=== PATIENT | female | born 1960 | race Caucasian/White ===

== ENCOUNTER 2017-08-12 09:18 | Inpatient (IN) | payer MEDICARE ==
[~2017-08-12] VITALS: Ht 160 cm; Wt 104.8 kg
[2017-08-12] MEDS ORDERED: ALBUTEROL/IPRATROPIUM 3 ML NEB NEB ONE (09:30)
[2017-08-12] MEDS ORDERED: METHYLPREDNISOLONE SOD SUCC 40 MG/ML VIAL IV ONE (10:00)
[2017-08-12 10:06] LABS: BASOPHILS # (AUTO) 0.1 (0.0-0.1); BASOPHILS % 0.7 % (0.0-1.0); EOSINOPHILS % 0.4 % (0.0-6.0); HEMATOCRIT 36.8 % (34.2-44.1); HEMOGLOBIN 11.3 g/dL (12.0-16.0); LYMPHOCYTES # (AUTO) 0.8 (1.0-3.2); LYMPHOCYTES % 9.5 % (18.0-39.1); MEAN CORPUSCULAR HEMOGLOBIN 31.7 pg (28-32); MEAN CORPUSCULAR HGB CONC 30.7 g/dL (31-35); MEAN CORPUSCULAR VOLUME 103.4 fL (81-99); MONOCYTES # (AUTO) 0.7 (0.2-0.8); MONOCYTES % 8.7 % (4.4-11.3); NEUTROPHILS # (AUTO) 6.2 (2.1-6.9); NEUTROPHILS % 77.5 % (38.7-80.0); PLATELET COUNT 194 x10e3/uL (140-360); RED BLOOD COUNT 3.56 x10e6/uL (3.6-5.1); RED CELL DISTRIBUTION WIDTH 16.1 % (11.7-14.4)
[2017-08-12 10:22] LABS: INR 1.12
[2017-08-12 10:23] LABS: PARTIAL THROMBOPLASTIN TIME 31.5 seconds (23.8-35.5)
--- NOTE | 2017-08-12 10:25 | Diagnostic Imaging Report ---
EXAMINATION: CHEST SINGLE (PORTABLE) INDICATION: Shortness of breath, line placement \S\ERMD ORDER \S\[id number] \S\1001 \S\Y COMPARISON: None FINDINGS: AP view TUBES and LINES: Right IJ central venous catheter with tip overlying the cavoatrial junction. LUNGS: Low lung volumes. Bilateral pulmonary edema. Bibasilar atelectasis. Both costophrenic angles not included on this exam. PLEURA: Unable to evaluate the small pleural effusions but no large pleural effusions seen. No pneumothorax on limited evaluation. HEART AND MEDIASTINUM: Marked enlargement of the cardiac silhouette may be due to cardiomegaly and/or pericardial effusion. BONES AND SOFT TISSUES: No acute osseous lesion. Soft tissues are unremarkable. UPPER ABDOMEN: No free air under the diaphragm. IMPRESSION: Right adjacent and venous catheter with tip overlying the cavoatrial junction. Marked enlargement of the cardiac silhouette due to cardiomegaly and/or pericardial effusion. Bilateral pulmonary edema. Signed by: Dr. Jeannette Rivas M.D. on 08/12/2017 10:21 AM
[2017-08-12 10:29] LABS: ALBUMIN 3.1 g/dL (3.5-5.0); ALBUMIN/GLOBULIN RATIO 0.8 (0.8-2.0); ANION GAP 12.1 mmol/L (8-16); CALCIUM 9.2 mg/dL (8.4-10.2); CREATININE, SERUM 2.09 mg/dL (0.57-1.11); POTASSIUM 5.1 mmol/L (3.5-5.1)
[2017-08-12 10:33] LABS: B-TYPE NATRIURETIC PEPTIDE2 1909.5 pg/mL (0-100)
[2017-08-12 10:35] LABS: CREATINE KINASE MB 2.9 ng/mL (0.00-5.00)
[2017-08-12] MEDS ORDERED: FUROSEMIDE INJ 10 MG/ML 4 ML VIAL IV ONE (10:45)
[2017-08-12] MEDS ORDERED: ETOMIDATE 2 MG/ML 10 ML INJ IV ONE ×2 (10:45→13:00)
[2017-08-12] MEDS ORDERED: SUCCINYLCHOLINE CHLORIDE 20 MG/ML 10ML VIAL ONE (10:46)
[2017-08-12] MEDS ORDERED: ETOMIDATE 2 MG/ML 10 ML INJ IV STA (10:49)
[2017-08-12] MEDS ORDERED: SUCCINYLCHOLINE CHLORIDE 20 MG/ML 10ML VIAL IV STA (10:50)
[2017-08-12 11:08] LABS: ABG PH 7.28 (7.31-7.41)
[2017-08-12 11:09] LABS: ABG HCO3 39 mmol/L (23-28); ABG PCO2 82 mmHg (41-51); ABG PO2 109 mmHg (80-105)
[2017-08-12 11:10] LABS: BAND NEUTROPHILS % (MANUAL) 12 %; LYMPHOCYTES % (MANUAL) 10 % (19-48); MONOCYTES % (MANUAL) 9 % (3.4-9.0); NEUTROPHILS % (MANUAL) 69 % (40-74); PLATELET ESTIMATE ADEQUATE; PLATELET MORPHOLOGY COMMENT NORMAL; RBC MORPHOLOGY COMMENT NORMAL
[2017-08-12] MEDS: PROPOFOL IV EMULSION 10MG/ML 100 ML IV STA ×2 (11:16→11:28)
[2017-08-12] MEDS ORDERED: PROPOFOL IV EMULSION 10MG/ML 100 ML ONE ×2 (11:17→15:27)
--- NOTE | 2017-08-12 11:19 | Diagnostic Imaging Report ---
EXAMINATION: CHEST SINGLE (PORTABLE) INDICATION: \S\intubation \S\[id number] \S\1100 COMPARISON: Chest radiograph from 08/12/2017 FINDINGS: AP view TUBES and LINES: Interval intubation with endotracheal tube tip located 2.1 cm above the john. Right IJ central venous catheter with tip now overlying the upper SVC, this appears higher when compared to most recent chest radiograph. LUNGS: No lumbar levels. Worsening bilateral pulmonary edema. Superimposed infection cannot be excluded. PLEURA: No pleural effusion or pneumothorax. HEART AND MEDIASTINUM: Marked enlargement of the cardiac silhouette may be due to cardiomegaly and/or pericardial effusion. BONES AND SOFT TISSUES: No acute osseous lesion. Soft tissues are unremarkable. UPPER ABDOMEN: No free air under the diaphragm. IMPRESSION: Interval intubation. Right IJ central venous catheter tip is higher in the SVC now. Worsening bilateral pulmonary edema. Superimposed infection cannot be excluded. Signed by: Dr. Jeannette Rivas M.D. on 08/12/2017 11:15 AM
[2017-08-12] MEDS ORDERED: LEVOFLOXACIN 750MG/D5W 150ML 150 ML IV ONE (12:00)
[2017-08-12] MEDS ORDERED: PROPOFOL IV EMULSION 10MG/ML 100 ML IV ONE (12:00)
[2017-08-12 12:22] LABS: BILIRUBIN,URINE 1+ (NEGATIVE); CLARITY,URINE HAZY (CLEAR); COLOR,URINE YELLOW (YELLOW); KETONES,URINE NEGATIVE (NEGATIVE); LEUKOCYTE ESTERASE ,URINE NEGATIVE (NEGATIVE); NITRITE,URINE NEGATIVE (NEGATIVE); URINE UROBILINOGEN 1 mg/dL (0.2 - 1)
[2017-08-12 12:23] LABS: PROTEIN,URINE DIPSTICK 1+ (NEGATIVE)
[2017-08-12 12:35] LABS: AMORPHOUS SEDIMENT,URINE MANY (FEW); EPITHELIAL CELLS,URINE FEW /LPF; RBC,URINE 0-5 /HPF (0-5); WBC,URINE (MAN) 0-5 /HPF (0-5)
[2017-08-12] MEDS ORDERED: CEFTRIAXONE SOD 1 GM/NS 50 ML 50 ML IV SCH (13:30)
[2017-08-12] MEDS ORDERED: CEFTRIAXONE SOD 1 GM VIAL IV SCH (13:30)
[2017-08-12] MEDS: PROPOFOL IV EMULSION 10MG/ML 100 ML IV PRN ×2 (15:24→19:00)
[2017-08-12] MEDS: ALBUTEROL/IPRATROPIUM 3 ML NEB NEB SCH ×3 (15:40→22:45)
[2017-08-12 15:41] LABS: ABG HCO3 38 mmol/L (23-28); ABG PCO2 44 mmHg (41-51); ABG PH 7.55 (7.31-7.41); ABG PO2 64 mmHg (80-105)
--- NOTE | 2017-08-12 15:47 | History and Physical ---
PRIMARY CARE PROVIDER: Dr. Shaheen Matias CHIEF COMPLAINT: Respiratory failure. HISTORY OF PRESENT ILLNESS: Ms. Jose is a 57-year-old who presented with acute shortness of breath that started in the last couple of days with wheezing and dyspnea on exertion and marked respiratory distress. She was becoming somnolent here in the ER. ABG showed a pCO2 of 82 and a pH of 7.28. The patient was urgently intubated for acute respiratory failure due to hypercapnia. REVIEW OF SYSTEMS: Unobtainable as the patient is intubated. PAST MEDICAL HISTORY: Significant for COPD is all we know. MEDICATIONS: We have no list of home meds. Unclear if the patient has any kind of surgical history. PAST MEDICAL HISTORY: Her family with her son denied any history of hypertension or diabetes. ALLERGIES: SHE HAS NO KNOWN DRUG ALLERGIES. FAMILY HISTORY: Unremarkable. SOCIAL HISTORY: Again, unknown at this time. PHYSICAL EXAMINATION PSYCHIATRIC: Is unobtainable. Patient is sedated. She is morbidly obese. VITAL SIGNS: Blood pressure 122/59. She was not hypotensive at any time. Pulse is 94. She was a little more tachycardic around 114 on arrival. Temperature is 98.5, respiratory rate 30, O2 100% on the ventilator. HEENT: Her head is atraumatic. Eyes are anicteric with clear conjunctivae. Ears and nares are without erythema or discharge. She is orally intubated. NECK: Supple. No mass or thyromegaly. LYMPHATIC SYSTEM: She has no palpable cervical, axillary or inguinal adenopathy. CARDIOVASCULAR: Her heart has a regular rate and rhythm with frequent PACs and PVCs. She has no carotid bruit. She has no peripheral edema. Weak dorsal pedal pulses. RESPIRATORY: Reveals coarse breath sounds with some expiratory wheezing. She is currently being ventilated on assist control. GASTROINTESTINAL: Abdomen is soft without organomegaly, masses or tenderness. She has normal bowel sounds present. CUTANEOUS: Her skin is warm and dry to touch with no rash or skin breakdown. MUSCULOSKELETAL: Her joints are in normal alignment without erythema or swelling. She has no calf tenderness. NEUROLOGIC: Nonfocal. She is moving all extremities. She is sedated and not following commands. DIAGNOSTIC STUDIES: Initial chest x-ray showed cardiomegaly and pulmonary edema. Subsequent chest x-ray showed intubation and worsening in the pulmonary edema. Her UA is clear. Flu screen is negative. Her EKG is read as AFib/flutter, but actually appears to be normal sinus rhythm, clear P-waves and a rate of 75. It is unlikely to be a flutter. Her lactic acid is 6.2. BNP 1909.2. Troponin 0.081. Blood gas shows a pH of 7.28, 82 CO2 and 109 O2. Her chemistry shows normal electrolytes. CO2 is 36, creatinine 2.09, BUN 45 for a GFR of 24. Calcium 9.2. Glucose 143. Transaminases, bilirubin and alk phos were normal. CBC shows a white count of 8.03 with 69% neutrophils, 12% band forms, 10% lymphocytes, 9% monocytes. Hemoglobin 11.3, hematocrit 36.8, and platelet count 194,000. Coags are normal. IMPRESSION AND PLAN 1. Acute respiratory failure: The patient is being admitted to the intensive care unit on ventilator support. Pulmonology will be consulted for ventilator management. 2. Acute exacerbation of chronic obstructive pulmonary disease: The patient will be receiving aggressive nebulizer treatments, intravenous Solu-Medrol, intravenous Zithromax, and Rocephin. 3. Pxnof-ff-olwmsjw systolic heart failure: The patient is started on intravenous Lasix q.8 h. We have no old records here. Will obtain an echocardiogram to assess left ventricular function. 4. Acute kidney injury versus chronic kidney disease: The patient's renal function will be monitored while the patient is receiving Lasix. Will consider nephrology consult. 5. Hyperglycemia without history of diabetes: Will check hemoglobin A1c and place the patient on sliding scale insulin. 6. For prophylaxis, the patient will be on heparin for deep venous thrombosis prophylaxis and Pepcid for gastrointestinal prophylaxis. Job#: [id number] SETH
[2017-08-12] MEDS: AZITHROMYCIN 500MG/NS 250 ML 250 ML IV SCH (16:40)
[2017-08-12] MEDS: HEPARIN SOD (PORCINE) 5,000 UNIT/ML VIAL SC SCH ×2 (16:43→20:27)
[2017-08-12] MEDS: FAMOTIDINE 20 MG/2 ML VIAL IV SCH ×2 (16:43→20:27)
[2017-08-12] MEDS ORDERED: DEXTROSE 50% SYRINGE 50 ML IV PRN (17:00)
[2017-08-12] MEDS ORDERED: FUROSEMIDE INJ 10 MG/ML 4 ML VIAL IV SCH (17:00)
[2017-08-12] MEDS: FUROSEMIDE INJ 10 MG/ML 4 ML VIAL IV SCH ×2 (19:00→20:27)
[2017-08-12 19:38] LABS: CREATINE KINASE MB 1.7 ng/mL (0.00-5.00)
[2017-08-12 20:20] VITALS: BP 129/77
[2017-08-12] MEDS: METHYLPREDNISOLONE SOD SUCC 40 MG/ML VIAL IV SCH (20:27)
[2017-08-12] MEDS: INSULIN REGULAR, HUMAN 100 UNIT/1 ML 3ML VIAL SQ SCH (20:27)
[2017-08-13] VITALS (52 sets, daily range): BP systolic 105–148; BP diastolic 54–99
[2017-08-13] MEDS: ACETAMINOPHEN 325 MG/10 ML UDC NG PRN ×2 (00:05→04:57)
--- NOTE | 2017-08-13 02:26 | Consultation ---
DATE OF CONSULTATION: August 12, 2017 PULMONARY CRITICAL CARE CONSULTATION REASON FOR CONSULT: ICU management and respiratory failure. HPI: Ms. Jose is a 57-year-old female, patient of Dr. Matias, who presented with worsening dyspnea and shortness of breath. Patient was intubated in the emergency room. Chest x-ray is showing evidence of fluid overload and large pulmonary vasculature. Patient is morbidly obese. Currently, sedated and intubated. The source of history is the chart and the patient's daughter. Per daughter, the patient has a history of obstructive sleep apnea. She has been a smoker for 45 years and quit a year ago. She also has a history of heart failure. She uses home oxygen. She was intubated 2 months ago at [facility] with similar problems. She is noncompliant with CPAP at home. Currently, living in a hotel as she is displaced from [place]. REVIEW OF SYSTEMS: Unable to elicit any as the patient is intubated and sedated. PAST MEDICAL HISTORY: Obesity, obstructive sleep apnea, congestive heart failure, hypertension, and diabetes. FAMILY AND SOCIAL HISTORY: Ex-smoker. Smoked for 45 years. Patient does not drink. No alcohol history. PHYSICAL EXAMINATION VITAL SIGNS: Temperature 98.5, pulse of 85, blood pressure 135/75, respiratory rate of 18. SKIN: Warm and dry. HEENT: Head is atraumatic and normocephalic. Pupils reactive. She is intubated and morbidly obese. NECK: Supple. CHEST: Clear to auscultation bilaterally. Crackles on the bases. HEART: S1 and S2 audible. ABDOMEN: Soft, nontender and nondistended. EXTREMITIES: Pedal edema. NEUROLOGIC: Sedated and intubated. LABS: White count of 8000, hemoglobin 11.3 and platelets 194,000. Chemistry: Sodium 141, potassium 5.1, chloride 98, BUN 45, creatinine 2.09. AST and ALT normal. Chest x-ray: I have reviewed the images and is showing evidence of pulmonary edema with possibility of pneumonia as well. BNP is 1900. ASSESSMENT AND PLAN: Ms. Jose is a 57-year-old female who presented acute hypoxic respiratory failure. Patient has a history of chronic hypoxia, chronic obstructive pulmonary disease, obstructive sleep apnea, likely obesity hypoventilation. In looking at her body habitus, she is morbidly obese. CURRENT PROBLEMS 1. Qlolj-fa-uahbefj hypoxic and hypercapnic respiratory failure: Arterial blood gas done in the emergency room showed pCO2 of 82 and pH of 7.28. 2. Morbid obesity. 3. History of obstructive sleep apnea. 4. Likely has chronic obstructive pulmonary disease: Ex-smoker, [id number] smoking history. 5. Possibility of congestive heart failure and pulmonary hypertension as well. 6. Possible pneumonia. PLAN 1. Continue the patient on ventilator support. Currently, on FIO2 of 100% and PEEP of 5. I have changed the PEEP to 8 and decreased the FIO2 to 90% to wean the oxygen to keep the O2 sat more than or equal to 92%. 2. Agree with IV Rocephin, azithromycin and Solu-Medrol. 3. Lasix 40 mg IV q.8 h. 4. DuoNeb treatment. 5. Continue the patient on heparin subcutaneous for DVT prophylaxis. 6. Acute kidney injury is likely due to fluid overload. Hopefully, will improve with diuresis. Discussed with the patient's daughter at bedside in detail. Critical care time 45 minutes. Job#: [id number] [place]
[2017-08-13] MEDS: ALBUTEROL/IPRATROPIUM 3 ML NEB NEB SCH ×6 (03:30→23:53)
[2017-08-13 04:32] LABS: BASOPHILS % 0.2 % (0.0-1.0); HEMOGLOBIN 10.9 g/dL (12.0-16.0); LYMPHOCYTES # (AUTO) 0.5 (1.0-3.2); LYMPHOCYTES % 4.2 % (18.0-39.1); MEAN CORPUSCULAR HEMOGLOBIN 32.1 pg (28-32); MONOCYTES # (AUTO) 0.6 (0.2-0.8); MONOCYTES % 5.2 % (4.4-11.3); NEUTROPHILS # (AUTO) 9.5 (2.1-6.9); NEUTROPHILS % 89.6 % (38.7-80.0); PLATELET COUNT 233 x10e3/uL (140-360)
[2017-08-13 04:36] LABS: MEAN CORPUSCULAR VOLUME 97.1 fL (81-99)
[2017-08-13 04:50] LABS: ALBUMIN 2.7 g/dL (3.5-5.0); ALBUMIN/GLOBULIN RATIO 0.7 (0.8-2.0); ANION GAP 16.5 mmol/L (8-16); CALCIUM 8.9 mg/dL (8.4-10.2); CREATININE, SERUM 2.1 mg/dL (0.57-1.11)
[2017-08-13 05:07] LABS: POTASSIUM 3.5 mmol/L (3.5-5.1)
[2017-08-13 05:25] LABS: CREATINE KINASE MB 0.9 ng/mL (0.00-5.00)
[2017-08-13] MEDS: FUROSEMIDE INJ 10 MG/ML 4 ML VIAL IV SCH ×3 (06:25→21:55)
[2017-08-13] MEDS: INSULIN REGULAR, HUMAN 100 UNIT/1 ML 3ML VIAL SQ SCH ×2 (07:30→11:30)
--- NOTE | 2017-08-13 07:36 | Diagnostic Imaging Report ---
Examination: Single AP view of the chest. COMPARISON: August 12, 2017 INDICATION: Respiratory failure DISCUSSION: Lines/tubes: Stable endotracheal tube, enteric tube, and right IJ catheter. Lungs: Stable interstitial and alveolar consolidation bilaterally. Pleura: Layering effusions. Heart and mediastinum: Heart size enlarged. Bones and soft tissues: No acute bony abnormalities. IMPRESSION: 1. Cardiomegaly with stable pulmonary edema. Correlate for underlying pneumonia. Signed by: Dr. Demar Wilder M.D. on 08/13/2017 7:32 AM
[2017-08-13 08:55] LABS: MAGNESIUM 1.6 MG/DL (1.3-2.1)
[2017-08-13] MEDS: PROPOFOL IV EMULSION 10MG/ML 100 ML IV PRN ×5 (09:01→21:30)
[2017-08-13 09:15] LABS: B-TYPE NATRIURETIC PEPTIDE2 693.7 pg/mL (0-100)
[2017-08-13] MEDS: FAMOTIDINE 20 MG/2 ML VIAL IV SCH ×2 (09:19→21:55)
[2017-08-13] MEDS: METHYLPREDNISOLONE SOD SUCC 40 MG/ML VIAL IV SCH (09:19)
[2017-08-13] MEDS: HEPARIN SOD (PORCINE) 5,000 UNIT/ML VIAL SC SCH ×2 (09:19→21:55)
[2017-08-13 11:04] LABS: FREE T4 (FREE THYROXINE) 1.66 ng/dL (0.9-1.8); THYROID STIMULATING HORMONE 0.507 uIU/mL (0.350-4.940)
[2017-08-13 11:22] LABS: FOLATE 19.1 ng/mL (7.0-15.4)
[2017-08-13] MEDS ORDERED: DEXTROSE 50% SYRINGE 50 ML IV PRN (11:45)
[2017-08-13] MEDS ORDERED: INSULIN REGULAR, HUMAN 3ML VL 100 UNIT in SODIUM CHLORIDE 0.9% 100 ML IV SCH ×2 (12:30)
[2017-08-13] MEDS ORDERED: POTASSIUM CHLORIDE 20MEQ/100ML 200 ML IV ONE (13:00)
[2017-08-13] MEDS: AZITHROMYCIN 500MG/NS 250 ML 250 ML IV SCH (13:45)
[2017-08-13] MEDS: INSULIN DETEMIR 100 UNIT/ML PEN SQ SCH ×2 (13:45→21:55)
[2017-08-13] MEDS ORDERED: SODIUM CHLORIDE 0.9% 250ML 250 ML ONE (13:47)
--- NOTE | 2017-08-13 17:21 | Diagnostic Imaging Report ---
Exam:Abdominal radiograph one view History:Enteric tube placement Comparison: None available Findings:See impression Impression: Nonobstructive bowel gas pattern. Enteric tube with the distal tip left hemiabdomen presumably in the lateral stomach body. Signed by: Dr. Demar Wilder M.D. on 08/13/2017 5:18 PM
[2017-08-13] MEDS ORDERED: POTASSIUM CHLORIDE 20MEQ/100ML 100 ML ONE (17:40)
[2017-08-13] MEDS ORDERED: INSULIN REGULAR, HUMAN 100 UNIT/1 ML 3ML VIAL ONE (18:01)
[2017-08-13] MEDS ORDERED: INSULIN REGULAR, HUMAN 100 UNIT/1 ML 3ML VIAL SQ SCH (21:00)
[2017-08-13] MEDS ORDERED: METHYLPREDNISOLONE SOD SUCC 40 MG/ML VIAL IV SCH (21:00)
[2017-08-14] VITALS (91 sets, daily range): BP systolic 97–147; BP diastolic 52–88
[2017-08-14] MEDS: PROPOFOL IV EMULSION 10MG/ML 100 ML IV PRN ×8 (01:20→23:00)
[2017-08-14] MEDS: ALBUTEROL/IPRATROPIUM 3 ML NEB NEB SCH ×6 (03:50→23:14)
[2017-08-14] MEDS: FUROSEMIDE INJ 10 MG/ML 4 ML VIAL IV SCH ×3 (05:33→22:00)
[2017-08-14 05:38] LABS: BASOPHILS % 0.1 % (0.0-1.0); HEMATOCRIT 34.3 % (34.2-44.1); HEMOGLOBIN 11.1 g/dL (12.0-16.0); LYMPHOCYTES # (AUTO) 0.6 (1.0-3.2); LYMPHOCYTES % 6.6 % (18.0-39.1); MEAN CORPUSCULAR HEMOGLOBIN 31.7 pg (28-32); MEAN CORPUSCULAR HGB CONC 32.4 g/dL (31-35); MONOCYTES # (AUTO) 0.5 (0.2-0.8); MONOCYTES % 4.8 % (4.4-11.3); NEUTROPHILS # (AUTO) 8.4 (2.1-6.9); PLATELET COUNT 238 x10e3/uL (140-360); RED CELL DISTRIBUTION WIDTH 17.1 % (11.7-14.4)
[2017-08-14 05:48] LABS: ANION GAP 14.4 mmol/L (8-16); CALCIUM 8.8 mg/dL (8.4-10.2); CREATININE, SERUM 2.2 mg/dL (0.57-1.11); POTASSIUM 3.4 mmol/L (3.5-5.1)
[2017-08-14] MEDS: INSULIN REGULAR, HUMAN 100 UNIT/1 ML 3ML VIAL SQ SCH ×3 (06:27→18:38)
[2017-08-14] MEDS: INSULIN DETEMIR 100 UNIT/ML PEN SQ SCH ×2 (10:23→21:10)
[2017-08-14] MEDS: FAMOTIDINE 20 MG/2 ML VIAL IV SCH ×2 (10:23→20:51)
[2017-08-14] MEDS: METHYLPREDNISOLONE SOD SUCC 40 MG/ML VIAL IV SCH ×2 (10:23→20:51)
[2017-08-14] MEDS: HEPARIN SOD (PORCINE) 5,000 UNIT/ML VIAL SC SCH ×2 (10:24→21:10)
--- NOTE | 2017-08-14 11:20 | Diagnostic Imaging Report ---
PROCEDURE: A single AP view of the chest. COMPARISON: 08/13/17 INDICATIONS: INTUBATION FINDINGS: Lines/tubes: Stable endotracheal and nasogastric tubes. Stable right internal jugular central line. Lungs: Limited by low lung volumes and body habitus. Central vascular congestion and mild interstitial edema. Pleura: There is no visible pneumothorax. Trace bilateral pleural effusions suspected. Heart and mediastinum: Enlarged cardiomediastinal silhouette. Aorta is calcified and mildly tortuous. Bones: No acute bony abnormality. IMPRESSION: No significant interval change from prior exam. Central vascular congestion and mild interstitial edema. Enlarged cardiac silhouette and suspected trace bilateral pleural effusions. Dictated by: Luis Lakhani M.D. on 08/14/2017 at 11:29 Electronically approved by: Luis Lakhani M.D. on 08/14/2017 at 11:29
[2017-08-14] MEDS: AZITHROMYCIN 500MG/NS 250 ML 250 ML IV SCH (15:39)
[2017-08-15] VITALS (65 sets, daily range): BP systolic 85–166; BP diastolic 43–145
[2017-08-15] MEDS: INSULIN REGULAR, HUMAN 100 UNIT/1 ML 3ML VIAL SQ SCH ×4 (00:01→18:00)
[2017-08-15] MEDS: ALBUTEROL/IPRATROPIUM 3 ML NEB NEB SCH ×6 (00:15→19:15)
[2017-08-15] MEDS: PROPOFOL IV EMULSION 10MG/ML 100 ML IV PRN (01:20)
[2017-08-15 05:59] LABS: BASOPHILS % 0.1 % (0.0-1.0); HEMOGLOBIN 11.7 g/dL (12.0-16.0); LYMPHOCYTES # (AUTO) 1.2 (1.0-3.2); LYMPHOCYTES % 10.9 % (18.0-39.1); MEAN CORPUSCULAR HEMOGLOBIN 31.5 pg (28-32); MEAN CORPUSCULAR HGB CONC 31.6 g/dL (31-35); MEAN CORPUSCULAR VOLUME 99.5 fL (81-99); MONOCYTES # (AUTO) 0.5 (0.2-0.8); NEUTROPHILS # (AUTO) 8.8 (2.1-6.9); NEUTROPHILS % 83.4 % (38.7-80.0); PLATELET COUNT 265 x10e3/uL (140-360); RED BLOOD COUNT 3.72 x10e6/uL (3.6-5.1); RED CELL DISTRIBUTION WIDTH 17.2 % (11.7-14.4)
[2017-08-15 06:24] LABS: ANION GAP 16.1 mmol/L (8-16); CREATININE, SERUM 2.02 mg/dL (0.57-1.11); MAGNESIUM 2.4 MG/DL (1.3-2.1); POTASSIUM 4.1 mmol/L (3.5-5.1)
[2017-08-15] MEDS: FUROSEMIDE INJ 10 MG/ML 4 ML VIAL IV SCH ×2 (06:27→13:33)
[2017-08-15 07:15] LABS: LYMPHOCYTES % (MANUAL) 7 % (19-48); MONOCYTES % (MANUAL) 2 % (3.4-9.0); NEUTROPHILS % (MANUAL) 89 % (40-74)
[2017-08-15 07:16] LABS: PLATELET ESTIMATE ADEQUATE; PLATELET MORPHOLOGY COMMENT NORMAL; RBC MORPHOLOGY COMMENT NORMAL
--- NOTE | 2017-08-15 08:27 | Diagnostic Imaging Report ---
PROCEDURE: A single AP view of the chest. COMPARISON: Portable chest 08/14/2017. INDICATIONS: Respiratory failure, Intubated FINDINGS: Lines/tubes: Right internal jugular temporary central venous catheter with tip projecting over the expected region of the superior vena cava. Endotracheal catheter is present with the tip projecting over the expected region of the trachea, positioned 4 cm from the john. Enteric feeding catheter with tip extending below the inferior margin of the examination, likely within the gastric body. Lungs: Airspace opacity in the left lung base. No parenchymal mass. Pleura: There is no pleural effusion or pneumothorax. Heart and mediastinum: The heart and the mediastinum are unremarkable. Bones: Degenerative changes of the thoracic spine. IMPRESSION: Airspace opacity in the left lung base may represent atelectasis or developing pneumonia. Dictated by: Pranav Raymond M.D. on 08/15/2017 at 8:36 Electronically approved by: Pranav Raymond M.D. on 08/15/2017 at 8:36
[2017-08-15 08:31] LABS: ABG HCO3 47 mmol/L (23-28); ABG PCO2 64 mmHg (41-51); ABG PH 7.47 (7.31-7.41); ABG PO2 64 mmHg (80-105)
[2017-08-15] MEDS ORDERED: ACETAZOLAMIDE SODIUM 500 MG/VIAL IV ONE (09:45)
[2017-08-15] MEDS ORDERED: FUROSEMIDE INJ 10 MG/ML 4 ML VIAL IV ONE (09:45)
[2017-08-15] MEDS: HEPARIN SOD (PORCINE) 5,000 UNIT/ML VIAL SC SCH ×2 (10:00→20:41)
[2017-08-15] MEDS: FAMOTIDINE 20 MG/2 ML VIAL IV SCH ×2 (10:00→20:38)
[2017-08-15] MEDS: INSULIN DETEMIR 100 UNIT/ML PEN SQ SCH ×2 (10:00→20:53)
[2017-08-15] MEDS: METHYLPREDNISOLONE SOD SUCC 40 MG/ML VIAL IV SCH ×2 (10:00→20:38)
[2017-08-15] MEDS: AZITHROMYCIN 500MG/NS 250 ML 250 ML IV SCH (13:32)
[2017-08-15] MEDS ORDERED: DEXMEDETOMIDINE HCL 200 MCG in SODIUM CHLORIDE 0.9% 50ML 48 ML IV PRN (16:30)
[2017-08-15] MEDS ORDERED: FUROSEMIDE INJ 10 MG/ML 4 ML VIAL IV SCH (21:00)
[2017-08-15] MEDS ORDERED: ACETAMINOPHEN 325 MG SUPP PR PRN (22:30)
[2017-08-16] VITALS (25 sets, daily range): BP systolic 107–189; BP diastolic 57–105
[2017-08-16] MEDS: ALBUTEROL/IPRATROPIUM 3 ML NEB NEB SCH ×7 (00:15→20:30)
[2017-08-16] MEDS: INSULIN REGULAR, HUMAN 100 UNIT/1 ML 3ML VIAL SQ SCH ×4 (05:32→17:08)
[2017-08-16 06:08] LABS: BASOPHILS % 0.2 % (0.0-1.0); HEMATOCRIT 41.5 % (34.2-44.1); HEMOGLOBIN 12.7 g/dL (12.0-16.0); LYMPHOCYTES # (AUTO) 1.4 (1.0-3.2); LYMPHOCYTES % 13.1 % (18.0-39.1); MEAN CORPUSCULAR HEMOGLOBIN 31.4 pg (28-32); MEAN CORPUSCULAR HGB CONC 30.6 g/dL (31-35); MEAN CORPUSCULAR VOLUME 102.5 fL (81-99); MONOCYTES # (AUTO) 0.5 (0.2-0.8); MONOCYTES % 4.5 % (4.4-11.3); NEUTROPHILS # (AUTO) 8.5 (2.1-6.9); NEUTROPHILS % 81.6 % (38.7-80.0); PLATELET COUNT 261 x10e3/uL (140-360); RED BLOOD COUNT 4.05 x10e6/uL (3.6-5.1); RED CELL DISTRIBUTION WIDTH 17.2 % (11.7-14.4)
[2017-08-16 06:39] LABS: CALCIUM 9.4 mg/dL (8.4-10.2); CREATININE, SERUM 2.11 mg/dL (0.57-1.11); MAGNESIUM 2.6 MG/DL (1.3-2.1)
[2017-08-16] MEDS: METHYLPREDNISOLONE SOD SUCC 40 MG/ML VIAL IV SCH ×2 (08:28→21:15)
[2017-08-16] MEDS: FAMOTIDINE 20 MG/2 ML VIAL IV SCH ×2 (08:28→21:15)
[2017-08-16] MEDS: INSULIN DETEMIR 100 UNIT/ML PEN SQ SCH ×2 (08:29→21:16)
[2017-08-16] MEDS: HEPARIN SOD (PORCINE) 5,000 UNIT/ML VIAL SC SCH ×2 (08:29→21:16)
[2017-08-16] MEDS ORDERED: DEXTROSE 5% 500ML 500 ML IV SCH (08:30)
[2017-08-16 08:44] LABS: LYMPHOCYTES % (MANUAL) 9 % (19-48); NEUTROPHILS % (MANUAL) 90 % (40-74)
[2017-08-16 08:45] LABS: PLATELET ESTIMATE ADEQUATE; PLATELET MORPHOLOGY COMMENT FEW GIANT; RBC MORPHOLOGY COMMENT NORMAL
[2017-08-16] MEDS: DEXTROSE 5% 1,000 ML IV SCH (08:45)
--- NOTE | 2017-08-16 11:46 | Diagnostic Imaging Report ---
PROCEDURE:US CHEST (INCL MEDIASTINUM) COMPARISON:Patients [facility], DX, CHEST SINGLE (PORTABLE), 08/15/2017, 7:49. INDICATIONS:left effusion TECHNIQUE:Grayscale ultrasound chest bilaterally FINDINGS: No evidence of pleural effusion bilaterally. CONCLUSION: No conspicuous pleural effusion. Dictated by: Hubert Kirk M.D. on 08/16/2017 at 11:55 Electronically approved by: Hubert Kirk M.D. on 08/16/2017 at 11:55
[2017-08-17] VITALS (7 sets, daily range): BP systolic 112–155; BP diastolic 57–76
[2017-08-17] MEDS: INSULIN REGULAR, HUMAN 100 UNIT/1 ML 3ML VIAL SQ SCH ×4 (00:10→20:46)
[2017-08-17] MEDS: DEXTROSE 5% 1,000 ML IV SCH (00:22)
[2017-08-17] MEDS: ALBUTEROL/IPRATROPIUM 3 ML NEB NEB SCH ×5 (03:50→23:10)
[2017-08-17 06:42] LABS: ANION GAP 14.2 mmol/L (8-16); CALCIUM 9.1 mg/dL (8.4-10.2); CREATININE, SERUM 1.69 mg/dL (0.57-1.11); POTASSIUM 4.2 mmol/L (3.5-5.1)
[2017-08-17] MEDS: FAMOTIDINE 20 MG/2 ML VIAL IV SCH ×2 (09:23→20:43)
[2017-08-17] MEDS: METHYLPREDNISOLONE SOD SUCC 40 MG/ML VIAL IV SCH (09:23)
[2017-08-17] MEDS: HEPARIN SOD (PORCINE) 5,000 UNIT/ML VIAL SC SCH ×2 (09:23→20:45)
[2017-08-17] MEDS: INSULIN DETEMIR 100 UNIT/ML PEN SQ SCH ×2 (09:56→20:46)
--- NOTE | 2017-08-17 14:16 | Diagnostic Imaging Report ---
PROCEDURE: A single AP view of the chest. COMPARISON: Chest radiograph 08/15/2017 INDICATIONS: RESPIRATORY FAILURE FINDINGS: Lines/tubes: Previous right IJ central venous tip overlies the expected brachiocephalic confluence. Previous endotracheal tube currently not visualized. Lungs: Persistent retrocardiac opacity may reflect atelectasis or pneumonia. Pleura: Likely small bilateral pleural effusions. No pneumothorax. Heart and mediastinum: Stable enlargement of the cardiac silhouette. Bones: No acute bony abnormality. IMPRESSION: Persistent retrocardiac opacity may reflect atelectasis or pneumonia. Dictated by: Robbie Blanco M.D. on 08/17/2017 at 14:25 Electronically approved by: Robbie Blanco M.D. on 08/17/2017 at 14:26
[2017-08-17 17:31] LABS: ABG HCO3 33 mmol/L (23-28); ABG PCO2 60 mmHg (41-51); ABG PH 7.36 (7.31-7.41); ABG PO2 68 mmHg (80-105)
[2017-08-17] MEDS ORDERED: PREDNISONE 20 MG TAB PO SCH (21:00)
[2017-08-18] VITALS (7 sets, daily range): BP systolic 97–133; BP diastolic 45–65
[2017-08-18] MEDS: DEXTROSE 5% 1,000 ML IV SCH ×2 (00:45→22:37)
[2017-08-18] MEDS: ALBUTEROL/IPRATROPIUM 3 ML NEB NEB SCH ×6 (03:18→23:25)
[2017-08-18 06:05] LABS: BASOPHILS % 0.2 % (0.0-1.0); EOSINOPHILS # (AUTO) 0.2 (0.0-0.4); EOSINOPHILS % 1.6 % (0.0-6.0); HEMATOCRIT 40.7 % (34.2-44.1); HEMOGLOBIN 12.5 g/dL (12.0-16.0); LYMPHOCYTES # (AUTO) 2.2 (1.0-3.2); LYMPHOCYTES % 21.7 % (18.0-39.1); MEAN CORPUSCULAR HEMOGLOBIN 31.1 pg (28-32); MEAN CORPUSCULAR HGB CONC 30.7 g/dL (31-35); MEAN CORPUSCULAR VOLUME 101.2 fL (81-99); MONOCYTES # (AUTO) 0.7 (0.2-0.8); MONOCYTES % 6.8 % (4.4-11.3); NEUTROPHILS # (AUTO) 6.8 (2.1-6.9); NEUTROPHILS % 68.9 % (38.7-80.0); PLATELET COUNT 219 x10e3/uL (140-360); RED BLOOD COUNT 4.02 x10e6/uL (3.6-5.1); RED CELL DISTRIBUTION WIDTH 15.8 % (11.7-14.4)
[2017-08-18 06:41] LABS: CALCIUM 8.9 mg/dL (8.4-10.2); CREATININE, SERUM 1.5 mg/dL (0.57-1.11); MAGNESIUM 2.4 MG/DL (1.3-2.1)
[2017-08-18] MEDS: INSULIN REGULAR, HUMAN 100 UNIT/1 ML 3ML VIAL SQ SCH ×4 (07:30→22:20)
[2017-08-18] MEDS: FUROSEMIDE 40 MG TAB PO SCH (09:04)
[2017-08-18] MEDS: PREDNISONE 20 MG TAB PO SCH (09:04)
[2017-08-18] MEDS: FAMOTIDINE 20 MG/2 ML VIAL IV SCH ×2 (09:04→22:20)
[2017-08-18] MEDS: INSULIN DETEMIR 100 UNIT/ML PEN SQ SCH ×2 (09:06→22:20)
[2017-08-18] MEDS: HEPARIN SOD (PORCINE) 5,000 UNIT/ML VIAL SC SCH ×2 (09:06→22:20)
[2017-08-18] MEDS ORDERED: CHLORASEPTIC SPRAY 177 ML BTL MM PRN (11:45)
[2017-08-18] MEDS: HYDROCODONE/APAP 10MG-325MG TAB PO PRN (12:00)
[2017-08-18 12:51] LABS: ABG HCO3 35 mmol/L (23-28); ABG PCO2 67 mmHg (41-51); ABG PH 7.33 (7.31-7.41); ABG PO2 69 mmHg (80-105)
[2017-08-19] VITALS (7 sets, daily range): BP systolic 112–136; BP diastolic 55–71
[2017-08-19] MEDS: ALBUTEROL/IPRATROPIUM 3 ML NEB NEB SCH ×6 (03:30→23:10)
[2017-08-19] MEDS: INSULIN REGULAR, HUMAN 100 UNIT/1 ML 3ML VIAL SQ SCH ×4 (07:30→21:29)
[2017-08-19 07:36] LABS: BASOPHILS % 0.2 % (0.0-1.0); EOSINOPHILS # (AUTO) 0.1 (0.0-0.4); EOSINOPHILS % 1.4 % (0.0-6.0); HEMOGLOBIN 12.6 g/dL (12.0-16.0); LYMPHOCYTES # (AUTO) 2.1 (1.0-3.2); LYMPHOCYTES % 20.7 % (18.0-39.1); MEAN CORPUSCULAR HEMOGLOBIN 31.4 pg (28-32); MEAN CORPUSCULAR HGB CONC 31.5 g/dL (31-35); MEAN CORPUSCULAR VOLUME 99.8 fL (81-99); MONOCYTES # (AUTO) 0.7 (0.2-0.8); MONOCYTES % 6.4 % (4.4-11.3); NEUTROPHILS # (AUTO) 7.2 (2.1-6.9); NEUTROPHILS % 70.2 % (38.7-80.0); PLATELET COUNT 220 x10e3/uL (140-360); RED BLOOD COUNT 4.01 x10e6/uL (3.6-5.1); RED CELL DISTRIBUTION WIDTH 15.7 % (11.7-14.4)
[2017-08-19 07:56] LABS: ANION GAP 10.7 mmol/L (8-16); CALCIUM 8.2 mg/dL (8.4-10.2); CREATININE, SERUM 1.1 mg/dL (0.57-1.11); MAGNESIUM 2.2 MG/DL (1.3-2.1); POTASSIUM 3.7 mmol/L (3.5-5.1)
[2017-08-19] MEDS: FAMOTIDINE 20 MG/2 ML VIAL IV SCH ×2 (09:00→21:26)
[2017-08-19] MEDS: PREDNISONE 20 MG TAB PO SCH (09:42)
[2017-08-19] MEDS: FUROSEMIDE 40 MG TAB PO SCH (09:42)
[2017-08-19] MEDS: HEPARIN SOD (PORCINE) 5,000 UNIT/ML VIAL SC SCH ×2 (09:55→21:26)
[2017-08-19] MEDS: INSULIN DETEMIR 100 UNIT/ML PEN SQ SCH ×2 (09:55→21:28)
[2017-08-19] MEDS ORDERED: DOXYCYCLINE HYCLATE TABLET 100 MG TAB PO SCH (17:00)
[2017-08-20] VITALS: BP 110/54
[2017-08-20] MEDS: ALBUTEROL/IPRATROPIUM 3 ML NEB NEB SCH ×4 (03:05→15:00)
[2017-08-20 04:00] VITALS: BP 124/75
[2017-08-20 06:10] LABS: BASOPHILS % 0.2 % (0.0-1.0); EOSINOPHILS # (AUTO) 0.1 (0.0-0.4); EOSINOPHILS % 1.4 % (0.0-6.0); HEMATOCRIT 39.2 % (34.2-44.1); LYMPHOCYTES % 19.9 % (18.0-39.1); MEAN CORPUSCULAR HEMOGLOBIN 31.3 pg (28-32); MEAN CORPUSCULAR HGB CONC 30.6 g/dL (31-35); MEAN CORPUSCULAR VOLUME 102.1 fL (81-99); MONOCYTES # (AUTO) 0.8 (0.2-0.8); MONOCYTES % 7.8 % (4.4-11.3); NEUTROPHILS # (AUTO) 7.1 (2.1-6.9); NEUTROPHILS % 69.4 % (38.7-80.0); PLATELET COUNT 202 x10e3/uL (140-360); RED BLOOD COUNT 3.84 x10e6/uL (3.6-5.1); RED CELL DISTRIBUTION WIDTH 15.3 % (11.7-14.4)
[2017-08-20 06:32] LABS: ANION GAP 8.1 mmol/L (8-16); CALCIUM 8.9 mg/dL (8.4-10.2); CREATININE, SERUM 1.3 mg/dL (0.57-1.11); MAGNESIUM 2.2 MG/DL (1.3-2.1); POTASSIUM 4.1 mmol/L (3.5-5.1)
[2017-08-20] MEDS: INSULIN REGULAR, HUMAN 100 UNIT/1 ML 3ML VIAL SQ SCH ×2 (07:30→13:53)
[2017-08-20 08:07] VITALS: BP 98/51
[2017-08-20] MEDS: INSULIN DETEMIR 100 UNIT/ML PEN SQ SCH (08:34)
[2017-08-20] MEDS: FAMOTIDINE 20 MG/2 ML VIAL IV SCH (08:34)
[2017-08-20] MEDS: FUROSEMIDE 40 MG TAB PO SCH (08:34)
--- NOTE | 2017-08-20 08:58 | Diagnostic Imaging Report ---
EXAMINATION: Chest, CHEST SINGLE (PORTABLE) INDICATION: Chest pain COMPARISON: Portable chest 08/13/2017 FINDINGS: LINES: Right internal jugular temporary central venous catheter with tip projecting over the expected region of the superior vena cava. Heart: Normal cardiac silhouette. Vascular: The pulmonary vasculature is within normal limits. Atherosclerotic calcifications of the aortic arch. Mediastinum: No mediastinal, hilar, or axillary mass or lymphadenopathy. Lungs: No parenchymal mass. Airspace opacity in the left lung base. Pleura: Small left pleural effusion. No pneumothorax. Bones: No acute osseous abnormality. Degenerative changes of the thoracic spine. Soft tissues: Normal. Impression: Airspace opacity in the left lung base may represent a developing pneumonia. Small left pleural effusion. Signed by: Dr. Pranav Raymond M.D. on 08/20/2017 8:55 AM
[2017-08-20] MEDS ORDERED: PREDNISONE 10 MG TAB PO SCH (09:00)
[2017-08-20 11:05] VITALS: BP 98/51
[2017-08-20] MEDS: HYDROCODONE/APAP 10MG-325MG TAB PO PRN (11:32)
[2017-08-20] MEDS ORDERED: BACTRIM DS TAB1 EACH PO (11:34)
[2017-08-20] MEDS ORDERED: FUROSEMIDE40 MG PO ×2 (11:50→11:57)
[2017-08-20] MEDS ORDERED: COMBIVENT RESPIM4 GM IH (11:51)
[2017-08-20] MEDS ORDERED: PREDNISONE10 MG PO (11:57)
[2017-08-20] MEDS ORDERED: Albuterol/Ipratropium Nebulize NEB (11:57)
[2017-08-20] MEDS ORDERED: VANCOMYCIN 1GM/NS 250 ML 250 ML IV ONE (12:30)
[2017-08-20 12:35] VITALS: BP 112/51
[2017-08-20] MEDS: HEPARIN SOD (PORCINE) 5,000 UNIT/ML VIAL SC SCH (13:54)
--- NOTE | 2017-08-22 18:39 | Discharge Summary ---
ADMISSION DIAGNOSES 1. Acute respiratory failure. 2. Acute exacerbation of chronic obstructive pulmonary disease. 3. Awfqp-fl-yqtteky systolic heart failure. 4. Acute kidney injury versus chronic kidney disease. 5. Hyperglycemia. DISCHARGE DIAGNOSES 1. Acute respiratory failure. 2. Acute exacerbation of chronic obstructive pulmonary disease. 3. Fyryb-qw-xqzilpb systolic heart failure. 4. Acute kidney injury versus chronic kidney disease. 5. Hyperglycemia. 6. Ruled out influenza. 7. Hypermagnesemia. HISTORY: The patient has a history of COPD, diabetes, CHF, CKD. HOSPITAL COURSE: A 57-year-old female presented with shortness of breath that started a couple of days ago and also complains of wheezing, dyspnea on exertion and respiratory distress. ABG was done in the ER that showed a pCO2 of 82 and a pH of 7.28. The patient was intubated due to hypercapnia. The patient was initially put in ICU on ventilator support and pulmonary was consulted. The patient was started on aggressive nebulizer treatment, IV Solu-Medrol, Zithromax and Rocephin. The patient also started on Lasix q.8 h. Echo was done that showed EF of 55% to 60% and mild mitral regurg present. Chest x-ray on admission showed enlargement of cardiac silhouette due to cardiomegaly and/or pericardial effusion, bilateral pulmonary edema. Ultrasound of the chest showed no pleural effusion. Blood cultures were negative. Urine culture was negative. A few days after admission, a sputum culture was completed that showed MRSA. Dr. Williamson, account liaison, was consulted to take care of the ventilator. The patient was started on FiO2 of 100%, PEEP of 5, decreased to PEEP of 8 and FiO2 of 90. The patient was weaned off but continued IV antibiotics and Solu-Medrol along with Lasix q.8 h. The patient was given IV vancomycin after the sputum culture came back positive for MRSA. Lasix was tapered down to 40 mg daily. The patient will be discharged home with family as she has oxygen at home and all the ME equipment that she needs. She is requesting BiPAP for home and has done a sleep apnea study about a year ago. Case management sent documentation to try to get her that at home. She will follow up with pulmonary in 1-2 weeks and will resume all home medicines plus Bactrim meds, prednisone and Lasix. Dictated by: Ayde Dinh, LACE MENDER JON CRAVEN MD Job#: [id number] [place]
== END 2017-08-20 16:52 | disposition home or self-care (01) | DRG 208 ==
LOC: ER 09:18 → ERHOLD 11:57 → ICU 08-13 07:31 → MED/SURG2 08-16 18:49
PROVIDERS: ADMIT Internal Medicine; ATTEND Internal Medicine
PROC: 5A1945Z Respiratory Ventilation, 24-96 Consecutive Hours (ICD-10-PCS; principal; 2017-08-12)
PROC: 0BH17EZ Insertion of Endotracheal Airway into Trachea, Via Natural or Artificial Opening (ICD-10-PCS; principal; 2017-08-12)
PROC: 5A09357 Assistance with Respiratory Ventilation, Less than 24 Consecutive Hours, Continuous Positive Airway Pressure (ICD-10-PCS; 2017-08-12)
DX: J96.21 Acute and chronic respiratory failure with hypoxia (principal); I50.23 Acute on chronic systolic (congestive) heart failure; J18.9 Pneumonia, unspecified organism; N17.9 Acute kidney failure, unspecified; N18.4 Chronic kidney disease, stage 4 (severe); E87.0 Hyperosmolality and hypernatremia; I13.0 Hypertensive heart and chronic kidney disease with heart failure and stage 1 through stage 4 chronic kidney disease, or unspecified chronic kidney disease; E11.22 Type 2 diabetes mellitus with diabetic chronic kidney disease; J44.1 Chronic obstructive pulmonary disease with (acute) exacerbation; E66.2 Morbid (severe) obesity with alveolar hypoventilation; Z68.41 Body mass index [BMI] 40.0-44.9, adult; J44.0 Chronic obstructive pulmonary disease with (acute) lower respiratory infection; J96.22 Acute and chronic respiratory failure with hypercapnia; Z87.891 Personal history of nicotine dependence; Z99.81 Dependence on supplemental oxygen; Z91.19 Patient's noncompliance with other medical treatment and regimen; E11.65 Type 2 diabetes mellitus with hyperglycemia; I34.0 Nonrheumatic mitral (valve) insufficiency; E83.41 Hypermagnesemia; Z88.0 Allergy status to penicillin
CPT/HCPCS: 31500; 36415; 36555; 36600; 71045; 74018; 76604; 80048; 80053; 81001; 82550; 82553; 82607; 82746; 82805; 82948; 83036; 83540; 83605; 83735; 83880; 84439; 84443; 84466; 84484; 85025; 85610; 85730; 87040; 87070; 87086; 87186; 87205; 87400; 93005; 93306; 94002; 94003; 94640; 94660; 94760; 96360; 96372; 97139; 99285; J0330; J0456; J0696; J1644; J1940; J2920; J3370; J3480; J7050; J7060; J7070

== ENCOUNTER 2017-09-18 16:16 | Inpatient (IN) | payer MEDICARE ==
[~2017-09-18] VITALS: Ht 152.4 cm; Wt 127.2 kg
[~2017-09-18 16:16] MED LIST: Albuterol/Ipratropium Nebulize NEB; BACTRIM DS TAB1 EACH PO; COMBIVENT RESPIM4 GM IH; FUROSEMIDE40 MG PO; LIDOCAINE HCL 2% LOCAL INJ 5 ML SDV VIAL INJ ONE; PREDNISONE10 MG PO; PROPOFOL IV EMULSION 10 MG/ML 50 ML VIAL ONE
--- OUTSIDE RECORDS SUMMARY | 2017-09-18 16:18 | XMS REPORT | Continuity of Care Document ---
Author Author [facility] Organization [facility] Address [address] [place] [address] Phone Unavailable Care Team Providers Care Neurology Physician Assistant Name Role Phone JON CRAVEN MD PCP Insurance Providers Guarantor Corrine Jose Address [address] [place] [address] Email [email or web address] Payer [employer] Medicare Complete Policy Number [id number] Subscriber's Name DamonCorrine Relationship 18 Self / Same As Patient Effective Date 17 Advance Directives Directive Response Recorded Date/Time Does the patient have an advance directive? No 08/13/17 12:53pm If yes, is advance directive on file with [facility]? No 08/13/17 12:53pm If not on file with [facility] will patient provide a copy? No 08/13/17 12:53pm Do you have a Directive to Physician? No 08/12/17 10:10am Do you have a Medical Power of Community Relations Police Lieutenant? No 08/12/17 10:10am Do you have an out of hospital Do Not Resuscitate Order? No 08/12/17 10:10am Do you have any special needs we should be aware of? No 08/12/17 10:10am Do you have a support person here with you today? Yes 08/12/17 10:10am Did patient receive Notice of Privacy Practices? Yes 08/12/17 10:10am Did patient receive patient rights and responsibilities? Yes 08/12/17 10:10am Problems No problem information available. Medications Current Home Medications Medication Dose Units Route Directions Days Qty Instructions Start Date Albuterol/Ipratropium Nebulize 3 Ml Inha 3 Ml Nebullizer Rt Q4h 30 Days 08/20/17 Furosemide 40 Mg Tablet 40 Mg Oral Daily 30 Tab Furosemide 40 Mg Tablet 40 Mg Oral Daily 30 Days 08/20/17 Ipratropium/Albuterol Sulfate (Combivent Respimat Inhal [place]) 4 Gm Aer.w.adap 4 Gm Inhalation Twice A Day Prednisone 10 Mg Tab 10 Mg Oral Daily 5 Days 08/20/17 Sulfamethoxazole/Trimethoprim (Bactrim Ds Tablet) 1 Each Tablet 1 Each Oral Twice A Day 20 Days 08/20/17 Social History Social History Problem Response Recorded Date/Time Onset Date Status Hx Psychiatric Problems No 08/13/2017 12:53pm Not Applicable Not Applicable Hx Eating Disorder No 08/13/2017 12:53pm Not Applicable Not Applicable Hx Substance Use Disorder No 08/13/2017 12:53pm Not Applicable Not Applicable Hx Depression No 08/13/2017 12:53pm Not Applicable Not Applicable Hx Alcohol Use No 08/13/2017 12:53pm Not Applicable Not Applicable Hx Substance Use Treatment No 08/13/2017 12:53pm Not Applicable Not Applicable Hx Physical Abuse No 08/13/2017 12:53pm Not Applicable Not Applicable Smoking Status Start Date Stop Date Former smoker Hospital Discharge Instructions No hospital discharge instruction information available. Plan of Care Discharge Date 08/20/17 4:52pm Disposition HOME, SELF-CARE Instructions/Education Provided Pneumonia - Bacterial Prescriptions See Medication Section Referrals MOHIT ACOSTA MD (Pulmonary) Order Date: 3 Weeks Entered Date: 08/20/2017 11:35am Address: [address] [place] [address] [place] [address] Additional Instructions/Education DIABETIC DIET Functional Status Query Response Date Recorded FUNCTIONAL STATUS . August 16, 2017 11:46am Assistive Devices Standard Walker August 13, 2017 9:00am Ambulation Ability Minimum Assistance August 13, 2017 9:00am Toileting Ability Minimum Assistance August 20, 2017 1:49pm Allergies, Adverse Reactions, Alerts Allergen Type Severity Reaction Status Last Updated Penicillin Allergy Severe ITCHING, ANAPHYLAXIS Active 08/12/17 Sulfa (Sulfonamide Antibiotics) Allergy Intermediate Active 08/12/17 Naproxen Allergy Intermediate Active 08/12/17 Immunizations No immunization information available. Vital Signs Acute Vital Signs Vital Response Date/Time Temperature (Fahrenheit) 96.1 degrees F (97.6 - 99.5) 08/20/2017 12:35pm Pulse Pulse Rate (adult) 85 bpm (60 - 90) 08/20/2017 3:23pm Respiratory Rate 20 bpm (12 - 24) 08/20/2017 3:23pm Blood Pressure 112/51 mm Hg 08/20/2017 12:35pm Height 5 ft 3 in 08/14/2017 9:38am Weight 231 lb 08/17/2017 8:32am Body Mass Index 40.9 kg/m^2 08/17/2017 8:32am Results Laboratory Results Test Name Result Units Flags Reference Collection Date/Time Result Date/ Time Comments White Blood Count 10.17 x10e3/uL 4.8-10.8 08/20/2017 5:30am 08/20/2017 6:16am Red Blood Count 3.84 x10e6/uL 3.6-5.1 08/20/2017 5:30am 08/20/2017 6: 16am Hemoglobin 12.0 g/dL 12.0-16.0 08/20/2017 5:30am 08/20/2017 6:16am Hematocrit 39.2 % 34.2-44.1 08/20/2017 5:30am 08/20/2017 6:16am Mean Corpuscular Volume 102.1 fL H 81-99 08/20/2017 5:30am 08/20/2017 6: 16am Mean Corpuscular Hemoglobin 31.3 pg 28-32 08/20/2017 5:30am 08/20/2017 6:16am Mean Corpuscular Hemoglobin Concent 30.6 g/dL L 31-35 08/20/2017 5:30am 08/20/2017 6:16am Red Cell Distribution Width 15.3 % H 11.7-14.4 08/20/2017 5:2017 6:16am Platelet Count 202 x10e3/uL 140-360 08/20/2017 5:08/20/2017 6: 16am Neutrophils (%) (Auto) 69.4 % 38.7-80.0 08/20/2017 5:08/20/2017 6: 16am Lymphocytes (%) (Auto) 19.9 % 18.0-39.1 08/20/2017 5:08/20/2017 6: 16am Monocytes (%) (Auto) 7.8 % 4.4-11.3 08/20/2017 5:08/20/2017 6: 16am Eosinophils (%) (Auto) 1.4 % 0.0-6.0 08/20/2017 5:08/20/2017 6: 16am Basophils (%) (Auto) 0.2 % 0.0-1.0 08/20/2017 5:08/20/2017 6:16am IM GRANULOCYTES % 1.3 % H 0.0-1.0 08/20/2017 5:08/20/2017 6:16am Neutrophils # (Auto) 7.1 H 2.1-6.9 08/20/2017 5:08/20/2017 6: 16am Lymphocytes # (Auto) 2.0 1.0-3.2 08/20/2017 5:08/20/2017 6:16am Monocytes # (Auto) 0.8 0.2-0.8 08/20/2017 5:08/20/2017 6:16am Eosinophils # (Auto) 0.1 0.0-0.4 08/20/2017 5:08/20/2017 6:16am Basophils # (Auto) 0.0 0.0-0.1 08/20/2017 5:08/20/2017 6:16am Absolute Immature Granulocyte (auto 0.13 x10e3/uL H 0-0.1 08/20/2017 5: 08/20/2017 6:16am Differential Total Cells Counted 100 08/16/2017 5:0008/16/2017 8 :45am Neutrophils % (Manual) 90 % H 40-74 08/16/2017 5:00am 08/16/2017 8:45am Band Neutrophils % 12 % 08/12/2017 9:03am 08/12/2017 11:10am Lymphocytes % (Manual) 9 % L 19-48 08/16/2017 5:00am 08/16/2017 8:45am Monocytes % (Manual) 2 % L 3.4-9.0 08/15/2017 5:25am 08/15/2017 7:16am Reactive Lymphocytes 1 08/16/2017 5:00am 08/16/2017 8:45am Platelet Estimate ADEQUATE 08/16/2017 5:00am 08/16/2017 8:45am Platelet Morphology Comment FEW GIANT 08/16/2017 5:00am 08/16/2017 8:45am Red Cell Morphology Comment NORMAL 08/16/2017 5:00am 08/16/2017 8: 45am Prothrombin Time 15.0 seconds H 11.9-14.5 08/12/2017 9:03am 08/12/2017 10:32am Prothromb Time International Ratio 1.12 08/12/2017 9:03am 2017 10:32am Oral Anticoagulant Therapy INR Values: 1. Low Intensity Therapy 1.5 - 2.0 2. Moderate Intensity Therapy 2.0 - 3.0 3. High Intensity Therapy(1) 2.5 - 3.5 4. High Intensity Therapy(2) 3.0 - 4.0 5. Panic Value INR > 5.0 Activated Partial Thromboplast Time 31.5 seconds 23.8-35.5 08/12/2017 9: 03am 08/12/2017 10:32am Urine Color YELLOW YELLOW 08/12/2017 12:00pm 08/12/2017 12:23pm Urine Clarity HAZY CLEAR 08/12/2017 12:00pm 08/12/2017 12:23pm Urine Specific [place] 1.025 1.010-1.025 08/12/2017 12:00pm 2017 12:23pm Urine pH 5 5 - 7 08/12/2017 12:00pm 08/12/2017 12:23pm Urine Leukocyte Esterase NEGATIVE NEGATIVE 08/12/2017 12:00pm 2017 12:23pm Urine Nitrite NEGATIVE NEGATIVE 08/12/2017 12:00pm 08/12/2017 12: 23pm Urine Protein 1+ H NEGATIVE 08/12/2017 12:00pm 08/12/2017 12:23pm Urine Glucose (UA) NEGATIVE NEGATIVE 08/12/2017 12:00pm 08/12/2017 12 :23pm Urine Ketones NEGATIVE NEGATIVE 08/12/2017 12:00pm 08/12/2017 12: 23pm Urine Urobilinogen 1 mg/dL 0.2 - 1 08/12/2017 12:00pm 08/12/2017 12: 23pm Urine Bilirubin 1+ H NEGATIVE 08/12/2017 12:00pm 08/12/2017 12:23pm Urine Blood NEGATIVE NEGATIVE 08/12/2017 12:00pm 08/12/2017 12:23pm Urine WBC 0-5 /HPF 0-5 08/12/2017 12:00pm 08/12/2017 12:35pm Urine RBC 0-5 /HPF 0-5 08/12/2017 12:00pm 08/12/2017 12:35pm Urine Bacteria NONE /HPF NONE 08/12/2017 12:00pm 08/12/2017 12:35pm Urine Epithelial Cells FEW /LPF NONE 08/12/2017 12:00pm 08/12/2017 12: 35pm Urine Amorphous Sediment MANY H FEW 08/12/2017 12:00pm 08/12/2017 12: 35pm Sodium Level 140 mmol/L 136-145 08/20/2017 5:30am 08/20/2017 6:39am Potassium Level 4.1 mmol/L 3.5-5.1 08/20/2017 5:30am 08/20/2017 6:39am Chloride Level 102 mmol/L 98-107 08/20/2017 5:30am 08/20/2017 6:39am Influenza Virus Types A,B Antigen NEGATIVE NEGATIVE 08/12/2017 10: 13am 08/12/2017 10:46am Carbon Dioxide Level 34 mmol/L H 22-08/20/2017 5:30am 08/20/2017 6: 39am Anion Gap 8.1 mmol/L 8-16 08/20/2017 5:30am 08/20/2017 6:39am Blood Urea Nitrogen 54 mg/dL H 7-08/20/2017 5:30am 08/20/2017 6:39am Creatinine 1.30 mg/dL H 0.57-1.11 08/20/2017 5:30am 08/20/2017 6:39am BUN/Creatinine Ratio 42 H 6-25 08/20/2017 5:30am 08/20/2017 6:39am Estimat Glomerular Filtration Rate 42 ML/MIN L 60- 08/20/2017 5:30am 10/2017 6:39am Ranges were taken from the National Kidney Disease Education Program and the National Kid[employer] Foundation literature. Reference ranges: 60 or greater: Normal 16-59 (for 3 consecutive months): Chronic kidney disease 15 or less: Kidney failure Glucose Level 167 mg/dL H 74-118 08/20/2017 5:30am 08/20/2017 6:39am Calcium Level 8.9 mg/dL 8.4-10.2 08/20/2017 5:30am 08/20/2017 6:39am Bedside Glucose 299 mg/dL H 70-120 08/20/2017 3:38pm 08/20/2017 4:10pm Meter ID: [id number] Hemoglobin A1c Percent 7.2 % H 4.0-7.0 08/13/2017 4:20am 08/13/2017 8: 59am Lactic Acid Level 6.2 MG/DL 4.5-19.8 08/12/2017 9:03am 08/12/2017 10: 31am Magnesium Level 2.2 MG/DL H 1.3-2.1 08/20/2017 5:30am 08/20/2017 6:39am Iron Level 41 ug/dL L 50-170 08/13/2017 4:20am 08/13/2017 8:59am Total Iron Binding Capacity 273 ug/dL 261-478 08/13/2017 4:20am 2017 8:59am Percent Iron Saturation 15 % 15-50 08/13/2017 4:20am 08/13/2017 8:59am Transferrin 195 mg/dL 180-382 08/13/2017 4:20am 08/13/2017 8:59am Total Bilirubin 0.7 mg/dL 0.2-1.2 08/13/2017 4:20am 08/13/2017 5:07am Aspartate Amino Transf (AST/SGOT) 23 IU/L 5-34 08/13/2017 4:20am 2017 5:07am Alanine Aminotransferase (ALT/SGPT) 21 IU/L 0-55 08/13/2017 4:20 5:07am Total Protein 6.5 g/dL 6.5-8.1 08/13/2017 4:2008/13/2017 5:07am Albumin 2.7 g/dL L 3.5-5.0 08/13/2017 4:2008/13/2017 5:07am Globulin 3.8 g/dL H 2.3-3.5 08/13/2017 4:2008/13/2017 5:07am Albumin/Globulin Ratio 0.7 L 0.8-2.0 08/13/2017 4:2008/13/2017 5: 07am Alkaline Phosphatase 108 IU/L 40-150 08/13/2017 4:2008/13/2017 5: 07am B-Type Natriuretic Peptide 85.2 pg/mL 0-100 08/18/2017 5:43am 2017 7:12am Creatine Kinase 40 IU/L 29-168 08/13/2017 4:2008/13/2017 5:29am Creatine Kinase MB 0.90 ng/mL 0.00-5.00 08/13/2017 4:2008/13/2017 5: 29am Troponin I 0.091 ng/mL 0-0.300 08/13/2017 4:2008/13/2017 5:29am Vitamin B12 Level 578 pg/mL 213-816 08/13/2017 4:08/13/2017 11: 23am Folate 19.1 ng/mL H 7.0-15.4 08/13/2017 4:2008/13/2017 11:23am Free Thyroxine 1.66 ng/dL 0.9-1.8 08/13/2017 4:08/13/2017 11:06am Thyroid Stimulating Hormone (TSH) 0.507 uIU/mL 0.350-4.940 08/13/2017 4: 2008/13/2017 11:06am Arterial Blood pH 7.33 7.31-7.41 08/18/2017 11:10am 08/18/2017 12: 52pm Arterial Blood Partial Pressure CO2 67 mmHg *H 41-51 08/18/2017 11:10am 08/18/2017 12:52pm Results called/hand delivered to SAW LAW at 1120 on 08/18/17 by Jeancarlos Rodriguez. RB OK. Arterial Blood Partial Pressure O2 69 mmHg L 80-105 08/18/2017 11:10am 08/18/2017 12:52pm Arterial Blood HCO3 35 mmol/L H 23-28 08/18/2017 11:10am 08/18/2017 12: 52pm Arterial Blood Base Excess 9.0 mmol/L H -2 - 3 08/18/2017 11:10am 2017 12:52pm Arterial Blood Oxygen Saturation 91.0 % L 95-98 08/18/2017 11:10am 08/18 12:52pm Microbiology Results Procedure Source Organism/Result Collection Date/Time Result Date/Time Result Status Blood Culture Blood NO GROWTH AFTER 5 DAYS, FINAL REPORT 08/12/2017 10: 57am 08/17/2017 11:38am Final Sputum Culture Sputum, Expectorated Sputum STAPHYLOCOCCUS AUREUS-MRSA 2017 8:34pm 08/20/2017 6:01am Final Procedures Procedure Status Date Provider(s) Ultrasound of chest including mediastinum Active 08/16/17 MOHIT ACOSTA MD Encounters Encounter Location Arrival/Admit Date Discharge/Depart Date Attending Provider Discharged Inpatient [facility] 08/12/17 11:57am 4:52pm JON CRAVEN MD
--- OUTSIDE RECORDS SUMMARY | 2017-09-18 16:18 | XMS REPORT ---
[facility] Address Unknown Phone Unavailable Care Team Providers Care Professor Of Art History Name Role Phone JON CRAVEN Unavailable Unavailable Problems This patient has no known problems. Allergies, Adverse Reactions, Alerts This patient has no known allergies or adverse reactions. Medications This patient has no known medications. Results Test Description Test Time Test Comments Text Results Atomic Results Result Comments CHEST SINGLE (PORTABLE) [place] [address] Patient Name: CORRINE HIGGINS MR #: [id number] : 1960 Age/Sex: 57/F Req #: [id number] [facility] Physician: JON CRAVEN MD Ordered by: Sher Calvo NP Report #: [id number] Location: MED/SURG2 Room/Bed: [facility] Procedure: [id number] DX/CHEST SINGLE (PORTABLE) Exam Date: 08/20/17 Exam Time: 0745 REPORT STATUS: Signed EXAMINATION: Chest, CHEST SINGLE (PORTABLE) INDICATION: Chest pain COMPARISON: Portable chest 08/13/2017 FINDINGS: LINES: Right internal jugular temporary central venous catheter with tip projecting over the expected region of the superior vena cava. Heart: Normal cardiac silhouette. Vascular: The pulmonary vasculature is within normal limits. Atherosclerotic calcifications of the aortic arch. Mediastinum: No mediastinal, hilar, or axillary mass or lymphadenopathy. Lungs: No parenchymal mass. Airspace opacity in the left lung base. Pleura : Small left pleural effusion. No pneumothorax. Bones: No acute osseous abnormality. Degenerative changes of the thoracic spine. Soft tissues: Normal. Impression: Airspace opacity in the left lung base may represent a developing pneumonia. Small left pleural effusion. Signed by : Dr. Joel Gutierrez M.D. on 08/20/2017 8:55 AM Dictated By: JOEL GUTIERREZ MD 4 Transcribed By: JAMSHID on 08/20/17854 COPY TO: SHER CALVO ADMINISTRATIVE ASSISTANT CHEST SINGLE (PORTABLE) [place] [address] Patient Name: CORRINE HIGGINS MR #: [id number] : 1960 Age/Sex: 57/F Req #: [id number] Adm Physician: JON RCAVEN MD Ordered by: Sher Calvo ADMINISTRATIVE ASSISTANT Report #: [id number] Location: MED/SURG Room/Bed: [facility] Procedure: [id number] DX/CHEST SINGLE (PORTABLE) Exam Date: 08/17/17 Exam Time: 1340 REPORT STATUS: Signed PROCEDURE: A single AP view of the chest. COMPARISON: Chest radiograph 08/15/2017 INDICATIONS: RESPIRATORY FAILURE FINDINGS: Lines/tubes: Previous right IJ central venous tip overlies the expected brachiocephalic confluence. Previous endotracheal tube currently not visualized. Lungs: Persistent retrocardiac opacity may reflect atelectasis or pneumonia. Pleura: Likely small bilateral pleural effusions. No pneumothorax. Heart and mediastinum: Stable enlargement of the cardiac silhouette. Bones: No acute bony abnormality. IMPRESSION: Persistent retrocardiac opacity may reflect atelectasis or pneumonia. Dictated by: Robbie Bergman M.D. on 08/17/2017 at 14: 25 Electronically approved by: Robbie Bergman M.D. on 08/17/2017 at 14: 26 Dictated By: ROBBIE BERGMAN MD 25 Transcribed By: OMAR on 08/17/171425 COPY TO: SHER CALVO NP US CHEST (INCL MEDIASTINUM) [place] [address] Patient Name: CORRINE HIGGINS MR #: [id number] : 1960 Age/Sex: 57/F Req #: [id number] Adm Physician: JON CRAVEN MD Ordered by: MOHIT ACOSTA MD Report #: [id number] Location: ICU Room/Bed: ICU [facility] ___ Procedure: [id number] US/US CHEST (INCL MEDIASTINUM) Exam Date: Exam Time: REPORT STATUS: Signed PROCEDURE: US CHEST (INCL MEDIASTINUM) COMPARISON: [facility] , , CHEST SINGLE (PORTABLE), 08/15/2017, 7:49. INDICATIONS: left effusion TECHNIQUE: Grayscale ultrasound chest bilaterally FINDINGS: No evidence of pleural effusion bilaterally. CONCLUSION: No conspicuous pleural effusion. Dictated by: Sujatha Bond M.D. on 08/16/2017 at 11:55 Electronically approved by: Sujatha Bond M.D. on 08/16/2017 at 11:55 Dictated By: SUJATHA BOND MD 115 Transcribed By: OMAR on 08/16/17 1155 COPY TO: MOHIT ACOSTA MD CHEST SINGLE (PORTABLE) [address] [address] Patient Name: CORRINE HIGGINS MR #: [id number] : 1960 Age/Sex: 57/F Req #: [id number] Adm Physician: JON CRAVEN MD Ordered by: MOHIT ACOSTA MD Report #: [id number] Location: ICU Room/Bed: ICU [facility] ___ Procedure: [id number] DX/CHEST SINGLE (PORTABLE) Exam Date: 08/15/17 Exam Time: 0740 REPORT STATUS: Signed PROCEDURE: A single AP view of the chest. COMPARISON: Portable chest 08/14/2017. INDICATIONS: Respiratory failure, Intubated FINDINGS: Lines/tubes: Right internal jugular temporary central venous catheter with tip projecting over the expected region of the superior vena cava. Endotracheal catheter is present with the tip projecting over the expected region of the trachea, positioned 4 cm from the john. Enteric feeding catheter with tip extending below the inferior margin of the examination, likely within the gastric body. Lungs: Airspace opacity in the left lung base. No parenchymal mass. Pleura: There is no pleural effusion or pneumothorax. Heart and mediastinum: The heart and the mediastinum are unremarkable. Bones: Degenerative changes of the thoracic spine. IMPRESSION: Airspace opacity in the left lung base may represent atelectasis or developing pneumonia. Dictated by: Joel Gutierrez M.D. on 08/15/2017 at 8:36 Electronically approved by: Joel Gutierrez M.D. on 08/15/2017 at 8:36 Dictated By: JOEL GUTIERREZ MD 5 Transcribed By: OMAR on 08/15/17835 COPY TO: MOHIT ACOSTA MD CHEST SINGLE (PORTABLE) [address] [address] Patient Name: CORRINE HIGGINS MR #: [id number] : 1960 Age/Sex: 57/F Req #: [id number] Adm Physician: JON CRAVEN MD Ordered by: MOHIT ACOSTA MD Report #: [id number] Location: ICU Room/Bed: ICU [facility] ___ Procedure: [id number] DX/CHEST SINGLE (PORTABLE) Exam Date: 08/14/17 Exam Time: 0910 REPORT STATUS: Signed PROCEDURE: A single AP view of the chest. COMPARISON: 08/13/17 INDICATIONS: INTUBATION FINDINGS: Lines/tubes: Stable endotracheal and nasogastric tubes. Stable right internal jugular central line. Lungs: Limited by low lung volumes and body habitus. Central vascular congestion and mild interstitial edema. Pleura: There is no visible pneumothorax. Trace bilateral pleural effusions suspected. Heart and mediastinum: Enlarged cardiomediastinal silhouette. Aorta is calcified and mildly tortuous. Bones: No acute bony abnormality. IMPRESSION: No significant interval change from prior exam. Central vascular congestion and mild interstitial edema. Enlarged cardiac silhouette and suspected trace bilateral pleural effusions. Dictated by: Luis Arzola M.D. on 08/14/2017 at 11:29 Electronically approved by: Luis Arzola M.D. on 08/14/2017 at 11:29 Dictated By: LUIS ARZOLA MD 28 Transcribed By: OMAR on 08/14/171128 COPY TO: MOHIT ACOSTA MD [facility] ([place] [address] Patient Name: CORRINE HIGGINS MR #: [id number] : 1960 Age/Sex: 57/F Req # : [id number] Adm Physician: JON CRAVEN MD Ordered by: JON CRAVEN MD Report #: [id number] Location: ICU Room/Bed: ICU 196-1 Procedure: [id number] DX/ABDOMEN-1VIEW (KUB) Exam Date: 08/13/17 Exam Time: 1630 REPORT STATUS: Signed Exam:Abdominal radiograph one view History:Enteric tube placement Comparison: None available Findings:See impression Impression: Nonobstructive bowel gas pattern. Enteric tube with the distal tip left hemiabdomen presumably in the lateral stomach body. Signed by: Dr. Jada Cordon M.D. on 08/13/2017 5:18 PM Dictated By: JADA CORDON MD 17 Transcribed By: JAMSHID on 08/13/171717 COPY TO: JON CRAVEN MD [facility] (PORTABLE) [place] [address] Patient Name: CORRINE HIGGINS MR #: [id number] : 1960 Age/Sex: 57/F Req #: [id number] Adm Physician: JON CRAVEN MD Ordered by: JON CRAVEN MD Report #: [id number] Location: ICU Room/Bed: ICU 196- _ Procedure: [id number] DX/CHEST SINGLE (PORTABLE) Exam Date : 08/13/17 Exam Time: 0640 REPORT STATUS: Signed Examination: Single AP view of the chest. COMPARISON: July INDICATION: Respiratory failure DISCUSSION: Lines/ tubes: Stable endotracheal tube, enteric tube, and right IJ catheter. Lungs: Stable interstitial and alveolar consolidation bilaterally. Pleura : Layering effusions. Heart and mediastinum: Heart size enlarged. Bones and soft tissues: No acute bony abnormalities. IMPRESSION: 1. Cardiomegaly with stable pulmonary edema. Correlate for underlying pneumonia. Signed by: Dr. Jada Cordon M.D. on 08/13/2017 7:32 AM Dictated By: JADA CORDON MD 1 Transcribed By: JAMSHID on 08/13/17731 COPY TO: JON CRAVEN MD CHEST SINGLE (PORTABLE) [place] [address] Patient Name: CORIRNE HIGGINS MR #: [id number] : 1960 Age/Sex: 57/F Req #: [id number] Adm Physician: Ordered by: ROSALIE SOLOMON MD Report #: [id number] Location: ER Room/Bed: Procedure: [id number] DX/CHEST SINGLE (PORTABLE) Exam Date: 08/12/17 Exam Time: 1100 REPORT STATUS: Signed EXAMINATION: CHEST SINGLE (PORTABLE) INDICATION: COMPARISON: Chest radiograph from 08/12/2017 FINDINGS: AP view TUBES and LINES: Interval intubation with endotracheal tube tip located 2.1 cm above the john. Right IJ central venous catheter with tip now overlying the upper SVC, this appears higher when compared to most recent chest radiograph. LUNGS: No lumbar levels. Worsening bilateral pulmonary edema. Superimposed infection cannot be excluded. PLEURA: No pleural effusion or pneumothorax. HEART AND MEDIASTINUM: Marked enlargement of the cardiac silhouette may be due to cardiomegaly and/or pericardial effusion. BONES AND SOFT TISSUES: No acute osseous lesion. Soft tissues are unremarkable. UPPER ABDOMEN: No free air under the diaphragm. IMPRESSION: Interval intubation. Right IJ central venous catheter tip is higher in the SVC now. Worsening bilateral pulmonary edema. Superimposed infection cannot be excluded. Signed by: Dr. Jeannette Major M.D. on 08/12/2017 11:15 AM Dictated By: JEANNETTE MAJOR MD 1115 Transcribed By: JAMSHID on 08/12/17 1115 COPY TO: ROSALIE SOLOMON MD CHEST SINGLE (PORTABLE) [place] [address] Patient Name: CORRINE HIGGINS MR #: [id number] : 1960 Age/Sex: 57/F Req #: [id number] Adm Physician: Ordered by: ROSALIE SOLOMON MD Report #: [id number] Location: ER Room/Bed: Procedure: [id number] DX/CHEST SINGLE (PORTABLE) Exam Date: 08/12/17 Exam Time: 1001 REPORT STATUS: Signed EXAMINATION: CHEST SINGLE (PORTABLE) INDICATION: Shortness of breath, line placement COMPARISON: None FINDINGS: AP view TUBES and LINES: Right IJ central venous catheter with tip overlying the cavoatrial junction. LUNGS: Low lung volumes. Bilateral pulmonary edema. Bibasilar atelectasis. Both costophrenic angles not included on this exam. PLEURA: Unable to evaluate the small pleural effusions but no large pleural effusions seen. No pneumothorax on limited evaluation. HEART AND MEDIASTINUM: Marked enlargement of the cardiac silhouette may be due to cardiomegaly and/or pericardial effusion. BONES AND SOFT TISSUES: No acute osseous lesion. Soft tissues are unremarkable. UPPER ABDOMEN: No free air under the diaphragm. IMPRESSION: Right adjacent and venous catheter with tip overlying the cavoatrial junction. Marked enlargement of the cardiac silhouette due to cardiomegaly and/or pericardial effusion. Bilateral pulmonary edema. Signed by: Dr. Jeannette Major M.D. on 08/12/2017 10:21 AM Dictated By: JEANNETTE MAJOR MD 1021 Transcribed By: JAMSHID on 08/12/17 1021 COPY TO: ROSALIE SOLOMON MD
[2017-09-18] MEDS ORDERED: ALBUTEROL SULF 0.083% NEB SOLN 3 ML NEB NEB STA (16:36)
[2017-09-18] MEDS ORDERED: IPRATROPIUM BROMIDE 0.02% 2.5 ML NEB NEB STA (16:36)
--- NOTE | 2017-09-18 17:33 | Diagnostic Imaging Report ---
PROCEDURE: A single AP view of the chest. COMPARISON: 08/20/17 INDICATIONS: SHORTNESS OF BREATH FINDINGS: Lines/tubes: None. Lungs: Limited by low lung volumes and body habitus. Pulmonary vascular congestion and moderate interstitial edema. Pleura: There is no visible pneumothorax. Small bilateral pleural effusions. Heart and mediastinum: Enlarged cardiomediastinal silhouette. Bones: No acute bony abnormality. IMPRESSION: Limited as above. Enlarged cardiomediastinal silhouette, pulmonary vascular congestion, moderate interstitial edema, and small bilateral pleural effusions. Dictated by: Luis Lakhani M.D. on 09/18/2017 at 17:32 Electronically approved by: Luis Lakhani M.D. on 09/18/2017 at 17:32
[2017-09-18 17:38] LABS: BASOPHILS % 0.6 % (0.0-1.0); EOSINOPHILS # (AUTO) 0.2 (0.0-0.4); EOSINOPHILS % 2.3 % (0.0-6.0); HEMATOCRIT 35.2 % (34.2-44.1); HEMOGLOBIN 10.6 g/dL (12.0-16.0); LYMPHOCYTES # (AUTO) 1.2 (1.0-3.2); LYMPHOCYTES % 17.3 % (18.0-39.1); MEAN CORPUSCULAR HEMOGLOBIN 32.6 pg (28-32); MEAN CORPUSCULAR HGB CONC 30.1 g/dL (31-35); MEAN CORPUSCULAR VOLUME 108.3 fL (81-99); MONOCYTES # (AUTO) 0.5 (0.2-0.8); MONOCYTES % 7.9 % (4.4-11.3); NEUTROPHILS # (AUTO) 4.9 (2.1-6.9); NEUTROPHILS % 70.7 % (38.7-80.0); PLATELET COUNT 185 x10e3/uL (140-360); RED BLOOD COUNT 3.25 x10e6/uL (3.6-5.1); RED CELL DISTRIBUTION WIDTH 17.2 % (11.7-14.4)
[2017-09-18 17:45] LABS: INR 1.06; PARTIAL THROMBOPLASTIN TIME 29.4 seconds (23.8-35.5)
[2017-09-18] MEDS ORDERED: FUROSEMIDE INJ 10 MG/ML 4 ML VIAL IV ONE (17:45)
[2017-09-18 17:53] LABS: MAGNESIUM 1.9 MG/DL (1.3-2.1)
[2017-09-18 17:57] LABS: ALBUMIN 3.5 g/dL (3.5-5.0); ALBUMIN/GLOBULIN RATIO 0.9 (0.8-2.0); ANION GAP 15.8 mmol/L (8-16); CALCIUM 9.4 mg/dL (8.4-10.2); CREATININE, SERUM 1.37 mg/dL (0.57-1.11)
[2017-09-18 18:00] LABS: B-TYPE NATRIURETIC PEPTIDE2 878.8 pg/mL (0-100); POTASSIUM 5.8 mmol/L (3.5-5.1)
[2017-09-18 18:17] LABS: CREATINE KINASE MB 4.7 ng/mL (0-5.0); THYROID STIMULATING HORMONE 1.771 uIU/mL (0.350-4.940)
[2017-09-18 19:01] LABS: ABG PCO2 82 mmHg (41-51); ABG PH 7.29 (7.31-7.41)
[2017-09-18 19:02] LABS: ABG HCO3 40 mmol/L (23-28); ABG PO2 58 mmHg (80-105)
[2017-09-18 19:06] LABS: BILIRUBIN,URINE NEGATIVE (NEGATIVE); COLOR,URINE YELLOW (YELLOW); KETONES,URINE NEGATIVE (NEGATIVE); LEUKOCYTE ESTERASE ,URINE NEGATIVE (NEGATIVE); NITRITE,URINE NEGATIVE (NEGATIVE); URINE UROBILINOGEN 0.2 mg/dL (0.2 - 1)
[2017-09-18 19:10] LABS: CLARITY,URINE CLEAR (CLEAR); PROTEIN,URINE DIPSTICK 1+ (NEGATIVE)
[2017-09-18 19:31] LABS: EPITHELIAL CELLS,URINE RARE /LPF; MUCUS,URINE FEW (RARE); RBC,URINE 0-5 /HPF (0-5); WBC,URINE (MAN) 0-5 /HPF (0-5)
[2017-09-18] MEDS ORDERED: PROPOFOL IV EMULSION 10MG/ML 100 ML ONE (22:42)
[2017-09-18] MEDS ORDERED: SUCCINYLCHOLINE CHLORIDE 20 MG/ML 10ML VIAL ONE (22:42)
[2017-09-18] MEDS ORDERED: ETOMIDATE 2 MG/ML 10 ML INJ IV ONE (22:42)
[2017-09-18] MEDS: PROPOFOL IV EMULSION 10MG/ML 100 ML IV PRN (22:55)
[2017-09-18] MEDS ORDERED: ROCURONIUM BROMIDE 1 ML ONE (22:56)
[2017-09-18 23:37] LABS: ABG PH 7.18 (7.31-7.41)
[2017-09-18 23:38] LABS: ABG HCO3 41 mmol/L (23-28); ABG PCO2 109 mmHg (41-51); ABG PO2 38 mmHg (80-105)
[2017-09-19] VITALS (35 sets, daily range): BP systolic 107–137; BP diastolic 58–77
[2017-09-19] MEDS ORDERED: ETOMIDATE 2 MG/ML 10 ML INJ IV STA
[2017-09-19] MEDS ORDERED: ROCURONIUM BROMIDE 10 MG/ML 5ML VIAL IV ONE ×2
--- NOTE | 2017-09-19 00:25 | Diagnostic Imaging Report ---
EXAMINATION: CHEST SINGLE (PORTABLE) INDICATION: Post intubation COMPARISON: 09/18/2017 at 17 hours FINDINGS: TUBES and LINES: Endotracheal tube is visualized 1.9 cm above the john. LUNGS: Lungs are not well inflated. There are bibasilar atelectasis. There is perihilar interstitial opacities, consistent with interstitial edema. PLEURA: Small right pleural effusion. HEART AND MEDIASTINUM: Cardiac size is severely enlarged. BONES AND SOFT TISSUES: No acute osseous lesion. Soft tissues are unremarkable. UPPER ABDOMEN: No free air under the diaphragm. IMPRESSION: Severe cardiogenic pulmonary edema, slightly improved Signed by: Dr. Lex Bernard M.D. on 09/19/2017 12:21 AM
[2017-09-19] MEDS: PROPOFOL IV EMULSION 10MG/ML 100 ML IV PRN ×4 (00:50→21:28)
[2017-09-19 02:04] LABS: CREATINE KINASE MB 4.6 ng/mL (0-5.0)
[2017-09-19] MEDS ORDERED: NORCO 10-325 T1 EACH PO (02:28)
[2017-09-19] MEDS ORDERED: IMITREX25 MG PO (02:28)
[2017-09-19] MEDS ORDERED: VALIUM5 MG PO (02:28)
[2017-09-19] MEDS ORDERED: DUONEB NEB (02:28)
[2017-09-19] MEDS ORDERED: BACTRIM DS TAB1 EACH PO (02:28)
[2017-09-19] MEDS ORDERED: AZITHROMYCIN250 MG PO (02:28)
[2017-09-19] MEDS ORDERED: LEVEMIR100 UNIT/1 SC (02:28)
[2017-09-19] MEDS ORDERED: ZETIA10 MG PO (02:28)
[2017-09-19] MEDS ORDERED: OMEPRAZOLE40 MG PO (02:28)
[2017-09-19] MEDS ORDERED: ADVAIR 250-501 EACH INH (02:28)
[2017-09-19] MEDS ORDERED: LASIX40 MG PO (02:28)
[2017-09-19] MEDS ORDERED: SPIRIVA18 MCG INH (02:28)
--- NOTE | 2017-09-19 02:50 | Diagnostic Imaging Report ---
EXAMINATION: CHEST XRAY LINE PLACEMENT INDICATION: PICC line placement COMPARISON: 09/18/2017 FINDINGS: TUBES and LINES: Interval placement of right upper extremity PICC line with tip at the level of the mid SVC. Endotracheal tube is stable in good position LUNGS: Lungs are not well inflated. There are bibasilar atelectasis. There is perihilar interstital opacities, consistent with interstitial edema. PLEURA: No pleural effusion or pneumothorax. HEART AND MEDIASTINUM: Cardiac size is severely enlarged. There are atherosclerotic calcifications within the aorta. BONES AND SOFT TISSUES: No acute osseous lesion. Soft tissues are unremarkable. UPPER ABDOMEN: No free air under the diaphragm. IMPRESSION: 1. Cardiogenic pulmonary edema, stable. 2. Right PICC line in good position. Signed by: Dr. Lex Bernard M.D. on 09/19/2017 2:46 AM
--- NOTE | 2017-09-19 05:45 | History and Physical ---
PRIMARY CARE PHYSICIAN: Dr. Matias CHIEF COMPLAINT: Shortness of breath. HISTORY OF PRESENT ILLNESS: This is a 57-year-old woman who was recently discharged last month after acute respiratory failure with intubation with COPD and CHF exacerbation. Now, presenting with shortness of breath requiring intubation again. Imaging showed bilateral pleural effusion. She is admitted for further evaluation and management. PAST MEDICAL HISTORY: COPD, acute respiratory failure in July/August of 2017 requiring intubation, systolic congestive heart failure, acute kidney injury, electrolyte derangement, obesity, obstructive sleep apnea, diabetes mellitus. PAST SURGICAL HISTORY: Unknown. ALLERGIES: PER ELECTRONIC MEDICAL RECORD. FAMILY HISTORY/SOCIAL HISTORY: Patient's son is involved in her care. Previously quit cigarettes. MEDICATIONS: Per electronic medical record. REVIEW OF SYSTEMS: Not obtainable. PHYSICAL EXAMINATION VITAL SIGNS: Have been reviewed. GENERAL: A tired-appearing woman resting in bed intubated. HEENT: Anicteric. ET tube is in place. CARDIOVASCULAR: Normal S1 and S2. LUNGS: Moderate breath sounds reduced at the bases with minimal crackles. ABDOMEN: Soft, nontender and nondistended. EXTREMITIES: She has 1+ leg edema bilaterally. SKIN: Dry. PSYCHIATRIC: Unable to assess. NEUROLOGIC: Sedated and restrained. : Junior in place. LABS: Reviewed. MEDICATIONS: Reviewed. ASSESSMENT: A 57-year-old woman with: 1. Acute respiratory failure. 2. Acute exacerbation of systolic congestive heart failure. 3. Bilateral pleural effusion. 4. Hyperkalemia. 5. Microcytic anemia which is mild to moderate. 6. Acute kidney injury. PLAN 1. Continue ventilatory support. Consult Dr. Williamson of pulmonary services to assist in management. 2. Recheck potassium level in the setting of hyperkalemia. 3. Continue aggressive diuresis with IV Lasix 40 mg IV q.12 h. 4. Continue strict I's and O's. Continue Junior. 5. Use empiric antibiotics for coverage. 6. Utilize nebs and steroid therapy as the patient does have COPD and is a contributory factor to her current respiratory failure. 7. Cut the Levemir in half and give 15 units at bedtime. 8. Utilize steroid regimen. 9. Utilize heparin 5000 q.12 h. for DVT prophylaxis and Pepcid for GI prophylaxis. 10. Critical care time more than 35 minutes. Job#: [id number] SETH
[2017-09-19 05:46] LABS: BASOPHILS # (AUTO) 0.1 (0.0-0.1); BASOPHILS % 0.6 % (0.0-1.0); EOSINOPHILS # (AUTO) 0.1 (0.0-0.4); EOSINOPHILS % 1.7 % (0.0-6.0); HEMOGLOBIN 10.4 g/dL (12.0-16.0); LYMPHOCYTES # (AUTO) 1.6 (1.0-3.2); LYMPHOCYTES % 19.6 % (18.0-39.1); MEAN CORPUSCULAR HGB CONC 31.5 g/dL (31-35); MEAN CORPUSCULAR VOLUME 104.8 fL (81-99); MONOCYTES # (AUTO) 0.7 (0.2-0.8); NEUTROPHILS # (AUTO) 5.8 (2.1-6.9); NEUTROPHILS % 69.4 % (38.7-80.0); PLATELET COUNT 174 x10e3/uL (140-360); RED BLOOD COUNT 3.15 x10e6/uL (3.6-5.1); RED CELL DISTRIBUTION WIDTH 17.3 % (11.7-14.4)
[2017-09-19 06:04] LABS: ANION GAP 14.9 mmol/L (8-16); CALCIUM 9.2 mg/dL (8.4-10.2); CREATININE, SERUM 1.27 mg/dL (0.57-1.11); POTASSIUM 4.9 mmol/L (3.5-5.1)
[2017-09-19] MEDS: AZITHROMYCIN 500MG/NS 250 ML 250 ML IV SCH (06:27)
[2017-09-19] MEDS ORDERED: PANTOPRAZOLE SOD 40 MG TABEC PO SCH (07:30)
--- NOTE | 2017-09-19 07:52 | Diagnostic Imaging Report ---
PROCEDURE: A single AP view of the chest. COMPARISON: The 09/19/2017 0217 hours INDICATIONS: INTUBATED FINDINGS: Lines/tubes: Stable position of an ET tube and a right-sided PICC. Lungs: Unchanged pulmonary edema. Pleura: Small bilateral effusions. Heart and mediastinum: The heart is enlarged. Bones: No acute bony abnormality. IMPRESSION: Unchanged cardiomegaly with diffuse pulmonary edema. Hood Hobbs D.O. Dictated by: Hood Hobbs D.O. on 09/19/2017 at 7:51 Electronically approved by: Hood Hobbs D.O. on 09/19/2017 at 7:51
[2017-09-19] MEDS: METHYLPREDNISOLONE SOD SUCC 40 MG/ML VIAL IV SCH ×2 (09:47→20:55)
[2017-09-19] MEDS: FUROSEMIDE INJ 10 MG/ML 4 ML VIAL IV SCH ×2 (09:47→17:27)
[2017-09-19] MEDS: HEPARIN SOD (PORCINE) 5,000 UNIT/ML VIAL SC SCH ×2 (09:47→20:45)
[2017-09-19] MEDS: FAMOTIDINE 20 MG/2 ML VIAL IV SCH ×2 (09:47→17:27)
[2017-09-19] MEDS: EZETIMIBE 10 MG TAB PO SCH (09:47)
[2017-09-19 10:30] LABS: CREATINE KINASE MB 1.2 ng/mL (0-5.0)
[2017-09-19] MEDS: ALBUTEROL/IPRATROPIUM 3 ML NEB NEB PRN ×2 (15:00→23:55)
[2017-09-19] MEDS ORDERED: ACETAMINOPHEN 325 MG/10 ML UDC NG PRN (16:30)
[2017-09-19] MEDS ORDERED: VANCOMYCIN 1GM/NS 250 ML 250 ML IV SCH (18:30)
[2017-09-19] MEDS ORDERED: VANCOMYCIN 1GM/NS 250 ML 250 ML IV ONE (18:30)
[2017-09-19] MEDS ORDERED: LIDOCAINE HCL 1% LOCAL INJ 20 ML VIAL ONE (18:55)
[2017-09-19 18:56] LABS: ABG PCO2 31 mmHg (41-51); ABG PH 7.61 (7.31-7.41); ABG PO2 56 mmHg (80-105)
[2017-09-19 18:57] LABS: ABG HCO3 32 mmol/L (23-28)
[2017-09-19] MEDS: AZTREONAM 1 GM/NS 50 ML 50 ML IV SCH (18:57)
[2017-09-19] MEDS ORDERED: VANCOMYCIN 1GM/NS 250 ML 250 ML ONE (19:34)
--- NOTE | 2017-09-19 20:19 | Consultation ---
DATE OF CONSULTATION: September 19, 2017 REASON FOR CONSULTATION: Shortness of breath and ventilator management. HPI: Ms. Jose is a 57-year-old female who is known to me from previous admission. Patient has history of chronic respiratory failure, obstructive sleep apnea. The patient's family has effected by [place] and they are living in a motel. She is not using the CPAP machine. Patient has been a smoker for 45 years. She quit a year and a half ago. She was reintubated beginning of July here at [facility]. She is currently intubated and sedated. According to the son, the patient became increasingly short of breath and she was brought to the emergency room where she became more somnolent and ABG was done which showed a pH of 7.18, pCO2 109 and pO2 of 38 and patient was intubated for [id number] hypercapnic respiratory failure. Currently she is sedated with propofol. REVIEW OF SYSTEMS: Unable to elicit any as patient is sedated with propofol. PAST MEDICAL HISTORY: Obesity, obstructive sleep apnea, congestive heart failure, hypertension and diabetes. FAMILY HISTORY AND SOCIAL HISTORY: Ex-smoker and does not drink. PHYSICAL EXAMINATION: VITALS: Temperature 100.1, pulse of 100, blood pressure 127/64. She is on FIO2 of 60%, rate of 14, PEEP of 5. She is arousable but sleepy. HEENT: Head atraumatic, normocephalic. Pupils are reactive. NECK: Supple. CHEST: Reduced air entry bilaterally. HEART: S1 and S2 audible. ABDOMEN: Soft, nontender and nondistended. EXTREMITIES: No clubbing, cyanosis or edema. NEUROLOGIC: She is arousable but sleepy. No focal neurologic deficit. LABORATORY DATA: PH of 7.18, PCO2 109, pO2 38. This was preintubation. White count of 8.35. Hemoglobin 10.4. Platelets 174,000. INR is 1.06. Sputum gram from August 17 showing MRSA. There is no Etiology aspirate now. Chest x-ray: I reviewed the images. It is showing bilateral alveolar infiltrate, appears to be pulmonary edema; however, pneumonia cannot be ruled out. ASSESSMENT AND PLAN: Ms. Jose is a 57-year-old female who presented with [id number] hypoxic and hypercapnic respiratory failure. Patient has history of obstructive sleep apnea and likely has COPD as well as 45 to [id number]-gxud smoking history. She was in the hospital at the end of July with pneumonia as well and at that time the sputum grew out MRSA. CURRENT PROBLEMS: 1. Iobuf-iu-doydisa hypoxic and hypercapnic respiratory failure. 2. Morbid obesity. 3. Obstructive sleep apnea. 4. High likelihood of chronic obstructive pulmonary disease. 5. Possible pneumonia. PLAN: 1. I will start the patient on vancomycin and Zosyn, previous history of methicillin-resistant Staphylococcus aureus pneumonia. 2. Continue the patient on IV Solu-Medrol as ordered. 3. DuoNeb treatment. 4. Continue the ventilator support. Vent settings reviewed. I will check ABGs 5. Will order Lovenox subcutaneous for DVT prophylaxis. She is already on she GI prophylaxis. Discussed with son at bedside in detail. Job#: [id number] GH
[2017-09-19] MEDS: NYSTATIN 15 GM POWDER UD BTL TOP SCH (20:55)
[2017-09-19] MEDS ORDERED: INSULIN DETEMIR 100 UNIT/ML PEN SQ SCH (21:00)
[2017-09-19] MEDS ORDERED: PIPER-TAZ 3.375 GM 50 ML IV SCH (22:00)
[2017-09-20] VITALS (92 sets, daily range): BP systolic 106–166; BP diastolic 56–113
[2017-09-20] MEDS: PROPOFOL IV EMULSION 10MG/ML 100 ML IV PRN ×3 (04:14→12:50)
[2017-09-20] MEDS: AZITHROMYCIN 500MG/NS 250 ML 250 ML IV SCH (04:55)
[2017-09-20] MEDS: AZTREONAM 1 GM/NS 50 ML 50 ML IV SCH ×2 (05:54→18:23)
--- NOTE | 2017-09-20 06:54 | Diagnostic Imaging Report ---
EXAMINATION: CHEST SINGLE (PORTABLE) INDICATION: Ventilated COMPARISON: 09/19/2017 FINDINGS: TUBES and LINES: Endotracheal tube 3.8 cm above the john. NG tube is now in place in good position and right upper extremity PICC line is stable LUNGS: Lungs are not well inflated. There are bibasilar atelectasis. There is perihilar interstital opacities, consistent with interstitial edema. PLEURA: Small bilateral pleural effusion. HEART AND MEDIASTINUM: Cardiac size is severely enlarged. There are atherosclerotic calcifications within the aorta. BONES AND SOFT TISSUES: No acute osseous lesion. Soft tissues are unremarkable. UPPER ABDOMEN: No free air under the diaphragm. IMPRESSION: 1. Stable cardiomegaly with interstitial edema and small pleural effusions 2. Tubes and lines are in good position Signed by: Dr. Lex Bernard M.D. on 09/20/2017 6:50 AM
[2017-09-20] MEDS: ALBUTEROL/IPRATROPIUM 3 ML NEB NEB PRN (07:00)
--- NOTE | 2017-09-20 08:55 | Progress Note ---
DATE: September 20, 2017 TIME: 8:27 a.m. OVERNIGHT: Remains intubated. REVIEW OF SYSTEMS: Unobtainable. PHYSICAL EXAMINATION VITAL SIGNS: Reviewed. GENERAL: A tired-appearing woman resting in bed. HEENT: Anicteric. ET tube in place. CARDIOVASCULAR: Normal S1 and S2. LUNGS: Reduced breath sounds at the bases. ABDOMEN: Soft and nondistended. : She has a Junior in place. EXTREMITIES: Trace to 1+ leg edema. SKIN: Dry. PSYCHIATRIC: Unable to assess. NEUROLOGIC: Sedated. LABS: Reviewed. MEDICATIONS: Reviewed. ASSESSMENT: A 57-year-old woman. 1. Acute respiratory failure. 2. Acute exacerbation of systolic congestive heart failure. 3. Bilateral pleural effusions. 4. Hyperkalemia. 5. Microcytic anemia, which is mild to moderate. 6. Acute kidney injury. 7. Chronic obstructive pulmonary disease. 8. Diabetes mellitus, type 2. PLAN 1. Continue diuresis. 2. Continue ventilatory support on 60% FiO2. 3. No leukocytosis. 4. Her renal function is essentially unchanged. Will continue to monitor while the patient is being diuresed. 5. Influenza screening is negative. 6. I's and O's are 1800 out yesterday. 7. Chest x-ray this morning shows some interstitial edema and small pleural effusion. 8. Continue supportive care in the ICU. Vent support per pulmonary services. 9. Continue heparin and Pepcid. 10. Monitor blood sugar levels. Critical care time more than 35 minutes. Job#: [id number]
[2017-09-20] MEDS: FAMOTIDINE 20 MG/2 ML VIAL IV SCH ×2 (09:14→16:38)
[2017-09-20] MEDS: METHYLPREDNISOLONE SOD SUCC 40 MG/ML VIAL IV SCH ×2 (09:14→20:05)
[2017-09-20] MEDS: FUROSEMIDE INJ 10 MG/ML 4 ML VIAL IV SCH ×2 (09:14→16:38)
[2017-09-20] MEDS: EZETIMIBE 10 MG TAB PO SCH (09:14)
[2017-09-20] MEDS: HEPARIN SOD (PORCINE) 5,000 UNIT/ML VIAL SC SCH ×2 (09:15→20:06)
[2017-09-20] MEDS: NYSTATIN 15 GM POWDER UD BTL TOP SCH ×3 (09:16→20:06)
[2017-09-20 11:43] LABS: ABG HCO3 36 mmol/L (23-28); ABG PCO2 54 mmHg (41-51); ABG PH 7.43 (7.31-7.41); ABG PO2 71 mmHg (80-105)
[2017-09-20] MEDS ORDERED: CHLORASEPTIC SPRAY 177 ML BTL MM PRN (19:00)
[2017-09-20] MEDS: BALSAM PERU/CASTOR OIL 60 GM OINT...G. TP SCH (20:18)
[2017-09-20] MEDS: NYSTATIN/TRIAMCINOLONE 15 GM CR TOP SCH (20:18)
[2017-09-21] VITALS (87 sets, daily range): BP systolic 99–151; BP diastolic 26–110
[2017-09-21] MEDS: AZITHROMYCIN 500MG/NS 250 ML 250 ML IV SCH (04:15)
[2017-09-21] MEDS: AZTREONAM 1 GM/NS 50 ML 50 ML IV SCH ×2 (05:27→18:30)
[2017-09-21 06:12] LABS: BASOPHILS % 0.3 % (0.0-1.0); HEMOGLOBIN 11.5 g/dL (12.0-16.0); LYMPHOCYTES # (AUTO) 0.7 (1.0-3.2); LYMPHOCYTES % 9.5 % (18.0-39.1); MEAN CORPUSCULAR HEMOGLOBIN 31.9 pg (28-32); MEAN CORPUSCULAR HGB CONC 31.1 g/dL (31-35); MEAN CORPUSCULAR VOLUME 102.5 fL (81-99); MONOCYTES # (AUTO) 0.6 (0.2-0.8); MONOCYTES % 8.6 % (4.4-11.3); NEUTROPHILS # (AUTO) 5.6 (2.1-6.9); NEUTROPHILS % 80.7 % (38.7-80.0); PLATELET COUNT 211 x10e3/uL (140-360); RED BLOOD COUNT 3.61 x10e6/uL (3.6-5.1); RED CELL DISTRIBUTION WIDTH 17.2 % (11.7-14.4)
[2017-09-21 06:45] LABS: CALCIUM 9.2 mg/dL (8.4-10.2); CREATININE, SERUM 1.64 mg/dL (0.57-1.11)
--- NOTE | 2017-09-21 07:56 | Progress Note ---
DATE: September 21, 2017 TIME: 7:37 a.m. OVERNIGHT: Patient extubated, now on BiPAP. REVIEW OF SYSTEMS: Denies any chest pain. PHYSICAL EXAMINATION VITAL SIGNS: Reviewed. GENERAL: A tired-appearing woman resting in bed. HEENT: Anicteric. BiPAP mask in place. CARDIOVASCULAR: Normal S1 and S2. LUNGS: Reduced breath sounds throughout. ABDOMEN: Soft, nontender and nondistended. EXTREMITIES: Trace edema. SKIN: Dry. PSYCHIATRIC: Flat affect. NEUROLOGIC: Awake and alert. LABS: Reviewed. MEDICATIONS: Reviewed. ASSESSMENT: A 57-year-old woman. 1. Acute respiratory failure. 2. Acute exacerbation of systolic congestive heart failure. 3. Bilateral pleural effusions. 4. Hyperkalemia. 5. Microcytic anemia, mild to moderate. 6. Acute kidney injury. 7. Chronic obstructive pulmonary disease. 8. Diabetes mellitus, type 2. PLAN 1. Continue diuresis. 2. Patient now on BiPAP support. 3. Monitor renal function. 4. Monitor fluid status. I's and O's are 1800/1800. 5. The influenza screen was negative. 6. Continue aztreonam and azithromycin as well as IV Solu-Medrol. 7. Patient is on Lasix 40 IV q.12. Critical care time more than 35 minutes. Job#: [id number]
[2017-09-21] MEDS: FUROSEMIDE INJ 10 MG/ML 4 ML VIAL IV SCH (08:57)
[2017-09-21] MEDS: FAMOTIDINE 20 MG/2 ML VIAL IV SCH ×2 (08:57→16:42)
[2017-09-21] MEDS: EZETIMIBE 10 MG TAB PO SCH (08:57)
[2017-09-21] MEDS: BALSAM PERU/CASTOR OIL 60 GM OINT...G. TP SCH ×2 (08:57→16:42)
[2017-09-21] MEDS: METHYLPREDNISOLONE SOD SUCC 40 MG/ML VIAL IV SCH ×2 (08:57→20:46)
[2017-09-21] MEDS: NYSTATIN/TRIAMCINOLONE 15 GM CR TOP SCH (08:57)
[2017-09-21] MEDS: NYSTATIN 15 GM POWDER UD BTL TOP SCH ×3 (08:57→20:46)
[2017-09-21] MEDS: HEPARIN SOD (PORCINE) 5,000 UNIT/ML VIAL SC SCH ×2 (09:12→20:48)
[2017-09-21] MEDS ORDERED: DILTIAZEM HCL 5 MG/ML 5 ML VIAL IV STA (22:03)
[2017-09-21] MEDS ORDERED: AMIODARONE HCL 150MG 100 ML IV ONE (22:15)
[2017-09-21] MEDS ORDERED: AMIODARONE 900MG 500 ML IV ONE (22:29)
[2017-09-21] MEDS ORDERED: AMIODARONE HCL 100 ML IV ONE (22:29)
[2017-09-21] MEDS ORDERED: AMIODARONE HCL 360MG 200 ML IV ONE (22:30)
[2017-09-22] VITALS (65 sets, daily range): BP systolic 82–139; BP diastolic 50–123
[2017-09-22] MEDS ORDERED: AMIODARONE HCL 360MG 200 ML IV ONE
[2017-09-22 00:21] LABS: CREATINE KINASE MB 1.6 ng/mL (0-5.0)
[2017-09-22] MEDS ORDERED: AMIODARONE HCL 360MG 200 ML IV SCH (02:30)
[2017-09-22] MEDS: AZITHROMYCIN 500MG/NS 250 ML 250 ML IV SCH (06:05)
[2017-09-22] MEDS: AZTREONAM 1 GM/NS 50 ML 50 ML IV SCH ×2 (06:05→17:29)
[2017-09-22 06:11] LABS: BASOPHILS % 0.2 % (0.0-1.0); EOSINOPHILS % 0.1 % (0.0-6.0); HEMATOCRIT 39.3 % (34.2-44.1); HEMOGLOBIN 12.3 g/dL (12.0-16.0); LYMPHOCYTES % 10.2 % (18.0-39.1); MEAN CORPUSCULAR HEMOGLOBIN 32.8 pg (28-32); MEAN CORPUSCULAR HGB CONC 31.3 g/dL (31-35); MEAN CORPUSCULAR VOLUME 104.8 fL (81-99); MONOCYTES # (AUTO) 0.8 (0.2-0.8); MONOCYTES % 8.3 % (4.4-11.3); NEUTROPHILS # (AUTO) 7.6 (2.1-6.9); NEUTROPHILS % 80.7 % (38.7-80.0); PLATELET COUNT 221 x10e3/uL (140-360); RED BLOOD COUNT 3.75 x10e6/uL (3.6-5.1); RED CELL DISTRIBUTION WIDTH 16.7 % (11.7-14.4)
[2017-09-22 06:35] LABS: ALBUMIN 3.3 g/dL (3.5-5.0); ALBUMIN/GLOBULIN RATIO 0.9 (0.8-2.0); ANION GAP 16.1 mmol/L (8-16); CALCIUM 9.2 mg/dL (8.4-10.2); CREATININE, SERUM 1.54 mg/dL (0.57-1.11); POTASSIUM 4.1 mmol/L (3.5-5.1)
[2017-09-22 06:58] LABS: CREATINE KINASE MB 1.6 ng/mL (0-5.0); THYROID STIMULATING HORMONE 1.607 uIU/mL (0.350-4.940)
[2017-09-22] MEDS ORDERED: DIGOXIN INJ 0.25 MG/ML 2 ML AMP IV ONE ×2 (09:15→13:00)
[2017-09-22] MEDS: EZETIMIBE 10 MG TAB PO SCH (09:34)
[2017-09-22] MEDS: FUROSEMIDE INJ 10 MG/ML 4 ML VIAL IV SCH (09:34)
[2017-09-22] MEDS: METHYLPREDNISOLONE SOD SUCC 40 MG/ML VIAL IV SCH ×2 (09:34→21:01)
[2017-09-22] MEDS: FAMOTIDINE 20 MG/2 ML VIAL IV SCH ×2 (09:34→16:10)
[2017-09-22] MEDS: BALSAM PERU/CASTOR OIL 60 GM OINT...G. TP SCH ×2 (09:35→16:10)
[2017-09-22] MEDS: NYSTATIN/TRIAMCINOLONE 15 GM CR TOP SCH (09:35)
[2017-09-22] MEDS: HEPARIN SOD (PORCINE) 5,000 UNIT/ML VIAL SC SCH ×2 (09:35→21:05)
[2017-09-22] MEDS: NYSTATIN 15 GM POWDER UD BTL TOP SCH ×3 (09:35→20:52)
--- NOTE | 2017-09-22 09:41 | Consultation ---
DATE OF CONSULTATION: September 21, 2017 CARDIOLOGY CONSULTATION REASON FOR CONSULTATION: AFib, A-flutter. REQUESTING PHYSICIAN: Dr. Matias. HPI: This is a morbidly obese, 57-year-old female that presented with shortness of breath. She was intubated and later extubated. Yesterday she developed AFib and A-flutter, and cardiology was consulted. She was given Cardizem and started on amiodarone drip. Heart rate is still in the 150s. She denies any headache, any nausea, vomiting or dizziness. She is complaining of shortness of breath. She has a history of COPD, noncompliant with CPAP machine at home. She lives in a motel due to [place]. She denies any chest pain also. Her troponin was negative. EKG showed AFib and A-flutter. BNP is 878. She has a history of multiple intubations in the past due to respiratory distress. PAST MEDICAL HISTORY: CHF, obesity, hypertension, diabetes, sleep apnea, COPD. PAST SURGICAL HISTORY: Hysterectomy, tonsillectomy, cyst removal from the face, cardiac catheterization with no intervention, and cyst removal from the left elbow. FAMILY HISTORY: Positive for CAD. SOCIAL HISTORY: She quit smoking. She lives at home with family. MEDICATIONS: See med list. ALLERGIES: SHE HAS MULTIPLE ALLERGIES, SEE CHART. REVIEW OF SYSTEMS: Negative, except those mentioned above. PHYSICAL EXAMINATION VITAL SIGNS: Temperature 98, heart rate 150, blood pressure 108/65, respirations 18, oxygen saturation 96% on nasal cannula. GENERAL: She is morbidly obese, awake, alert and oriented times 3. HEENT: Mucous membranes moist. NECK: Supple. LUNGS: Bilaterally with decreased breath sounds. CARDIOVASCULAR: Irregular. ABDOMEN: Soft. NEUROLOGIC: Intact. EXTREMITIES: No edema. LABORATORY DATA: Sodium 145, potassium 4.1, chloride 101, CO2 32, BUN 53, creatinine 1.54. Glucose 133. White blood cells 9.39, hemoglobin 12.3, hematocrit 39.3, platelets 221. PT 13.1, PTT 29.4, INR 1.06. IMPRESSION 1. Atrial fibrillation and atrial flutter. 2. Acute respiratory distress. 3. Chronic obstructive pulmonary disease. 4. Diabetes. 5. Renal insufficiency. 6. History of deep vein thrombosis on the left leg. 7. Pneumonia. ASSESSMENT AND PLAN: She had an echo done in July that showed EF 50% to 60%. We will go ahead and get another echo since she had this A-flutter to reassess the LV function. Will continue amiodarone drip. Will give her digoxin times 1. She is on heparin subcutaneous. Will check her magnesium and get a 12-lead EKG because on the monitor she is flip-flopping. We will continue her home medications and beta merry also. Further cardiac workup pending clinical course. Thank you for this consultation. Dictated by Jr Connors NP. Job#: [id number]
[2017-09-22 13:25] LABS: CREATINE KINASE MB 2.1 ng/mL (0-5.0)
[2017-09-22] MEDS: AMIODARONE 900MG 500 ML IV SCH (16:10)
[2017-09-23] VITALS (49 sets, daily range): BP systolic 90–160; BP diastolic 49–112
[2017-09-23] MEDS: AZITHROMYCIN 500MG/NS 250 ML 250 ML IV SCH (05:21)
[2017-09-23] MEDS: AZTREONAM 1 GM/NS 50 ML 50 ML IV SCH ×2 (05:21→16:58)
[2017-09-23] MEDS ORDERED: DILTIAZEM HCL VIAL 5 ML ONE (08:30)
[2017-09-23] MEDS: FAMOTIDINE 20 MG/2 ML VIAL IV SCH (08:42)
[2017-09-23] MEDS: FUROSEMIDE INJ 10 MG/ML 4 ML VIAL IV SCH ×2 (08:42→16:47)
[2017-09-23] MEDS: NYSTATIN 15 GM POWDER UD BTL TOP SCH ×3 (08:43→21:06)
[2017-09-23] MEDS: EZETIMIBE 10 MG TAB PO SCH (08:43)
[2017-09-23] MEDS: BALSAM PERU/CASTOR OIL 60 GM OINT...G. TP SCH ×2 (08:43→16:39)
[2017-09-23] MEDS: METHYLPREDNISOLONE SOD SUCC 40 MG/ML VIAL IV SCH ×2 (08:43→21:06)
[2017-09-23] MEDS: NYSTATIN/TRIAMCINOLONE 15 GM CR TOP SCH (08:43)
[2017-09-23] MEDS: HEPARIN SOD (PORCINE) 5,000 UNIT/ML VIAL SC SCH ×2 (08:47→21:07)
[2017-09-23] MEDS ORDERED: AMIODARONE 900MG 500 ML IV SCH (09:00)
[2017-09-23] MEDS: METOPROLOL TARTRATE 25 MG TAB PO SCH ×4 (09:00→17:39)
[2017-09-23] MEDS ORDERED: DILTIAZEM HCL 5 MG/ML 5 ML VIAL IV ONE (09:00)
[2017-09-23 10:17] LABS: BASOPHILS # (AUTO) 0.1 (0.0-0.1); BASOPHILS % 0.6 % (0.0-1.0); EOSINOPHILS # (AUTO) 0.1 (0.0-0.4); EOSINOPHILS % 0.9 % (0.0-6.0); HEMATOCRIT 40.2 % (34.2-44.1); HEMOGLOBIN 12.4 g/dL (12.0-16.0); LYMPHOCYTES # (AUTO) 2.9 (1.0-3.2); LYMPHOCYTES % 27.1 % (18.0-39.1); MEAN CORPUSCULAR HEMOGLOBIN 32.5 pg (28-32); MEAN CORPUSCULAR HGB CONC 30.8 g/dL (31-35); MEAN CORPUSCULAR VOLUME 105.5 fL (81-99); MONOCYTES % 9.5 % (4.4-11.3); NEUTROPHILS # (AUTO) 6.7 (2.1-6.9); NEUTROPHILS % 61.3 % (38.7-80.0); PLATELET COUNT 193 x10e3/uL (140-360); RED BLOOD COUNT 3.81 x10e6/uL (3.6-5.1)
[2017-09-23] MEDS: DILTIAZEM HCL 5 MG/ML 5 ML VIAL IV ONE ×2 (10:29→18:55)
[2017-09-23 10:34] LABS: ANION GAP 15.2 mmol/L (8-16); CALCIUM 9.1 mg/dL (8.4-10.2); CREATININE, SERUM 1.46 mg/dL (0.57-1.11); POTASSIUM 4.2 mmol/L (3.5-5.1)
[2017-09-23] MEDS: AMIODARONE 900MG 500 ML IV SCH (12:00)
[2017-09-23] MEDS ORDERED: DIGOXIN 0.25 MG TAB PO ONE (13:30)
[2017-09-23] MEDS ORDERED: DIGOXIN INJ 0.25 MG/ML 2 ML AMP ONE (15:56)
[2017-09-23] MEDS ORDERED: DIAZEPAM 5 MG TAB PO PRN (16:00)
[2017-09-23] MEDS ORDERED: DIGOXIN INJ 0.25 MG/ML 2 ML AMP IV ONE (16:30)
[2017-09-23] MEDS: FAMOTIDINE 20 MG TAB PO SCH ×2 (16:46→16:48)
[2017-09-23] MEDS: HYDROCODONE/APAP 10MG-325MG TAB PO PRN (21:06)
[2017-09-24] VITALS (33 sets, daily range): BP systolic 82–152; BP diastolic 58–114
[2017-09-24] MEDS: METOPROLOL TARTRATE 25 MG TAB PO SCH ×4 (01:01→17:21)
[2017-09-24] MEDS: AZITHROMYCIN 500MG/NS 250 ML 250 ML IV SCH (05:15)
[2017-09-24] MEDS: HYDROCODONE/APAP 10MG-325MG TAB PO PRN ×2 (05:23→10:26)
[2017-09-24 05:48] LABS: BASOPHILS % 0.1 % (0.0-1.0); HEMATOCRIT 38.3 % (34.2-44.1); HEMOGLOBIN 12.1 g/dL (12.0-16.0); LYMPHOCYTES # (AUTO) 0.6 (1.0-3.2); LYMPHOCYTES % 7.4 % (18.0-39.1); MEAN CORPUSCULAR HEMOGLOBIN 32.9 pg (28-32); MEAN CORPUSCULAR HGB CONC 31.6 g/dL (31-35); MEAN CORPUSCULAR VOLUME 104.1 fL (81-99); MONOCYTES # (AUTO) 0.2 (0.2-0.8); MONOCYTES % 2.6 % (4.4-11.3); NEUTROPHILS # (AUTO) 6.9 (2.1-6.9); NEUTROPHILS % 89.4 % (38.7-80.0); PLATELET COUNT 163 x10e3/uL (140-360); RED BLOOD COUNT 3.68 x10e6/uL (3.6-5.1); RED CELL DISTRIBUTION WIDTH 15.5 % (11.7-14.4)
[2017-09-24] MEDS: AZTREONAM 1 GM/NS 50 ML 50 ML IV SCH ×2 (06:00→17:21)
[2017-09-24 06:11] LABS: ANION GAP 12.8 mmol/L (8-16); CALCIUM 9.1 mg/dL (8.4-10.2); CREATININE, SERUM 1.56 mg/dL (0.57-1.11); MAGNESIUM 2.3 MG/DL (1.3-2.1); POTASSIUM 4.8 mmol/L (3.5-5.1)
--- NOTE | 2017-09-24 07:36 | Diagnostic Imaging Report ---
EXAMINATION: CHEST SINGLE (PORTABLE) INDICATION: CHF. COMPARISON: None FINDINGS: TUBES and LINES: Right upper extremity PICC line with tip at the level of the mid SVC. LUNGS: Lungs are not well inflated. There are bibasilar atelectasis. There is mild prominence of the central pulmonary vasculature, consistent with pulmonary venous congestion. Mild interlobular septi thickening present. PLEURA: No pleural effusion or pneumothorax. HEART AND MEDIASTINUM: Cardiac size is severely enlarged. There are atherosclerotic calcifications within the aorta. BONES AND SOFT TISSUES: No acute osseous lesion. Soft tissues are unremarkable. UPPER ABDOMEN: No free air under the diaphragm. IMPRESSION: Cardiogenic mild pulmonary edema. Signed by: Dr. Lex Bernard M.D. on 09/24/2017 7:32 AM
[2017-09-24] MEDS: AMIODARONE HCL 200 MG TAB PO SCH (08:18)
[2017-09-24] MEDS: EZETIMIBE 10 MG TAB PO SCH (08:18)
[2017-09-24] MEDS: FAMOTIDINE 20 MG TAB PO SCH ×2 (08:18→16:42)
[2017-09-24] MEDS: NYSTATIN/TRIAMCINOLONE 15 GM CR TOP SCH (09:15)
[2017-09-24] MEDS: METHYLPREDNISOLONE SOD SUCC 40 MG/ML VIAL IV SCH ×2 (09:15→21:55)
[2017-09-24] MEDS: FUROSEMIDE INJ 10 MG/ML 4 ML VIAL IV SCH ×2 (09:15→17:21)
[2017-09-24] MEDS: NYSTATIN 15 GM POWDER UD BTL TOP SCH ×3 (09:15→21:00)
[2017-09-24] MEDS: BALSAM PERU/CASTOR OIL 60 GM OINT...G. TP SCH ×2 (09:15→17:21)
[2017-09-24] MEDS: HEPARIN SOD (PORCINE) 5,000 UNIT/ML VIAL SC SCH (09:18)
[2017-09-24] MEDS ORDERED: ENOXAPARIN SODIUM INJ 100 MG/ML SYR SC SCH (10:00)
[2017-09-24] MEDS: ENOXAPARIN SODIUM INJ 100 MG/ML SYR SC SCH (17:21)
[2017-09-25] VITALS (72 sets, daily range): BP systolic 77–155; BP diastolic 42–137
[2017-09-25] MEDS: METOPROLOL TARTRATE 25 MG TAB PO SCH ×3 (01:01→11:57)
[2017-09-25] MEDS: ENOXAPARIN SODIUM INJ 100 MG/ML SYR SC SCH ×2 (04:37→16:39)
[2017-09-25] MEDS: AZITHROMYCIN 500MG/NS 250 ML 250 ML IV SCH (04:37)
[2017-09-25 05:19] LABS: BASOPHILS % 0.1 % (0.0-1.0); HEMATOCRIT 39.3 % (34.2-44.1); HEMOGLOBIN 12.5 g/dL (12.0-16.0); LYMPHOCYTES # (AUTO) 0.5 (1.0-3.2); LYMPHOCYTES % 4.2 % (18.0-39.1); MEAN CORPUSCULAR HEMOGLOBIN 32.6 pg (28-32); MEAN CORPUSCULAR HGB CONC 31.8 g/dL (31-35); MEAN CORPUSCULAR VOLUME 102.3 fL (81-99); MONOCYTES # (AUTO) 0.3 (0.2-0.8); MONOCYTES % 2.4 % (4.4-11.3); NEUTROPHILS # (AUTO) 10.6 (2.1-6.9); NEUTROPHILS % 92.9 % (38.7-80.0); PLATELET COUNT 159 x10e3/uL (140-360); RED BLOOD COUNT 3.84 x10e6/uL (3.6-5.1)
[2017-09-25 05:35] LABS: ANION GAP 12.3 mmol/L (8-16); CALCIUM 9.1 mg/dL (8.4-10.2); CREATININE, SERUM 1.5 mg/dL (0.57-1.11); POTASSIUM 5.3 mmol/L (3.5-5.1)
[2017-09-25] MEDS: FAMOTIDINE 20 MG TAB PO SCH ×2 (07:18→16:39)
[2017-09-25] MEDS: AZTREONAM 1 GM/NS 50 ML 50 ML IV SCH ×2 (07:18→18:27)
[2017-09-25] MEDS ORDERED: SODIUM CHLORIDE 0.9% 250ML 250 ML ONE (08:07)
[2017-09-25] MEDS ORDERED: BENZOCAINE 20% SPR 60 ML CAN ONE (08:19)
[2017-09-25] MEDS: METHYLPREDNISOLONE SOD SUCC 40 MG/ML VIAL IV SCH ×2 (09:39→20:47)
[2017-09-25] MEDS: FUROSEMIDE INJ 10 MG/ML 4 ML VIAL IV SCH ×2 (09:39→16:39)
[2017-09-25] MEDS: BALSAM PERU/CASTOR OIL 60 GM OINT...G. TP SCH ×2 (09:40→16:31)
[2017-09-25] MEDS: AMIODARONE HCL 200 MG TAB PO SCH (09:40)
[2017-09-25] MEDS: NYSTATIN 15 GM POWDER UD BTL TOP SCH ×3 (09:40→20:47)
[2017-09-25] MEDS: NYSTATIN/TRIAMCINOLONE 15 GM CR TOP SCH (09:40)
[2017-09-25] MEDS: EZETIMIBE 10 MG TAB PO SCH (09:40)
[2017-09-25] MEDS ORDERED: LIDOCAINE HCL 2% LOCAL INJ 5 ML SDV VIAL INJ ONE (11:10)
[2017-09-25] MEDS ORDERED: PROPOFOL IV EMULSION 10 MG/ML 20 ML VIAL ONE (11:10)
[2017-09-25] MEDS ORDERED: SODIUM CHLORIDE 0.9% 100 ML ONE (15:28)
--- NOTE | 2017-09-25 15:59 | Cardiology Report ---
DATE OF STUDY: September 25, 2017 TRANSESOPHAGEAL ECHOCARDIOGRAM INDICATIONS: Rule out thrombus prior to cardioversion. DESCRIPTION OF PROCEDURE: After informed consent, the patient was anesthetized by the anesthesiologist. Transesophageal probe was passed without any difficulty, and images were being obtained. However, the patient desaturated. The probe was removed and the patient was bagged by the anesthesiologist. Saturations went up to the 90s, and the patient was reintubated. A limited transesophageal echocardiogram was performed to rule out thrombus. REPORT: This is a limited study. 1. Left ventricle: Appears to be of normal size with preserved systolic function. Overall estimated ejection fraction appears to be about 50%. 2. Left atrium: Appears to be dilated. No spontaneous echo contrast or thrombus is seen in the left atrium or left atrial appendage. 3. Right atrium: Appears to be mildly dilated. 4. Right ventricle: Appears to be normal. 5. Mitral valve is thickened without valve excursion. No vegetations are noted on the mitral valve leaflets. Mild mitral regurgitation is noted. 6. Tricuspid valve: Is poorly visualized. Trace tricuspid regurgitation is noted. No obvious vegetations are noted. 7. Aortic valve: The view seen appears to be thickened. CONCLUSIONS 1. Technically limited study. 2. Left ventricle is of normal size with preserved systolic function. 3. The overall estimated ejection fraction is about 50%. 4. Left atrium is dilated. 5. No spontaneous echo contrast or thrombus is seen in the left atrium or left atrial appendage. 6. Mild mitral regurgitation. 7. Mild tricuspid regurgitation is noted. 8. No intracardiac thrombi or vegetation noted. Job#: [id number] SETH
--- NOTE | 2017-09-25 16:05 | Operative Report ---
DATE OF PROCEDURE: PROCEDURE PERFORMED: Synchronized cardioversion. INDICATIONS: Atrial flutter with rapid ventricular rate. DESCRIPTION OF PROCEDURE: After informed consent, the patient underwent transesophageal echocardiogram. No thrombus was noted in the left atrium or left atrial appendage. Paddles were placed on the patient's chest. Patient was cardioverted by synchronized cardioversion at 75 joules. Patient converted to sinus rhythm with 1 shock. Patient desaturated during the transesophageal echocardiogram and so the probe had to be removed and reinserted. The anesthesiologist anesthetized the patient. Overall, the patient tolerated the procedure. Patient is in sinus bradycardia. Job#: [id number]
[2017-09-25] MEDS ORDERED: DEXTROSE 50% SYRINGE 50 ML IV PRN (17:15)
[2017-09-25] MEDS: INSULIN REGULAR, HUMAN 100 UNIT/1 ML 3ML VIAL SQ SCH (20:48)
[2017-09-26] VITALS (91 sets, daily range): BP systolic 97–187; BP diastolic 59–123
[2017-09-26] MEDS: ENOXAPARIN SODIUM INJ 100 MG/ML SYR SC SCH (05:24)
[2017-09-26] MEDS: AZITHROMYCIN 500MG/NS 250 ML 250 ML IV SCH (05:24)
[2017-09-26 06:09] LABS: BASOPHILS % 0.1 % (0.0-1.0); HEMATOCRIT 36.2 % (34.2-44.1); HEMOGLOBIN 11.4 g/dL (12.0-16.0); LYMPHOCYTES # (AUTO) 0.7 (1.0-3.2); LYMPHOCYTES % 6.8 % (18.0-39.1); MEAN CORPUSCULAR HEMOGLOBIN 32.4 pg (28-32); MEAN CORPUSCULAR HGB CONC 31.5 g/dL (31-35); MEAN CORPUSCULAR VOLUME 102.8 fL (81-99); MONOCYTES # (AUTO) 0.4 (0.2-0.8); MONOCYTES % 4.2 % (4.4-11.3); NEUTROPHILS # (AUTO) 8.6 (2.1-6.9); NEUTROPHILS % 88.3 % (38.7-80.0); PLATELET COUNT 170 x10e3/uL (140-360); RED BLOOD COUNT 3.52 x10e6/uL (3.6-5.1); RED CELL DISTRIBUTION WIDTH 15.2 % (11.7-14.4)
[2017-09-26 06:32] LABS: ALBUMIN 3.2 g/dL (3.5-5.0); ANION GAP 12.1 mmol/L (8-16); CALCIUM 9.3 mg/dL (8.4-10.2); CREATININE, SERUM 1.43 mg/dL (0.57-1.11); POTASSIUM 5.1 mmol/L (3.5-5.1)
[2017-09-26] MEDS ORDERED: SODIUM CHLORIDE 0.9% 250ML 250 ML ONE (06:32)
[2017-09-26] MEDS: AZTREONAM 1 GM/NS 50 ML 50 ML IV SCH ×2 (06:44→18:48)
[2017-09-26 06:49] LABS: MAGNESIUM 1.9 MG/DL (1.3-2.1); PHOSPHORUS 4.3 MG/DL (2.3-4.7)
[2017-09-26] MEDS: FAMOTIDINE 20 MG TAB PO SCH ×2 (07:24→17:00)
[2017-09-26] MEDS: INSULIN REGULAR, HUMAN 100 UNIT/1 ML 3ML VIAL SQ SCH ×4 (07:27→21:09)
[2017-09-26] MEDS: FUROSEMIDE INJ 10 MG/ML 4 ML VIAL IV SCH (08:07)
[2017-09-26] MEDS: NYSTATIN 15 GM POWDER UD BTL TOP SCH ×3 (08:07→21:13)
[2017-09-26] MEDS: METHYLPREDNISOLONE SOD SUCC 40 MG/ML VIAL IV SCH (08:07)
[2017-09-26] MEDS: BALSAM PERU/CASTOR OIL 60 GM OINT...G. TP SCH ×2 (08:07→17:00)
[2017-09-26] MEDS: NYSTATIN/TRIAMCINOLONE 15 GM CR TOP SCH (08:07)
[2017-09-26] MEDS: EZETIMIBE 10 MG TAB PO SCH (08:07)
[2017-09-26] MEDS: AMIODARONE HCL 200 MG TAB PO SCH (08:07)
[2017-09-26] MEDS ORDERED: METOPROLOL TARTRATE INJ 1 MG/ML VIAL IV PRN (16:30)
[2017-09-26] MEDS ORDERED: HYDRALAZINE HCL 20 MG/ML VIAL IV PRN (16:30)
[2017-09-26] MEDS: HYDROCODONE/APAP 10MG-325MG TAB PO PRN (17:00)
[2017-09-26] MEDS: AMLODIPINE BESYLATE 10 MG TAB PO SCH (17:00)
[2017-09-26] MEDS: APIXAB 2.5 MG TABLET PO SCH (17:00)
[2017-09-27] VITALS (34 sets, daily range): BP systolic 115–152; BP diastolic 55–120
[2017-09-27] MEDS: AZITHROMYCIN 500MG/NS 250 ML 250 ML IV SCH (05:34)
[2017-09-27 05:56] LABS: BASOPHILS % 0.1 % (0.0-1.0); EOSINOPHILS # (AUTO) 0.1 (0.0-0.4); EOSINOPHILS % 0.5 % (0.0-6.0); HEMATOCRIT 36.7 % (34.2-44.1); HEMOGLOBIN 11.6 g/dL (12.0-16.0); LYMPHOCYTES % 19.9 % (18.0-39.1); MEAN CORPUSCULAR HGB CONC 31.6 g/dL (31-35); MEAN CORPUSCULAR VOLUME 101.4 fL (81-99); NEUTROPHILS % 68.9 % (38.7-80.0); PLATELET COUNT 146 x10e3/uL (140-360); RED BLOOD COUNT 3.62 x10e6/uL (3.6-5.1); RED CELL DISTRIBUTION WIDTH 14.6 % (11.7-14.4)
[2017-09-27 06:16] LABS: ANION GAP 10.5 mmol/L (8-16); CALCIUM 9.2 mg/dL (8.4-10.2); CREATININE, SERUM 1.45 mg/dL (0.57-1.11); MAGNESIUM 1.9 MG/DL (1.3-2.1); POTASSIUM 4.5 mmol/L (3.5-5.1)
--- NOTE | 2017-09-27 06:26 | Diagnostic Imaging Report ---
CHEST SINGLE (PORTABLE), 09/27/2017 5:00 AM Technique: CHEST SINGLE (PORTABLE) Comparison: 09/24/2017 Clinical history: Congestive heart failure Findings: Limited by overlying soft tissue attenuation and portable technique. Impression: 1. Lines/Tubes: Stable right PICC over the SVC. 2. Stable enlarged cardiac silhouette. 3. Persistent edema with bibasilar atelectasis and small effusions. Signed by: Dr Korina Perry MD on 09/27/2017 6:22 AM
[2017-09-27] MEDS: AZTREONAM 1 GM/NS 50 ML 50 ML IV SCH ×2 (06:36→18:17)
[2017-09-27] MEDS: INSULIN REGULAR, HUMAN 100 UNIT/1 ML 3ML VIAL SQ SCH ×4 (07:30→21:41)
[2017-09-27] MEDS: FAMOTIDINE 20 MG TAB PO SCH ×2 (07:35→16:33)
[2017-09-27] MEDS: AMIODARONE HCL 200 MG TAB PO SCH (08:22)
[2017-09-27] MEDS: APIXAB 2.5 MG TABLET PO SCH ×2 (08:23→16:33)
[2017-09-27] MEDS: AMLODIPINE BESYLATE 10 MG TAB PO SCH (08:24)
[2017-09-27] MEDS: EZETIMIBE 10 MG TAB PO SCH (08:24)
[2017-09-27] MEDS ORDERED: METHYLPREDNISOLONE SOD SUCC 40 MG/ML VIAL IV SCH (09:00)
[2017-09-27] MEDS: BALSAM PERU/CASTOR OIL 60 GM OINT...G. TP SCH ×2 (09:35→16:33)
[2017-09-27] MEDS: NYSTATIN 15 GM POWDER UD BTL TOP SCH ×3 (09:35→21:40)
[2017-09-27] MEDS: NYSTATIN/TRIAMCINOLONE 15 GM CR TOP SCH (09:35)
[2017-09-27] MEDS: HYDROCODONE/APAP 10MG-325MG TAB PO PRN (16:33)
[2017-09-28] VITALS (8 sets, daily range): BP systolic 126–153; BP diastolic 67–81
[2017-09-28] MEDS ORDERED: SODIUM CHLORIDE 0.9% 250ML 250 ML ONE (04:33)
[2017-09-28] MEDS: AZITHROMYCIN 500MG/NS 250 ML 250 ML IV SCH (05:00)
[2017-09-28 06:10] LABS: BASOPHILS % 0.3 % (0.0-1.0); EOSINOPHILS # (AUTO) 0.2 (0.0-0.4); EOSINOPHILS % 2.1 % (0.0-6.0); HEMOGLOBIN 10.8 g/dL (12.0-16.0); LYMPHOCYTES # (AUTO) 2.4 (1.0-3.2); LYMPHOCYTES % 24.7 % (18.0-39.1); MEAN CORPUSCULAR HEMOGLOBIN 32.5 pg (28-32); MEAN CORPUSCULAR HGB CONC 31.8 g/dL (31-35); MEAN CORPUSCULAR VOLUME 102.4 fL (81-99); MONOCYTES # (AUTO) 0.8 (0.2-0.8); NEUTROPHILS # (AUTO) 6.3 (2.1-6.9); NEUTROPHILS % 64.1 % (38.7-80.0); PLATELET COUNT 184 x10e3/uL (140-360); RED BLOOD COUNT 3.32 x10e6/uL (3.6-5.1); RED CELL DISTRIBUTION WIDTH 14.7 % (11.7-14.4)
[2017-09-28 06:48] LABS: ANION GAP 10.8 mmol/L (8-16); CREATININE, SERUM 1.02 mg/dL (0.57-1.11); POTASSIUM 4.8 mmol/L (3.5-5.1)
[2017-09-28] MEDS: INSULIN REGULAR, HUMAN 100 UNIT/1 ML 3ML VIAL SQ SCH ×4 (07:30→20:11)
[2017-09-28] MEDS: FAMOTIDINE 20 MG TAB PO SCH ×2 (08:13→17:14)
[2017-09-28] MEDS: AMLODIPINE BESYLATE 10 MG TAB PO SCH (08:14)
[2017-09-28] MEDS: APIXABAN 5 MG TABLET PO SCH ×2 (08:14→17:14)
[2017-09-28] MEDS: EZETIMIBE 10 MG TAB PO SCH (08:14)
[2017-09-28] MEDS: AMIODARONE HCL 200 MG TAB PO SCH (08:14)
[2017-09-28] MEDS: PREDNISONE 10 MG TAB PO SCH (08:14)
[2017-09-28] MEDS: BALSAM PERU/CASTOR OIL 60 GM OINT...G. TP SCH ×2 (08:14→17:14)
[2017-09-28] MEDS: NYSTATIN 15 GM POWDER UD BTL TOP SCH ×2 (08:14→15:00)
[2017-09-28] MEDS: NYSTATIN/TRIAMCINOLONE 15 GM CR TOP SCH (08:14)
[2017-09-28] MEDS: HYDROCODONE/APAP 10MG-325MG TAB PO PRN ×2 (08:25→17:05)
[2017-09-28] MEDS: AZTREONAM 1 GM/NS 50 ML 50 ML IV SCH (17:51)
[2017-09-29] VITALS: BP 153/75
[2017-09-29] MEDS: NYSTATIN 15 GM POWDER UD BTL TOP SCH ×3 (00:01→16:17)
[2017-09-29 04:15] VITALS: BP 162/79
[2017-09-29] MEDS: AZITHROMYCIN 500MG/NS 250 ML 250 ML IV SCH (05:00)
[2017-09-29] MEDS: HYDROCODONE/APAP 10MG-325MG TAB PO PRN (05:22)
[2017-09-29 06:24] LABS: BASOPHILS % 0.4 % (0.0-1.0); EOSINOPHILS # (AUTO) 0.2 (0.0-0.4); HEMATOCRIT 35.5 % (34.2-44.1); HEMOGLOBIN 11.3 g/dL (12.0-16.0); LYMPHOCYTES # (AUTO) 2.2 (1.0-3.2); LYMPHOCYTES % 22.6 % (18.0-39.1); MEAN CORPUSCULAR HEMOGLOBIN 32.8 pg (28-32); MEAN CORPUSCULAR HGB CONC 31.8 g/dL (31-35); MEAN CORPUSCULAR VOLUME 103.2 fL (81-99); MONOCYTES # (AUTO) 0.8 (0.2-0.8); MONOCYTES % 7.9 % (4.4-11.3); NEUTROPHILS # (AUTO) 6.5 (2.1-6.9); NEUTROPHILS % 65.6 % (38.7-80.0); PLATELET COUNT 176 x10e3/uL (140-360); RED BLOOD COUNT 3.44 x10e6/uL (3.6-5.1); RED CELL DISTRIBUTION WIDTH 14.6 % (11.7-14.4)
[2017-09-29 06:37] LABS: ANION GAP 8.8 mmol/L (8-16); CALCIUM 9.5 mg/dL (8.4-10.2); CREATININE, SERUM 1.11 mg/dL (0.57-1.11); POTASSIUM 4.8 mmol/L (3.5-5.1)
[2017-09-29] MEDS: AZTREONAM 1 GM/NS 50 ML 50 ML IV SCH (06:47)
[2017-09-29 07:43] VITALS: BP 153/77
[2017-09-29] MEDS: INSULIN REGULAR, HUMAN 100 UNIT/1 ML 3ML VIAL SQ SCH ×4 (09:19→20:30)
[2017-09-29] MEDS: AMIODARONE HCL 200 MG TAB PO SCH (09:31)
[2017-09-29] MEDS: FAMOTIDINE 20 MG TAB PO SCH ×2 (09:31→16:17)
[2017-09-29] MEDS: APIXABAN 5 MG TABLET PO SCH ×2 (09:31→16:17)
[2017-09-29] MEDS: AMLODIPINE BESYLATE 10 MG TAB PO SCH (09:32)
[2017-09-29] MEDS: EZETIMIBE 10 MG TAB PO SCH (09:32)
[2017-09-29] MEDS: PREDNISONE 10 MG TAB PO SCH (09:32)
[2017-09-29] MEDS ORDERED: ASCORBIC ACID500 MG PO (11:45)
[2017-09-29] MEDS ORDERED: PREDNISONE10 MG PO (11:45)
[2017-09-29] MEDS ORDERED: VENELEX OINTMEN60 GM TP (11:45)
[2017-09-29] MEDS ORDERED: CALCIUM 500 +1 EAC2 PO (11:45)
[2017-09-29] MEDS ORDERED: NIFEDIPINE ER30 M1 PO (11:45)
[2017-09-29] MEDS ORDERED: Apixaban PO (11:45)
[2017-09-29] MEDS ORDERED: Nystatin/Triamcinolone TOP (11:45)
[2017-09-29] MEDS ORDERED: MAGNESIUM OXID400 MG PO (11:45)
[2017-09-29] MEDS ORDERED: AMIODARONE HCL200 MG PO (11:45)
[2017-09-29] MEDS ORDERED: MULTIPLE VITAM1 EACH PO (11:46)
[2017-09-29] MEDS ORDERED: ZINC-220220 MG PO (11:46)
[2017-09-29] MEDS: BALSAM PERU/CASTOR OIL 60 GM OINT...G. TP SCH ×2 (11:58→17:45)
[2017-09-29] MEDS: NYSTATIN/TRIAMCINOLONE 15 GM CR TOP SCH (11:58)
[2017-09-29] MEDS: NIFEDIPINE CR 30 MG TAB PO SCH (13:00)
[2017-09-29 20:00] VITALS: BP 143/66
[2017-09-30] VITALS: BP 140/72
[2017-09-30 04:00] VITALS: BP 154/70
[2017-09-30 06:53] LABS: BASOPHILS % 0.3 % (0.0-1.0); EOSINOPHILS # (AUTO) 0.3 (0.0-0.4); EOSINOPHILS % 2.3 % (0.0-6.0); HEMATOCRIT 33.1 % (34.2-44.1); HEMOGLOBIN 10.7 g/dL (12.0-16.0); LYMPHOCYTES # (AUTO) 2.3 (1.0-3.2); MEAN CORPUSCULAR HEMOGLOBIN 33.1 pg (28-32); MEAN CORPUSCULAR HGB CONC 32.3 g/dL (31-35); MEAN CORPUSCULAR VOLUME 102.5 fL (81-99); MONOCYTES # (AUTO) 0.8 (0.2-0.8); MONOCYTES % 6.5 % (4.4-11.3); NEUTROPHILS # (AUTO) 8.1 (2.1-6.9); NEUTROPHILS % 69.5 % (38.7-80.0); PLATELET COUNT 171 x10e3/uL (140-360); RED BLOOD COUNT 3.23 x10e6/uL (3.6-5.1); RED CELL DISTRIBUTION WIDTH 14.5 % (11.7-14.4)
[2017-09-30 07:21] LABS: ANION GAP 9.3 mmol/L (8-16); CALCIUM 10.2 mg/dL (8.4-10.2); CREATININE, SERUM 1.25 mg/dL (0.57-1.11); POTASSIUM 5.3 mmol/L (3.5-5.1)
[2017-09-30] MEDS: INSULIN REGULAR, HUMAN 100 UNIT/1 ML 3ML VIAL SQ SCH ×4 (07:30→20:30)
[2017-09-30 08:22] VITALS: BP 158/72
[2017-09-30] MEDS: FAMOTIDINE 20 MG TAB PO SCH ×2 (09:02→16:44)
[2017-09-30] MEDS: PREDNISONE 10 MG TAB PO SCH (09:02)
[2017-09-30] MEDS: AMIODARONE HCL 200 MG TAB PO SCH (09:02)
[2017-09-30] MEDS: APIXABAN 5 MG TABLET PO SCH ×2 (09:02→16:45)
[2017-09-30] MEDS: NIFEDIPINE CR 30 MG TAB PO SCH (09:03)
[2017-09-30] MEDS: EZETIMIBE 10 MG TAB PO SCH (09:03)
[2017-09-30] MEDS ORDERED: DEXTROSE 5%/0.9% SOD CHL 1,000 ML IV ONE (10:45)
[2017-09-30] MEDS ORDERED: SOD POLYSTYRENE SULFONATE SUSP 15 GM/60 ML BTL PO SCH (11:00)
[2017-09-30] MEDS ORDERED: NIFEDIPINE CR 30 MG TAB PO SCH (11:00)
[2017-09-30 12:19] VITALS: BP 153/78
[2017-09-30] MEDS: BALSAM PERU/CASTOR OIL 60 GM OINT...G. TP SCH ×2 (13:12→16:45)
[2017-09-30] MEDS: NYSTATIN/TRIAMCINOLONE 15 GM CR TOP SCH (13:13)
[2017-09-30 16:57] VITALS: BP 132/60
[2017-09-30] MEDS: HYDROCODONE/APAP 5MG-325MG TAB PO PRN (17:04)
[2017-09-30 20:25] VITALS: BP 127/64
[2017-09-30] MEDS: ALBUTEROL/IPRATROPIUM 3 ML NEB NEB PRN (23:20)
[2017-10-01 00:12] VITALS: BP 126/68
[2017-10-01 04:08] VITALS: BP 172/79
[2017-10-01] MEDS: NIFEDIPINE CR 30 MG TAB PO SCH ×2 (04:49→08:37)
[2017-10-01 05:44] LABS: BASOPHILS % 0.4 % (0.0-1.0); EOSINOPHILS # (AUTO) 0.2 (0.0-0.4); EOSINOPHILS % 2.1 % (0.0-6.0); HEMATOCRIT 31.7 % (34.2-44.1); HEMOGLOBIN 10.1 g/dL (12.0-16.0); LYMPHOCYTES # (AUTO) 2.1 (1.0-3.2); LYMPHOCYTES % 18.3 % (18.0-39.1); MEAN CORPUSCULAR HEMOGLOBIN 32.8 pg (28-32); MEAN CORPUSCULAR HGB CONC 31.9 g/dL (31-35); MEAN CORPUSCULAR VOLUME 102.9 fL (81-99); MONOCYTES # (AUTO) 0.7 (0.2-0.8); MONOCYTES % 6.3 % (4.4-11.3); PLATELET COUNT 171 x10e3/uL (140-360); RED BLOOD COUNT 3.08 x10e6/uL (3.6-5.1); RED CELL DISTRIBUTION WIDTH 14.5 % (11.7-14.4)
[2017-10-01 06:04] LABS: ANION GAP 11.3 mmol/L (8-16); CALCIUM 9.6 mg/dL (8.4-10.2); CREATININE, SERUM 1.25 mg/dL (0.57-1.11); MAGNESIUM 1.9 MG/DL (1.3-2.1); POTASSIUM 5.3 mmol/L (3.5-5.1)
[2017-10-01] MEDS: INSULIN REGULAR, HUMAN 100 UNIT/1 ML 3ML VIAL SQ SCH ×5 (07:30→21:33)
[2017-10-01] MEDS: FAMOTIDINE 20 MG TAB PO SCH ×2 (08:27→17:12)
[2017-10-01] MEDS: AMIODARONE HCL 200 MG TAB PO SCH (08:28)
[2017-10-01] MEDS: PREDNISONE 10 MG TAB PO SCH (08:28)
[2017-10-01] MEDS: APIXABAN 5 MG TABLET PO SCH ×2 (08:28→17:12)
[2017-10-01] MEDS: EZETIMIBE 10 MG TAB PO SCH (08:28)
[2017-10-01] MEDS: HYDROCODONE/APAP 5MG-325MG TAB PO PRN (08:30)
[2017-10-01] MEDS: SOD POLYSTYRENE SULFONATE SUSP 15 GM/60 ML BTL PO SCH ×2 (08:48→09:48)
[2017-10-01] MEDS ORDERED: LACTULOSE SYRUP 20 GM/30 ML UDC PO SCH (10:00)
[2017-10-01] MEDS ORDERED: DEXTROSE 5%/0.45% SOD CHL 1,000 ML IV ONE ×2 (10:15→22:30)
[2017-10-01 10:38] VITALS: BP 164/99
[2017-10-01] MEDS: NYSTATIN/TRIAMCINOLONE 15 GM CR TOP SCH (12:29)
[2017-10-01] MEDS: BALSAM PERU/CASTOR OIL 60 GM OINT...G. TP SCH ×2 (12:29→17:12)
[2017-10-01] MEDS: FUROSEMIDE 40 MG TAB PO SCH ×2 (12:33→17:12)
[2017-10-01 15:54] VITALS: BP 137/76
[2017-10-01 20:00] VITALS: BP 146/71
[2017-10-02] VITALS: BP 157/77
[2017-10-02 04:00] VITALS: BP 152/70
[2017-10-02] MEDS: FUROSEMIDE 40 MG TAB PO SCH ×2 (05:50→17:05)
[2017-10-02 06:22] LABS: BASOPHILS % 0.3 % (0.0-1.0); EOSINOPHILS # (AUTO) 0.3 (0.0-0.4); EOSINOPHILS % 2.1 % (0.0-6.0); HEMATOCRIT 32.2 % (34.2-44.1); LYMPHOCYTES # (AUTO) 2.1 (1.0-3.2); LYMPHOCYTES % 16.6 % (18.0-39.1); MEAN CORPUSCULAR HEMOGLOBIN 32.7 pg (28-32); MEAN CORPUSCULAR HGB CONC 31.1 g/dL (31-35); MEAN CORPUSCULAR VOLUME 105.2 fL (81-99); MONOCYTES # (AUTO) 0.7 (0.2-0.8); MONOCYTES % 5.7 % (4.4-11.3); NEUTROPHILS # (AUTO) 9.1 (2.1-6.9); NEUTROPHILS % 73.2 % (38.7-80.0); PLATELET COUNT 187 x10e3/uL (140-360); RED BLOOD COUNT 3.06 x10e6/uL (3.6-5.1); RED CELL DISTRIBUTION WIDTH 14.4 % (11.7-14.4)
[2017-10-02 06:56] LABS: ANION GAP 11.5 mmol/L (8-16); CALCIUM 9.5 mg/dL (8.4-10.2); CREATININE, SERUM 1.1 mg/dL (0.57-1.11); POTASSIUM 4.5 mmol/L (3.5-5.1)
[2017-10-02] MEDS: INSULIN REGULAR, HUMAN 100 UNIT/1 ML 3ML VIAL SQ SCH ×4 (07:30→21:52)
[2017-10-02] MEDS: FAMOTIDINE 20 MG TAB PO SCH ×2 (07:30→16:30)
[2017-10-02 07:57] LABS: EOSINOPHILS % (MANUAL) 5 % (0-7); LYMPHOCYTES % (MANUAL) 15 % (19-48); METAMYELOCYTES % (MANUAL) 2 % (0-0); MONOCYTES % (MANUAL) 3 % (3.4-9.0); NEUTROPHILS % (MANUAL) 73 % (40-74); PLATELET ESTIMATE ADEQUATE; PLATELET MORPHOLOGY COMMENT NORMAL
[2017-10-02 07:58] LABS: RBC MORPHOLOGY COMMENT NORMAL
[2017-10-02 08:00] VITALS: BP 152/70
[2017-10-02] MEDS: AMIODARONE HCL 200 MG TAB PO SCH (09:00)
[2017-10-02] MEDS: NIFEDIPINE CR 30 MG TAB PO SCH (09:00)
[2017-10-02] MEDS: PREDNISONE 10 MG TAB PO SCH (09:00)
[2017-10-02] MEDS: APIXABAN 5 MG TABLET PO SCH ×2 (09:00→17:00)
[2017-10-02] MEDS: NYSTATIN/TRIAMCINOLONE 15 GM CR TOP SCH (09:00)
[2017-10-02] MEDS: BALSAM PERU/CASTOR OIL 60 GM OINT...G. TP SCH ×2 (09:00→17:00)
[2017-10-02] MEDS: EZETIMIBE 10 MG TAB PO SCH (09:00)
[2017-10-02] MEDS: HYDROCODONE/APAP 5MG-325MG TAB PO PRN ×2 (09:34→21:48)
[2017-10-02 11:53] VITALS: BP 166/72
[2017-10-02 16:02] VITALS: BP 137/65
[2017-10-02 20:00] VITALS: BP 161/77
[2017-10-03] VITALS: BP 164/74
[2017-10-03 04:00] VITALS: BP 156/70
[2017-10-03] MEDS: FUROSEMIDE 40 MG TAB PO SCH ×2 (05:21→17:29)
[2017-10-03 06:45] LABS: BASOPHILS # (AUTO) 0.1 (0.0-0.1); BASOPHILS % 0.5 % (0.0-1.0); EOSINOPHILS # (AUTO) 0.3 (0.0-0.4); EOSINOPHILS % 2.4 % (0.0-6.0); HEMATOCRIT 31.9 % (34.2-44.1); HEMOGLOBIN 10.1 g/dL (12.0-16.0); LYMPHOCYTES # (AUTO) 2.9 (1.0-3.2); MEAN CORPUSCULAR HEMOGLOBIN 32.7 pg (28-32); MEAN CORPUSCULAR HGB CONC 31.7 g/dL (31-35); MEAN CORPUSCULAR VOLUME 103.2 fL (81-99); MONOCYTES # (AUTO) 0.7 (0.2-0.8); MONOCYTES % 5.3 % (4.4-11.3); NEUTROPHILS # (AUTO) 7.9 (2.1-6.9); NEUTROPHILS % 65.2 % (38.7-80.0); PLATELET COUNT 185 x10e3/uL (140-360); RED BLOOD COUNT 3.09 x10e6/uL (3.6-5.1); RED CELL DISTRIBUTION WIDTH 14.4 % (11.7-14.4)
[2017-10-03 07:04] LABS: ANION GAP 9.3 mmol/L (8-16); CALCIUM 9.2 mg/dL (8.4-10.2); CREATININE, SERUM 1.16 mg/dL (0.57-1.11); POTASSIUM 4.3 mmol/L (3.5-5.1)
[2017-10-03] MEDS: INSULIN REGULAR, HUMAN 100 UNIT/1 ML 3ML VIAL SQ SCH ×4 (07:30→20:46)
[2017-10-03] MEDS: FAMOTIDINE 20 MG TAB PO SCH ×2 (07:30→16:30)
[2017-10-03 08:00] VITALS: BP 142/65
[2017-10-03] MEDS: PREDNISONE 5 MG TAB PO SCH (08:53)
[2017-10-03] MEDS: AMIODARONE HCL 200 MG TAB PO SCH ×2 (08:53→17:29)
[2017-10-03] MEDS: APIXABAN 5 MG TABLET PO SCH (08:53)
[2017-10-03] MEDS: NIFEDIPINE CR 30 MG TAB PO SCH (08:53)
[2017-10-03] MEDS: COLLAGENASE 5 GM TUBE TOP SCH (08:54)
[2017-10-03] MEDS: EZETIMIBE 10 MG TAB PO SCH (08:54)
[2017-10-03] MEDS: NYSTATIN/TRIAMCINOLONE 15 GM CR TOP SCH (09:00)
[2017-10-03] MEDS: BALSAM PERU/CASTOR OIL 60 GM OINT...G. TP SCH (09:00)
[2017-10-03] MEDS ORDERED: NIFEDIPINE ER30 M1 PO (11:03)
[2017-10-03] MEDS ORDERED: FUROSEMIDE INJ 10 MG/ML 2 ML VIAL IV ONE (11:15)
[2017-10-03 12:00] VITALS: BP 142/58
[2017-10-03 12:44] LABS: BILIRUBIN,URINE NEGATIVE (NEGATIVE); CLARITY,URINE CLEAR (CLEAR); COLOR,URINE YELLOW (YELLOW); KETONES,URINE NEGATIVE (NEGATIVE); LEUKOCYTE ESTERASE ,URINE NEGATIVE (NEGATIVE); NITRITE,URINE NEGATIVE (NEGATIVE); PROTEIN,URINE DIPSTICK 1+ (NEGATIVE); URINE UROBILINOGEN 0.2 mg/dL (0.2 - 1)
[2017-10-03 12:54] LABS: BACTERIA,URINE FEW /HPF; EPITHELIAL CELLS,URINE FEW /LPF; RBC,URINE 0-5 /HPF (0-5); WBC,URINE (MAN) 0-5 /HPF (0-5)
[2017-10-03] MEDS: HYDROCODONE/APAP 5MG-325MG TAB PO PRN (13:00)
--- NOTE | 2017-10-03 13:09 | Diagnostic Imaging Report ---
PROCEDURE: A single AP view of the chest. COMPARISON: Patients [facility], , CHEST SINGLE (PORTABLE), 09/27/2017, 5:32. INDICATIONS: COPD, ACUTE RESPIRATORY DISTRESS, AFIB,ATRIAL FLUTTER FINDINGS: See impression. IMPRESSION: 1. right-sided PICC line is unchanged. 2. Slight interval decrease in bilateral pulmonary edema. Persistent enlarged cardiac silhouette, central pulmonary venous congestion and perihilar interstitial edema. No consolidation. 3. Likely small right pleural effusion. Rajiv Andrade M.D. Dictated by: Rajiv Andrade M.D. on 10/03/2017 at 13:09 Electronically approved by: Rajiv Andrade M.D. on 10/03/2017 at 13:09
[2017-10-03 19:20] VITALS: BP 160/86
[2017-10-04] VITALS: BP 153/77
[2017-10-04 04:00] VITALS: BP 159/78
[2017-10-04] MEDS: FUROSEMIDE 40 MG TAB PO SCH ×2 (05:18→17:07)
[2017-10-04] MEDS: HYDROCODONE/APAP 5MG-325MG TAB PO PRN ×2 (05:33→17:00)
[2017-10-04 06:19] LABS: BASOPHILS # (AUTO) 0.1 (0.0-0.1); BASOPHILS % 0.4 % (0.0-1.0); EOSINOPHILS # (AUTO) 0.3 (0.0-0.4); EOSINOPHILS % 2.2 % (0.0-6.0); HEMOGLOBIN 10.7 g/dL (12.0-16.0); LYMPHOCYTES % 26.6 % (18.0-39.1); MEAN CORPUSCULAR HEMOGLOBIN 32.5 pg (28-32); MEAN CORPUSCULAR HGB CONC 31.5 g/dL (31-35); MEAN CORPUSCULAR VOLUME 103.3 fL (81-99); MONOCYTES # (AUTO) 0.6 (0.2-0.8); MONOCYTES % 5.6 % (4.4-11.3); NEUTROPHILS # (AUTO) 7.1 (2.1-6.9); NEUTROPHILS % 63.1 % (38.7-80.0); PLATELET COUNT 218 x10e3/uL (140-360); RED BLOOD COUNT 3.29 x10e6/uL (3.6-5.1); RED CELL DISTRIBUTION WIDTH 14.5 % (11.7-14.4)
[2017-10-04 07:04] LABS: ANION GAP 11.5 mmol/L (8-16); CALCIUM 9.9 mg/dL (8.4-10.2); CREATININE, SERUM 1.21 mg/dL (0.57-1.11); MAGNESIUM 1.4 MG/DL (1.3-2.1); POTASSIUM 4.5 mmol/L (3.5-5.1)
[2017-10-04 07:23] LABS: ANISOCYTOSIS SLIGHT; EOSINOPHILS % (MANUAL) 3 % (0-7); HYPOCHROMASIA SLIGHT; LYMPHOCYTES % (MANUAL) 26 % (19-48); MONOCYTES % (MANUAL) 6 % (3.4-9.0); NEUTROPHILS % (MANUAL) 65 % (40-74)
[2017-10-04 07:24] LABS: PLATELET ESTIMATE ADEQUATE; PLATELET MORPHOLOGY COMMENT NORMAL; RBC MORPHOLOGY COMMENT NORMAL
[2017-10-04] MEDS: INSULIN REGULAR, HUMAN 100 UNIT/1 ML 3ML VIAL SQ SCH ×5 (07:30→22:09)
[2017-10-04 08:00] VITALS: BP 156/72
[2017-10-04] MEDS: FAMOTIDINE 20 MG TAB PO SCH ×2 (08:30→16:32)
[2017-10-04] MEDS: PREDNISONE 5 MG TAB PO SCH (09:52)
[2017-10-04] MEDS: EZETIMIBE 10 MG TAB PO SCH (09:52)
[2017-10-04] MEDS: COLLAGENASE 5 GM TUBE TOP SCH (09:52)
[2017-10-04] MEDS: NIFEDIPINE CR 30 MG TAB PO SCH (09:52)
[2017-10-04] MEDS ORDERED: FUROSEMIDE INJ 10 MG/ML 4 ML VIAL IV NR (11:00)
[2017-10-04 12:00] VITALS: BP 155/71
[2017-10-04 16:00] VITALS: BP 130/62
[2017-10-04 20:00] VITALS: BP 139/68
[2017-10-05] VITALS: BP_SYST 111; BP_SYST 155; BP_SYST 156; BP_DIAS 53; BP_DIAS 70; BP_DIAS 74
[2017-10-05] MEDS: FUROSEMIDE 40 MG TAB PO SCH ×2 (05:10→17:29)
[2017-10-05] MEDS: HYDROCODONE/APAP 5MG-325MG TAB PO PRN ×2 (05:43→17:29)
[2017-10-05 05:49] LABS: BASOPHILS # (AUTO) 0.1 (0.0-0.1); BASOPHILS % 0.5 % (0.0-1.0); EOSINOPHILS # (AUTO) 0.3 (0.0-0.4); EOSINOPHILS % 2.3 % (0.0-6.0); HEMATOCRIT 32.9 % (34.2-44.1); HEMOGLOBIN 10.5 g/dL (12.0-16.0); LYMPHOCYTES % 27.7 % (18.0-39.1); MEAN CORPUSCULAR HEMOGLOBIN 32.5 pg (28-32); MEAN CORPUSCULAR HGB CONC 31.9 g/dL (31-35); MEAN CORPUSCULAR VOLUME 101.9 fL (81-99); MONOCYTES # (AUTO) 0.6 (0.2-0.8); MONOCYTES % 5.8 % (4.4-11.3); NEUTROPHILS # (AUTO) 6.7 (2.1-6.9); NEUTROPHILS % 62.4 % (38.7-80.0); PLATELET COUNT 202 x10e3/uL (140-360); RED BLOOD COUNT 3.23 x10e6/uL (3.6-5.1); RED CELL DISTRIBUTION WIDTH 14.4 % (11.7-14.4)
[2017-10-05 06:08] LABS: ANION GAP 12.7 mmol/L (8-16); CALCIUM 9.8 mg/dL (8.4-10.2); CREATININE, SERUM 1.23 mg/dL (0.57-1.11); MAGNESIUM 1.8 MG/DL (1.3-2.1); POTASSIUM 4.7 mmol/L (3.5-5.1)
[2017-10-05 08:00] VITALS: BP 153/70
[2017-10-05] MEDS: FAMOTIDINE 20 MG TAB PO SCH ×2 (08:00→16:03)
[2017-10-05] MEDS: ALBUTEROL/IPRATROPIUM 3 ML NEB NEB PRN (09:00)
[2017-10-05] MEDS: PREDNISONE 5 MG TAB PO SCH (09:37)
[2017-10-05] MEDS: NIFEDIPINE CR 30 MG TAB PO SCH (09:37)
[2017-10-05] MEDS: AMIODARONE HCL 200 MG TAB PO SCH (09:37)
[2017-10-05] MEDS: EZETIMIBE 10 MG TAB PO SCH (09:37)
[2017-10-05] MEDS: COLLAGENASE 5 GM TUBE TOP SCH (09:37)
[2017-10-05 12:00] VITALS: BP 167/83
[2017-10-05] MEDS: INSULIN REGULAR, HUMAN 100 UNIT/1 ML 3ML VIAL SQ SCH ×3 (12:00→21:08)
[2017-10-05 16:00] VITALS: BP 164/74
--- NOTE | 2017-10-07 13:40 | Discharge Summary ---
ADMISSION DIAGNOSES 1. Acute respiratory failure. 2. Acute exacerbation of systolic heart failure. 3. Bilateral pleural effusions. 4. Hyperkalemia. 5. Microcytic anemia. 6. Acute kidney injury. DISCHARGE DIAGNOSES 1. Acute respiratory failure. 2. Acute exacerbation of systolic heart failure. 3. Bilateral pleural effusions. 4. Hyperkalemia. 5. Microcytic anemia. 6. Acute kidney injury. 7. Atrial fibrillation, rapid ventricular response. 8. Hypomagnesemia. 9. Hypocalcemia. 10. Hypertension. HISTORY: Patient has a history of obesity, obstructive sleep apnea, congestive heart failure, hypertension, and diabetes. HOSPITAL COURSE: A 57-year-old female who was recently discharged last month after acute respiratory failure with intubation with COPD and CHF, now presents with shortness of breath requiring intubation again. Imaging showed bilateral pleural effusions. Chest x-ray showed enlarged cardiomediastinal silhouette with vascular bilateral effusions and then on September 18, 2017, severe cardiogenic pulmonary edema, slightly improved. Patient had sputum culture . Patient was started on vancomycin and Zosyn as she previously had MRSA pneumonia. Patient was also started on IV Solu-Medrol, neb treatments. She was also given Lasix 40 IV q.12 h. Patient on September 20, 2017, developed AFib, RVR, and cardiology was consulted. She was given Cardizem and started on . Her heart rate was still in the 150s. They did a cardioversion on September 25, 2017, and patient went into sinus bradycardia and remained in sinus rhythm the remainder of hospital stay. Patient was negative, urine cultures were negative, blood cultures were negative. Patient remained stable and moved out of ICU. She apparently used CPAP at home but was not compliant; so, be admitted. We tried to give her BiPAP. She continued to deny it. Prolonged patient's hospitalization as it was not discharge her without it. they approved the vent. The patient was sent home with son with a noninvasive vent and physical therapy care. She has a skin tear on her left buttock. Patient was sent home with amiodarone, wound supplements 90 daily, Eliquis . Patient will follow up with primary care in 1 to 2 weeks and follow up with cardiology in 1 to 2 weeks as well. Dictated by: Ayde Tao NP JON CRAVEN MD Job#: [id number] CF
== END 2017-10-05 21:50 | disposition home health service (06) | DRG 208 ==
LOC: ER 16:16 → EDBEDREQ 21:55 → ERHOLD 22:05 → ICU 09-19 15:32 → MED/SURG2 09-27 15:59
PROVIDERS: ADMIT Internal Medicine; ATTEND Internal Medicine
PROC: 0BH17EZ Insertion of Endotracheal Airway into Trachea, Via Natural or Artificial Opening (ICD-10-PCS; principal; 2017-09-19)
PROC: 5A1945Z Respiratory Ventilation, 24-96 Consecutive Hours (ICD-10-PCS; 2017-09-19)
PROC: 02HV33Z Insertion of Infusion Device into Superior Vena Cava, Percutaneous Approach (ICD-10-PCS; 2017-09-19)
PROC: 5A09357 Assistance with Respiratory Ventilation, Less than 24 Consecutive Hours, Continuous Positive Airway Pressure (ICD-10-PCS; 2017-09-21)
PROC: 5A2204Z Restoration of Cardiac Rhythm, Single (ICD-10-PCS; 2017-09-25)
PROC: B245ZZ4 Ultrasonography of Left Heart, Transesophageal (ICD-10-PCS; 2017-09-25)
DX: J96.22 Acute and chronic respiratory failure with hypercapnia (principal); I50.33 Acute on chronic diastolic (congestive) heart failure; N17.9 Acute kidney failure, unspecified; I13.0 Hypertensive heart and chronic kidney disease with heart failure and stage 1 through stage 4 chronic kidney disease, or unspecified chronic kidney disease; N18.3 Chronic kidney disease, stage 3 (moderate); E11.22 Type 2 diabetes mellitus with diabetic chronic kidney disease; Z99.81 Dependence on supplemental oxygen; L89.322 Pressure ulcer of left buttock, stage 2; E66.2 Morbid (severe) obesity with alveolar hypoventilation; I48.92 Unspecified atrial flutter; J44.1 Chronic obstructive pulmonary disease with (acute) exacerbation; J96.21 Acute and chronic respiratory failure with hypoxia; Z87.891 Personal history of nicotine dependence; Z68.26 Body mass index [BMI] 26.0-26.9, adult; I48.91 Unspecified atrial fibrillation; Z79.01 Long term (current) use of anticoagulants; Z79.4 Long term (current) use of insulin; E78.5 Hyperlipidemia, unspecified; D64.9 Anemia, unspecified; E83.42 Hypomagnesemia; D72.829 Elevated white blood cell count, unspecified; R00.1 Bradycardia, unspecified; Z78.1 Physical restraint status; B37.2 Candidiasis of skin and nail
CPT/HCPCS: 36415; 36600; 51700; 71045; 80048; 80053; 80162; 81001; 82550; 82553; 82805; 82948; 83605; 83690; 83735; 83880; 84100; 84132; 84443; 84484; 85025; 85610; 85730; 87040; 87070; 87086; 87205; 87400; 93005; 93306; 93320; 93325; 94002; 94003; 94640; 94660; 96372; 96374; 97139; 99285; J0330; J0360; J0456; J1160; J1644; J1650; J1940; J2001; J2920; J3370; J7042; J7050; J7512; J7799

== ENCOUNTER 2017-10-29 23:42 | Inpatient (IN) | payer MEDICARE ==
[~2017-10-29] VITALS: Ht 160 cm; Wt 117.1 kg
[~2017-10-29 23:42] MED LIST changes: +ADVAIR 250-501 EACH INH; +AMIODARONE HCL200 MG PO; +ASCORBIC ACID500 MG PO; +AZITHROMYCIN250 MG PO; +Apixaban PO; +CALCIUM 500 +1 EAC2 PO; +DUONEB NEB; +IMITREX25 MG PO; +LASIX40 MG PO; +LEVEMIR100 UNIT/1 SC; -LIDOCAINE HCL 2% LOCAL INJ 5 ML SDV VIAL INJ ONE; +MAGNESIUM OXID400 MG PO; +MULTIPLE VITAM1 EACH PO; +NIFEDIPINE ER30 M1 PO; +NORCO 10-325 T1 EACH PO; +Nystatin/Triamcinolone TOP; +OMEPRAZOLE40 MG PO; -PROPOFOL IV EMULSION 10 MG/ML 50 ML VIAL ONE; +SPIRIVA18 MCG INH; +VALIUM5 MG PO; +VENELEX OINTMEN60 GM TP; +ZETIA10 MG PO; +ZINC-220220 MG PO
--- OUTSIDE RECORDS SUMMARY | 2017-10-29 23:45 | XMS REPORT | Continuity of Care Document ---
Author Author [facility] Organization [facility] Address [address] [place] [address] Phone Unavailable Care Team Providers Care Cage Operator Name Role Phone JNO CRAVEN MD PCP Insurance Providers Guarantor Corrine Jose Address [address] [place] [address] Email [email or web address] Payer [employer] Medicare Complete Policy Number [id number] Subscriber's Name JoseCorrine Relationship 18 Self / Same As Patient Group Number [id number] Effective Date 17 Advance Directives Directive Response Recorded Date/Time Does the patient have an advance directive? No 08/13/17 12:53pm If yes, is advance directive on file with [facility]? No 08/13/17 12:53pm If not on file with [facility] will patient provide a copy? No 08/13/17 12:53pm Do you have a Directive to Physician? No 09/18/17 4:42pm Do you have a Medical Power of Temperature Inspector? No 09/18/17 4:42pm Do you have an out of hospital Do Not Resuscitate Order? No 09/18/17 4:42pm Do you have any special needs we should be aware of? No 09/18/17 4:42pm Do you have a support person here with you today? Yes 09/18/17 4:42pm Did patient receive Notice of Privacy Practices? Yes 09/18/17 4:42pm Did patient receive patient rights and responsibilities? Yes 09/18/17 4:42pm Problems No problem information available. Medications Current Home Medications Medication Dose Units Route Directions Days Qty Instructions Start Date Amiodarone Hcl 200 Mg Tablet 200 Mg Oral Daily 30 Days 09/29/17 Apixaban 5 Tablet 5 Mg Oral Twice A Day 30 Days 09/29/17 Ascorbic Acid 500 Mg Tablet 500 Mg Oral Twice A Day 30 Days Balsam Stanton/Peconic Oil (Venelex Ointment) 60 Gm Oint...g. 60 Gm Topical Twice A Day 30 Days 09/29/17 Calcium Carbonate/Vitamin D3 (Calcium 500 + D Tablet) 1 Each Tablet 1 Tab Oral Twice A Day 30 Days 09/29/17 Diazepam (Valium) 5 Mg Tablet 5 Mg Oral Twice A Day as needed for Anxiety Duoneb 3 Ml Nebullizer Four Times Daily as needed for Shortness Of Breath Ezetimibe (Zetia) 10 Mg Tablet 10 Mg Oral Daily 30 Tab Fluticasone/Salmeterol (Advair 250-50 Diskus) 1 Each Disk.w.dev 1 Dose Inhalation Daily Furosemide (Lasix) 40 Mg Tablet 40 Mg Oral Twice A Day 30 Tab Hydrocodone Bit/Acetaminophen (Industry 10-325 Tablet) 1 Each Tablet 1 Tab Oral Every 8 Hours as needed for Pain Insulin Detemir (Levemir) 100 Unit/1 Ml Vial 15 Units Subcutaneously Twice A Day Magnesium Oxide 400 Mg Tablet 400 Mg Oral Twice A Day 30 Days 09/29 Multivit With Calcium,Iron,Min (Multiple Vitamins For Women) 1 Each Tablet 1 Tab Oral Daily 30 Days 09/29/17 Nifedipine (Nifedipine Er) 30 Mg Tab.er.24 90 Mg Oral Daily 30 Days 10/03/17 Nystatin/Triamcinolone 15 Gm Cr 0 Gm Topically Daily 30 Days Omeprazole 40 Mg Capsule.dr 40 Mg Oral Twice A Day Sumatriptan Succinate (Imitrex) 25 Mg Tablet 25 Mg Oral Daily as needed for Headache Tiotropium [place] (Spiriva) 18 Mcg Cap.w.dev 18 Mcg Inhalation Daily Zinc Sulfate (Zinc-220) 220 Mg Capsule 1 Cap Oral Twice A Day 30 Days 09/29/17 Past Home Medications Medication Directions Ordered Status Azithromycin (Z-Qasim) 250 Mg Tablet, 250 Mg Oral Use As Directed Discontinued Sulfamethoxazole/Trimethoprim (Bactrim Ds Tablet) 1 Each Tablet, 1 Tab Oral Twice A Day Discontinued Social History Social History Problem Response Recorded [...] Applicable Smoking Status Start Date Stop Date Never Smoker Hospital Discharge Instructions No hospital discharge instruction information available. Plan of Care Discharge Date 10/05/17 9:50pm Disposition HOME, SELF-CARE Instructions/Education Provided Diabetes and Diet Prescriptions See Medication Section Additional Instructions/Education F/U WITH PCP IN 1-2 WEEKS Functional Status Query Response Date Recorded FUNCTIONAL STATUS . October 03, 2017 11:31am Assistive Devices None September 19, 2017 4:00pm Ambulation Ability Standby Assistance September 19, 2017 4:00pm Toileting Ability Independent October 05, 2017 5:43pm Allergies, Adverse Reactions, Alerts Allergen Type Severity Reaction Status Last Updated Penicillin Allergy Severe ITCHING, ANAPHYLAXIS Active 08/12/17 Sulfa (Sulfonamide Antibiotics) Allergy Intermediate Active 08/12/17 Naproxen Allergy Intermediate Active 08/12/17 Immunizations No immunization information available. Vital Signs Acute Vital Signs Vital Response Date/Time Temperature (Fahrenheit) 97.0 degrees F (97.6 - 99.5) 10/05/2017 4:00pm Pulse Pulse Rate (adult) 71 bpm (60 - 90) 10/05/2017 4:00pm Respiratory Rate 19 bpm (12 - 24) 10/05/2017 4:00pm Blood Pressure 164/74 mm Hg 10/05/2017 4:00pm Height 5 ft 0 in 09/25/2017 6:33am Weight 280.38 lb 10/05/2017 12:47am Body Mass Index 54.8 kg/m^2 10/05/2017 12:47am Results Laboratory Results Test Name Result Units Flags Reference Collection Date/Time Result Date/ Time Comments Band Neutrophils % 12 % 08/12/2017 9:03am 08/12/2017 11:10am Reactive Lymphocytes 1 08/16/2017 5:00am 08/16/2017 8:45am Urine Amorphous Sediment MANY H FEW 08/12/2017 12:00pm 08/12/2017 12: 35pm Hemoglobin A1c Percent 7.2 % H 4.0-7.0 08/13/2017 4:20am 08/13/2017 8: 59am Iron Level 41 ug/dL L 50-170 08/13/2017 4:20am 08/13/2017 8:59am Total Iron Binding Capacity 273 ug/dL 261-478 08/13/2017 4:20am 2017 8:59am Percent Iron Saturation 15 % 15-50 08/13/2017 4:20am 08/13/2017 8:59am Transferrin 195 mg/dL 180-382 08/13/2017 4:20am 08/13/2017 8:59am Vitamin B12 Level 578 pg/mL 213-816 08/13/2017 4:20am 08/13/2017 11: 23am Folate 19.1 ng/mL H 7.0-15.4 08/13/2017 4:20am 08/13/2017 11:23am Free Thyroxine 1.66 ng/dL 0.9-1.8 08/13/2017 4:20am 08/13/2017 11:06am White Blood Count 10.69 x10e3/uL 4.8-10.8 10/05/2017 5:35am 10/05/2017 5:56am Red Blood Count 3.23 x10e6/uL L 3.6-5.1 10/05/2017 5:35am 10/05/2017 5: 56am Hemoglobin 10.5 g/dL L 12.0-16.0 10/05/2017 5:35am 10/05/2017 5:56am Hematocrit 32.9 % L 34.2-44.1 10/05/2017 5:35am 10/05/2017 5:56am Mean Corpuscular Volume 101.9 fL H 81-99 10/05/2017 5:35am 10/05/2017 5: 56am Mean Corpuscular Hemoglobin 32.5 pg H 28-32 10/05/2017 5:35am 2017 5:56am Mean Corpuscular Hemoglobin Concent 31.9 g/dL 31-35 10/05/2017 5:35am 10/05/2017 5:56am Red Cell Distribution Width 14.4 % 11.7-14.4 10/05/2017 5:35am 2017 5:56am Platelet Count 202 x10e3/uL 140-360 10/05/2017 5:35am 10/05/2017 5: 56am Neutrophils (%) (Auto) 62.4 % 38.7-80.0 10/05/2017 5:35am 10/05/2017 5: 56am Lymphocytes (%) (Auto) 27.7 % 18.0-39.1 10/05/2017 5:35am 10/05/2017 5: 56am Monocytes (%) (Auto) 5.8 % 4.4-11.3 10/05/2017 5:35am 10/05/2017 5: 56am Eosinophils (%) (Auto) 2.3 % 0.0-6.0 10/05/2017 5:35am 10/05/2017 5: 56am Basophils (%) (Auto) 0.5 % 0.0-1.0 10/05/2017 5:35am 10/05/2017 5:56am IM GRANULOCYTES % 1.3 % H 0.0-1.0 10/05/2017 5:35am 10/05/2017 5:56am Neutrophils # (Auto) 6.7 2.1-6.9 10/05/2017 5:35am 10/05/2017 5:56am Lymphocytes # (Auto) 3.0 1.0-3.2 10/05/2017 5:35am 10/05/2017 5:56am Monocytes # (Auto) 0.6 0.2-0.8 10/05/2017 5:35am 10/05/2017 5:56am Eosinophils # (Auto) 0.3 0.0-0.4 10/05/2017 5:35am 10/05/2017 5:56am Basophils # (Auto) 0.1 0.0-0.1 10/05/2017 5:35am 10/05/2017 5:56am Absolute Immature Granulocyte (auto 0.14 x10e3/uL H 0-0.1 10/05/2017 5: 35am 10/05/2017 5:56am Differential Total Cells Counted 100 10/04/2017 5:30am 10/04/2017 7 :24am Neutrophils % (Manual) 65 % 40-74 10/04/2017 5:30am 10/04/2017 7:24am Lymphocytes % (Manual) 26 % 19-48 10/04/2017 5:30am 10/04/2017 7:24am Monocytes % (Manual) 6 % 3.4-9.0 10/04/2017 5:30am 10/04/2017 7:24am Eosinophils % (Manual) 3 % 0-7 10/04/2017 5:30am 10/04/2017 7:24am Basophils % (Manual) 2 % H 0-1.5 10/02/2017 6:00am 10/02/2017 7:58am Metamyelocytes % 2 % H 0-0 10/02/2017 6:00am 10/02/2017 7:58am Platelet Estimate ADEQUATE 10/04/2017 5:30am 10/04/2017 7:24am Platelet Morphology Comment NORMAL 10/04/2017 5:30am 10/04/2017 7: 24am Hypochromasia SLIGHT 10/04/2017 5:30am 10/04/2017 7:24am Anisocytosis SLIGHT 10/04/2017 5:30am 10/04/2017 7:24am Macrocytosis SLIGHT 10/02/2017 6:00am 10/02/2017 7:58am Red Cell Morphology Comment NORMAL 10/04/2017 5:30am 10/04/2017 7: 24am Prothrombin Time 13.0 seconds 11.9-14.5 09/18/2017 5:15pm 09/18/2017 5: 46pm Prothromb Time International Ratio 1.06 09/18/2017 5:15pm 2017 5:46pm Oral Anticoagulant Therapy INR Values: 1. Low Intensity Therapy 1.5 - 2.0 2. Moderate Intensity Therapy 2.0 - 3.0 3. High Intensity Therapy(1) 2.5 - 3.5 4. High Intensity Therapy(2) 3.0 - 4.0 5. Panic Value INR > 5.0 Activated Partial Thromboplast Time 29.4 seconds 23.8-35.5 09/18/2017 5: 15pm 09/18/2017 5:46pm Urine Color YELLOW YELLOW 10/03/2017 11:05am 10/03/2017 12:44pm Urine Clarity CLEAR CLEAR 10/03/2017 11:05am 10/03/2017 12:44pm Urine Specific [place] 1.010 1.010-1.025 10/03/2017 11:05am 2017 12:44pm Urine pH 5 5 - 7 10/03/2017 11:05am 10/03/2017 12:44pm Urine Leukocyte Esterase NEGATIVE NEGATIVE 10/03/2017 11:05am 2017 12:44pm Urine Nitrite NEGATIVE NEGATIVE 10/03/2017 11:05am 10/03/2017 12: 44pm Urine Protein 1+ H NEGATIVE 10/03/2017 11:05am 10/03/2017 12:44pm Urine Glucose (UA) NEGATIVE NEGATIVE 10/03/2017 11:05am 10/03/2017 12 :44pm Urine Ketones NEGATIVE NEGATIVE 10/03/2017 11:05am 10/03/2017 12: 44pm Urine Urobilinogen 0.2 mg/dL 0.2 - 1 10/03/2017 11:05am 10/03/2017 12: 44pm Urine Bilirubin NEGATIVE NEGATIVE 10/03/2017 11:05am 10/03/2017 12: 44pm Urine Blood NEGATIVE NEGATIVE 10/03/2017 11:05am 10/03/2017 12:44pm Urine WBC 0-5 /HPF 0-5 10/03/2017 11:05am 10/03/2017 12:54pm Urine RBC 0-5 /HPF 0-5 10/03/2017 11:05am 10/03/2017 12:54pm Urine Bacteria FEW /HPF NONE 10/03/2017 11:05am 10/03/2017 12:54pm Urine Epithelial Cells FEW /LPF NONE 10/03/2017 11:05am 10/03/2017 12: 54pm Urine Mucus FEW H RARE 09/18/2017 6:55pm 09/18/2017 7:31pm Sodium Level 145 mmol/L 136-145 10/05/2017 5:35am 10/05/2017 6:18am Potassium Level 4.7 mmol/L 3.5-5.1 10/05/2017 5:35am 10/05/2017 6:18am Chloride Level 96 mmol/L L 98-107 10/05/2017 5:35am 10/05/2017 6:18am Influenza Virus Types A,B Antigen NEGATIVE NEGATIVE 09/19/2017 5:18am 09/19/2017 6:11am Carbon Dioxide Level 41 mmol/L *H 10/05/2017 5:35am 10/05/2017 6: 18am Results called to TAMI REYES at 0615 on 10/05/17 by Ce Gillette. RB OK. Anion Gap 12.7 mmol/L 8-10/05/2017 5:35am 10/05/2017 6:18am Blood Urea Nitrogen 47 mg/dL H 7-10/05/2017 5:35am 10/05/2017 6:18am Creatinine 1.23 mg/dL H 0.57-1.11 10/05/2017 5:35am 10/05/2017 6:18am BUN/Creatinine Ratio 38 H 610/05/2017 5:35am 10/05/2017 6:18am Estimat Glomerular Filtration Rate 45 ML/MIN L 60- 10/05/2017 5:35am 6:18am Ranges were taken from the National Kidney Disease Education Program and the National Kid[employer] Foundation literature. Reference ranges: 60 or greater: Normal 16-59 (for 3 consecutive months): Chronic kidney disease 15 or less: Kidney failure Glucose Level 119 mg/dL H 74-118 10/05/2017 5:35am 10/05/2017 6:18am Calcium Level 9.8 mg/dL 8.4-10.2 10/05/2017 5:35am 10/05/2017 6:18am Bedside Glucose 184 mg/dL H 70-120 10/05/2017 8:54pm 10/05/2017 9:24pm Meter ID: [id number] Lactic Acid Level 6.6 MG/DL 4.5-19.8 09/18/2017 5:15pm 09/18/2017 6: 20pm Phosphorus Level 4.3 MG/DL 2.3-4.7 09/26/2017 5:1809/26/2017 6:52am Magnesium Level 1.8 MG/DL 1.3-2.1 10/05/2017 5:35am 10/05/2017 6:18am Total Bilirubin 0.4 mg/dL 0.2-1.2 09/26/2017 5:1809/26/2017 6:33am Aspartate Amino Transf (AST/SGOT) 10 IU/L 5-34 09/26/2017 5:182017 6:33am Alanine Aminotransferase (ALT/SGPT) 10 IU/L 0-55 09/26/2017 5:18 6:33am Total Protein 6.4 g/dL L 6.5-8.1 09/26/2017 5:1809/26/2017 6:33am Albumin 3.2 g/dL L 3.5-5.0 09/26/2017 5:1809/26/2017 6:33am Globulin 3.2 g/dL 2.3-3.5 09/26/2017 5:1809/26/2017 6:33am Albumin/Globulin Ratio 1.0 0.8-2.0 09/26/2017 5:1809/26/2017 6: 33am Alkaline Phosphatase 58 IU/L 40-150 09/26/2017 5:1809/26/2017 6: 33am B-Type Natriuretic Peptide 435.7 pg/mL H 0-100 10/03/2017 6:15am 2017 7:28am Creatine Kinase 22 IU/L L 29-168 09/22/2017 12:50pm 09/22/2017 1:19pm Creatine Kinase MB 2.10 ng/mL 0-5.0 09/22/2017 12:50pm 09/22/2017 1: 28pm Troponin I 0.081 ng/mL 0-0.300 09/22/2017 12:50pm 09/22/2017 1:28pm Lipase 23 U/L 8-78 09/18/2017 5:15pm 09/18/2017 5:55pm Thyroid Stimulating Hormone (TSH) 1.607 uIU/mL 0.350-4.940 09/22/2017 5: 15am 09/22/2017 6:59am Digoxin Level 1.40 ng/mL 0.8-2.0 09/24/2017 5:20am 09/24/2017 6:39am Arterial Blood pH 7.43 H 7.31-7.41 09/20/2017 11:04am 09/20/2017 11: 45am Arterial Blood Partial Pressure CO2 54 mmHg H 41-51 09/20/2017 11:04am 09/20/2017 11:45am Arterial Blood Partial Pressure O2 71 mmHg L 80-105 09/20/2017 11:04am 09/20/2017 11:45am Arterial Blood HCO3 36 mmol/L H 23-28 09/20/2017 11:04am 09/20/2017 11: 45am Arterial Blood Base Excess 12.0 mmol/L H -2 - 3 09/20/2017 11:04am 09/20 11:45am Arterial Blood Oxygen Saturation 94.0 % L 95-98 09/20/2017 11:04am 09/20 11:45am Microbiology Results Procedure Source Organism/Result Collection Date/Time Result Date/Time Result Status Sputum Culture Sputum, Expectorated Sputum STAPHYLOCOCCUS AUREUS-MRSA 2017 8:34pm 08/20/2017 6:01am Final Blood Culture Blood NO GROWTH AFTER 48 HOURS 11:40am 10/05/2017 11:56am Preliminary Procedures Procedure Status Date Provider(s) RESPIRATORY VENTILATION, 24-96 CONSECUTIVE HOURS Completed 08/12/17 ROSALIE SOLOMON MD INSERTION OF ENDOTRACHEAL AIRWAY INTO TRACHEA, VIA OPENING Completed ROSALIE SOLOMON MD ASSISTANCE WITH RESPIRATORY VENTILATION, <24 HRS, CPAP Completed 08/12/17 ROSALIE SOLOMON MD MRI (magnetic resonance imaging) Active 09/25/17 MADHAVI FLORES MD Ultrasound of chest including mediastinum Active 08/16/17 MOHIT ACOSTA MD Encounters Encounter Location Arrival/Admit Date Discharge/Depart Date Attending Provider Discharged Inpatient [facility] 09/18/17 10:05pm 9:50pm JON CRAVEN MD Discharged Inpatient [facility] 08/12/17 11:57am 4:52pm JON CRAVEN MD
[2017-10-29] MEDS ORDERED: ALBUTEROL SULF 0.083% NEB SOLN 3 ML NEB NEB STA (23:53)
[2017-10-30] MEDS ORDERED: IPRATROPIUM BROMIDE 0.02% 2.5 ML NEB NEB ONE
[2017-10-30 00:13] LABS: BASOPHILS # (AUTO) 0.1 (0.0-0.1); BASOPHILS % 0.9 % (0.0-1.0); EOSINOPHILS # (AUTO) 0.2 (0.0-0.4); HEMATOCRIT 32.3 % (34.2-44.1); HEMOGLOBIN 10.2 g/dL (12.0-16.0); LYMPHOCYTES # (AUTO) 1.3 (1.0-3.2); LYMPHOCYTES % 15.8 % (18.0-39.1); MEAN CORPUSCULAR HGB CONC 31.6 g/dL (31-35); MEAN CORPUSCULAR VOLUME 104.5 fL (81-99); MONOCYTES # (AUTO) 0.6 (0.2-0.8); MONOCYTES % 6.8 % (4.4-11.3); NEUTROPHILS # (AUTO) 5.8 (2.1-6.9); NEUTROPHILS % 72.6 % (38.7-80.0); PLATELET COUNT 210 x10e3/uL (140-360); RED BLOOD COUNT 3.09 x10e6/uL (3.6-5.1); RED CELL DISTRIBUTION WIDTH 14.6 % (11.7-14.4)
[2017-10-30 00:21] LABS: INR 1.24; PROTHROMBIN TIME 14.7 seconds (11.9-14.5)
[2017-10-30 00:22] LABS: PARTIAL THROMBOPLASTIN TIME 37.4 seconds (23.8-35.5)
[2017-10-30 00:37] LABS: ALANINE AMINOTRANSFERASE 10 IU/L (0-55); ALBUMIN 3.4 g/dL (3.5-5.0); ALBUMIN/GLOBULIN RATIO 0.9 (0.8-2.0); ALKALINE PHOSPHATASE 86 IU/L (40-150); ANION GAP 15.9 mmol/L (8-16); BLOOD UREA NITROGEN 31 mg/dL (7-26); BUN/CREATININE RATIO 21 (6-25); CALCIUM 9.6 mg/dL (8.4-10.2); CARBON DIOXIDE 34 mmol/L (22-29); CHLORIDE 95 mmol/L (98-107); CREATINE KINASE 27 IU/L (29-168); CREATININE, SERUM 1.48 mg/dL (0.57-1.11); EST GLOMERULAR FILTRATION RATE 36 ML/MIN (60-); GLUCOSE 269 mg/dL (74-118); POTASSIUM 4.9 mmol/L (3.5-5.1); SODIUM 140 mmol/L (136-145)
--- NOTE | 2017-10-30 00:40 | Diagnostic Imaging Report ---
EXAM: CHEST SINGLE (PORTABLE), AP 1 view INDICATION: Low O2 sats, shortness of breath COMPARISON: AP view of the chest October 03, 2017 FINDINGS: LINES/TUBES: None LUNGS: Limited view of the lungs due to technique and body habitus. Increased vascular congestion and bibasilar atelectasis. PLEURA: Indeterminate for pleural effusions. HEART AND MEDIASTINUM: Stable enlargement of the cardiomediastinal silhouette. BONES AND SOFT TISSUES: No acute findings. IMPRESSION: Cardiomegaly, increased vascular congestion and bibasilar atelectasis. Signed by: Dr. Klaudia Subramanian M.D. on 10/30/2017 12:36 AM
[2017-10-30] MEDS ORDERED: METHYLPREDNISOLONE SOD SUCC 125 MG/2ML VIAL IV ONE (01:15)
[2017-10-30 01:29] LABS: BILIRUBIN,URINE NEGATIVE (NEGATIVE); CLARITY,URINE CLEAR (CLEAR); COLOR,URINE YELLOW (YELLOW); KETONES,URINE NEGATIVE (NEGATIVE); LEUKOCYTE ESTERASE ,URINE NEGATIVE (NEGATIVE); NITRITE,URINE NEGATIVE (NEGATIVE); PROTEIN,URINE DIPSTICK NEGATIVE (NEGATIVE); URINE UROBILINOGEN 0.2 mg/dL (0.2 - 1)
[2017-10-30 01:37] LABS: AMORPHOUS SEDIMENT,URINE MODERATE (FEW); BACTERIA,URINE MANY /HPF; EPITHELIAL CELLS,URINE FEW /LPF; RBC,URINE 0-5 /HPF (0-5); TRANSITIONAL EPI CELLS,URINE FEW; WBC,URINE (MAN) 0-5 /HPF (0-5)
[2017-10-30] MEDS ORDERED: AZITHROMYCIN 500MG/SOD CHL 0.9% 250ML BAG IV SCH (01:45)
[2017-10-30] MEDS ORDERED: SODIUM CHLORIDE FLUSH 10 ML SYR INJ PRN (01:45)
[2017-10-30] MEDS ORDERED: DEXTROSE 50% SYRINGE 50 ML IV PRN (01:45)
[2017-10-30] MEDS ORDERED: AZITHROMYCIN 500MG/NS 250 ML 250 ML IV SCH (02:00)
[2017-10-30] MEDS: ALBUTEROL/IPRATROPIUM 3 ML NEB NEB SCH ×5 (03:15→23:22)
--- NOTE | 2017-10-30 06:11 | Diagnostic Imaging Report ---
EXAM: CHEST SINGLE (PORTABLE), AP 1 view INDICATION: COPD COMPARISON: AP view of the chest October 30, 2017 at 0009 hours FINDINGS: LINES/TUBES: None LUNGS: Vascular congestion/edema and bibasilar atelectasis. PLEURA: Indeterminate for pleural effusions. HEART AND MEDIASTINUM: Stable enlargement of the cardiomediastinal silhouette. BONES AND SOFT TISSUES: No acute findings. IMPRESSION: No interval change. Signed by: Dr. Klaudia Subramanian M.D. on 10/30/2017 6:08 AM
[2017-10-30] MEDS ORDERED: SUMATRIPTAN SUCCINATE 25 MG TAB PO PRN (06:45)
[2017-10-30] MEDS ORDERED: DIAZEPAM 5 MG TAB PO PRN (06:45)
[2017-10-30 07:02] LABS: CREATINE KINASE MB 1.9 ng/mL (0-5.0)
[2017-10-30] MEDS: PANTOPRAZOLE SOD 40 MG TABEC PO SCH ×2 (07:55→18:29)
[2017-10-30] MEDS: INSULIN REGULAR, HUMAN 100 UNIT/1 ML 3ML VIAL SQ SCH ×4 (08:31→22:12)
[2017-10-30] MEDS: AMIODARONE HCL 200 MG TAB PO SCH (08:55)
[2017-10-30] MEDS: FUROSEMIDE 40 MG TAB PO SCH ×2 (08:55→18:36)
[2017-10-30] MEDS: ASCORBIC ACID 500 MG TAB PO SCH ×2 (08:55→18:36)
[2017-10-30] MEDS: NIFEDIPINE CR 30 MG TAB PO SCH (08:57)
[2017-10-30] MEDS: MAGNESIUM OXIDE 400 MG TAB PO SCH ×2 (08:57→18:36)
[2017-10-30] MEDS: BALSAM PERU/CASTOR OIL 60 GM OINT...G. TP SCH ×2 (08:58→18:36)
[2017-10-30] MEDS: APIXABAN 5 MG TABLET PO SCH ×2 (08:58→18:36)
[2017-10-30] MEDS: HYDROCODONE/APAP 10MG-325MG TAB PO PRN ×2 (08:58→19:30)
[2017-10-30] MEDS: OYST-CAL-D 500MG TABLET PO SCH ×2 (08:58→18:36)
[2017-10-30] MEDS: NYSTATIN/TRIAMCINOLONE 15 GM CR TOP SCH (08:58)
[2017-10-30] MEDS: TIOTROPIUM 18 MCG INH POWDER INH SCH (09:00)
[2017-10-30] MEDS ORDERED: VITAMIN D3 PO SCH (09:00)
[2017-10-30] MEDS ORDERED: CALCIUM CARBONATE PO SCH (09:00)
[2017-10-30] MEDS: SALMETEROL/FLUTICASONE 250/50 INH SCH (09:00)
[2017-10-30] MEDS ORDERED: TRIAMCINOLONE TOP SCH (09:00)
[2017-10-30] MEDS ORDERED: NYSTATIN TOP SCH (09:00)
[2017-10-30] MEDS ORDERED: [UNRECOGNIZED DRUG - OTHER] PO SCH (09:00)
[2017-10-30] MEDS: INSULIN DETEMIR 100 UNIT/ML PEN SQ SCH ×2 (09:06→22:12)
[2017-10-30] MEDS ORDERED: INSULIN DETEMIR 100 UNIT/ML PEN SQ ONE (09:08)
[2017-10-30] MEDS: EZETIMIBE 10 MG TAB PO SCH (09:22)
[2017-10-30] MEDS: FAMOTIDINE 20 MG TAB PO SCH ×2 (12:20→18:29)
[2017-10-30] MEDS: GUAIFENESIN 600MG/DEXTROMETHORPHAN 30MG TABSR PO SCH ×2 (12:30→18:36)
[2017-10-30 15:16] LABS: CREATINE KINASE MB 1.5 ng/mL (0-5.0)
[2017-10-30] MEDS: DOXYCYCLINE 100MG/NS 100ML 100 ML IV SCH (18:37)
[2017-10-30 20:55] VITALS: BP 123/64
--- NOTE | 2017-10-30 21:17 | History and Physical ---
PRIMARY CARE PROVIDER: Dr. Shaheen Matias CHIEF COMPLAINT: Respiratory distress. HISTORY OF PRESENT ILLNESS: Ms. Jose is a 57-year-old lady presenting with respiratory distress, hypoxia, shortness of breath, wheezing, and a hacking cough. Patient said her O2 sats had gone as low as 40 the night before in spite of her CPAP. REVIEW OF SYSTEMS: She denies fever, chills, or weight loss. She denies chest pain or palpitations. She has shortness of breath, wheezing, and cough. She denies abdominal pain, nausea, vomiting, or melena. She has chronic GERD. She denies dysuria or flank pain. She denies rash or pruritus. She denies joint pain or swelling. She denies headache, vertigo, or loss of consciousness. She denies depression, agitation, homicidal or suicidal ideation. PAST MEDICAL HISTORY: Significant for long-standing hypertension, type 2 diabetes, chronic diastolic CHF with an EF of 50%, paroxysmal atrial fibrillation, chronic kidney disease stage 3, morbid obesity, obstructive sleep apnea, and COPD. PAST SURGICAL HISTORY: She denies surgical history. HOME MEDICATIONS: Include: 1. Levemir 15 units twice daily. 2. Regular insulin on a sliding scale. 3. DuoNeb treatments q.4-6h. 4. Amiodarone 200 mg. 5. Vitamin C. 6. Diazepam 5 mg twice a day. 7. Zetia 10 mg daily. 8. Advair Diskus twice daily. 9. Lasix 40 mg twice daily. 10. Hydrocodone as needed for pain. 11. Mag oxide 400 twice daily. 12. Procardia XL 90 mg daily. 13. Omeprazole 40 mg twice a day before meals. 14. Imitrex as needed for migraine. 15. Spiriva 1 cap inhaled daily. 16. Eliquis 5 mg twice daily. 17. Nystatin topically as needed. ALLERGIES: SHE HAS A STATED ALLERGY TO NAPROSYN, SULFA DRUGS, AND PENICILLIN. FAMILY HISTORY: Significant for hypertension and diabetes. SOCIAL HISTORY: The patient is . [place] is her primary language. She does not smoke, drink, or use illegal drugs, and she is generally independently functioning. PHYSICAL EXAMINATION: PSYCHIATRIC: She is alert and oriented x3 with normal mood and affect. CONSTITUTIONAL: She is morbidly obese, is in no acute distress. VITAL SIGNS: As follows: Blood pressure 102/54, pulse 89 and regular, respiratory rate 18, O2 sat 97% on 4 liters nasal cannula, temperature 98.0. HEENT: Her head is atraumatic. Her eyes are anicteric with clear conjunctivae. Ears and nares are without erythema or discharge. Oropharynx is clear. NECK: Supple with no mass or thyromegaly. LYMPHATIC SYSTEM: She has no palpable cervical, axillary, or inguinal adenopathy. CARDIOVASCULAR SYSTEM: Her heart has a regular rate and rhythm without murmur or extra heart sounds. She has no carotid bruit. She has trace bipedal edema. Has weak dorsal pedal pulses. RESPIRATORY: Lungs revealed diminished breath sounds throughout with some wheezing with forced expiration and a dry hacking cough. She is in no acute distress, normal respiratory effort. GASTROINTESTINAL: Her abdomen is soft without organomegaly, masses, or tenderness. She has normal bowel sounds present. CUTANEOUS: Her skin is warm and dry to touch with no rash or skin breakdown. MUSCULOSKELETAL: Her joints are in normal alignment without erythema or swelling. She has no calf tenderness. NEUROLOGIC: Nonfocal with intact cranial nerves and no motor or sensory deficits. DIAGNOSTIC STUDIES: Chest x-ray shows cardiomegaly, pulmonary vascular congestion, but otherwise no acute disease. Troponin less than 0.05, 0.017, 0.010. BNP 170.0. Chemistry shows normal electrolytes. CO2 is 34, which is elevated. Creatinine 1.48, BUN 31 for a GFR of 36, which is about her baseline. Calcium is 9.6. Glucose is 269. Transaminases, bilirubin, and alk phos are normal. CBC shows a white count of 8.0 with 73% neutrophils, hemoglobin 10.2, hematocrit 32.3, and platelet count 210,000. IMPRESSION AND PLAN: 1. Acute hypoxic respiratory failure. The patient is on bilevel positive airway pressure now with supplemental oxygen. 2. Acute exacerbation of chronic obstructive pulmonary disease. The patient is getting aggressive nebulizer treatments, intravenous Solu-Medrol, intravenous doxycycline, and Mucinex for expectoration. 3. Hypertension, complicated by chronic diastolic heart failure and chronic kidney disease stage 3. The patient is controlled on her home medications. Will continue Procardia and Lasix. 4. Type 2 diabetes with chronic kidney disease stage 3. Fair control. Will continue with Levemir and sliding scale insulin. 5. Paroxysmal atrial fibrillation. The patient is currently in sinus rhythm. Will continue her amiodarone and Eliquis. 6. Morbid obesity and obstructive sleep apnea. The patient has been counseled on low-glycemic diet. Will use calorie restriction and bilevel positive airway pressure while sleeping. 7. For prophylaxis, the patient is on Eliquis for stroke and deep venous thrombosis prophylaxis, and Protonix for gastrointestinal prophylaxis. Job#: [id number]
[2017-10-30] MEDS: METHYLPREDNISOLONE SOD SUCC 125 MG/2ML VIAL IV SCH (22:12)
[2017-10-30 22:42] LABS: CREATINE KINASE MB 1.5 ng/mL (0-5.0)
[2017-10-30 23:32] VITALS: BP 123/64
[2017-10-31] VITALS (7 sets, daily range): BP systolic 100–142; BP diastolic 62–72
[2017-10-31] MEDS: GUAIFENESIN 600MG/DEXTROMETHORPHAN 30MG TABSR PO SCH ×4 (00:13→17:39)
[2017-10-31] MEDS: ALBUTEROL/IPRATROPIUM 3 ML NEB NEB SCH ×6 (03:35→23:20)
[2017-10-31] MEDS: DOXYCYCLINE 100MG/NS 100ML 100 ML IV SCH ×2 (05:46→17:39)
[2017-10-31] MEDS: TIOTROPIUM 18 MCG INH POWDER INH SCH (06:00)
[2017-10-31] MEDS: SALMETEROL/FLUTICASONE 250/50 INH SCH (06:00)
[2017-10-31 06:11] LABS: BASOPHILS % 0.2 % (0.0-1.0); HEMATOCRIT 31.7 % (34.2-44.1); HEMOGLOBIN 9.8 g/dL (12.0-16.0); LYMPHOCYTES # (AUTO) 0.5 (1.0-3.2); LYMPHOCYTES % 6.2 % (18.0-39.1); MEAN CORPUSCULAR HEMOGLOBIN 32.3 pg (28-32); MEAN CORPUSCULAR HGB CONC 30.9 g/dL (31-35); MEAN CORPUSCULAR VOLUME 104.6 fL (81-99); MONOCYTES # (AUTO) 0.1 (0.2-0.8); MONOCYTES % 1.5 % (4.4-11.3); NEUTROPHILS # (AUTO) 7.7 (2.1-6.9); NEUTROPHILS % 90.9 % (38.7-80.0); PLATELET COUNT 185 x10e3/uL (140-360); RED BLOOD COUNT 3.03 x10e6/uL (3.6-5.1); RED CELL DISTRIBUTION WIDTH 14.4 % (11.7-14.4)
[2017-10-31 06:45] LABS: ANION GAP 14.9 mmol/L (8-16); CALCIUM 9.7 mg/dL (8.4-10.2); CREATININE, SERUM 1.62 mg/dL (0.57-1.11); POTASSIUM 5.9 mmol/L (3.5-5.1)
[2017-10-31] MEDS: HYDROCODONE/APAP 10MG-325MG TAB PO PRN (07:55)
[2017-10-31] MEDS: INSULIN REGULAR, HUMAN 100 UNIT/1 ML 3ML VIAL SQ SCH ×4 (08:00→22:37)
[2017-10-31] MEDS: PANTOPRAZOLE SOD 40 MG TABEC PO SCH ×2 (08:30→17:30)
[2017-10-31] MEDS: METHYLPREDNISOLONE SOD SUCC 125 MG/2ML VIAL IV SCH ×2 (09:34→22:20)
[2017-10-31] MEDS: FUROSEMIDE 40 MG TAB PO SCH ×2 (09:34→17:39)
[2017-10-31] MEDS: AMIODARONE HCL 200 MG TAB PO SCH (09:34)
[2017-10-31] MEDS: MAGNESIUM OXIDE 400 MG TAB PO SCH ×2 (09:34→17:39)
[2017-10-31] MEDS: APIXABAN 5 MG TABLET PO SCH ×2 (09:34→17:39)
[2017-10-31] MEDS: OYST-CAL-D 500MG TABLET PO SCH ×2 (09:34→17:39)
[2017-10-31] MEDS: ASCORBIC ACID 500 MG TAB PO SCH ×2 (09:35→17:39)
[2017-10-31] MEDS: NYSTATIN/TRIAMCINOLONE 15 GM CR TOP SCH (09:35)
[2017-10-31] MEDS: MUPIROCIN 2% OINT 22 GM TUBE TOP SCH ×2 (09:35→17:39)
[2017-10-31] MEDS: EZETIMIBE 10 MG TAB PO SCH (09:35)
[2017-10-31] MEDS: NIFEDIPINE CR 30 MG TAB PO SCH (09:35)
[2017-10-31] MEDS: BALSAM PERU/CASTOR OIL 60 GM OINT...G. TP SCH ×2 (09:36→17:39)
[2017-10-31] MEDS: INSULIN DETEMIR 100 UNIT/ML PEN SQ SCH ×2 (09:50→22:38)
[2017-10-31] MEDS ORDERED: SOD POLYSTYRENE SULFONATE SUSP 15 GM/60 ML BTL PO ONE (10:15)
[2017-10-31] MEDS ORDERED: SODIUM CHLORIDE 0.9% 250ML 250 ML ONE (17:21)
[2017-11-01] VITALS (8 sets, daily range): BP systolic 123–141; BP diastolic 60–69
[2017-11-01] MEDS: GUAIFENESIN 600MG/DEXTROMETHORPHAN 30MG TABSR PO SCH ×4 (00:47→17:31)
[2017-11-01] MEDS: HYDROCODONE/APAP 10MG-325MG TAB PO PRN ×2 (01:15→08:25)
[2017-11-01] MEDS: ALBUTEROL/IPRATROPIUM 3 ML NEB NEB SCH ×3 (02:45→10:40)
[2017-11-01] MEDS: DOXYCYCLINE 100MG/NS 100ML 100 ML IV SCH ×2 (05:28→17:31)
[2017-11-01 06:08] LABS: BASOPHILS % 0.2 % (0.0-1.0); HEMATOCRIT 31.7 % (34.2-44.1); HEMOGLOBIN 10.1 g/dL (12.0-16.0); LYMPHOCYTES # (AUTO) 0.6 (1.0-3.2); MEAN CORPUSCULAR HEMOGLOBIN 32.8 pg (28-32); MEAN CORPUSCULAR HGB CONC 31.9 g/dL (31-35); MEAN CORPUSCULAR VOLUME 102.9 fL (81-99); MONOCYTES # (AUTO) 0.2 (0.2-0.8); MONOCYTES % 1.8 % (4.4-11.3); NEUTROPHILS # (AUTO) 8.3 (2.1-6.9); NEUTROPHILS % 90.4 % (38.7-80.0); PLATELET COUNT 197 x10e3/uL (140-360); RED BLOOD COUNT 3.08 x10e6/uL (3.6-5.1); RED CELL DISTRIBUTION WIDTH 14.3 % (11.7-14.4)
[2017-11-01] MEDS: SALMETEROL/FLUTICASONE 250/50 INH SCH (06:10)
[2017-11-01] MEDS: TIOTROPIUM 18 MCG INH POWDER INH SCH (06:20)
[2017-11-01 06:41] LABS: ALBUMIN 3.5 g/dL (3.5-5.0); ANION GAP 15.2 mmol/L (8-16); CALCIUM 10.1 mg/dL (8.4-10.2); CREATININE, SERUM 1.72 mg/dL (0.57-1.11); POTASSIUM 5.2 mmol/L (3.5-5.1)
[2017-11-01 07:22] LABS: MAGNESIUM 2.2 MG/DL (1.3-2.1); PHOSPHORUS 3.8 MG/DL (2.3-4.7)
[2017-11-01] MEDS: INSULIN REGULAR, HUMAN 100 UNIT/1 ML 3ML VIAL SQ SCH ×4 (08:08→20:35)
[2017-11-01] MEDS: PANTOPRAZOLE SOD 40 MG TABEC PO SCH ×2 (08:25→17:31)
[2017-11-01] MEDS: ASCORBIC ACID 500 MG TAB PO SCH ×2 (08:25→17:31)
[2017-11-01] MEDS: METHYLPREDNISOLONE SOD SUCC 125 MG/2ML VIAL IV SCH (08:25)
[2017-11-01] MEDS: APIXABAN 5 MG TABLET PO SCH ×2 (08:25→17:31)
[2017-11-01] MEDS: MAGNESIUM OXIDE 400 MG TAB PO SCH ×2 (08:25→17:31)
[2017-11-01] MEDS: EZETIMIBE 10 MG TAB PO SCH (08:25)
[2017-11-01] MEDS: OYST-CAL-D 500MG TABLET PO SCH ×2 (08:25→17:31)
[2017-11-01] MEDS: FUROSEMIDE 40 MG TAB PO SCH ×2 (08:25→17:31)
[2017-11-01] MEDS: AMIODARONE HCL 200 MG TAB PO SCH (08:25)
[2017-11-01] MEDS: NYSTATIN/TRIAMCINOLONE 15 GM CR TOP SCH (08:27)
[2017-11-01] MEDS: BALSAM PERU/CASTOR OIL 60 GM OINT...G. TP SCH ×3 (08:27→17:31)
[2017-11-01] MEDS: NIFEDIPINE CR 30 MG TAB PO SCH (08:27)
[2017-11-01] MEDS: INSULIN DETEMIR 100 UNIT/ML PEN SQ SCH ×2 (08:27→20:35)
[2017-11-01] MEDS: MUPIROCIN 2% OINT 22 GM TUBE TOP SCH ×2 (08:27→17:31)
[2017-11-01] MEDS ORDERED: INSULIN DETEMIR 100 UNIT/ML PEN SQ ONE (14:15)
[2017-11-01] MEDS ORDERED: SOD POLYSTYRENE SULFONATE SUSP 15 GM/60 ML BTL PO NR (14:15)
[2017-11-01] MEDS: IPRATROPIUM BROMIDE 0.02% 2.5 ML NEB NEB SCH (19:39)
[2017-11-01] MEDS: LEVALBUTEROL HCL SOLN NEBU 0.63 MG/3 ML NEB INH SCH (19:39)
[2017-11-01] MEDS: METHYLPREDNISOLONE SOD SUCC 40 MG/ML VIAL IV SCH (20:36)
[2017-11-01] MEDS ORDERED: METHYLPREDNISOLONE SOD SUCC 125 MG/2ML VIAL IV SCH (21:00)
[2017-11-02] VITALS (9 sets, daily range): BP systolic 123–144; BP diastolic 58–75
[2017-11-02] MEDS: IPRATROPIUM BROMIDE 0.02% 2.5 ML NEB NEB SCH ×4 (03:26→19:40)
[2017-11-02] MEDS: LEVALBUTEROL HCL SOLN NEBU 0.63 MG/3 ML NEB INH SCH ×4 (03:26→19:38)
[2017-11-02] MEDS: HYDROCODONE/APAP 10MG-325MG TAB PO PRN ×2 (05:15→12:03)
[2017-11-02] MEDS: GUAIFENESIN 600MG/DEXTROMETHORPHAN 30MG TABSR PO SCH ×5 (05:26→23:37)
[2017-11-02] MEDS: DOXYCYCLINE 100MG/NS 100ML 100 ML IV SCH ×2 (05:26→17:54)
[2017-11-02] MEDS: SALMETEROL/FLUTICASONE 250/50 INH SCH (06:00)
[2017-11-02] MEDS: TIOTROPIUM 18 MCG INH POWDER INH SCH (06:00)
[2017-11-02 06:40] LABS: BASOPHILS % 0.1 % (0.0-1.0); HEMATOCRIT 31.8 % (34.2-44.1); HEMOGLOBIN 10.3 g/dL (12.0-16.0); LYMPHOCYTES # (AUTO) 0.7 (1.0-3.2); LYMPHOCYTES % 8.4 % (18.0-39.1); MEAN CORPUSCULAR HEMOGLOBIN 32.9 pg (28-32); MEAN CORPUSCULAR HGB CONC 32.4 g/dL (31-35); MEAN CORPUSCULAR VOLUME 101.6 fL (81-99); MONOCYTES # (AUTO) 0.4 (0.2-0.8); MONOCYTES % 5.1 % (4.4-11.3); NEUTROPHILS # (AUTO) 7.2 (2.1-6.9); NEUTROPHILS % 84.6 % (38.7-80.0); PLATELET COUNT 192 x10e3/uL (140-360); RED BLOOD COUNT 3.13 x10e6/uL (3.6-5.1); RED CELL DISTRIBUTION WIDTH 14.3 % (11.7-14.4)
[2017-11-02 07:10] LABS: ANION GAP 12.5 mmol/L (8-16); CALCIUM 9.8 mg/dL (8.4-10.2); CREATININE, SERUM 1.47 mg/dL (0.57-1.11); MAGNESIUM 2.1 MG/DL (1.3-2.1); PHOSPHORUS 3.5 MG/DL (2.3-4.7); POTASSIUM 4.5 mmol/L (3.5-5.1)
[2017-11-02] MEDS: INSULIN REGULAR, HUMAN 100 UNIT/1 ML 3ML VIAL SQ SCH ×4 (07:30→21:35)
[2017-11-02] MEDS: PANTOPRAZOLE SOD 40 MG TABEC PO SCH ×2 (08:00→17:53)
[2017-11-02] MEDS: METHYLPREDNISOLONE SOD SUCC 40 MG/ML VIAL IV SCH ×2 (08:30→21:20)
[2017-11-02] MEDS: INSULIN DETEMIR 100 UNIT/ML PEN SQ SCH ×2 (09:00→21:20)
[2017-11-02] MEDS: OYST-CAL-D 500MG TABLET PO SCH ×2 (09:21→17:54)
[2017-11-02] MEDS: APIXABAN 5 MG TABLET PO SCH ×2 (09:21→17:53)
[2017-11-02] MEDS: FUROSEMIDE 40 MG TAB PO SCH ×2 (09:21→17:53)
[2017-11-02] MEDS: NIFEDIPINE CR 30 MG TAB PO SCH (09:21)
[2017-11-02] MEDS: MAGNESIUM OXIDE 400 MG TAB PO SCH ×2 (09:21→17:54)
[2017-11-02] MEDS: EZETIMIBE 10 MG TAB PO SCH (09:21)
[2017-11-02] MEDS: ASCORBIC ACID 500 MG TAB PO SCH ×2 (09:21→17:54)
[2017-11-02] MEDS: AMIODARONE HCL 200 MG TAB PO SCH (09:21)
[2017-11-02] MEDS: MUPIROCIN 2% OINT 22 GM TUBE TOP SCH ×2 (09:22→17:54)
[2017-11-02] MEDS: NYSTATIN/TRIAMCINOLONE 15 GM CR TOP SCH (09:22)
[2017-11-02] MEDS: BALSAM PERU/CASTOR OIL 60 GM OINT...G. TP SCH ×3 (09:22→17:54)
[2017-11-02 11:31] LABS: ABG HCO3 42 mmol/L (23-28); ABG PCO2 55 mmHg (41-51); ABG PH 7.49 (7.31-7.41); ABG PO2 62 mmHg (80-105)
[2017-11-02] MEDS ORDERED: ONDANSETRON HCL 4 MG ORAL DISINTEGRATING TAB PO PRN (12:00)
[2017-11-02] MEDS ORDERED: ONDANSETRON HCL INJ 2 MG/ML VIAL IV PRN (12:00)
[2017-11-02] MEDS ORDERED: METOPROLOL TARTRATE INJ 1 MG/ML VIAL IV PRN (12:00)
[2017-11-02] MEDS ORDERED: ACETAMINOPHEN 325 MG TAB PO PRN (12:00)
--- NOTE | 2017-11-02 18:29 | Consultation ---
DATE OF CONSULTATION: November 02, 2017 PULMONARY CONSULTATION A charming but unfortunate 57-year-old woman with a history of diastolic heart failure, intermittent atrial fibrillation admitted with wheezing and shortness of breath. Said to have a low saturation at night according to the history and physical. She has a history of gastroesophageal reflux, history of intermittent atrial fibrillation, depression and , history of diabetes and hypertension, chronic kidney disease, morbid obesity, obstructive sleep apnea. She has been titrated in the past. Those records are currently unavailable. They may be in the old hospital record. To my recollection, CPAP was recommended. She is now requesting a BiPAP. PHYSICAL EXAMINATION GENERAL: A morbidly obese white female in no acute distress. Near baseline. Mild kyphosis. VITALS: Temperature 98.3, pulse 101, respirations 20, blood pressure 139/61. LUNGS: Diminished breath sounds bilaterally. HEART: Regular rhythm. ABDOMEN: Nontender. EXTREMITIES: Trace edema. The patient plans to bring in her machine to see if it can be adjusted to BiPAP mode. Chest x-ray suggests bilateral infiltrates consistent with diastolic heart failure. Will continue bronchodilators due to smoking history. Request spirometry. Consider followup CPAP trial. Attempt to obtain BiPAP on a compassionate basis in view of her chronic respiratory failure. The pH is 7.49, pCO2 55, pO2 62 on 50% oxygen according to the most recent report. Consider tapering steroids. Dose of Diamox. She is currently on doxycycline for therapeutic for possible atypical pneumonia. Thank you for this kind referral. Job#: [id number] SETH WALKER
[2017-11-03] VITALS (7 sets, daily range): BP systolic 116–150; BP diastolic 57–68
[2017-11-03] MEDS: IPRATROPIUM BROMIDE 0.02% 2.5 ML NEB NEB SCH ×4 (01:57→19:05)
[2017-11-03] MEDS: LEVALBUTEROL HCL SOLN NEBU 0.63 MG/3 ML NEB INH SCH ×4 (01:57→19:05)
[2017-11-03] MEDS: DOXYCYCLINE 100MG/NS 100ML 100 ML IV SCH ×2 (05:15→17:04)
[2017-11-03] MEDS: GUAIFENESIN 600MG/DEXTROMETHORPHAN 30MG TABSR PO SCH ×3 (07:05→17:02)
[2017-11-03] MEDS: PANTOPRAZOLE SOD 40 MG TABEC PO SCH ×2 (07:30→16:53)
[2017-11-03] MEDS: TIOTROPIUM 18 MCG INH POWDER INH SCH (07:32)
[2017-11-03] MEDS: SALMETEROL/FLUTICASONE 250/50 INH SCH (07:32)
[2017-11-03 07:38] LABS: BASOPHILS % 0.2 % (0.0-1.0); HEMATOCRIT 33.8 % (34.2-44.1); HEMOGLOBIN 10.7 g/dL (12.0-16.0); LYMPHOCYTES # (AUTO) 1.2 (1.0-3.2); LYMPHOCYTES % 12.9 % (18.0-39.1); MEAN CORPUSCULAR HEMOGLOBIN 32.4 pg (28-32); MEAN CORPUSCULAR HGB CONC 31.7 g/dL (31-35); MEAN CORPUSCULAR VOLUME 102.4 fL (81-99); MONOCYTES # (AUTO) 0.7 (0.2-0.8); MONOCYTES % 7.1 % (4.4-11.3); NEUTROPHILS # (AUTO) 7.4 (2.1-6.9); NEUTROPHILS % 77.8 % (38.7-80.0); PLATELET COUNT 217 x10e3/uL (140-360)
[2017-11-03 07:59] LABS: ANION GAP 14.7 mmol/L (8-16); CALCIUM 10.1 mg/dL (8.4-10.2); CREATININE, SERUM 1.38 mg/dL (0.57-1.11); MAGNESIUM 2.2 MG/DL (1.3-2.1); POTASSIUM 4.7 mmol/L (3.5-5.1)
[2017-11-03] MEDS ORDERED: ACETAZOLAMIDE 250 MG TAB PO ONE (09:00)
[2017-11-03] MEDS: INSULIN DETEMIR 100 UNIT/ML PEN SQ SCH ×2 (09:00→21:30)
[2017-11-03] MEDS: MAGNESIUM OXIDE 400 MG TAB PO SCH ×3 (09:00→16:54)
[2017-11-03] MEDS ORDERED: BENZONATATE 100 MG CAP PO PRN (09:30)
[2017-11-03] MEDS ORDERED: SODIUM CHLORIDE 0.9% 500ML 500 ML IV ONE (09:30)
[2017-11-03] MEDS: APIXABAN 5 MG TABLET PO SCH ×2 (09:41→16:53)
[2017-11-03] MEDS: FUROSEMIDE 40 MG TAB PO SCH ×2 (09:41→16:53)
[2017-11-03] MEDS: AMIODARONE HCL 200 MG TAB PO SCH (09:41)
[2017-11-03] MEDS: OYST-CAL-D 500MG TABLET PO SCH ×2 (09:42→16:54)
[2017-11-03] MEDS: NIFEDIPINE CR 30 MG TAB PO SCH (09:43)
--- NOTE | 2017-11-03 09:50 | Diagnostic Imaging Report ---
PROCEDURE: X-RAY CHEST, TWO VIEWS COMPARISON: 10/30/2017. INDICATIONS: SHORT OF BREATH FINDINGS: Lungs are reasonably well inflated. Unchanged small bilateral effusions with bilateral lower lobe airspace disease, likely atelectasis. Interstitial pulmonary edema unchanged when accounting for differences in technique. Stable cardiomediastinal contour. No acute osseous abnormality. CONCLUSION: Cardiomegaly with interstitial pulmonary edema and small bilateral pleural effusions, similar in appearance to 10/30/2017 accounting for differences in technique. Dictated by: Antonio Lawrence M.D. on 11/03/2017 at 9:51 Electronically approved by: Antonio Lawrence M.D. on 11/03/2017 at 9:51
[2017-11-03] MEDS: BALSAM PERU/CASTOR OIL 60 GM OINT...G. TP SCH (10:13)
[2017-11-03] MEDS: EZETIMIBE 10 MG TAB PO SCH (10:13)
[2017-11-03] MEDS: ASCORBIC ACID 500 MG TAB PO SCH ×2 (10:13→16:54)
[2017-11-03] MEDS: MUPIROCIN 2% OINT 22 GM TUBE TOP SCH ×2 (10:13→16:45)
[2017-11-03] MEDS: NYSTATIN/TRIAMCINOLONE 15 GM CR TOP SCH (10:13)
[2017-11-03] MEDS: INSULIN LISPRO 100 UNIT/1 ML 3ML VIAL SQ SCH ×3 (11:30→21:30)
[2017-11-03] MEDS: HYDROCODONE/APAP 10MG-325MG TAB PO PRN (14:27)
[2017-11-04] VITALS (9 sets, daily range): BP systolic 124–139; BP diastolic 58–65
[2017-11-04] MEDS: IPRATROPIUM BROMIDE 0.02% 2.5 ML NEB NEB SCH ×4 (00:20→19:00)
[2017-11-04] MEDS: LEVALBUTEROL HCL SOLN NEBU 0.63 MG/3 ML NEB INH SCH ×4 (00:20→19:00)
[2017-11-04] MEDS: GUAIFENESIN 600MG/DEXTROMETHORPHAN 30MG TABSR PO SCH ×5 (00:40→23:18)
[2017-11-04] MEDS: DOXYCYCLINE 100MG/NS 100ML 100 ML IV SCH ×2 (05:41→17:48)
[2017-11-04] MEDS: SALMETEROL/FLUTICASONE 250/50 INH SCH (07:00)
[2017-11-04 07:03] LABS: BASOPHILS % 0.2 % (0.0-1.0); EOSINOPHILS # (AUTO) 0.1 (0.0-0.4); EOSINOPHILS % 0.6 % (0.0-6.0); HEMATOCRIT 33.6 % (34.2-44.1); HEMOGLOBIN 10.7 g/dL (12.0-16.0); LYMPHOCYTES # (AUTO) 2.8 (1.0-3.2); LYMPHOCYTES % 26.9 % (18.0-39.1); MEAN CORPUSCULAR HEMOGLOBIN 32.4 pg (28-32); MEAN CORPUSCULAR HGB CONC 31.8 g/dL (31-35); MEAN CORPUSCULAR VOLUME 101.8 fL (81-99); MONOCYTES # (AUTO) 0.9 (0.2-0.8); MONOCYTES % 8.2 % (4.4-11.3); NEUTROPHILS # (AUTO) 6.4 (2.1-6.9); NEUTROPHILS % 61.7 % (38.7-80.0); PLATELET COUNT 190 x10e3/uL (140-360); RED CELL DISTRIBUTION WIDTH 14.1 % (11.7-14.4)
[2017-11-04] MEDS: HYDROCODONE/APAP 10MG-325MG TAB PO PRN ×3 (07:05→20:45)
[2017-11-04] MEDS: PANTOPRAZOLE SOD 40 MG TABEC PO SCH ×2 (07:05→17:00)
[2017-11-04 07:27] LABS: ANION GAP 13.2 mmol/L (8-16); CREATININE, SERUM 1.46 mg/dL (0.57-1.11); POTASSIUM 4.2 mmol/L (3.5-5.1)
[2017-11-04] MEDS: INSULIN LISPRO 100 UNIT/1 ML 3ML VIAL SQ SCH ×4 (07:30→20:45)
[2017-11-04] MEDS: INSULIN DETEMIR 100 UNIT/ML PEN SQ SCH ×2 (09:00→20:45)
[2017-11-04] MEDS: NYSTATIN/TRIAMCINOLONE 15 GM CR TOP SCH (09:00)
[2017-11-04] MEDS: MUPIROCIN 2% OINT 22 GM TUBE TOP SCH ×2 (09:00→17:00)
[2017-11-04] MEDS ORDERED: METHYLPREDNISOLONE SOD SUCC 40 MG/ML VIAL IV SCH (09:00)
[2017-11-04] MEDS: BALSAM PERU/CASTOR OIL 60 GM OINT...G. TP SCH (09:00)
[2017-11-04] MEDS: AMIODARONE HCL 200 MG TAB PO SCH (10:14)
[2017-11-04] MEDS: APIXABAN 5 MG TABLET PO SCH ×2 (10:14→17:00)
[2017-11-04] MEDS: OYST-CAL-D 500MG TABLET PO SCH ×2 (10:14→17:00)
[2017-11-04] MEDS: FUROSEMIDE 40 MG TAB PO SCH ×2 (10:14→17:00)
[2017-11-04] MEDS: NIFEDIPINE CR 30 MG TAB PO SCH (10:14)
[2017-11-04] MEDS: MAGNESIUM OXIDE 400 MG TAB PO SCH ×2 (10:14→17:00)
[2017-11-04] MEDS: ASCORBIC ACID 500 MG TAB PO SCH ×2 (10:14→17:00)
[2017-11-04] MEDS: EZETIMIBE 10 MG TAB PO SCH (10:14)
[2017-11-04 11:02] LABS: EOSINOPHILS % (MANUAL) 3 % (0-7); LYMPHOCYTES % (MANUAL) 30 % (19-48); METAMYELOCYTES % (MANUAL) 1 % (0-0); MONOCYTES % (MANUAL) 7 % (3.4-9.0); NEUTROPHILS % (MANUAL) 58 % (40-74); POIKILOCYTOSIS SLIGHT
[2017-11-04 11:05] LABS: ANISOCYTOSIS SLIG; PLATELET ESTIMATE ADEQUATE; PLATELET MORPHOLOGY COMMENT NORMAL; RBC MORPHOLOGY COMMENT NORMAL; STOMATOCYTES SLIGHT
[2017-11-04] MEDS: TIOTROPIUM 18 MCG INH POWDER INH SCH (11:23)
[2017-11-04] MEDS ORDERED: ACETAZOLAMIDE 250 MG TAB PO SCH (12:15)
[2017-11-04] MEDS ORDERED: ACETAZOLAMIDE 250 MG TAB PO ONE ×2 (12:30→16:30)
[2017-11-04] MEDS ORDERED: FUROSEMIDE INJ 10 MG/ML 4 ML VIAL IV ONE (12:30)
--- NOTE | 2017-11-04 14:42 | Pulmonary Function Test ---
DATE OF STUDY: November 04, 2017 Severe restrictive pattern. Forced vital capacity 0.81 L, 26% of predicted. FEV1 of 0.7 L, 29%. FEV1/FVC ratio 86%. FEF25/75 45%. Restrictive pattern. Job#: [id number] [place]
[2017-11-05] VITALS (8 sets, daily range): BP systolic 117–139; BP diastolic 55–68
[2017-11-05] MEDS: IPRATROPIUM BROMIDE 0.02% 2.5 ML NEB NEB SCH ×4 (00:37→20:10)
[2017-11-05] MEDS: LEVALBUTEROL HCL SOLN NEBU 0.63 MG/3 ML NEB INH SCH ×4 (00:37→20:10)
[2017-11-05] MEDS: TIOTROPIUM 18 MCG INH POWDER INH SCH (06:00)
[2017-11-05] MEDS: SALMETEROL/FLUTICASONE 250/50 INH SCH (06:00)
[2017-11-05] MEDS: GUAIFENESIN 600MG/DEXTROMETHORPHAN 30MG TABSR PO SCH ×4 (06:10→23:25)
[2017-11-05] MEDS: DOXYCYCLINE 100MG/NS 100ML 100 ML IV SCH ×2 (06:10→17:11)
[2017-11-05] MEDS: HYDROCODONE/APAP 10MG-325MG TAB PO PRN ×3 (06:11→23:25)
[2017-11-05 07:05] LABS: BASOPHILS % 0.2 % (0.0-1.0); EOSINOPHILS # (AUTO) 0.1 (0.0-0.4); HEMATOCRIT 32.5 % (34.2-44.1); HEMOGLOBIN 10.7 g/dL (12.0-16.0); LYMPHOCYTES # (AUTO) 2.4 (1.0-3.2); LYMPHOCYTES % 20.8 % (18.0-39.1); MEAN CORPUSCULAR HEMOGLOBIN 32.8 pg (28-32); MEAN CORPUSCULAR HGB CONC 32.9 g/dL (31-35); MEAN CORPUSCULAR VOLUME 99.7 fL (81-99); MONOCYTES # (AUTO) 0.7 (0.2-0.8); MONOCYTES % 6.1 % (4.4-11.3); NEUTROPHILS # (AUTO) 8.1 (2.1-6.9); NEUTROPHILS % 69.8 % (38.7-80.0); PLATELET COUNT 190 x10e3/uL (140-360); RED BLOOD COUNT 3.26 x10e6/uL (3.6-5.1); RED CELL DISTRIBUTION WIDTH 13.9 % (11.7-14.4)
[2017-11-05] MEDS: INSULIN LISPRO 100 UNIT/1 ML 3ML VIAL SQ SCH ×4 (07:30→21:01)
[2017-11-05 07:37] LABS: ANION GAP 13.3 mmol/L (8-16); CALCIUM 10.1 mg/dL (8.4-10.2); CREATININE, SERUM 1.66 mg/dL (0.57-1.11); POTASSIUM 4.3 mmol/L (3.5-5.1)
[2017-11-05] MEDS: METHYLPREDNISOLONE SOD SUCC 40 MG/ML VIAL IV SCH (08:59)
[2017-11-05] MEDS: INSULIN DETEMIR 100 UNIT/ML PEN SQ SCH ×2 (08:59→21:01)
[2017-11-05] MEDS: BALSAM PERU/CASTOR OIL 60 GM OINT...G. TP SCH (08:59)
[2017-11-05] MEDS: PANTOPRAZOLE SOD 40 MG TABEC PO SCH ×2 (08:59→17:11)
[2017-11-05] MEDS: MUPIROCIN 2% OINT 22 GM TUBE TOP SCH ×2 (08:59→17:11)
[2017-11-05] MEDS: MAGNESIUM OXIDE 400 MG TAB PO SCH ×2 (08:59→17:11)
[2017-11-05] MEDS: APIXABAN 5 MG TABLET PO SCH ×2 (08:59→17:11)
[2017-11-05] MEDS: NIFEDIPINE CR 30 MG TAB PO SCH (08:59)
[2017-11-05] MEDS: AMIODARONE HCL 200 MG TAB PO SCH (08:59)
[2017-11-05] MEDS: FUROSEMIDE 40 MG TAB PO SCH ×2 (08:59→17:11)
[2017-11-05] MEDS: ASCORBIC ACID 500 MG TAB PO SCH ×2 (08:59→17:11)
[2017-11-05] MEDS: EZETIMIBE 10 MG TAB PO SCH (08:59)
[2017-11-05] MEDS: OYST-CAL-D 500MG TABLET PO SCH ×2 (08:59→17:11)
[2017-11-05] MEDS: NYSTATIN/TRIAMCINOLONE 15 GM CR TOP SCH (08:59)
[2017-11-05] MEDS ORDERED: FUROSEMIDE INJ 10 MG/ML 4 ML VIAL IV ONE (10:30)
[2017-11-05 10:38] LABS: EOSINOPHILS % (MANUAL) 5 % (0-7); LYMPHOCYTES % (MANUAL) 26 % (19-48); MONOCYTES % (MANUAL) 2 % (3.4-9.0); NEUTROPHILS % (MANUAL) 67 % (40-74)
[2017-11-05 10:39] LABS: PLATELET ESTIMATE ADEQUATE; PLATELET MORPHOLOGY COMMENT NORMAL; RBC MORPHOLOGY COMMENT NORMAL
[2017-11-06] VITALS: BP 112/56
[2017-11-06] MEDS: LEVALBUTEROL HCL SOLN NEBU 0.63 MG/3 ML NEB INH SCH ×3 (01:15→13:44)
[2017-11-06] MEDS: IPRATROPIUM BROMIDE 0.02% 2.5 ML NEB NEB SCH ×3 (02:19→13:44)
[2017-11-06 04:17] VITALS: BP 128/60
[2017-11-06] MEDS: DOXYCYCLINE 100MG/NS 100ML 100 ML IV SCH (05:45)
[2017-11-06] MEDS: HYDROCODONE/APAP 10MG-325MG TAB PO PRN ×2 (05:45→11:17)
[2017-11-06] MEDS: GUAIFENESIN 600MG/DEXTROMETHORPHAN 30MG TABSR PO SCH ×2 (05:45→11:46)
[2017-11-06 07:03] LABS: BASOPHILS % 0.2 % (0.0-1.0); EOSINOPHILS # (AUTO) 0.2 (0.0-0.4); EOSINOPHILS % 1.4 % (0.0-6.0); HEMATOCRIT 33.7 % (34.2-44.1); HEMOGLOBIN 10.7 g/dL (12.0-16.0); LYMPHOCYTES # (AUTO) 2.3 (1.0-3.2); MEAN CORPUSCULAR HEMOGLOBIN 32.5 pg (28-32); MEAN CORPUSCULAR HGB CONC 31.8 g/dL (31-35); MEAN CORPUSCULAR VOLUME 102.4 fL (81-99); MONOCYTES # (AUTO) 0.7 (0.2-0.8); MONOCYTES % 6.2 % (4.4-11.3); NEUTROPHILS # (AUTO) 7.3 (2.1-6.9); NEUTROPHILS % 68.9 % (38.7-80.0); PLATELET COUNT 195 x10e3/uL (140-360); RED BLOOD COUNT 3.29 x10e6/uL (3.6-5.1)
[2017-11-06] MEDS: SALMETEROL/FLUTICASONE 250/50 INH SCH (07:30)
[2017-11-06] MEDS: INSULIN LISPRO 100 UNIT/1 ML 3ML VIAL SQ SCH ×2 (07:30→12:09)
[2017-11-06] MEDS: TIOTROPIUM 18 MCG INH POWDER INH SCH (07:32)
[2017-11-06 07:48] LABS: ANION GAP 14.7 mmol/L (8-16); CALCIUM 9.8 mg/dL (8.4-10.2); CREATININE, SERUM 1.64 mg/dL (0.57-1.11); MAGNESIUM 2.1 MG/DL (1.3-2.1); POTASSIUM 3.7 mmol/L (3.5-5.1)
[2017-11-06 08:10] VITALS: BP 116/59
[2017-11-06] MEDS: MAGNESIUM OXIDE 400 MG TAB PO SCH (08:53)
[2017-11-06] MEDS: METHYLPREDNISOLONE SOD SUCC 40 MG/ML VIAL IV SCH (08:53)
[2017-11-06] MEDS: ASCORBIC ACID 500 MG TAB PO SCH (08:53)
[2017-11-06] MEDS: FUROSEMIDE 40 MG TAB PO SCH (08:53)
[2017-11-06] MEDS: AMIODARONE HCL 200 MG TAB PO SCH (08:53)
[2017-11-06] MEDS: PANTOPRAZOLE SOD 40 MG TABEC PO SCH (08:53)
[2017-11-06] MEDS: OYST-CAL-D 500MG TABLET PO SCH (08:53)
[2017-11-06] MEDS: EZETIMIBE 10 MG TAB PO SCH (08:53)
[2017-11-06] MEDS: APIXABAN 5 MG TABLET PO SCH (08:53)
[2017-11-06] MEDS: NIFEDIPINE CR 30 MG TAB PO SCH (08:53)
[2017-11-06] MEDS: MUPIROCIN 2% OINT 22 GM TUBE TOP SCH (08:54)
[2017-11-06] MEDS: INSULIN DETEMIR 100 UNIT/ML PEN SQ SCH (08:54)
[2017-11-06] MEDS: NYSTATIN/TRIAMCINOLONE 15 GM CR TOP SCH (08:54)
[2017-11-06] MEDS: BALSAM PERU/CASTOR OIL 60 GM OINT...G. TP SCH (08:54)
[2017-11-06] MEDS ORDERED: PREDNISONE10 MG PO (10:47)
[2017-11-06] MEDS ORDERED: MUCINEX DM ER1 EACH PO (10:47)
[2017-11-06] MEDS ORDERED: POTASSIUM CHLORIDE 20 MEQ TAB CR PO STA (10:53)
[2017-11-06 10:57] VITALS: BP 115/61
[2017-11-06] MEDS ORDERED: FUROSEMIDE INJ 10 MG/ML 4 ML VIAL IV ONE (11:00)
--- NOTE | 2017-11-07 01:21 | Discharge Summary ---
ADMISSION DIAGNOSES 1. Acute hypoxic respiratory failure. 2. Acute exacerbation of chronic obstructive pulmonary disease. 3. Type-2 diabetes with chronic kidney disease 3. 4. Paroxysmal atrial fibrillation. 5. Morbid obesity with obstructive sleep apnea. DISCHARGE DIAGNOSES 1. Acute hypoxic respiratory failure. 2. Acute exacerbation of chronic obstructive pulmonary disease. 3. Type-2 diabetes with chronic kidney disease 3. 4. Paroxysmal atrial fibrillation. 5. Morbid obesity with obstructive sleep apnea. HISTORY: Patient has a history of hypertension, type-2 diabetes, chronic diastolic CHF with an EF of 50%, paroxysmal AFib, CKD stage 3, morbid obesity, obstructive sleep apnea, COPD. Patient denies surgical history. HOSPITAL COURSE: A 57-year-old female presents with respiratory distress, hypoxia, shortness of breath, wheezing, and a hacking cough. Patient said her saturations went as low as 40% the night before in spite of her CPAP. On admission, patient had a chest x-ray, which showed cardiomegaly, increased vascular congestion, and bibasilar atelectasis. Patient is well known to us and has had multiple bouts of respiratory failure. Pulmonary was consulted. Patient was placed on BiPAP, given aggressive nebs, IV Solu-Medrol, IV doxycycline, and Mucinex. patient was given multiple doses of Diamox. Patient had a PFT that showed severe restrictive pattern forced vital capacity of 0.81 L, 26% of predicted, FEV-1 of 0.7 L 29%, FEV-1/FVC ratio 86%. Patient was able to bring her noninvasive vent in. Apparently, the patient said that it was not calibrated. We tried to get patient the BiPAP on last admission, but insurance continued to deny it, so she could only be sent home with noninvasive vent. The [employer] [facility] company that sent her home with the vent was contacted again by case management to ensure that the correct settings were on the vent. Patient was discharged once this occurred. Seven days of doxycycline, was sent home on tapered steroids, and Mucinex. She was continued on the rest of her home medications. Patient feeling much better with no cough. Swelling is down. Breathing is much easier. She has oxygen at home. Case management also worked on getting her O2 concentrator. She will follow up with primary care in about 2 weeks. Dictated By: Ayde Connoquenessing, SERVICE STATION MANAGER JON CRAVEN MD Job#: [id number] CQ
--- NOTE | 2017-11-07 17:06 | Pulmonary Function Test ---
DATE OF STUDY: November 04, [address] Matias. Restrictive spirometry: Very severe restrictive pattern. Forced vital capacity 0.81 liters, 26% of predicted. FEV1, 0.7 liters, 29% of predicted. FEV1:FVC ratio 86%. [id number], 45%. Arterial blood gases revealing increased AA gradient, significant hypoxia, chronic hypercapnic respiratory failure. On 6 liters high-flow cannula, pH 7.49, pCO2 55, PaO2 62. There is also concomitant metabolic alkalosis. Job#: [id number] EV
== END 2017-11-06 15:40 | disposition home or self-care (01) | DRG 189 ==
LOC: ER 23:42 → ERHOLD 10-30 01:37 → IMCU 10-30 19:44 → MED/SURG 11-02 15:48
PROVIDERS: ADMIT Internal Medicine; ATTEND Internal Medicine
PROC: 5A09457 Assistance with Respiratory Ventilation, 24-96 Consecutive Hours, Continuous Positive Airway Pressure (ICD-10-PCS; principal; 2017-10-30)
PROC: 3E0F7GC Introduction of Other Therapeutic Substance into Respiratory Tract, Via Natural or Artificial Opening (ICD-10-PCS; 2017-10-30)
DX: J96.21 Acute and chronic respiratory failure with hypoxia (principal); J44.1 Chronic obstructive pulmonary disease with (acute) exacerbation; J45.901 Unspecified asthma with (acute) exacerbation; I13.0 Hypertensive heart and chronic kidney disease with heart failure and stage 1 through stage 4 chronic kidney disease, or unspecified chronic kidney disease; I50.32 Chronic diastolic (congestive) heart failure; Z68.42 Body mass index [BMI] 45.0-49.9, adult; E11.22 Type 2 diabetes mellitus with diabetic chronic kidney disease; E87.8 Other disorders of electrolyte and fluid balance, not elsewhere classified; E66.01 Morbid (severe) obesity due to excess calories; D64.9 Anemia, unspecified; N18.3 Chronic kidney disease, stage 3 (moderate); I48.0 Paroxysmal atrial fibrillation; Z79.01 Long term (current) use of anticoagulants; G47.33 Obstructive sleep apnea (adult) (pediatric); K21.9 Gastro-esophageal reflux disease without esophagitis; E87.5 Hyperkalemia; E83.41 Hypermagnesemia; Z88.0 Allergy status to penicillin; Z88.2 Allergy status to sulfonamides; L89.152 Pressure ulcer of sacral region, stage 2
CPT/HCPCS: 36415; 36600; 51700; 71045; 71046; 80048; 80053; 81001; 82140; 82550; 82553; 82805; 82948; 83735; 83880; 84100; 84484; 85025; 85610; 85730; 93005; 94010; 94640; 94660; 96367; 96372; 96374; 97139; 99285; J0456; J1940; J2920; J2930; J7040; J7050

== ENCOUNTER → 2017-11-16 | Outpatient (CLI) | payer MEDICARE ==
[~2017-11-16] MED LIST changes: +MUCINEX DM ER1 EACH PO
--- NOTE | 2017-11-24 19:23 | Polysomnography ---
DATE OF STUDY: POLYSOMNOGRAM REPORT A patient of Dr. Matias. Patient with a history of daytime hypersomnolence, witnessed apneas, chronic hypoxia on home oxygen at 4 liters. This represents a diagnostic sleep study. During the diagnostic portion, the patient's oxygen saturation was maintained at 3 liters, which resulted in a saturation of 88%. The diagnostic portion of the study lasted 151 minutes. REM sleep was not attained, which may have reduced the severity of the findings. She was monitored using standard EEG lead montage, in addition to electrooculogram, submentalis EMG, anterior tibialis EMG, nasal and oral thermistors, rib cage and abdominal strain gauge monitor, pulse oximetry with respiratory inductance plethysmography and EKG monitoring. Sleep efficiency was 90%. However, the patient experienced 36 obstructive apneas, the longest in duration 31 seconds. In addition, there were 8 hypopneas. Respiratory disturbance index was 20, consistent with moderately severe obstructive sleep apnea. However, as REM sleep was not recorded, suspected that this underestimates the severity of her illness. Patient was then fitted with a ResMed AirFit F10 size small nasal mask. She was initially titrated at 5 cm of water pressure. Pressure was increased to 12 and then to a BiPAP of 13/9. Final pressure was 19/13 with a backup respiratory rate of 14 because of what was felt to be hypoventilation. Apneas and hypopneas were essentially eliminated. REM rebound sleep was also noted during the therapeutic portion of the study, suggesting adequacy of titration. It is recommended that the patient be given a home trial of BiPAP at a level of 19/13 with a backup rate of 14. Heated humidifier should be added for the patient's comfort and improved compliance. O2 was bled in at a level of 1 liter per minute, and it is recommended that oxygen be continued to be bled in. Lowest saturation recorded with oxygen supplementation was 81%. Without oxygen and without BiPAP her saturation fell as low as 52%. IMPRESSION: Moderately severe obstructive sleep apnea, improved with bilateral positive airway pressure at a level of 19/13 with O2 bleed. It is recommended this be continued at home, a heated humidifier be added to improve patient compliance. Job#: [id number] EV
== END ==
LOC: SLEEP 20:04
PROVIDERS: ATTEND Internal Medicine
DX: G47.33 Obstructive sleep apnea (adult) (pediatric) (principal); J96.10 Chronic respiratory failure, unspecified whether with hypoxia or hypercapnia
CPT/HCPCS: 95811

== ENCOUNTER 2019-01-07 12:34 | Inpatient (IN) | payer MEDICARE ==
[~2019-01-07] VITALS: Ht 160 cm; Wt 116.6 kg
[2019-01-07] MEDS ORDERED: MAGNESIUM SULFATE 2GM/50ML 50 ML IV ONE ×2 (12:41→12:45)
--- NOTE | 2019-01-07 13:00 | NUR ---
RECEIVED REPORT FROM NURSE OVALLE TO ASSUME PTS CARE. PER HIS REPORT, PT ON BIPAP, EKG AND IV AND LABS DONE. RESP AT BEDSIDE DRAWING AN ABG. PT AWAKE AND ALERT. SPOW ON BIPAP NOW 100%.
[2019-01-07 13:06] LABS: BASOPHILS # (AUTO) 0.1 (0.0-0.1); BASOPHILS % 0.5 % (0.0-1.0); EOSINOPHILS % 0.1 % (0.0-6.0); HEMATOCRIT 31.9 % (34.2-44.1); HEMOGLOBIN 10.1 g/dL (12.0-16.0); LYMPHOCYTES # (AUTO) 1.2 (1.0-3.2); LYMPHOCYTES % 11.1 % (18.0-39.1); MEAN CORPUSCULAR HEMOGLOBIN 31.7 pg (28-32); MEAN CORPUSCULAR HGB CONC 31.7 g/dL (31-35); MONOCYTES # (AUTO) 0.8 (0.2-0.8); MONOCYTES % 6.8 % (4.4-11.3); NEUTROPHILS # (AUTO) 8.7 (2.1-6.9); PLATELET COUNT 209 x10e3/uL (140-360); RED BLOOD COUNT 3.19 x10e6/uL (3.6-5.1); RED CELL DISTRIBUTION WIDTH 13.6 % (11.7-14.4)
[2019-01-07 13:14] LABS: ABG PH 7.09 (7.31-7.41)
[2019-01-07 13:15] LABS: INR 1.13; PROTHROMBIN TIME 15.1 seconds (11.9-14.5)
[2019-01-07 13:15] LABS: ABG HCO3 27 mmol/L (23-28); ABG PCO2 87 mmHg (41-51); ABG PO2 118 mmHg (80-105)
[2019-01-07 13:16] LABS: PARTIAL THROMBOPLASTIN TIME 33.7 seconds (23.8-35.5)
[2019-01-07 13:26] LABS: ALBUMIN 3.8 g/dL (3.5-5.0); ANION GAP 19.2 mmol/L (8-16); CALCIUM 9.3 mg/dL (8.4-10.2); CREATININE, SERUM 2.67 mg/dL (0.57-1.11); POTASSIUM 5.2 mmol/L (3.5-5.1)
[2019-01-07] MEDS ORDERED: ALBUTEROL/IPRATROPIUM 3 ML NEB NEB ONE ×2 (13:30→14:30)
[2019-01-07 13:33] LABS: B-TYPE NATRIURETIC PEPTIDE2 1318.1 pg/mL (0-100)
[2019-01-07 13:34] LABS: CREATINE KINASE MB 11.3 ng/mL (0-5.0)
--- NOTE | 2019-01-07 14:06 | Diagnostic Imaging Report ---
EXAMINATION: CHEST SINGLE (PORTABLE) INDICATION: Shortness of breath ^ERMD ORDER ^[id number] ^1330 ^Y COMPARISON: 10/30/2017 FINDINGS: LINES/TUBES: None LUNGS: Vascular congestion/edema and bibasilar atelectasis. This is worse when compared with the prior exam PLEURA: Likely right and left pleural effusions. HEART AND MEDIASTINUM: Marked enlargement of the cardiomediastinal silhouette. BONES AND SOFT TISSUES: No acute findings. IMPRESSION: Findings most likely due to congestive heart failure worse when compared with the prior exam. Follow-up imaging is indicated to document clearing. Signed by: Dr. Yasir Osborne M.D. on 01/07/2019 2:02 PM
[2019-01-07] MEDS ORDERED: INSULIN REGULAR, HUMAN 100 UNIT/1 ML 3ML VIAL SQ ONE (14:30)
[2019-01-07] MEDS ORDERED: LEVOFLOXACIN 750MG/D5W 150ML 150 ML IV ONE (14:30)
[2019-01-07] MEDS ORDERED: SODIUM CHLORIDE 0.9% 1000ML 3,000 ML IV ONE (14:30)
[2019-01-07] MEDS ORDERED: FUROSEMIDE INJ 10 MG/ML 4 ML VIAL IV ONE (14:30)
[2019-01-07] MEDS ORDERED: PROPOFOL IV EMULSION 10MG/ML 100 ML ONE ×2 (14:55→17:33)
[2019-01-07] MEDS ORDERED: ETOMIDATE 2 MG/ML 10 ML INJ IV STA (14:55)
[2019-01-07] MEDS ORDERED: SUCCINYLCHOLINE 200 MG/10 ML SYR IV STA (14:56)
[2019-01-07] MEDS: PROPOFOL IV EMULSION 10MG/ML 100 ML IV PRN ×3 (15:00→20:48)
--- NOTE | 2019-01-07 15:00 | NUR ---
PT WAS INTUBATED AT BEDSIDE BY DR. ARNOLD WITH ASSISTANCE FROM SIMEON LAW AND JOAQUÍN LAW
[2019-01-07] MEDS ORDERED: MIDAZOLAM HCL 2 MG/2 ML VIAL IV STA (15:06)
[2019-01-07] MEDS ORDERED: VECURONIUM BROMIDE FOR INJ 20 MG VIAL IV STA (15:09)
[2019-01-07] MEDS ORDERED: SODIUM CHLORIDE FLUSH 10 ML SYR INJ PRN (15:15)
[2019-01-07] MEDS ORDERED: DEXTROSE 50% SYRINGE 50 ML IV PRN (15:15)
[2019-01-07] MEDS ORDERED: ASPIRIN 81 MG CHEW TAB PO ONE (15:15)
[2019-01-07] MEDS ORDERED: LEVOFLOXACIN 500MG/D5W 100ML IV SCH (15:15)
--- NOTE | 2019-01-07 15:15 | NUR ---
UPPER AND LOWER DENTURES REMOVED FOR INTUBATION. DENTURES PLACED IN BIO-BAG AND HAND DELIVERED TO DAUGHTER.
[2019-01-07] MEDS ORDERED: SUCCINYLCHOLINE 200 MG/10 ML SYR IV ONE (15:30)
--- NOTE | 2019-01-07 15:30 | NUR ---
I WENT IN TO PLACE THE DOWNING CATHETER AND THE BOOMBOAT OPERATOR WAS AT BEDSIDE STARTING THE CARDIAC ECHO. I SPOKE WITH FAMILY AND GOT A LIST OF PTS CURRENT MEDS.
--- NOTE | 2019-01-07 15:37 | Diagnostic Imaging Report ---
Examination: Single AP view of the chest. COMPARISON: 01/07/2019 at 1334 INDICATION: Post intubation DISCUSSION: Interval intubation. The endotracheal tube tip projects approximately 3 cm above the john. An enteric tube has also been placed, the tip of which projects off the current radiograph, inferior to the left hemidiaphragm. No appreciable interval change in the appearance of the heart or lungs compared to the examination from 1334 hours. Marked cardiomegaly with interstitial and alveolar edema and probable trace bilateral pleural effusions. IMPRESSION: Interval intubation and placement of an enteric tube, appropriately positioned as above. Stable marked enlargement of the cardiac silhouette with pulmonary edema and suspected small bilateral pleural effusions. Signed by: Dr. Antonio Lawrence M.D. on 01/07/2019 3:34 PM
[2019-01-07] MEDS ORDERED: LEVOFLOXACIN 500MG/D5W 100ML 100 ML IV SCH (15:45)
[2019-01-07 16:01] LABS: ABG HCO3 29 mmol/L (23-28); ABG PCO2 86 mmHg (41-51); ABG PH 7.13 (7.31-7.41); ABG PO2 111 mmHg (80-105)
[2019-01-07 16:01] LABS: CHOL/HDL RATIO 2.9 (3.0-3.6)
[2019-01-07] MEDS ORDERED: DUONEB NEB PRN (16:15)
[2019-01-07] MEDS: INSULIN REGULAR, HUMAN 100 UNIT/1 ML 3ML VIAL SQ SCH ×2 (16:30→21:39)
--- NOTE | 2019-01-07 16:30 | NUR ---
FLIGHT COMMUNICATIONS SPECIALIST JUST FINISHED WITH THE ECHO. MYSELF AND SIMEON Martinez RN PLACED A DOWNING CATHETER BECAUSE PT IS VENTILATED AND SEDATED AND IS ON DIURETICS AND GOING TO ICU
[2019-01-07] MEDS ORDERED: ALBUTEROL/IPRATROPIUM 3 ML NEB INH PRN (16:45)
[2019-01-07] MEDS ORDERED: NON-FORMULARY MEDICATION ([Apixaban] 5 MG) PO SCH (17:00)
[2019-01-07] MEDS: OYST-CAL-D 500MG TABLET PO SCH (17:00)
[2019-01-07] MEDS ORDERED: CALCIUM CARBONATE PO SCH (17:00)
[2019-01-07] MEDS: HYDROCORTISONE SOD SUCCINATE 100 MG VIAL IV SCH (17:00)
[2019-01-07] MEDS ORDERED: VITAMIN D3 PO SCH (17:00)
[2019-01-07] MEDS: APIXABAN 5 MG TABLET PO SCH (17:00)
[2019-01-07] MEDS ORDERED: ENOXAPARIN SOD INJ 40 MG/0.4 ML SYR SC SCH (17:00)
[2019-01-07] MEDS: ZINC SULFATE 220 MG CAP PO SCH (17:00)
[2019-01-07 17:22] LABS: BILIRUBIN,URINE NEGATIVE (NEGATIVE); CLARITY,URINE SL CLOUDY (CLEAR); COLOR,URINE YELLOW (YELLOW); KETONES,URINE NEGATIVE (NEGATIVE); LEUKOCYTE ESTERASE ,URINE NEGATIVE (NEGATIVE); NITRITE,URINE NEGATIVE (NEGATIVE); PROTEIN,URINE DIPSTICK 2+ (NEGATIVE); URINE UROBILINOGEN 0.2 mg/dL (0.2 - 1)
[2019-01-07 17:37] LABS: AMORPHOUS SEDIMENT,URINE MANY (FEW); BACTERIA,URINE MODERATE /HPF; EPITHELIAL CELLS,URINE RARE /LPF; RBC,URINE 0-5 /HPF (0-5)
[2019-01-07] MEDS: ASCORBIC ACID 500 MG TAB PO SCH (18:01)
--- NOTE | 2019-01-07 18:04 | NUR ---
REPORT GIVEN OVER THE PHONE TO CLOTILDE IN ICU FOR ADMIT INTO ROOM 195. FAMILY AT BEDSIDE. UPDATED THEM ABOUT THE TRANSFER PROCESS
[2019-01-07] MEDS ORDERED: ETOMIDATE 2 MG/ML 10 ML INJ IV ONE (18:10)
[2019-01-07] MEDS ORDERED: SUCCINYLCHOLINE CHLORIDE 20 MG/ML 10ML VIAL ONE (18:10)
[2019-01-07] MEDS ORDERED: VECURONIUM BROMIDE FOR INJ 20 MG VIAL ONE (18:10)
[2019-01-07] MEDS ORDERED: WATER STERILE 10 ML VIAL ONE (18:10)
[2019-01-07] MEDS ORDERED: MIDAZOLAM HCL 2 MG/2 ML VIAL ONE (18:10)
[2019-01-07] MEDS: BUMETANIDE INJ 0.25MG/ML 4ML VIAL IV SCH (18:18)
[2019-01-07] MEDS: FAMOTIDINE 20 MG/2 ML VIAL IV SCH (18:20)
--- NOTE | 2019-01-07 18:35 | NUR ---
CALLED RESPIRATORY TO ASSIST ME WITH GETTING THE PT TO THE ICU
[2019-01-07 18:41] LABS: LYMPHOCYTES % (MANUAL) 14 % (19-48); METAMYELOCYTES % (MANUAL) 1 % (0-0); MONOCYTES % (MANUAL) 4 % (3.4-9.0); MYELOCYTES % (MANUAL) 1 % (0-0); NEUTROPHILS % (MANUAL) 80 % (40-74)
[2019-01-07 18:42] LABS: HYPOCHROMASIA SLIGHT; PLATELET ESTIMATE ADEQUATE; PLATELET MORPHOLOGY COMMENT NORMAL; RBC MORPHOLOGY COMMENT NORMAL
[2019-01-07 19:00] VITALS: BP 140/70
[2019-01-07] MEDS: ALBUTEROL/IPRATROPIUM 3 ML NEB NEB SCH ×2 (19:35→22:55)
[2019-01-07 20:00] VITALS: BP_SYST 140; BP_SYST 145; BP_DIAS 70
[2019-01-07 20:29] LABS: ABG HCO3 23 mmol/L (23-28); ABG PCO2 34 mmHg (41-51); ABG PH 7.44 (7.31-7.41); ABG PO2 193 mmHg (80-105)
[2019-01-07 21:00] VITALS: BP 138/85
[2019-01-07] MEDS: INSULIN GLARGINE 100 UNITS/ML VIAL SQ SCH (21:00)
[2019-01-07] MEDS ORDERED: NON-FORMULARY MEDICATION (Insulin Detemir (Levemir) 15 UNITS) SC SCH (21:00)
[2019-01-07 21:59] LABS: CREATINE KINASE MB 9.4 ng/mL (0-5.0)
[2019-01-07 22:00] VITALS: BP 149/70
--- NOTE | 2019-01-07 22:39 | Consultation ---
DATE OF CONSULTATION: 01/07/2019 Pulmonary Critical Care Consultation CHIEF COMPLAINT: Hypercapnic respiratory failure. HISTORY OF PRESENT ILLNESS: The patient is a 58-year-old woman. She has a history of obesity hypoventilation syndrome and sleep apnea. She uses CPAP at home as well as oxygen. She required hospitalization with endotracheal intubation and mechanical ventilation in the fall of 2016. She was also readmitted to the hospital with acute respiratory failure in October 2017. She has a history of prior cardiac stents as well as chronic diastolic heart failure and chronic kidney disease stage 3. She has been on amiodarone and Eliquis for atrial fibrillation. Over the past 3-4 days, she has noted more dyspnea. She did not complain of cough or fevers. She had no chest pain. When she came to the Emergency Department, she was found to have hypercapnia. She was tried on BiPAP, but did not respond and she was subsequently intubated. PAST SURGICAL HISTORY: Status post cardiac stents 15 years ago. PAST MEDICAL HISTORY: 1. Obesity hypoventilation syndrome. 2. Chronic obstructive sleep apnea. 3. Chronic diastolic heart failure. 4. Paroxysmal atrial fibrillation. 5. Diabetes, requiring insulin at home. ALLERGIES: THE PATIENT REPORTS AN ALLERGY TO SULFA WELL PENICILLIN. SHE ALSO REPORTS AN ALLERGY TO NAPROSYN. FAMILY HISTORY: Family history is significant for hypertension and diabetes. SOCIAL HISTORY: The patient quit smoking several years ago. She is not a drinker. REVIEW OF SYSTEMS: No fever. No headaches. No neck pain. She is not having any chest pain. She has minimal cough. She does have some dyspnea. She has no abdominal pain. She has no nausea or vomiting. She has mild leg swelling. PHYSICAL EXAMINATION: VITAL SIGNS: The patient is afebrile. The blood pressure is 91 and the pulse is 118/74. She is currently on a mechanical ventilator with an assist-control mode of ventilation set at a rate of 18. HEENT: She has oral endotracheal tube. LYMPHATIC: Shows no submandibular, cervical, or supraclavicular adenopathy. CARDIAC: Reveals a regular rate and rhythm with a normal S1 and S2. LUNGS: Auscultation of lungs reveals rhonchorous breath sounds bilaterally. There is no wheezing. ABDOMEN: Soft, nontender. There is no rebound or guarding. EXTREMITIES: Show no leg edema or calf tenderness. There is no cyanosis or clubbing. SKIN: Shows no rashes. NEUROLOGICAL: Shows no focal abnormalities. RADIOGRAPHIC DATA: Chest x-ray shows bilateral infiltrates as well as small bilateral effusions suggestive of congestive heart failure. IMPRESSION: 1. Fnxmr-ww-oznosvd hypercapnic respiratory failure. 2. Azblw-cx-lhionqt diastolic heart failure. 3. Paroxysmal atrial fibrillation. 4. Diabetes, requiring insulin. 5. Mryzr-cz-dhjteuf renal failure. 6. Hypertension. PLAN: 1. The patient will receive Lasix for diuresis. 2. Echocardiogram and Cardiology evaluation. 3. Repeat blood gas on arrival to the ICU and continue to wean ventilator as tolerated. 4. Stress dose steroids. 5. Control blood sugars. 6. I will transfer care to Dr. Williamson tomorrow. He is for established russian history professor. Toby Norris MD [facility]/MODL /[id number]
[2019-01-07 23:00] VITALS: BP 145/68
--- NOTE | 2019-01-07 23:34 | Consultation ---
DATE OF CONSULTATION: 01/07/2019 Cardiology Consultation. CHIEF COMPLAINT: The patient is a 58-year-old with shortness of breath. HISTORY OF PRESENT ILLNESS: The patient is a 58-year-old, who came back from a trip to [place] and gradually became more and more short of breath. The patient was taken to the emergency room at [facility] and was subsequently intubated. The patient's chest x-ray did demonstrate pulmonary edema. There was no report of chest pain. There was no fever. No chills. This patient did report the diuresis and wheezing. PAST MEDICAL HISTORY: Significant for: 1. Several previous episodes requiring intubation. 2. History of chronic obstructive pulmonary disease. 3. History of sleep apnea. 4. History of diastolic heart failure. SOCIAL HISTORY: The patient does smoke. The patient lives with her family. FAMILY HISTORY: There is no known family history of heart disease. PHYSICAL EXAMINATION: GENERAL: The patient is an intubated female. VITAL SIGNS: Included temperature of 98.8, blood pressure of 140/80, pulse of 100. HEAD, EARS, EYES, NOSE, AND THROAT: The patient's cranium was normocephalic and atraumatic. Extraocular muscles were intact. Sclerae were anicteric. Pupils were equal, round, reactive to light. There was no pallor or cyanosis of the oral mucosa. There was no erythema or edema of the throat. NECK: Supple. No jugular venous distention. CHEST: Demonstrated rhonchi and rales bilaterally. CARDIAC: Demonstrated a normal S1 and S2 with a short 2/6 systolic murmur. ABDOMEN: Demonstrated good bowel sounds. No tenderness and no masses. EXTREMITIES: 1+ edema bilaterally. NEUROLOGIC: The patient was intubated and sedated. The patient was moving all extremities. RADIOGRAPHS: The patient's EKG demonstrated sinus tachycardia with nonspecific ST and T-wave changes. IMPRESSION: The patient is a 58-year-old, who is presenting with acute respiratory failure requiring intubation. The patient's presentation is consistent with acute diastolic heart failure superimposed on chronic obstructive pulmonary disease and hypoventilation syndrome. RECOMMENDATIONS: Are as follows: 1. The patient will require an echocardiogram. 2. Cardiac enzymes will need to be sent. 3. Serial EKGs will need to be done. 4. The patient will need to be admitted to the ICU. MD JOYA Allen/MARÍA /[id number]
[2019-01-08] VITALS (24 sets, daily range): BP systolic 118–154; BP diastolic 49–103
[2019-01-08] MEDS: PROPOFOL IV EMULSION 10MG/ML 100 ML IV PRN ×3 (00:45→22:00)
[2019-01-08] MEDS: HYDROCORTISONE SOD SUCCINATE 100 MG VIAL IV SCH ×3 (00:47→16:24)
[2019-01-08] MEDS: ALBUTEROL/IPRATROPIUM 3 ML NEB NEB SCH ×6 (02:50→23:15)
[2019-01-08] MEDS: BUMETANIDE INJ 0.25MG/ML 4ML VIAL IV SCH ×2 (03:57→14:46)
[2019-01-08 05:03] LABS: BASOPHILS % 0.1 % (0.0-1.0); HEMATOCRIT 27.4 % (34.2-44.1); LYMPHOCYTES # (AUTO) 0.9 (1.0-3.2); LYMPHOCYTES % 7.7 % (18.0-39.1); MEAN CORPUSCULAR HEMOGLOBIN 31.5 pg (28-32); MEAN CORPUSCULAR HGB CONC 32.8 g/dL (31-35); MEAN CORPUSCULAR VOLUME 95.8 fL (81-99); MONOCYTES # (AUTO) 0.7 (0.2-0.8); MONOCYTES % 6.1 % (4.4-11.3); NEUTROPHILS # (AUTO) 10.1 (2.1-6.9); NEUTROPHILS % 84.6 % (38.7-80.0); PLATELET COUNT 192 x10e3/uL (140-360); RED BLOOD COUNT 2.86 x10e6/uL (3.6-5.1); RED CELL DISTRIBUTION WIDTH 13.5 % (11.7-14.4)
[2019-01-08 05:31] LABS: CREATINE KINASE MB 3.7 ng/mL (0-5.0)
[2019-01-08 05:51] LABS: ALBUMIN 3.1 g/dL (3.5-5.0); ALBUMIN/GLOBULIN RATIO 0.9 (0.8-2.0); ANION GAP 17.5 mmol/L (8-16); CREATININE, SERUM 2.05 mg/dL (0.57-1.11); POTASSIUM 4.5 mmol/L (3.5-5.1)
[2019-01-08] MEDS: TIOTROPIUM 18 MCG INH POWDER INH SCH (06:00)
--- NOTE | 2019-01-08 06:08 | Diagnostic Imaging Report ---
Examination: Single AP view of the chest. COMPARISON: January 07 2019 INDICATION: Congestive heart failure DISCUSSION: Lines/tubes: Endotracheal tube 3 cm above the john. Enteric tube with distal tip not visualized. Lungs: Decreased, but persistent interstitial and alveolar edema. Pleura: Bilateral effusions with lower lung atelectasis. Heart and mediastinum: Cardiomegaly Bones and soft tissues: No acute bony abnormalities. IMPRESSION: Cardiomegaly with mildly decreased pulmonary edema and effusions. Signed by: Dr. Demar Wilder M.D. on 01/08/2019 6:04 AM
[2019-01-08] MEDS ORDERED: ACETAMINOPHEN 325 MG TAB PO PRN (07:45)
[2019-01-08] MEDS: ASCORBIC ACID 500 MG TAB PO SCH ×2 (08:55→16:24)
[2019-01-08] MEDS: OYST-CAL-D 500MG TABLET PO SCH ×2 (08:55→16:24)
[2019-01-08] MEDS: AMIODARONE HCL 200 MG TAB PO SCH (08:55)
[2019-01-08] MEDS: APIXABAN 5 MG TABLET PO SCH ×2 (08:55→16:24)
[2019-01-08] MEDS: ZINC SULFATE 220 MG CAP PO SCH ×2 (08:55→16:24)
[2019-01-08] MEDS: FAMOTIDINE 20 MG/2 ML VIAL IV SCH ×2 (08:55→16:24)
[2019-01-08] MEDS: INSULIN REGULAR, HUMAN 100 UNIT/1 ML 3ML VIAL SQ SCH ×5 (09:33→23:50)
[2019-01-08] MEDS ORDERED: FENTANYL CITRATE INJ 2,000 MCG in SODIUM CHLORIDE 0.9% 250ML 210 ML IV PRN (11:00)
[2019-01-08] MEDS ORDERED: SODIUM CHLORIDE 0.9% 250ML 250 ML ONE (12:57)
--- NOTE | 2019-01-08 14:25 | NUR ---
PT DISCUSSED IN BARRIER ROUNDS, HEART RATE IN 140'S, PETTYL IS TO CONTINUE TO DITRISTIANE, ON ALEXIS MED, WILL ATTEMPT TO WEAN FROM VENT AGAIN TOMORROW.
[2019-01-08] MEDS: LEVOFLOXACIN 500MG/D5W 100ML 100 ML IV SCH (14:47)
--- NOTE | 2019-01-08 18:34 | Consultation ---
DATE OF CONSULTATION: 01/08/2019 Critical Care Consultation REASON FOR CONSULT: ICU management. HISTORY OF PRESENT ILLNESS: Ms. Jose is a 58-year-old female. She has a history of sleep apnea. She uses CPAP. She sees Dr. Antonio Trent in the office. She has a history of coronary artery disease and chronic diastolic heart failure with chronic kidney disease. She came in with increasing shortness of breath to the emergency room. She was seen by Dr. Toby Norris as he was consulted and the service was transferred to ct as patient is a regular patient of Dr. Antonio Trent. Currently, the patient is awake, alert. I tried her on CPAP and she is having tachypnea. She is on full ventilator support. She has been started on Bumex 1 mg IV q.12 hourly and also on hydrocortisone. She is on Eliquis as well. She denies any chest pain. She has some shortness of breath. REVIEW OF SYSTEMS: GENERAL: Denies any fever or chills. HEAD: Denies any head trauma. ENT: Denies any earache. CVS: Denies any chest pain. RESPIRATORY: Shortness of breath. The rest of the review of systems are negative except as in the HPI. PAST MEDICAL HISTORY: 1. Hypertension. 2. Morbid obesity. 3. Obstructive sleep apnea. PAST SURGICAL HISTORY: Unknown. FAMILY AND SOCIAL HISTORY: She quit smoking several years ago. PHYSICAL EXAMINATION: VITAL SIGNS: Temperature 97.6, pulse of 117, and respiratory rate is 18 to 20. HEENT: Head is atraumatic and normocephalic. NECK: Supple. CHEST: Occasional wheezing and crackles with reduced air entry in the bases. HEART: S1 and S2 audible. ABDOMEN: Soft and nontender. EXTREMITIES: No clubbing or cyanosis. The patient has edema. RADIOGRAPHIC DATA: Chest x-ray showing bilateral alveolar infiltrate, however, her old chest x-ray also is showing bilateral alveolar infiltrate. LABORATORY DATA: Sodium 140, potassium 4.5, BUN 58, creatinine 2.05. When she came in, creatinine was 2.67. In October 2017, her creatinine was 1.64. ASSESSMENT AND PLAN: Ms. Jose is a 58-year-old female. She came in with shortness of breath. Now, the patient has improved with diuresis. More awake, more alert. Still tachypneic on CPAP. We will consider doing the reading as spontaneous breathing trial in a.m. The patient is on Bumex 1 mg IV q.12 hourly and has significant urine output. I will reduce the dose of hydrocortisone to 25 q.8 hourly. The patient will be continued on antibiotics for possibility of underlying pneumonia triggering her heart failure. The patient underwent a pulmonary function test in October 2017, which showed severe restrictive pattern, likely due to obesity. The patient's chest x-ray has been abnormal with alveolar infiltrates may need a CT chest at a later time. Critical care time spent 55 minutes. MD KORIN Peraza/MARÍA /[id number]
[2019-01-08] MEDS: INSULIN GLARGINE 100 UNITS/ML VIAL SQ SCH (20:21)
[2019-01-09] VITALS (21 sets, daily range): BP systolic 82–181; BP diastolic 51–107
[2019-01-09] MEDS: HYDROCORTISONE SOD SUCCINATE 100 MG VIAL IV SCH ×2 (00:49→09:42)
[2019-01-09] MEDS: PROPOFOL IV EMULSION 10MG/ML 100 ML IV PRN ×3 (01:18→10:07)
[2019-01-09] MEDS: BUMETANIDE INJ 0.25MG/ML 4ML VIAL IV SCH ×2 (02:53→15:30)
[2019-01-09] MEDS: ALBUTEROL/IPRATROPIUM 3 ML NEB NEB SCH ×5 (03:05→23:30)
[2019-01-09 05:39] LABS: BASOPHILS % 0.3 % (0.0-1.0); HEMATOCRIT 27.7 % (34.2-44.1); HEMOGLOBIN 9.4 g/dL (12.0-16.0); LYMPHOCYTES # (AUTO) 1.6 (1.0-3.2); LYMPHOCYTES % 14.8 % (18.0-39.1); MEAN CORPUSCULAR HEMOGLOBIN 31.6 pg (28-32); MEAN CORPUSCULAR HGB CONC 33.9 g/dL (31-35); MEAN CORPUSCULAR VOLUME 93.3 fL (81-99); MONOCYTES # (AUTO) 0.8 (0.2-0.8); MONOCYTES % 7.8 % (4.4-11.3); NEUTROPHILS # (AUTO) 8.1 (2.1-6.9); PLATELET COUNT 210 x10e3/uL (140-360); RED BLOOD COUNT 2.97 x10e6/uL (3.6-5.1)
[2019-01-09 05:40] LABS: ANION GAP 16.3 mmol/L (8-16); CALCIUM 9.1 mg/dL (8.4-10.2); CREATININE, SERUM 1.89 mg/dL (0.57-1.11); MAGNESIUM 2.5 MG/DL (1.3-2.1)
[2019-01-09 05:42] LABS: POTASSIUM 3.3 mmol/L (3.5-5.1)
[2019-01-09 05:50] LABS: B-TYPE NATRIURETIC PEPTIDE2 502.8 pg/mL (0-100)
[2019-01-09] MEDS: INSULIN REGULAR, HUMAN 100 UNIT/1 ML 3ML VIAL SQ SCH ×4 (05:56→23:08)
[2019-01-09] MEDS: TIOTROPIUM 18 MCG INH POWDER INH SCH (06:00)
[2019-01-09 06:05] LABS: FREE T4 (FREE THYROXINE) 1.28 ng/dL (0.8-1.8); THYROID STIMULATING HORMONE 0.314 uIU/mL (0.350-4.940)
[2019-01-09] MEDS: AMIODARONE HCL 200 MG TAB PO SCH (09:42)
[2019-01-09] MEDS: FAMOTIDINE 20 MG/2 ML VIAL IV SCH ×2 (09:42→18:23)
[2019-01-09] MEDS: OYST-CAL-D 500MG TABLET PO SCH ×2 (09:42→18:24)
[2019-01-09] MEDS: APIXABAN 5 MG TABLET PO SCH ×2 (09:42→18:26)
[2019-01-09] MEDS: ZINC SULFATE 220 MG CAP PO SCH ×2 (09:42→18:24)
[2019-01-09] MEDS: ASCORBIC ACID 500 MG TAB PO SCH ×2 (09:42→18:24)
--- NOTE | 2019-01-09 10:10 | Diagnostic Imaging Report ---
Examination: Single AP view of the chest. COMPARISON: 01/08/2019 INDICATION: Intubated DISCUSSION: See impression IMPRESSION: 1. Endotracheal tube and enteric tube are unchanged in position. 2. Unchanged cardiomegaly, interstitial pulmonary edema, and suspected bilateral pleural effusions left larger than right. No new consolidation. Signed by: Dr. Antonio Lawrence M.D. on 01/09/2019 10:07 AM
--- NOTE | 2019-01-09 10:11 | Diagnostic Imaging Report ---
Examination: Thoracic ultrasound. Clinical indication: Pleural effusion. Comparison examination: Chest radiograph same day. Technique: Transverse and longitudinal sonographic images of the right and left thoracic cavities was performed. Findings: Trace right pleural effusion. No significant left pleural effusion. Impression: Trace right pleural effusion. Signed by: Dr. Antonio Lawrence M.D. on 01/09/2019 10:08 AM
[2019-01-09] MEDS: DEXMEDETOMIDINE HCL 200 MCG in SODIUM CHLORIDE 0.9% 50ML 48 ML IV PRN ×3 (11:03→22:37)
--- NOTE | 2019-01-09 12:45 | NUR ---
NO FAMILY AT THE BEDSIDE FOR INITIAL ASSESSMENT. DISCUSSED IN MDR. PT REMAINS ON VENT. PROPOFOL, PRECEDEX, SOLUCORTEF, ABX X2 AND BUMEX. BEDSIDE NURSE STATES THEY WILL ATTEMPT TO WEAN TODAY. STATES PT IS ON CPAP AT HOME.
[2019-01-09] MEDS ORDERED: DEXMEDETOMIDINE 200MCG/NS 50ML 50 ML IV ONE (14:33)
[2019-01-09 14:56] LABS: ABG HCO3 30 mmol/L (23-28); ABG PCO2 41 mmHg (41-51); ABG PH 7.47 (7.31-7.41); ABG PO2 89 mmHg (80-105)
--- NOTE | 2019-01-09 17:17 | NUR ---
Nutrition Intervention Note RD Recommendation(s) for Physician: -If unable to start PO in the next 24hr, rec to initiate continuous TF with Vital AF 1.2 @10mL/hr, advance as tolerated, to goal rate of 60mL/hr. (1728kcal, 108g protein, 1168mL water) -50mL water flushes q 4hr -Check labs, gastric tolerance and weight -If PO is feasible, rec cardiac/ ADA diet Plan of Care: RD following, monitoring for tolerance and adequacy, TF rec Nutrition reason for involvement: Diagnosis RD Assessment 01/09 58yo F, who was admitted for respiratory failure. Pt was discussed during AM rounds. Currently intubated and ventilated. Propofol was running at 21.6mL/hr (570kcal). Plan to wean off the vent today. No pressor meds were noted. OGT was present. IVF at 5mL/hr. Will continue to monitor and follow. Principal Problems/Diagnoses: 1. Pytxw-kc-balyalv hypercapnic respiratory failure. 2. Tpvia-pw-ghzappj diastolic heart failure. PMH: 1. Obesity hypoventilation syndrome. 2. Chronic obstructive sleep apnea. 3. Chronic diastolic heart failure. 4. Paroxysmal atrial fibrillation. 5. Diabetes, requiring insulin at home. GI: abdomen soft, non-tender, large Skin: no pressure wound noted Labs: (01/09) K 3.3 L, BUN 57 H, Creatinine 1.89 H, Glucose 137 H, Mg 2.5 H Meds: propofol (titrate), eliquis, oscal D, zinc sulfate, vitamin C, pepcid, bumetanide Ht: 63in Wt: 250lb BMI: 44.3kg/m2 IBW: 115lb Malnutrition Evaluation (01/09/2019) Unable to evaluate. Nutrition Prescription (Diet Order): NPO Estimated Nutritional Needs: Calories: 2280 2850kcal(20-25kcal/kg/d) Weight used: CBW Protein: 114 137g(1-1.2g/kg/d) Weight used: CBW Diet Adequacy: Not meeting calorie needs, Not meeting protein needs Diet Education Needs Assessment: Diet education indicated, but patient not appropriate for education at this time. Nutrition Care Level: mod Nutrition Diagnosis: Inadequate oral intake related to current medical status as evidenced by pt requiring EN as main source of nutrition. Goal: Patient will meet 75-100% of estimated needs by follow up Progress: - Interventions: Composition, Rate, Route, IVF, Prescription medications Monitoring/Evaluation: Total energy intake, Total protein intake, Formula/Solution, IVF, Prescription medication, Weight change Signed: Tiffany Escobedo MS, RD, LD
[2019-01-09] MEDS: LEVOFLOXACIN 500MG/D5W 100ML 100 ML IV SCH (18:17)
[2019-01-09] MEDS: INSULIN GLARGINE 100 UNITS/ML VIAL SQ SCH (20:33)
[2019-01-10] VITALS (17 sets, daily range): BP systolic 120–172; BP diastolic 63–101
[2019-01-10] MEDS: BUMETANIDE INJ 0.25MG/ML 4ML VIAL IV SCH ×2 (03:04→15:38)
[2019-01-10] MEDS: ALBUTEROL/IPRATROPIUM 3 ML NEB NEB SCH ×6 (03:30→23:30)
[2019-01-10] MEDS: DEXMEDETOMIDINE HCL 200 MCG in SODIUM CHLORIDE 0.9% 50ML 48 ML IV PRN (04:22)
[2019-01-10 05:07] LABS: BASOPHILS # (AUTO) 0.1 (0.0-0.1); BASOPHILS % 0.5 % (0.0-1.0); EOSINOPHILS # (AUTO) 0.2 (0.0-0.4); EOSINOPHILS % 1.8 % (0.0-6.0); HEMATOCRIT 30.6 % (34.2-44.1); HEMOGLOBIN 9.7 g/dL (12.0-16.0); LYMPHOCYTES # (AUTO) 2.8 (1.0-3.2); MEAN CORPUSCULAR HEMOGLOBIN 30.4 pg (28-32); MEAN CORPUSCULAR HGB CONC 31.7 g/dL (31-35); MEAN CORPUSCULAR VOLUME 95.9 fL (81-99); NEUTROPHILS # (AUTO) 8.5 (2.1-6.9); NEUTROPHILS % 67.1 % (38.7-80.0); PLATELET COUNT 206 x10e3/uL (140-360); RED BLOOD COUNT 3.19 x10e6/uL (3.6-5.1)
[2019-01-10 05:38] LABS: CALCIUM 9.4 mg/dL (8.4-10.2); CREATININE, SERUM 1.69 mg/dL (0.57-1.11); MAGNESIUM 2.1 MG/DL (1.3-2.1)
[2019-01-10 05:51] LABS: ANION GAP 14.9 mmol/L (8-16)
--- NOTE | 2019-01-10 05:56 | NUR ---
Critical Potassium level called to Dr. Matias's FILLER IN, Ayde, on the way to the unit. No new orders at this time
[2019-01-10] MEDS: INSULIN REGULAR, HUMAN 100 UNIT/1 ML 3ML VIAL SQ SCH ×4 (06:00→23:58)
[2019-01-10] MEDS: TIOTROPIUM 18 MCG INH POWDER INH SCH (06:05)
[2019-01-10] MEDS ORDERED: CHLORASEPTIC SPRAY 177 ML BTL MM PRN (06:45)
[2019-01-10] MEDS ORDERED: POTASSIUM CHLORIDE 20 MEQ TAB CR PO NR ×2 (07:15→11:00)
[2019-01-10] MEDS: FAMOTIDINE 20 MG/2 ML VIAL IV SCH (08:24)
[2019-01-10] MEDS: ZINC SULFATE 220 MG CAP PO SCH ×2 (08:25→17:01)
[2019-01-10] MEDS: ASCORBIC ACID 500 MG TAB PO SCH ×2 (08:25→17:01)
[2019-01-10] MEDS: APIXABAN 5 MG TABLET PO SCH ×2 (08:25→17:01)
[2019-01-10] MEDS: AMIODARONE HCL 200 MG TAB PO SCH (08:25)
[2019-01-10] MEDS: OYST-CAL-D 500MG TABLET PO SCH ×2 (08:25→17:01)
[2019-01-10 08:53] LABS: POTASSIUM 2.9 mmol/L (3.5-5.1)
[2019-01-10] MEDS ORDERED: HYDROCORTISONE SOD SUCCINATE 100 MG VIAL IV SCH (09:00)
--- NOTE | 2019-01-10 09:55 | NUR ---
Per Raulito Tao if ok w/Dr. Williamson pt may transfer out. Pt ok to transfer to [facility] by Dr. Williamson
[2019-01-10] MEDS: EZETIMIBE 10 MG TAB PO SCH (12:03)
[2019-01-10] MEDS: HYDROCODONE/APAP 10MG-325MG TAB PO PRN ×2 (12:04→20:32)
[2019-01-10] MEDS: SUMATRIPTAN SUCCINATE 25 MG TAB PO PRN (12:04)
[2019-01-10] MEDS: LEVOFLOXACIN 500MG/D5W 100ML 100 ML IV SCH (15:38)
[2019-01-10] MEDS: ONDANSETRON HCL INJ 2MG/ML 2ML 2 MG/ML VIAL IV PRN ×2 (15:40→22:53)
[2019-01-10] MEDS ORDERED: FAMOTIDINE 20 MG TAB PO SCH (16:30)
[2019-01-10] MEDS: METHYLPREDNISOLONE SOD SUCC 40 MG/ML VIAL 1ML IV SCH (20:30)
[2019-01-10] MEDS: INSULIN GLARGINE 100 UNITS/ML VIAL SQ SCH (20:52)
[2019-01-11] VITALS (25 sets, daily range): BP systolic 105–161; BP diastolic 52–141
--- NOTE | 2019-01-11 01:24 | NUR ---
Pt with vomiting of 250ml grainy clear tea colored emesis with small stringy blood clots. Called to Dr Matias's team, Ayde Tao NP. New orders received. Will monitor.
[2019-01-11] MEDS: PROMETHAZINE 12.5MG/ NACL 0.9% 12.5 MG/50 ML BAG IV PRN ×2 (01:36→11:35)
[2019-01-11] MEDS: METOPROLOL TARTRATE INJ 1 MG/ML VIAL IV PRN ×2 (02:00→12:30)
--- NOTE | 2019-01-11 02:30 | NUR ---
Called to Dr Ann Rivas answering service to notify of consult.
[2019-01-11] MEDS: ALBUTEROL/IPRATROPIUM 3 ML NEB NEB SCH ×6 (03:00→23:00)
[2019-01-11 03:02] LABS: BASOPHILS % 0.3 % (0.0-1.0); EOSINOPHILS % 0.2 % (0.0-6.0); HEMATOCRIT 36.6 % (34.2-44.1); HEMOGLOBIN 11.4 g/dL (12.0-16.0); LYMPHOCYTES # (AUTO) 0.7 (1.0-3.2); LYMPHOCYTES % 6.7 % (18.0-39.1); MEAN CORPUSCULAR HEMOGLOBIN 31.1 pg (28-32); MEAN CORPUSCULAR HGB CONC 31.1 g/dL (31-35); MONOCYTES # (AUTO) 0.3 (0.2-0.8); MONOCYTES % 2.5 % (4.4-11.3); NEUTROPHILS # (AUTO) 9.6 (2.1-6.9); NEUTROPHILS % 89.8 % (38.7-80.0); PLATELET COUNT 210 x10e3/uL (140-360); RED BLOOD COUNT 3.66 x10e6/uL (3.6-5.1); RED CELL DISTRIBUTION WIDTH 14.4 % (11.7-14.4)
[2019-01-11 03:18] LABS: ANION GAP 18.4 mmol/L (8-16); CALCIUM 9.5 mg/dL (8.4-10.2); CREATININE, SERUM 2.07 mg/dL (0.57-1.11); MAGNESIUM 2.4 MG/DL (1.3-2.1)
[2019-01-11 03:44] LABS: POTASSIUM 4.4 mmol/L (3.5-5.1)
[2019-01-11] MEDS: BUMETANIDE INJ 0.25MG/ML 4ML VIAL IV SCH (03:56)
[2019-01-11] MEDS: PANTOPRAZOLE INJ 40 MG in SODIUM CHLORIDE 0.9% 50ML 50 ML IV SCH ×2 (04:18→08:21)
[2019-01-11] MEDS: ONDANSETRON HCL INJ 2MG/ML 2ML 2 MG/ML VIAL IV PRN (05:01)
[2019-01-11] MEDS ORDERED: VANCOMYCIN 1GM/NS 250 ML 250 ML IV SCH (05:30)
--- NOTE | 2019-01-11 05:30 | NUR ---
Pt with large projectile emesis orange/brown color. Raulito Tao CONSTRUCTION TEACHER at bedside.
[2019-01-11] MEDS: INSULIN REGULAR, HUMAN 100 UNIT/1 ML 3ML VIAL SQ SCH ×4 (06:00→20:46)
--- NOTE | 2019-01-11 06:54 | Diagnostic Imaging Report ---
Exam: Abdominal film Clinical History: Evaluate for obstruction Comparison: None. DISCUSSION: Nonobstructive bowel gas pattern. Air filled stomach. Soft tissue attenuation limits evaluation. IMPRESSION: Air-filled stomach. No obstructive pattern. Signed by: Dr. Demar Wilder M.D. on 01/11/2019 6:50 AM
--- NOTE | 2019-01-11 07:03 | NUR ---
Called Dr Cohen's answering service to notify of new consult.
[2019-01-11] MEDS: TIOTROPIUM 18 MCG INH POWDER INH SCH (07:08)
[2019-01-11] MEDS ORDERED: PANTOPRAZOLE SOD 40 MG TABEC PO SCH (07:30)
[2019-01-11] MEDS ORDERED: PANTOPRAZOL 40MG/SOD CHL 0.9% 50 ML IV ONE (08:14)
[2019-01-11 08:17] LABS: AMYLASE 50 U/L (25-125); LIPASE 27 U/L (8-78)
[2019-01-11] MEDS: PANTOPRAZOL 40MG/SOD CHL 0.9% 50 ML IV SCH ×3 (08:37→17:54)
[2019-01-11] MEDS: AMLODIPINE BESYLATE 10 MG TAB PO SCH (08:53)
[2019-01-11] MEDS: AMIODARONE HCL 200 MG TAB PO SCH (08:53)
[2019-01-11] MEDS: METHYLPREDNISOLONE SOD SUCC 40 MG/ML VIAL 1ML IV SCH ×2 (08:53→20:45)
[2019-01-11] MEDS: APIXABAN 5 MG TABLET PO SCH ×2 (08:53→16:24)
[2019-01-11] MEDS: OYST-CAL-D 500MG TABLET PO SCH ×3 (09:00→16:24)
[2019-01-11] MEDS: ZINC SULFATE 220 MG CAP PO SCH ×3 (09:00→16:24)
[2019-01-11] MEDS: ASCORBIC ACID 500 MG TAB PO SCH ×3 (09:00→16:24)
[2019-01-11] MEDS: EZETIMIBE 10 MG TAB PO SCH (09:08)
--- NOTE | 2019-01-11 13:37 | NUR ---
patient falling asleep with severe obstructive apnea and O2 sats drop down to 82%. applied home bi-pap. o2 sats now 96%
[2019-01-11] MEDS: SUMATRIPTAN SUCCINATE 25 MG TAB PO PRN (20:44)
[2019-01-11] MEDS: HYDROCODONE/APAP 10MG-325MG TAB PO PRN (20:44)
[2019-01-11] MEDS: INSULIN GLARGINE 100 UNITS/ML VIAL SQ SCH (20:45)
--- NOTE | 2019-01-11 21:56 | Consultation ---
DATE OF CONSULTATION: 01/11/2019 REASON FOR CONSULTATION: Recommendation for antibiotic for pneumonia in this patient who is currently in the intensive care unit at [facility]. HISTORY OF PRESENT ILLNESS: She is a 58-year-old white female, history of obesity, history of hypoventilation syndrome, sleep apnea, obstructive sleep apnea, chronic diastolic congestive heart failure, atrial fibrillation, diabetes mellitus, on insulin. The patient presented with shortness of breath to the emergency room here on 01/07/2019. The patient who apparently has history of hypoventilation syndrome as well as sleep apnea, she uses CPAP at house. She was in the hospital in the fall of 2016, had to be intubated and be on a ventilator and then she was again here in October 2017. She is coming now with shortness of breath and cough. The patient was admitted. The patient who had to be intubated, she is currently on BiPAP. Her sputum showing Staphylococcus aureus, but the patient is currently alert, oriented, on BiPAP, comfortable lying in bed in ICU. The patient also has history of cardiac stent as well as chronic diastolic congestive heart failure with chronic kidney disease stage 3. She has been on amiodarone and Eliquis. The patient comes in with shortness of breath for 3 to 4 days, some cough which was nonproductive, came to emergency room. BiPAP was attempted without improvement, had to be intubated, started on antibiotic. She is currently extubated, lying in bed, but I am asked to see her to address the issue of antibiotic. She states she is feeling better. PAST MEDICAL HISTORY: As above, obesity, hypoventilation syndrome, chronic obstructive sleep apnea, chronic diastolic heart failure, diabetes mellitus, on insulin. ALLERGIES: NKA. SOCIAL HISTORY: There is no smoking, drug abuse, or alcohol abuse. FAMILY HISTORY: Noncontributory. REVIEW OF SYSTEMS: GENERAL: At the present time, she states she is feeling better. HEENT: There is no headache, visual changes, hearing changes. GI: There is no nausea, vomiting, or diarrhea. CARDIAC: There is no arrhythmia. NEURO: No seizure activity. SKIN: There are no other rashes. JOINT: There is no erythema or edema. LABORATORY DATA: Her sputum is showing MRSA. She has less than 25 squamous epithelial cells with good quality, few WBCs and few gram-positive cocci. The MRSA was showing SAMEERA of 2 to the vancomycin and sensitive only to gentamicin and Bactrim. Her white count on admission was 10.99, today, 10.65. Her hemoglobin 11. Her sodium was 145, potassium , creatinine 2.07, calcium 9.5. MEDICATION LIST: She is on Lopressor 2.5 mg q.6 hours p.r.n., insulin, Zetia, Norvasc, Solu-Medrol, Eliquis. She is on vancomycin, Zofran, insulin. PHYSICAL EXAMINATION: GENERAL: She is currently alert, comfortable. VITAL SIGNS: Stable. When she first came, she had temperature 101.1, but none since then. HEENT: Normocephalic. CHEST: Few crackles at the bases. COR: S1, S2. No S3, S4, or murmur. ABDOMEN: Soft. Bowel sounds present. No tenderness. EXTREMITIES: No edema. SKIN: There is no rash. The patient is obese. IMPRESSION: 1. Respiratory failure, present on admission. Shortness of breath, present on admission, resolved, probably fluid overload. The patient was given Bumex. 2. 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 I think the patient is colonized with this bacteria. We can discontinue antibiotic. The patient was started on vancomycin today, but clinically she gets better before we started on vancomycin. She was on Levaquin before that. She has been on antibiotic for 5 days, so even she had bronchitis. I think that will be adequate. 3. Obesity. 4. Diabetes mellitus. 5. We will observe the patient clinically for the time being. Continue with diuresis. We will discuss with Pulmonary. Further recommendations to follow. MD TREVOR Anderson/MODL /[id number]
[2019-01-12] VITALS (14 sets, daily range): BP systolic 105–151; BP diastolic 62–83
[2019-01-12] MEDS: PANTOPRAZOL 40MG/SOD CHL 0.9% 50 ML IV SCH ×5 (00:13→20:55)
--- NOTE | 2019-01-12 02:15 | NUR ---
Patient Spo2 drop 82% due obstructive sleep apnea. RT increased O2 @ 8liters in home BIPAP at this time. Will continue to monitor.
[2019-01-12] MEDS: ALBUTEROL/IPRATROPIUM 3 ML NEB NEB SCH ×6 (03:30→23:40)
--- NOTE | 2019-01-12 04:38 | NUR ---
Disconnected Home BIPAP at this time. Connected to 5lierts O2 via nasal canula. Respiration even and unlabored. Will continue to monitor.
--- NOTE | 2019-01-12 05:00 | NUR ---
round in the patient room. NNO.
[2019-01-12 05:10] LABS: BASOPHILS % 0.2 % (0.0-1.0); EOSINOPHILS % 0.1 % (0.0-6.0); HEMATOCRIT 32.6 % (34.2-44.1); HEMOGLOBIN 10.4 g/dL (12.0-16.0); LYMPHOCYTES # (AUTO) 1.5 (1.0-3.2); LYMPHOCYTES % 12.4 % (18.0-39.1); MEAN CORPUSCULAR HEMOGLOBIN 31.1 pg (28-32); MEAN CORPUSCULAR HGB CONC 31.9 g/dL (31-35); MEAN CORPUSCULAR VOLUME 97.6 fL (81-99); MONOCYTES # (AUTO) 0.8 (0.2-0.8); MONOCYTES % 6.4 % (4.4-11.3); NEUTROPHILS # (AUTO) 9.7 (2.1-6.9); NEUTROPHILS % 80.2 % (38.7-80.0); PLATELET COUNT 214 x10e3/uL (140-360); RED BLOOD COUNT 3.34 x10e6/uL (3.6-5.1); RED CELL DISTRIBUTION WIDTH 14.1 % (11.7-14.4)
[2019-01-12 05:26] LABS: ANION GAP 16.1 mmol/L (8-16); CALCIUM 9.3 mg/dL (8.4-10.2); CREATININE, SERUM 2.01 mg/dL (0.57-1.11); POTASSIUM 4.1 mmol/L (3.5-5.1)
[2019-01-12 05:44] LABS: FERRITIN 187.52 ng/mL (4.63-204.00)
[2019-01-12] MEDS: INSULIN REGULAR, HUMAN 100 UNIT/1 ML 3ML VIAL SQ SCH ×4 (07:43→21:46)
[2019-01-12] MEDS: BUMETANIDE INJ 0.25MG/ML 4ML VIAL IV SCH (08:31)
[2019-01-12] MEDS: APIXABAN 5 MG TABLET PO SCH ×2 (08:31→17:02)
[2019-01-12] MEDS: ASCORBIC ACID 500 MG TAB PO SCH ×2 (08:31→17:02)
[2019-01-12] MEDS: AMLODIPINE BESYLATE 10 MG TAB PO SCH (08:31)
[2019-01-12] MEDS: OYST-CAL-D 500MG TABLET PO SCH ×2 (08:31→17:02)
[2019-01-12] MEDS: METHYLPREDNISOLONE SOD SUCC 40 MG/ML VIAL 1ML IV SCH ×2 (08:31→20:55)
[2019-01-12] MEDS: ZINC SULFATE 220 MG CAP PO SCH ×2 (08:31→17:02)
[2019-01-12] MEDS: AMIODARONE HCL 200 MG TAB PO SCH (08:31)
[2019-01-12] MEDS: EZETIMIBE 10 MG TAB PO SCH (08:31)
[2019-01-12] MEDS: NYSTATIN 15 GM POWDER UD BTL TOP SCH ×2 (09:42→17:02)
--- NOTE | 2019-01-12 16:55 | NUR ---
Nutrition Follow-up Note RD Recommendation(s) for Physician: -Continue current diet as ordered Plan of Care: RD following, monitoring for tolerance and adequacy Nutrition reason for involvement: Follow up RD Assessment 01/12 Visited pt in the room. Pt reported good appetite with 100% observed lunch intake. No GI complains reported. Pt denied any nausea or vomiting. Weight has been stable. Current diet is appropriate and adequate. Will continue to monitor and follow. 01/09 58yo F, who was admitted for respiratory failure. Pt was discussed during AM rounds. Currently intubated and ventilated. Propofol was running at 21.6mL/hr (570kcal). Plan to wean off the vent today. No pressor meds were noted. OGT was present. IVF at 5mL/hr. Will continue to monitor and follow. Principal Problems/Diagnoses: 1. Cckts-fs-lwmmewv hypercapnic respiratory failure. 2. Cfwve-ln-bsfjloy diastolic heart failure. PMH: 1. Obesity hypoventilation syndrome. 2. Chronic obstructive sleep apnea. 3. Chronic diastolic heart failure. 4. Paroxysmal atrial fibrillation. 5. Diabetes, requiring insulin at home. GI: abdomen soft, non-tender, large Skin: no pressure wound noted Labs: (01/12) BUN 52 H, Creatinine 2.01 H, Glucose 194 H (01/09) K 3.3 L, BUN 57 H, Creatinine 1.89 H, Glucose 137 H, Mg 2.5 H Meds: insulin, protonix, diuretics, solu-medrol, eliquis, Oscal D, zinc sulfate, vitamin C Ht: 63in Wt: 250lb; 224lb BMI: 44.3kg/m2 IBW: 115lb Malnutrition Evaluation (01/12/2019) The patient does not meet criteria for a specified degree of malnutrition at this time. Will re-evaluate at follow-up as appropriate. Malnutrition Evaluation (01/09/2019) Unable to evaluate. Nutrition Prescription (Diet Order): ADA diet Estimated Nutritional Needs: Calories: 2280 2850kcal (20-25kcal/kg/d) Weight used: CBW Protein: 114 137g (1-1.2g/kg/d) Weight used: CBW Diet Adequacy: meeting calorie needs, meeting protein needs Diet Education Needs Assessment: Diet education indicated, but patient not appropriate for education at this time. Nutrition Care Level: low Nutrition Diagnosis: No nutrition diagnosis at this time. Goal: Patient will meet 75-100% of estimated needs by follow up Progress: Goal met Interventions: Modified diet Monitoring/Evaluation: Total energy intake, Total protein intake, Modified diet, weight change Signed: Tiffany Escobedo MS, RD, LD
[2019-01-12] MEDS: INSULIN GLARGINE 100 UNITS/ML VIAL SQ SCH (21:44)
[2019-01-13] VITALS (8 sets, daily range): BP systolic 130–158; BP diastolic 64–89
[2019-01-13] MEDS: PANTOPRAZOL 40MG/SOD CHL 0.9% 50 ML IV SCH ×2 (02:30→06:14)
[2019-01-13 02:37] LABS: BASOPHILS % 0.2 % (0.0-1.0); EOSINOPHILS % 0.1 % (0.0-6.0); HEMATOCRIT 33.2 % (34.2-44.1); HEMOGLOBIN 10.4 g/dL (12.0-16.0); LYMPHOCYTES # (AUTO) 0.6 (1.0-3.2); LYMPHOCYTES % 6.3 % (18.0-39.1); MEAN CORPUSCULAR HGB CONC 31.3 g/dL (31-35); MEAN CORPUSCULAR VOLUME 98.8 fL (81-99); MONOCYTES # (AUTO) 0.2 (0.2-0.8); NEUTROPHILS # (AUTO) 8.1 (2.1-6.9); PLATELET COUNT 199 x10e3/uL (140-360); RED BLOOD COUNT 3.36 x10e6/uL (3.6-5.1); RED CELL DISTRIBUTION WIDTH 13.8 % (11.7-14.4)
[2019-01-13] MEDS: ALBUTEROL/IPRATROPIUM 3 ML NEB NEB SCH ×6 (03:00→23:00)
[2019-01-13 03:18] LABS: ANION GAP 17.7 mmol/L (8-16); CALCIUM 9.3 mg/dL (8.4-10.2); CREATININE, SERUM 2.08 mg/dL (0.57-1.11); MAGNESIUM 2.2 MG/DL (1.3-2.1); POTASSIUM 4.7 mmol/L (3.5-5.1)
[2019-01-13] MEDS: PANTOPRAZOLE SOD 40 MG TABEC PO SCH ×2 (07:18→07:30)
--- NOTE | 2019-01-13 07:20 | NUR ---
Patient endorsed to next shift for continuity of care.
--- NOTE | 2019-01-13 07:28 | Diagnostic Imaging Report ---
EXAMINATION: CHEST 2 VIEWS INDICATION: CHF COMPARISON: Chest radiograph 01/09/2019. FINDINGS: TUBES and LINES: Interval extubation. Interval removal of enteric tube. LUNGS: Low lung volumes. Interval decrease in bilateral interstitial and airspace opacities. Mild patchy bibasilar opacities. Central vascular congestion. No new consolidation. PLEURA: Interval decrease in small bilateral pleural effusions. No evidence of pneumothorax. HEART AND MEDIASTINUM: The cardiomediastinal silhouette is mildly enlarged. BONES AND SOFT TISSUES: No acute osseous abnormality. UPPER ABDOMEN: No free air under the diaphragm. IMPRESSION: Cardiomegaly with interval decrease in pulmonary interstitial edema and small bilateral pleural effusions. Interval extubation and interval removal of enteric tube. Signed by: Dr. Whit Roland MD on 01/13/2019 7:24 AM
[2019-01-13] MEDS: INSULIN REGULAR, HUMAN 100 UNIT/1 ML 3ML VIAL SQ SCH ×4 (07:33→21:00)
[2019-01-13] MEDS: ZINC SULFATE 220 MG CAP PO SCH ×2 (09:11→17:58)
[2019-01-13] MEDS: APIXABAN 5 MG TABLET PO SCH ×2 (09:11→17:58)
[2019-01-13] MEDS: ASCORBIC ACID 500 MG TAB PO SCH ×2 (09:11→17:58)
[2019-01-13] MEDS: BUMETANIDE INJ 0.25MG/ML 4ML VIAL IV SCH (09:11)
[2019-01-13] MEDS: EZETIMIBE 10 MG TAB PO SCH (09:11)
[2019-01-13] MEDS: NYSTATIN 15 GM POWDER UD BTL TOP SCH ×2 (09:11→17:58)
[2019-01-13] MEDS: OYST-CAL-D 500MG TABLET PO SCH ×2 (09:11→17:58)
[2019-01-13] MEDS: AMLODIPINE BESYLATE 10 MG TAB PO SCH (09:11)
[2019-01-13] MEDS: METHYLPREDNISOLONE SOD SUCC 40 MG/ML VIAL 1ML IV SCH ×2 (09:11→21:00)
[2019-01-13] MEDS: AMIODARONE HCL 200 MG TAB PO SCH (09:11)
--- NOTE | 2019-01-13 10:30 | NUR ---
RECEIVED PT LYING IN BED WITH EYES CLOSED, RESP EVEN AND UNLABORED, ON 5LPM O2 VIA NC. ORIENTED TO ROOM AND USE OF CALL LIGHT. CALL LIGHT WITHIN REACH.
[2019-01-13] MEDS: HYDROCODONE/APAP 10MG-325MG TAB PO PRN ×3 (11:00→23:28)
--- NOTE | 2019-01-13 15:55 | NUR ---
Visit made by the Spiritual Care Department Pastoral Visitor, Jeet Ribeiro. PV provided pastoral presence, prayer, hospitality, and supportive listening. Pastoral Visitor informed pt/family of the scope of [employer] and availability. [employer] Database Operator Spiritual Care Department O: [phone] Pager: [phone] ([phone] number calling from)
[2019-01-13] MEDS ORDERED: INSULIN GLARGINE 100 UNITS/ML VIAL SQ SCH (21:00)
[2019-01-14] VITALS: BP 144/59
[2019-01-14] MEDS: ALBUTEROL/IPRATROPIUM 3 ML NEB NEB SCH ×4 (02:00→15:15)
[2019-01-14 04:00] VITALS: BP 136/63
[2019-01-14 05:49] LABS: BASOPHILS % 0.1 % (0.0-1.0); EOSINOPHILS % 0.1 % (0.0-6.0); HEMATOCRIT 31.7 % (34.2-44.1); HEMOGLOBIN 10.1 g/dL (12.0-16.0); LYMPHOCYTES # (AUTO) 0.8 (1.0-3.2); LYMPHOCYTES % 8.6 % (18.0-39.1); MEAN CORPUSCULAR HEMOGLOBIN 30.8 pg (28-32); MEAN CORPUSCULAR HGB CONC 31.9 g/dL (31-35); MEAN CORPUSCULAR VOLUME 96.6 fL (81-99); MONOCYTES # (AUTO) 0.3 (0.2-0.8); MONOCYTES % 3.3 % (4.4-11.3); NEUTROPHILS # (AUTO) 8.1 (2.1-6.9); NEUTROPHILS % 86.9 % (38.7-80.0); PLATELET COUNT 204 x10e3/uL (140-360); RED BLOOD COUNT 3.28 x10e6/uL (3.6-5.1); RED CELL DISTRIBUTION WIDTH 13.6 % (11.7-14.4)
[2019-01-14] MEDS ORDERED: BUMETANIDE1 MG PO (06:07)
[2019-01-14] MEDS ORDERED: Calcium Carbonate PO (06:07)
[2019-01-14] MEDS ORDERED: PREDNISONE20 MG PO (06:07)
[2019-01-14] MEDS ORDERED: NORVASC10 MG PO (06:07)
[2019-01-14] MEDS ORDERED: PANTOPRAZOLE SO40 MG PO (06:07)
[2019-01-14] MEDS: HYDROCODONE/APAP 10MG-325MG TAB PO PRN ×2 (06:08→15:48)
[2019-01-14 06:13] LABS: ANION GAP 14.8 mmol/L (8-16); CALCIUM 9.3 mg/dL (8.4-10.2); CREATININE, SERUM 1.89 mg/dL (0.57-1.11); POTASSIUM 4.8 mmol/L (3.5-5.1)
[2019-01-14 07:57] VITALS: BP 124/57
[2019-01-14] MEDS: METHYLPREDNISOLONE SOD SUCC 40 MG/ML VIAL 1ML IV SCH (09:13)
[2019-01-14] MEDS: APIXABAN 5 MG TABLET PO SCH ×2 (09:13→15:43)
[2019-01-14] MEDS: PANTOPRAZOLE SOD 40 MG TABEC PO SCH (09:13)
[2019-01-14] MEDS: AMIODARONE HCL 200 MG TAB PO SCH (09:13)
[2019-01-14] MEDS: BUMETANIDE INJ 0.25MG/ML 4ML VIAL IV SCH (09:13)
[2019-01-14] MEDS: EZETIMIBE 10 MG TAB PO SCH (09:14)
[2019-01-14] MEDS: NYSTATIN 15 GM POWDER UD BTL TOP SCH ×2 (09:14→15:43)
[2019-01-14] MEDS: INSULIN REGULAR, HUMAN 100 UNIT/1 ML 3ML VIAL SQ SCH ×3 (09:14→15:44)
[2019-01-14] MEDS: OYST-CAL-D 500MG TABLET PO SCH ×2 (09:14→15:43)
[2019-01-14] MEDS: ZINC SULFATE 220 MG CAP PO SCH ×2 (09:14→15:43)
[2019-01-14] MEDS: AMLODIPINE BESYLATE 10 MG TAB PO SCH (09:14)
[2019-01-14] MEDS: ASCORBIC ACID 500 MG TAB PO SCH ×2 (09:14→15:43)
[2019-01-14 09:16] VITALS: BP 124/57
--- NOTE | 2019-01-14 10:02 | NUR ---
per "patient cleared to go home, rx on chart"
--- NOTE | 2019-01-14 11:03 | NUR ---
CM SPOKE TO PATIENT AT BEDSIDE REGARDING IMM LETTER. IMM LETTER GIVEN WITH EXPLANATION BASED ON ANTICIPATED DISCHARGE DATE. ORIGINAL SIGNED AND PLACED IN CHART. CM CONTACT INFORMATION GIVEN TO PATIENT FOR ANY NEEDS OR CONCERNS. PATIENT WITH NO FURTHER QUESTIONS.
[2019-01-14 11:56] VITALS: BP 145/66
--- NOTE | 2019-01-14 13:03 | NUR ---
DISCHARGE DISPOSITION: PATIENT DISCHARGE HOME WITH HOME HEALTHSERVICES AND DURABLE MEDICAL EQUIPMENT ( BEDSIDE COMMODE) FROM THE FOLLOWING: [facility] PHONE: [phone] FAX: [phone] [facility] PHONE:[phone] FAX: [phone]
[2019-01-14] MEDS ORDERED: ONDANSETRON HCL 4 MG ORAL DISINTEGRATING TAB PO PRN (15:30)
--- NOTE | 2019-01-14 15:33 | NUR ---
Ayde Tao BUTTONHOLE MAKER HAND aware of two rx for steroids available (one from Ayde PERSON and another from ) upon discharge. Clarification received. Rx from BUTTONHOLE MAKER [employer] to be given to patient.
[2019-01-14 15:38] VITALS: BP 146/63
--- NOTE | 2019-01-14 17:56 | NUR ---
Right wrist IV discontinued. No signs of infiltration noted. 2x2 gauze and tape placed. Taken via wheelchair to personal car. Accompanied by daughter. AAOX4 to time, person, place, situation. 5L NC via personal tank. Discharge instructions, rx, and all personal belongings taken with patient.
--- NOTE | 2019-01-16 23:16 | Discharge Summary ---
ADMISSION DIAGNOSES: Vnssz-kf-ruaoeqs hypercapnic respiratory failure, harlg-ww-fkbmnwd diastolic congestive heart failure, type 2 diabetes complicated by chronic kidney disease 3, hypertension complicated by chronic kidney disease 3, chronic kidney disease 3, paroxysmal atrial fibrillation, morbid obesity. DISCHARGE DIAGNOSES: Fxtci-cw-unmlwye hypercapnic respiratory failure, iewnb-ea-ulatpxy diastolic congestive heart failure, type 2 diabetes complicated by chronic kidney disease 3, hypertension complicated by chronic kidney disease 3, chronic kidney disease 3, paroxysmal atrial fibrillation, morbid obesity. HISTORY: The patient has a history of COPD, type 2 diabetes, CKD 3, PAF, MEGAN, hypertension, chronic diastolic CHF. SURGICAL HISTORY: Noncontributory. HOSPITAL COURSE: A 58-year-old female was noted to have increased dyspnea over the last 3 to 4 days. She denies cough, fever, and chest pain. Upon admission to the ER, ABG found CO2 of 87. She was put on BiPAP, but did not respond, so she was intubated and moved to the ICU. On admission, her BNP was 13.8. Chest x-ray showed CHF worse when compared with the prior exam. Ultrasound of the chest showed trace right pleural effusion. The patient was extubated and put on BiPAP, started on Levaquin and nebs. Pulmonary was consulted. She was given IV Solu-Medrol and started on Bumex. Then, she began having bloody dark emesis, so she was started on Protonix drip and the emesis appeared to become brown, so a KUB was ordered as she could not tell me when her last bowel movement was, but the KUB was negative. Sputum came back positive for MRSA, but there was a colonization according to ID. Urine culture negative. Blood culture negative. Her stool for blood was positive, but her hemoglobin remained stable throughout hospitalization. Protonix drip was stopped. The patient is tolerating diet, on 5 L nasal cannula, which she uses at home and is ready for discharge. She was discharged home with a prescription for Norvasc, Bumex, [place] D, Protonix, and tapered dose of prednisone. The patient understands discharge instructions and agrees to plan. She will follow up with primary care in 1 to 2 weeks and Pulmonology as discussed. Dictated by Ayde Tao NP MD VANNA Cordero/MARÍA /[id number]
== END 2019-01-14 17:55 | disposition home health service (06) | DRG 208 ==
LOC: ER 12:34 → ERHOLD 15:13 → ICU 18:45 → MED/SURG2 01-13 10:13
PROVIDERS: ADMIT Internal Medicine; ATTEND Internal Medicine
PROC: 0BH18EZ Insertion of Endotracheal Airway into Trachea, Via Natural or Artificial Opening Endoscopic (ICD-10-PCS; principal; 2019-01-07)
PROC: 5A1945Z Respiratory Ventilation, 24-96 Consecutive Hours (ICD-10-PCS; 2019-01-07)
DX: J96.22 Acute and chronic respiratory failure with hypercapnia (principal); I50.33 Acute on chronic diastolic (congestive) heart failure; J18.9 Pneumonia, unspecified organism; I13.0 Hypertensive heart and chronic kidney disease with heart failure and stage 1 through stage 4 chronic kidney disease, or unspecified chronic kidney disease; Z68.42 Body mass index [BMI] 45.0-49.9, adult; E66.2 Morbid (severe) obesity with alveolar hypoventilation; N17.9 Acute kidney failure, unspecified; J44.1 Chronic obstructive pulmonary disease with (acute) exacerbation; J44.0 Chronic obstructive pulmonary disease with (acute) lower respiratory infection; I11.0 Hypertensive heart disease with heart failure; E11.22 Type 2 diabetes mellitus with diabetic chronic kidney disease; N18.3 Chronic kidney disease, stage 3 (moderate); Z79.4 Long term (current) use of insulin; I48.0 Paroxysmal atrial fibrillation; Z79.01 Long term (current) use of anticoagulants; E66.01 Morbid (severe) obesity due to excess calories; I25.10 Atherosclerotic heart disease of native coronary artery without angina pectoris; Z95.5 Presence of coronary angioplasty implant and graft; E87.6 Hypokalemia; Z87.01 Personal history of pneumonia (recurrent)
CPT/HCPCS: 31500; 36415; 36600; 51700; 71045; 71046; 74018; 76604; 80048; 80053; 80061; 81001; 82150; 82270; 82550; 82553; 82607; 82728; 82746; 82805; 82948; 83036; 83540; 83605; 83690; 83735; 83880; 84439; 84443; 84466; 84484; 85025; 85045; 85610; 85730; 87040; 87070; 87086; 87186; 87205; 93005; 93306; 94002; 94003; 94640; 94660; 94664; 97139; 99285; J0330; J1720; J1815; J1817; J1940; J1956; J2250; J2405; J2550; J2920; J3370; J3475; J7030; J7050

== ENCOUNTER 2019-06-27 19:47 | Inpatient (IN) | payer MEDICARE ==
[~2019-06-27] VITALS: Ht 160 cm; Wt 80.8 kg
[~2019-06-27 19:47] MED LIST changes: +BUMETANIDE1 MG PO; +Calcium Carbonate PO; +NORVASC10 MG PO; +PANTOPRAZOLE SO40 MG PO; +PREDNISONE20 MG PO
[2019-06-27] MEDS ORDERED: ALBUTEROL SULF 0.083% NEB SOLN 3 ML NEB NEB STA (19:51)
[2019-06-27] MEDS ORDERED: IPRATROPIUM BROMIDE 0.02% 2.5 ML NEB NEB ONE (20:00)
[2019-06-27 20:45] LABS: BASOPHILS % 0.4 % (0.0-1.0); EOSINOPHILS # (AUTO) 0.2 (0.0-0.4); HEMOGLOBIN 9.9 g/dL (12.0-16.0); LYMPHOCYTES # (AUTO) 1.4 (1.0-3.2); LYMPHOCYTES % 14.1 % (18.0-39.1); MEAN CORPUSCULAR HEMOGLOBIN 29.4 pg (28-32); MEAN CORPUSCULAR HGB CONC 30.9 g/dL (31-35); MONOCYTES # (AUTO) 0.5 (0.2-0.8); MONOCYTES % 4.9 % (4.4-11.3); NEUTROPHILS # (AUTO) 7.6 (2.1-6.9); NEUTROPHILS % 78.2 % (38.7-80.0); PLATELET COUNT 192 x10e3/uL (140-360); RED BLOOD COUNT 3.37 x10e6/uL (3.6-5.1); RED CELL DISTRIBUTION WIDTH 14.5 % (11.7-14.4)
[2019-06-27 20:58] LABS: ALBUMIN 3.1 g/dL (3.5-5.0); ALBUMIN/GLOBULIN RATIO 0.9 (0.8-2.0); ANION GAP 14.9 mmol/L (8-16); CALCIUM 9.3 mg/dL (8.4-10.2); CREATININE, SERUM 1.61 mg/dL (0.57-1.11); POTASSIUM 4.9 mmol/L (3.5-5.1)
[2019-06-27 21:05] LABS: CREATINE KINASE MB 2.5 ng/mL (0-5.0)
--- NOTE | 2019-06-27 22:37 | Diagnostic Imaging Report ---
EXAMINATION: CHEST SINGLE (PORTABLE) INDICATION: Short of breath COMPARISON: Chest x-ray 01/13/2019 FINDINGS: Portable technique and underexposure/underpenetration limits evaluation. TUBES and LINES: None. LUNGS/PLEURA: Increased pulmonary interstitial lung markings and haziness of the in the mid to lower lungs, worse centrally. Prominent pulmonary vasculature. Hemidiaphragms not well seen. No pneumothorax. HEART AND MEDIASTINUM: Cardiac size is mildly enlarged. There are atherosclerotic calcifications within the aorta. BONES AND SOFT TISSUES: No acute osseous lesion. Soft tissues are unremarkable. UPPER ABDOMEN: No free air under the diaphragm. IMPRESSION: Mild cardiomegaly and mid to lower lung haziness likely due to pulmonary edema and/or pleural effusions, pneumonia may be superimposed. Signed by: Tim Husain DO on 06/27/2019 10:34 PM
[2019-06-27] MEDS ORDERED: FUROSEMIDE INJ 10 MG/ML 4 ML VIAL IV ONE (23:00)
[2019-06-27] MEDS ORDERED: SODIUM CHLORIDE FLUSH 10 ML SYR INJ PRN (23:00)
[2019-06-27] MEDS ORDERED: DEXTROSE 50% SYRINGE 50 ML IV PRN (23:00)
[2019-06-28] VITALS (9 sets, daily range): BP systolic 102–155; BP diastolic 44–66
[2019-06-28] MEDS: METHYLPREDNISOLONE SOD SUCC 40 MG/ML VIAL 1ML IV SCH ×4 (00:07→23:41)
[2019-06-28] MEDS: ALBUTEROL/IPRATROPIUM 3 ML NEB NEB SCH ×4 (01:00→19:45)
[2019-06-28] MEDS ORDERED: DOXYCYCLINE HYCLATE 100 MG in SODIUM CHLORIDE 0.9% 100 ML 100 ML IV SCH (05:30)
[2019-06-28] MEDS ORDERED: ACETAMINOPHEN 325 MG TAB PO PRN (05:30)
[2019-06-28] MEDS ORDERED: ONDANSETRON HCL INJ 2MG/ML 2ML 2 MG/ML VIAL IV PRN (05:30)
[2019-06-28] MEDS ORDERED: METOPROLOL TARTRATE INJ 1 MG/ML VIAL IV PRN (05:30)
[2019-06-28 05:31] LABS: BASOPHILS % 0.1 % (0.0-1.0); HEMATOCRIT 32.1 % (34.2-44.1); HEMOGLOBIN 9.8 g/dL (12.0-16.0); LYMPHOCYTES # (AUTO) 0.4 (1.0-3.2); LYMPHOCYTES % 4.7 % (18.0-39.1); MEAN CORPUSCULAR HEMOGLOBIN 29.5 pg (28-32); MEAN CORPUSCULAR HGB CONC 30.5 g/dL (31-35); MEAN CORPUSCULAR VOLUME 96.7 fL (81-99); MONOCYTES % 0.5 % (4.4-11.3); NEUTROPHILS # (AUTO) 7.9 (2.1-6.9); NEUTROPHILS % 94.1 % (38.7-80.0); PLATELET COUNT 164 x10e3/uL (140-360); RED BLOOD COUNT 3.32 x10e6/uL (3.6-5.1); RED CELL DISTRIBUTION WIDTH 14.4 % (11.7-14.4)
[2019-06-28 05:55] LABS: CREATINE KINASE MB 1.9 ng/mL (0-5.0)
[2019-06-28] MEDS: CEFTRIAXONE SOD 1 GM/NS 50 ML 50 ML IV SCH (05:56)
[2019-06-28] MEDS: AZITHROMYCIN 500MG/NS 250 ML 250 ML IV SCH (06:26)
[2019-06-28 07:32] LABS: ALBUMIN/GLOBULIN RATIO 0.8 (0.8-2.0); ANION GAP 19.9 mmol/L (8-16); CALCIUM 9.3 mg/dL (8.4-10.2); CREATININE, SERUM 1.97 mg/dL (0.57-1.11)
[2019-06-28 07:57] LABS: POTASSIUM 5.9 mmol/L (3.5-5.1)
[2019-06-28] MEDS: INSULIN GLARGINE 100 UNITS/ML VIAL SQ SCH ×2 (08:18→16:53)
[2019-06-28] MEDS: INSULIN REGULAR, HUMAN 100 UNIT/1 ML 3ML VIAL SQ SCH ×4 (08:18→21:10)
[2019-06-28] MEDS: FUROSEMIDE INJ 10 MG/ML 4 ML VIAL IV SCH ×2 (08:59→16:52)
[2019-06-28] MEDS: APIXABAN 5 MG TABLET PO SCH ×2 (08:59→16:52)
[2019-06-28] MEDS ORDERED: SOD POLYSTYRENE SULFONATE SUSP 15 GM/60 ML BTL PO PRN (09:00)
[2019-06-28] MEDS ORDERED: LACTULOSE SYRUP 20 GM/30 ML UDC PO PRN (09:00)
[2019-06-28] MEDS: GUAIFENESIN 600MG/DEXTROMETHORPHAN 30MG TABSR PO SCH ×2 (09:00→16:52)
[2019-06-28] MEDS ORDERED: NON-FORMULARY MEDICATION ([Apixaban] 5 MG) PO SCH ×2 (09:00)
[2019-06-28] MEDS ORDERED: POTASSIUM CHLORIDE 20 MEQ TAB CR PO SCH (09:00)
[2019-06-28] MEDS ORDERED: NON-FORMULARY MEDICATION (Insulin Detemir (Levemir) 15 UNITS) SC SCH (09:00)
[2019-06-28] MEDS: AMLODIPINE BESYLATE 10 MG TAB PO SCH (09:00)
[2019-06-28] MEDS: HYDROCODONE/APAP 5MG-325MG TAB PO PRN ×3 (09:01→21:50)
[2019-06-28] MEDS ORDERED: LACTULOSE SYRUP 20 GM/30 ML UDC PO ONE (09:30)
[2019-06-28] MEDS: TIOTROPIUM 18 MCG INH POWDER INH SCH (10:00)
[2019-06-28] MEDS: SALMETEROL/FLUTICASONE 250/50 INH SCH (11:00)
[2019-06-28] MEDS: TRAMADOL HCL 50 MG TAB PO PRN (11:28)
[2019-06-28] MEDS: EZETIMIBE 10 MG TAB PO SCH (12:15)
[2019-06-28] MEDS: MAGNESIUM OXIDE 400 MG TAB PO SCH ×2 (12:15→16:52)
--- NOTE | 2019-06-28 13:43 | Diagnostic Imaging Report ---
EXAM: Limited mediastinal ultrasound INDICATION: Evaluate for pleural effusion. COMPARISON: Chest radiograph 06/27/2019. TECHNIQUE: Limited ultrasound was performed of the bilateral hemithoraces to evaluate for pleural effusion. FINDINGS/IMPRESSION: There are trace bilateral pleural effusions. Signed by: Dr. Whit Roland MD on 06/28/2019 1:39 PM
[2019-06-28 14:06] LABS: CREATINE KINASE MB 2.8 ng/mL (0-5.0)
--- NOTE | 2019-06-28 16:21 | NUR ---
Nutrition Screen Note RD Recommendation for Physician: -Recommend low sodium/diabetic diet Plan of Care: RD following, monitoring for tolerance and adequacy Nutrition reason for involvement: Diagnosis - CHF Primary Diagnose(s): CHF, COPD, hypoxia, and respiratory distress PMH: obesity, hypoventilation syndrome, chronic obstructive sleep apnea, CHF, and diabetes Ht: 63 in Wt:257 lb BMI: 45.5 kg/m2 IBW:[address] Assessment: (06/28/19) Chart reviewed. Labs and meds reviewed. Pt is a 59 year old female admitted with CHF, COPD, hypoxia, and respiratory distress. Pt stated she has been eating all of her meals. Pt also mentioned he weight typically fluctuates due to fluid but her usual dry weight is 235 lbs. Pt also reports some nausea. No chewing/swallowing issues. Will continue to monitor. Current Diet: ADA diet Malnutrition Evaluation (06/28/19) The patient does not meet criteria for a specified degree of malnutrition at this time. Will re-evaluate at follow-up as appropriate. Diet Education Needs Assessment: Pt was interested in diet education Learner(s): pt Barriers: No barriers identified Cultural/Language Modifications: No cultural/language modifications noted. Readiness: willing Method: explanation/ discussion, handout Topics: Carbohydrate counting handouts, Reading the nutrition label, low sodium diet, weight management Understanding/Compliance: pt verbalized understanding Nutrition Care Level: moderate Signed: India Wilkes, RD, LD
--- NOTE | 2019-06-28 17:22 | Consultation ---
DATE OF CONSULTATION: 06/28/2019 Pulmonary Consultation Patient of Dr. Matias, Dr. Antonio Norris. HISTORY OF PRESENT ILLNESS: Charming 59-year-old woman, well known to the Pulmonary Service with history of coronary disease, congestive heart failure, chronic respiratory failure, on home mechanical ventilator support to use this faithfully and home oxygen. History of congestive heart failure, obesity hypoventilation syndrome, chronic respiratory failure. Recently, she had a cough productive of yellow sputum and became progressively short of breath despite antibiotic therapy with doxycycline. She has a history of diabetes. ALLERGIES: SHE IS ALLERGIC TO SULFA, PENICILLIN, AND NAPROSYN. HOME MEDICATIONS: Have included Bumex, Zetia, Symbicort, magnesium oxide, short course of prednisone, Protonix, Imitrex for headaches, Norvasc, DuoNeb, Spiriva, apixaban. SOCIAL HISTORY: Smoked for 50 years pack a day, quit in 2017. Worked as [employer] ASSISTANT. History of coronary stents 15 years ago. FAMILY HISTORY: Positive for cancer, diabetes, dementia, sick sinus syndrome. PHYSICAL EXAMINATION: GENERAL: Morbidly obese white female, awake and alert, on her trilogy ventilator. VITAL SIGNS: Tidal volume 420, respiratory rate of 28 temperature 97.8, pulse 94, respirations 20, blood pressure 102/57. HEENT: Normocephalic and atraumatic. Eyes, extraocular movements intact. LUNGS: Diminished breath sounds. HEART: Regular rhythm. ABDOMEN: Nontender. EXTREMITIES: Trace edema. IMPRESSION: Respiratory failure, acute exacerbation of chronic obstructive pulmonary disease, chronic kidney disease, elevated potassium. We will hold potassium at this time. Consider Kayexalate. Repeat potassium is elevated. Continue Trilogy ventilator. Optimize bronchodilators. Moderate dose corticosteroids in view of her diabetes and attempt to wean rapidly. Continue other home medications. Discontinue regular doses of potassium. Continue bronchodilator. Thank you for this kind referral. Antonio Trent MD DS/MODL /[id number]
[2019-06-28 20:24] LABS: CLARITY,URINE CLEAR (CLEAR); COLOR,URINE YELLOW (YELLOW)
[2019-06-28 20:25] LABS: BILIRUBIN,URINE NEGATIVE (NEGATIVE); KETONES,URINE NEGATIVE (NEGATIVE); LEUKOCYTE ESTERASE ,URINE NEGATIVE (NEGATIVE); NITRITE,URINE NEGATIVE (NEGATIVE); PROTEIN,URINE DIPSTICK NEGATIVE (NEGATIVE); URINE UROBILINOGEN 0.2 mg/dL (0.2 - 1)
[2019-06-28 20:39] LABS: BACTERIA,URINE RARE /HPF; EPITHELIAL CELLS,URINE FEW /LPF
--- NOTE | 2019-06-28 21:39 | NUR ---
Per MD/insulin order, MD called regarding BS < 350. BS 371- Spoke with Ame PERSON, ordered to give 12 units and recheck in 2 hours.
[2019-06-29] VITALS (9 sets, daily range): BP systolic 101–148; BP diastolic 56–90
--- NOTE | 2019-06-29 00:06 | NUR ---
Notified Ame PERSON of BS 425 when rechecked. Stated to wait two more hours and call her with BS result.
[2019-06-29] MEDS: ALBUTEROL/IPRATROPIUM 3 ML NEB NEB SCH ×4 (00:30→18:20)
--- NOTE | 2019-06-29 02:03 | NUR ---
Notified Ame Platt NP of BS 377. RETURNED GOODS REPAIRER stated to recheck in AM, no new orders received.
[2019-06-29 03:52] LABS: BASOPHILS % 0.1 % (0.0-1.0); HEMATOCRIT 29.5 % (34.2-44.1); HEMOGLOBIN 8.9 g/dL (12.0-16.0); LYMPHOCYTES # (AUTO) 0.7 (1.0-3.2); LYMPHOCYTES % 6.2 % (18.0-39.1); MEAN CORPUSCULAR HEMOGLOBIN 28.9 pg (28-32); MEAN CORPUSCULAR HGB CONC 30.2 g/dL (31-35); MEAN CORPUSCULAR VOLUME 95.8 fL (81-99); MONOCYTES # (AUTO) 0.4 (0.2-0.8); MONOCYTES % 3.8 % (4.4-11.3); NEUTROPHILS % 89.2 % (38.7-80.0); PLATELET COUNT 179 x10e3/uL (140-360); RED BLOOD COUNT 3.08 x10e6/uL (3.6-5.1); RED CELL DISTRIBUTION WIDTH 14.6 % (11.7-14.4)
[2019-06-29 04:04] LABS: ANION GAP 17.2 mmol/L (8-16); CALCIUM 9.1 mg/dL (8.4-10.2); CHOL/HDL RATIO 2.4 (3.0-3.6); CREATININE, SERUM 2.25 mg/dL (0.57-1.11); MAGNESIUM 2.5 MG/DL (1.3-2.1)
[2019-06-29 04:24] LABS: THYROID STIMULATING HORMONE 0.355 uIU/mL (0.350-4.940)
[2019-06-29 04:30] LABS: POTASSIUM 6.2 mmol/L (3.5-5.1)
[2019-06-29] MEDS: CEFTRIAXONE SOD 1 GM/NS 50 ML 50 ML IV SCH (04:45)
[2019-06-29] MEDS ORDERED: SOD POLYSTYRENE SULFONATE SUSP 15 GM/60 ML BTL ONE (05:06)
[2019-06-29] MEDS: AZITHROMYCIN 500MG/NS 250 ML 250 ML IV SCH (05:14)
--- NOTE | 2019-06-29 05:29 | NUR ---
Ayde Tao LACE PINNER aware of K 6.2 and high blood sugars throughout night. LACE PINNER wrote new orders in computer.
[2019-06-29] MEDS ORDERED: SOD POLYSTYRENE SULFONATE SUSP 15 GM/60 ML BTL PO ONE (05:30)
[2019-06-29] MEDS: INSULIN LISPRO 100 UNIT/1 ML 3ML VIAL SQ SCH ×4 (07:30→20:47)
[2019-06-29] MEDS ORDERED: POTASSIUM CHLORIDE 20 MEQ TAB CR PO PRN (07:30)
[2019-06-29] MEDS: TIOTROPIUM 18 MCG INH POWDER INH SCH (08:05)
[2019-06-29] MEDS: SALMETEROL/FLUTICASONE 250/50 INH SCH (08:16)
[2019-06-29] MEDS: FERROUS SULFATE 325 MG TAB PO SCH ×2 (08:17→17:27)
[2019-06-29] MEDS: AMLODIPINE BESYLATE 10 MG TAB PO SCH (08:17)
[2019-06-29] MEDS: GUAIFENESIN 600MG/DEXTROMETHORPHAN 30MG TABSR PO SCH ×2 (08:17→17:27)
[2019-06-29] MEDS: FUROSEMIDE INJ 10 MG/ML 4 ML VIAL IV SCH (08:17)
[2019-06-29] MEDS: PANTOPRAZOLE SOD 40 MG TABEC PO SCH (08:17)
[2019-06-29] MEDS: MAGNESIUM OXIDE 400 MG TAB PO SCH ×2 (08:17→17:27)
[2019-06-29] MEDS: ESTROGENS CONJUGATED 0.625 MG TAB PO SCH (08:17)
[2019-06-29] MEDS: APIXABAN 5 MG TABLET PO SCH ×2 (08:17→17:27)
[2019-06-29] MEDS: ASCORBIC ACID 500 MG TAB PO SCH ×2 (08:18→17:27)
[2019-06-29] MEDS: EZETIMIBE 10 MG TAB PO SCH (08:19)
[2019-06-29] MEDS: INSULIN GLARGINE 100 UNITS/ML VIAL SQ SCH ×2 (09:00→17:00)
--- NOTE | 2019-06-29 10:29 | NUR ---
PT IN DEEP SLEEP, UNABLE TO DO DPA
[2019-06-29] MEDS: HYDROCODONE/APAP 5MG-325MG TAB PO PRN (20:54)
[2019-06-30] VITALS (10 sets, daily range): BP systolic 132–152; BP diastolic 63–86
[2019-06-30] MEDS: ALBUTEROL/IPRATROPIUM 3 ML NEB NEB SCH ×4 (01:15→20:15)
[2019-06-30] MEDS: CEFTRIAXONE SOD 1 GM/NS 50 ML 50 ML IV SCH (04:35)
[2019-06-30] MEDS: HYDROCODONE/APAP 5MG-325MG TAB PO PRN ×2 (04:46→14:17)
[2019-06-30] MEDS: AZITHROMYCIN 500MG/NS 250 ML 250 ML IV SCH (05:26)
[2019-06-30 05:55] LABS: BASOPHILS % 0.3 % (0.0-1.0); EOSINOPHILS # (AUTO) 0.1 (0.0-0.4); EOSINOPHILS % 0.5 % (0.0-6.0); HEMATOCRIT 29.9 % (34.2-44.1); HEMOGLOBIN 9.1 g/dL (12.0-16.0); LYMPHOCYTES # (AUTO) 2.6 (1.0-3.2); LYMPHOCYTES % 22.6 % (18.0-39.1); MEAN CORPUSCULAR HEMOGLOBIN 29.1 pg (28-32); MEAN CORPUSCULAR HGB CONC 30.4 g/dL (31-35); MEAN CORPUSCULAR VOLUME 95.5 fL (81-99); MONOCYTES # (AUTO) 0.8 (0.2-0.8); MONOCYTES % 6.6 % (4.4-11.3); NEUTROPHILS % 69.3 % (38.7-80.0); PLATELET COUNT 190 x10e3/uL (140-360); RED BLOOD COUNT 3.13 x10e6/uL (3.6-5.1); RED CELL DISTRIBUTION WIDTH 14.9 % (11.7-14.4)
[2019-06-30] MEDS ORDERED: DIPHENHYDRAMINE HCL 30 GM TUBE TOP PRN (06:30)
[2019-06-30 06:39] LABS: ANION GAP 13.7 mmol/L (8-16); CREATININE, SERUM 1.84 mg/dL (0.57-1.11); POTASSIUM 4.7 mmol/L (3.5-5.1)
[2019-06-30 06:59] LABS: FERRITIN 112.64 ng/mL (4.63-204.00)
--- NOTE | 2019-06-30 07:03 | Diagnostic Imaging Report ---
EXAMINATION: CHEST 2 VIEWS INDICATION: Pulmonary edema, pleural effusion COMPARISON: Chest x-ray 06/27/2019 FINDINGS: TUBES and LINES: None. LUNGS/PLEURA: Lungs are well inflated. Central and lower lung hazy airspace opacities. Prominent pulmonary vasculature. Persistent basilar opacities obscured right hemidiaphragm. Blunted costophrenic sulci. HEART AND MEDIASTINUM: Cardiac size is mildly enlarged. BONES AND SOFT TISSUES: No acute osseous lesion. Soft tissues are unremarkable. UPPER ABDOMEN: No free air under the diaphragm. IMPRESSION: Mild cardiomegaly with persistent pulmonary edema and small bilateral pleural effusions, right greater than left. Signed by: Tim Husain DO on 06/30/2019 7:00 AM
[2019-06-30] MEDS: INSULIN LISPRO 100 UNIT/1 ML 3ML VIAL SQ SCH ×4 (07:30→21:59)
[2019-06-30] MEDS: METHYLPREDNISOLONE SOD SUCC 40 MG/ML VIAL 1ML IV SCH (07:57)
[2019-06-30] MEDS: PANTOPRAZOLE SOD 40 MG TABEC PO SCH (07:57)
[2019-06-30] MEDS: FERROUS SULFATE 325 MG TAB PO SCH ×2 (07:58→16:56)
[2019-06-30] MEDS: SALMETEROL/FLUTICASONE 250/50 INH SCH (08:00)
[2019-06-30] MEDS: TIOTROPIUM 18 MCG INH POWDER INH SCH (08:00)
[2019-06-30] MEDS: ASCORBIC ACID 500 MG TAB PO SCH ×2 (08:11→16:56)
[2019-06-30] MEDS: MAGNESIUM OXIDE 400 MG TAB PO SCH ×2 (08:11→16:56)
[2019-06-30] MEDS: ESTROGENS CONJUGATED 0.625 MG TAB PO SCH (08:11)
[2019-06-30] MEDS: AMLODIPINE BESYLATE 10 MG TAB PO SCH (08:11)
[2019-06-30] MEDS: BUMETANIDE 1 MG TAB PO SCH (08:11)
[2019-06-30] MEDS: APIXABAN 5 MG TABLET PO SCH ×2 (08:11→16:56)
[2019-06-30] MEDS: EZETIMIBE 10 MG TAB PO SCH (08:11)
[2019-06-30] MEDS: GUAIFENESIN 600MG/DEXTROMETHORPHAN 30MG TABSR PO SCH ×2 (08:11→16:56)
[2019-06-30] MEDS: TRAMADOL HCL 50 MG TAB PO PRN (08:17)
[2019-06-30] MEDS: INSULIN GLARGINE 100 UNITS/ML VIAL SQ SCH ×2 (09:00→16:15)
--- NOTE | 2019-06-30 09:30 | NUR ---
RCD PT FROM [facility] BY WHEEL CHAIR PT IS ALERT AND ORIENTED VITALS CHECKED PT RESTING ON BED GETTING O2 4 L BY NC BED LOW AND LOCKED CALL LIGHT IN REACH
[2019-06-30] MEDS ORDERED: ALBUTEROL/IPRATROPIUM 3 ML NEB NEB PRN (13:15)
--- NOTE | 2019-06-30 19:07 | NUR ---
PT RESTING ON BED BED SIDE REPORT GIVEN TO ONCOMING NURSE
--- NOTE | 2019-06-30 21:06 | Diagnostic Imaging Report ---
EXAMINATION: CHEST SINGLE (PORTABLE) INDICATION: Congestive heart failure COMPARISON: Chest x-ray 06/30/2019 FINDINGS: Exam limited by portable technique and suboptimal x-ray exposure/penetration. TUBES and LINES: None. LUNGS/PLEURA: Low lung volumes. Dense hazy opacities in the central and lower lungs. Bilateral hemidiaphragms obscured. HEART AND MEDIASTINUM: Cardiac size is mildly enlarged. There are atherosclerotic calcifications within the aorta. BONES AND SOFT TISSUES: Unchanged. UPPER ABDOMEN: Unchanged. IMPRESSION: Persistent findings of mild cardiomegaly, pulmonary edema, and small bilateral pleural effusions. Signed by: Tim Husain DO on 06/30/2019 9:03 PM
[2019-07-01] VITALS (8 sets, daily range): BP systolic 137–176; BP diastolic 62–77
[2019-07-01] MEDS: ALBUTEROL/IPRATROPIUM 3 ML NEB NEB SCH ×4 (00:30→19:45)
[2019-07-01 04:05] LABS: BASOPHILS % 0.1 % (0.0-1.0); EOSINOPHILS % 0.2 % (0.0-6.0); HEMATOCRIT 29.2 % (34.2-44.1); HEMOGLOBIN 9.2 g/dL (12.0-16.0); LYMPHOCYTES # (AUTO) 1.7 (1.0-3.2); LYMPHOCYTES % 18.4 % (18.0-39.1); MEAN CORPUSCULAR HEMOGLOBIN 29.8 pg (28-32); MEAN CORPUSCULAR HGB CONC 31.5 g/dL (31-35); MEAN CORPUSCULAR VOLUME 94.5 fL (81-99); MONOCYTES # (AUTO) 0.7 (0.2-0.8); MONOCYTES % 7.4 % (4.4-11.3); NEUTROPHILS # (AUTO) 6.6 (2.1-6.9); NEUTROPHILS % 73.3 % (38.7-80.0); PLATELET COUNT 184 x10e3/uL (140-360); RED BLOOD COUNT 3.09 x10e6/uL (3.6-5.1); RED CELL DISTRIBUTION WIDTH 15.2 % (11.7-14.4)
[2019-07-01 04:20] LABS: ANION GAP 12.7 mmol/L (8-16); CREATININE, SERUM 1.48 mg/dL (0.57-1.11); POTASSIUM 4.7 mmol/L (3.5-5.1)
[2019-07-01] MEDS ORDERED: SODIUM CHLORIDE 0.9% 250ML 250 ML ONE (05:16)
[2019-07-01] MEDS: CEFTRIAXONE SOD 1 GM/NS 50 ML 50 ML IV SCH (05:20)
[2019-07-01] MEDS ORDERED: DIPHENHYDRAMINE HCL 25 MG CAP PO PRN (05:30)
[2019-07-01] MEDS: HYDROCODONE/APAP 5MG-325MG TAB PO PRN ×2 (06:15→09:48)
[2019-07-01] MEDS: AZITHROMYCIN 500MG/NS 250 ML 250 ML IV SCH (06:40)
[2019-07-01] MEDS ORDERED: FUROSEMIDE INJ 10 MG/ML 4 ML VIAL IV SCH (07:30)
[2019-07-01] MEDS: INSULIN LISPRO 100 UNIT/1 ML 3ML VIAL SQ SCH ×4 (07:30→21:36)
[2019-07-01] MEDS: SALMETEROL/FLUTICASONE 250/50 INH SCH (07:39)
[2019-07-01] MEDS: TIOTROPIUM 18 MCG INH POWDER INH SCH (07:39)
[2019-07-01] MEDS: INSULIN GLARGINE 100 UNITS/ML VIAL SQ SCH ×2 (09:00→17:20)
[2019-07-01] MEDS: PANTOPRAZOLE SOD 40 MG TABEC PO SCH (09:02)
[2019-07-01] MEDS: METHYLPREDNISOLONE SOD SUCC 40 MG/ML VIAL 1ML IV SCH (09:02)
[2019-07-01] MEDS: EZETIMIBE 10 MG TAB PO SCH (09:03)
[2019-07-01] MEDS: FERROUS SULFATE 325 MG TAB PO SCH ×2 (09:03→16:49)
[2019-07-01] MEDS: APIXABAN 5 MG TABLET PO SCH ×2 (09:03→16:49)
[2019-07-01] MEDS: AMLODIPINE BESYLATE 10 MG TAB PO SCH (09:03)
[2019-07-01] MEDS: ASCORBIC ACID 500 MG TAB PO SCH ×2 (09:03→16:49)
[2019-07-01] MEDS: MAGNESIUM OXIDE 400 MG TAB PO SCH ×2 (09:03→16:49)
[2019-07-01] MEDS: BUMETANIDE 1 MG TAB PO SCH (09:03)
[2019-07-01] MEDS: GUAIFENESIN 600MG/DEXTROMETHORPHAN 30MG TABSR PO SCH ×2 (09:03→16:49)
--- NOTE | 2019-07-01 09:07 | Diagnostic Imaging Report ---
EXAMINATION: CHEST 2 VIEWS INDICATION: Pneumonia COMPARISON: Chest are graft 06/30/2019 FINDINGS: LINES/TUBES:None LUNGS:The lungs are moderately inflated. There is perihilar fullness and indistinctness of the pulmonary vasculature. Unchanged bibasilar patchy opacities. PLEURA:Small bilateral pleural effusions. No pneumothorax. MEDIASTINUM:Cardiomediastinal silhouette is stably enlarged. BONES/SOFT TISSUES:No acute osseous injury. ABDOMEN:No free air under the diaphragm. IMPRESSION: Unchanged pulmonary edema and cardiomegaly. Stable small bilateral pleural effusions. Bibasilar patchy opacities, more likely subsegmental atelectasis than superimposed aspiration or pneumonia. Signed by: John James MD on 07/01/2019 9:04 AM
[2019-07-01] MEDS ORDERED: CHLORTHALIDONE 25 MG TAB PO ONE ×2 (12:45→16:00)
--- NOTE | 2019-07-01 16:20 | Diagnostic Imaging Report ---
EXAM: CT Chest WITHOUT intravenous contrast 07/01/2019 10:50 AM INDICATION: Shortness of breath COMPARISON: Chest radiograph of earlier the same day TECHNIQUE: Chest was scanned utilizing a multidetector helical scanner from the lung apex through the level of the adrenal glands without administration of IV contrast. Coronal and sagittal reformations were obtained. Routine protocol was performed. IV CONTRAST: None RADIATION DOSE: Total DLP: 539.0 mGy*cm. Dose modulation, iterative reconstruction, and/or weight based adjustment of the mA/kV was utilized to reduce the radiation dose to as low as reasonably achievable. COMPLICATIONS: None FINDINGS: LINES/ TUBES: None. LUNGS AND AIRWAYS: The central airways are patent. No focal consolidation. There is interstitial and mild airspace edema with smooth interlobular septal thickening and fluid within the fissures. Scattered areas of a lateral subsegmental atelectasis, most notably at the dependent lower lobes. PLEURA: Small right pleural effusion. No pneumothorax. HEART AND MEDIASTINUM: 2.5 cm left lower thyroid hypodense nodule and 1.6 cm right lower thyroid hypodense nodule. No supraclavicular, mediastinal, or hilar lymphadenopathy. Marked multichamber cardiomegaly. No pericardial effusion. The main pulmonary artery is markedly dilated, measuring up to 4.1 cm. Diffuse atherosclerotic calcifications involve the coronary arteries, thoracic aorta, and proximal great vessels. UPPER ABDOMEN: Limited noncontrast images of the upper abdomen are degraded by streak artifact and motion and demonstrate no definite abnormalities of the partially visualized liver and spleen. BONES: No acute osseous injury. No suspicious lytic or blastic lesions. Degenerative changes of the visualized spine. SOFT TISSUES: Unremarkable. IMPRESSION: Pulmonary edema and marked cardiomegaly. Dilated main pulmonary artery compatible with pulmonary artery hypertension. Diffuse atherosclerotic arterial calcifications including of the coronary arteries. Right and left lower thyroid nodules measuring up to 2.5 cm on the left and 1.6 cm on the right. Recommend follow-up thyroid ultrasound on a nonurgent basis for further evaluation. Signed by: John James MD on 07/01/2019 4:17 PM
[2019-07-01] MEDS: ESTROGENS CONJUGATED 0.625 MG TAB PO SCH (16:49)
--- NOTE | 2019-07-01 18:41 | NUR ---
Patient up in bed, alert with no distress, on O2 NC 4L, Keep monitoring
--- NOTE | 2019-07-01 20:00 | NUR ---
pt received. pt assessed. no ss of distress noted. no co pain at time. 02 nc noted. reinforced fluid restriction. pt verbalized understanding. will cont to follow poc. call cardenas within reach.
[2019-07-02] VITALS (7 sets, daily range): BP systolic 132–158; BP diastolic 60–81
[2019-07-02] MEDS: ALBUTEROL/IPRATROPIUM 3 ML NEB NEB SCH ×4 (00:30→20:00)
--- NOTE | 2019-07-02 04:00 | NUR ---
pt resting. no ss of distress noted. call cardenas within reach.
[2019-07-02] MEDS: CEFTRIAXONE SOD 1 GM/NS 50 ML 50 ML IV SCH (05:21)
[2019-07-02 05:39] LABS: BASOPHILS % 0.2 % (0.0-1.0); EOSINOPHILS # (AUTO) 0.1 (0.0-0.4); EOSINOPHILS % 0.9 % (0.0-6.0); HEMATOCRIT 33.1 % (34.2-44.1); HEMOGLOBIN 10.2 g/dL (12.0-16.0); LYMPHOCYTES # (AUTO) 2.3 (1.0-3.2); LYMPHOCYTES % 25.2 % (18.0-39.1); MEAN CORPUSCULAR HEMOGLOBIN 29.1 pg (28-32); MEAN CORPUSCULAR HGB CONC 30.8 g/dL (31-35); MEAN CORPUSCULAR VOLUME 94.6 fL (81-99); MONOCYTES # (AUTO) 0.7 (0.2-0.8); MONOCYTES % 7.2 % (4.4-11.3); NEUTROPHILS # (AUTO) 6.1 (2.1-6.9); NEUTROPHILS % 65.6 % (38.7-80.0); PLATELET COUNT 209 x10e3/uL (140-360); RED CELL DISTRIBUTION WIDTH 15.1 % (11.7-14.4)
[2019-07-02 05:56] LABS: ANION GAP 14.6 mmol/L (8-16); CALCIUM 9.5 mg/dL (8.4-10.2); CREATININE, SERUM 1.47 mg/dL (0.57-1.11); POTASSIUM 4.6 mmol/L (3.5-5.1)
[2019-07-02] MEDS: AZITHROMYCIN 500MG/NS 250 ML 250 ML IV SCH (05:56)
[2019-07-02] MEDS: HYDROCODONE/APAP 5MG-325MG TAB PO PRN ×3 (06:02→20:34)
[2019-07-02] MEDS: TIOTROPIUM 18 MCG INH POWDER INH SCH (07:21)
[2019-07-02] MEDS: SALMETEROL/FLUTICASONE 250/50 INH SCH (07:21)
[2019-07-02] MEDS: INSULIN LISPRO 100 UNIT/1 ML 3ML VIAL SQ SCH ×4 (07:30→20:35)
[2019-07-02] MEDS: INSULIN GLARGINE 100 UNITS/ML VIAL SQ SCH ×2 (09:00→17:19)
[2019-07-02] MEDS: GUAIFENESIN 600MG/DEXTROMETHORPHAN 30MG TABSR PO SCH ×2 (09:39→17:15)
[2019-07-02] MEDS: FERROUS SULFATE 325 MG TAB PO SCH ×2 (09:39→17:15)
[2019-07-02] MEDS: APIXABAN 5 MG TABLET PO SCH ×2 (09:39→17:15)
[2019-07-02] MEDS: MAGNESIUM OXIDE 400 MG TAB PO SCH ×2 (09:39→17:15)
[2019-07-02] MEDS: PANTOPRAZOLE SOD 40 MG TABEC PO SCH (09:39)
[2019-07-02] MEDS: BUMETANIDE 1 MG TAB PO SCH (09:39)
[2019-07-02] MEDS: METHYLPREDNISOLONE SOD SUCC 40 MG/ML VIAL 1ML IV SCH (09:39)
[2019-07-02] MEDS: ASCORBIC ACID 500 MG TAB PO SCH ×2 (09:40→17:15)
[2019-07-02] MEDS: EZETIMIBE 10 MG TAB PO SCH (09:40)
[2019-07-02] MEDS: AMLODIPINE BESYLATE 10 MG TAB PO SCH (09:40)
[2019-07-02] MEDS: ESTROGENS CONJUGATED 0.625 MG TAB PO SCH (09:40)
--- NOTE | 2019-07-02 12:30 | NUR ---
Spoke to NAYA Estevez regarding DC plan. He gave order for SNF eval. Spoke to pt at bedside about DC plan. Pt states she lives alone and does not have help at home. Uses home O2 at 4lpm and bipap. Pt wants to go to SNF for rehab. Discussed choice with pt. She states she wants to go to a facility closer to her home. States was previously at [facility] and would like to go there if possible. Another option was [facility]. CM called both facilities and they both are accepting her insurance, however only able to go up to 5lpm on oxygen. Pt currently on 6lpm. Cm informed pt she would need to go to a facility that is able to accommodate her oxygen needs for a safe discharge. Pt agreeable to [facility]. CM called and spoke to lean manufacturing coordinator Ella at [facility]. She said they are able to go up to 15lpm on oxygen. Choice letter signed and placed in chart. Copy to pt. IMM letter discussed with pt. She verbalized understanding. Signed copy placed in chart. Copy to pt. SW was notified of choice for SNF and will send clinical.
--- NOTE | 2019-07-02 12:51 | NUR ---
COMPLETED RTF AND PASRR, WILL FAX CLINICALS TO [facility] [phone]
--- NOTE | 2019-07-02 18:36 | NUR ---
pt alert resp even and unlabored pt able to make needs known, no c/o pain nor distress noted, will cont to monitor, call light in reach.
--- NOTE | 2019-07-02 19:25 | NUR ---
report given to oncoming nurse, pt stable at this time.
[2019-07-03] VITALS (7 sets, daily range): BP systolic 136–172; BP diastolic 65–79
[2019-07-03] MEDS: ALBUTEROL/IPRATROPIUM 3 ML NEB NEB SCH ×3 (00:15→13:15)
[2019-07-03] MEDS: CEFTRIAXONE SOD 1 GM/NS 50 ML 50 ML IV SCH (05:52)
[2019-07-03] MEDS: TIOTROPIUM 18 MCG INH POWDER INH SCH (07:03)
[2019-07-03] MEDS: SALMETEROL/FLUTICASONE 250/50 INH SCH (07:03)
[2019-07-03] MEDS: INSULIN LISPRO 100 UNIT/1 ML 3ML VIAL SQ SCH ×3 (07:30→17:35)
[2019-07-03] MEDS: METHYLPREDNISOLONE SOD SUCC 40 MG/ML VIAL 1ML IV SCH (08:21)
[2019-07-03] MEDS: PANTOPRAZOLE SOD 40 MG TABEC PO SCH (08:21)
[2019-07-03] MEDS: FERROUS SULFATE 325 MG TAB PO SCH ×2 (08:21→17:17)
[2019-07-03] MEDS: INSULIN GLARGINE 100 UNITS/ML VIAL SQ SCH ×2 (09:00→17:37)
[2019-07-03] MEDS: BUMETANIDE 1 MG TAB PO SCH (09:30)
[2019-07-03] MEDS: HYDROCODONE/APAP 5MG-325MG TAB PO PRN (09:30)
[2019-07-03] MEDS: APIXABAN 5 MG TABLET PO SCH ×2 (09:31→17:17)
[2019-07-03] MEDS: GUAIFENESIN 600MG/DEXTROMETHORPHAN 30MG TABSR PO SCH ×2 (09:32→17:17)
[2019-07-03] MEDS: MAGNESIUM OXIDE 400 MG TAB PO SCH ×2 (09:32→17:17)
[2019-07-03] MEDS: EZETIMIBE 10 MG TAB PO SCH (09:33)
[2019-07-03] MEDS: ASCORBIC ACID 500 MG TAB PO SCH ×2 (09:33→17:18)
[2019-07-03] MEDS: ESTROGENS CONJUGATED 0.625 MG TAB PO SCH (09:33)
[2019-07-03] MEDS: AMLODIPINE BESYLATE 10 MG TAB PO SCH (09:33)
--- NOTE | 2019-07-03 10:18 | NUR ---
LONG-TERM FACILITY DISCHARGE INFORMATION PATIENT HAS BEEN ACCEPTED TO: NAME: [facility] ADDRESS:[id number] [facility] ACCEPTING REGISTER CLERK: NENITA WILHELM ACCEPTING MD: MERISSA ROOM: [id number] NURSE CALL REPORT TO: [phone] IMM SIGNED AND OBTAINED (if applicable): Y THE FOLLOWING DOCUMENTS MUST ACCOMPANY PATIENT FOR TRANSFER: COPIED CHART: PACKET
--- NOTE | 2019-07-03 14:02 | NUR ---
Called family Ayde Jose to inform her that patient is going to [facility]. [phone]. Had to leave message.No names or personal info was left, just that a member of the family at the [facility] was leaving, and to please call me back
--- NOTE | 2019-07-03 17:16 | NUR ---
Nutrition Screen Note RD Recommendation for Physician: -Recommend low sodium/diabetic diet Plan of Care: RD following, monitoring for tolerance and adequacy Nutrition reason for involvement: f/u Primary Diagnose(s): CHF, COPD, hypoxia, and respiratory distress PMH: obesity, hypoventilation syndrome, chronic obstructive sleep apnea, CHF, and diabetes Ht: 63 in Wt:257 lb BMI: 45.5 kg/m2 IBW:[address] Assessment: 07/03: Follow up: Pt was seen resting in bed, on NC. Pt reported a good appetite, denied C/D/chewing or swallowing issues. She stated she does deal with some nausea d/t her meds. Possible d/c today to SNF. Pt has been consuming approximately 75-100% of her meals per meal assessment. Weights within chart appear inaccurate, recommended to obtain correct weight. Pt had no other questions or concerns. Chart reviewed. Will continue to monitor. (06/28/19) Chart reviewed. Labs and meds reviewed. Pt is a 59 year old female admitted with CHF, COPD, hypoxia, and respiratory distress. Pt stated she has been eating all of her meals. Pt also mentioned he weight typically fluctuates due to fluid but her usual dry weight is 235 lbs. Pt also reports some nausea. No chewing/swallowing issues. Will continue to monitor. Current Diet: ADA diet Malnutrition Evaluation (06/28/19) The patient does not meet criteria for a specified degree of malnutrition at this time. Will re-evaluate at follow-up as appropriate. Diet Education Needs Assessment: Pt was interested in diet education Learner(s): pt Barriers: No barriers identified Cultural/Language Modifications: No cultural/language modifications noted. Readiness: willing Method: explanation/ discussion, handout Topics: Carbohydrate counting handouts, Reading the nutrition label, low sodium diet, weight management Understanding/Compliance: pt verbalized understanding Nutrition Care Level: low- pt is meeting her energy and protein needs via meal assessment Signed: Sara Berry RD, LD
[2019-07-04] MEDS ORDERED: PREDNISONE 20 MG TAB PO SCH (07:30)
--- NOTE | 2019-07-04 11:35 | Discharge Summary ---
HISTORY OF PRESENT ILLNESS: Ms. Jose is a 59-year-old female, who was admitted with complaints of shortness of breath and dyspnea on exertion and chest tightness that began over two weeks prior to admission. She had received a prescription for Cipro and doxycycline that ended about 2-3 days prior to admission and her symptoms came back the night before she arrived. She denied fever or cough. On admission, her son had the flu and then had pneumonia. The patient uses 4 liters of oxygen via nasal cannula at home. PAST MEDICAL HISTORY: Include oxygen dependence, COPD, type 2 diabetes mellitus, chronic kidney disease stage 3, paroxysmal atrial fibrillation, obstructive sleep apnea, hypertension, and chronic diastolic congestive heart failure. PAST SURGICAL HISTORY: Include ovarian cyst removal, left arm; left chest GST removal; tonsillectomy, 3 D and Cs and hysterectomy. PAST FAMILY HISTORY: Mother had diabetes and cancer. The patient's mother, grandfather, grandmother, and sister, all had cancer. Grandmother had cerebrovascular accident. SOCIAL HISTORY: Noncontributory. ALLERGIES: INCLUDE RIVAROXABAN OR AKA XARELTO, NAPROXEN, SULFA, AND PENICILLIN. CONSULTS: Includes Dr. Digna Williamson with pulmonology. ADMITTING DIAGNOSES: Include: 1. Acute on chronic diastolic congestive heart failure. 2. Acute on chronic respiratory failure with hypoxia. 3. Chronic kidney disease, stage 3. 4. Hypertension with chronic kidney disease, stage 3. 5. Type 2 diabetes mellitus with chronic kidney disease, stage 3. 6. Paroxysmal atrial fibrillation. 7. Obstructive sleep apnea. 8. Morbid obesity with BMI 45.5. 9. Acute exacerbation of chronic obstructive pulmonary disease. DISCHARGE DIAGNOSES: Include: 1. Acute on chronic diastolic congestive heart failure. 2. Acute on chronic respiratory failure with hypoxia, on oxygen dependence. 3. Hypertension with chronic kidney disease stage 3, coronary artery disease, and congestive heart failure. 4. Type 2 diabetes mellitus with chronic kidney disease, stage 3. 5. Chronic kidney disease, stage 3. 6. Right leg swelling. 7. Subsegmental atelectasis, probable pulmonary hypertension. 8. Right/left thyroid nodules. 9. Obstructive sleep apnea. 10. Paroxysmal atrial fibrillation. HOSPITAL COURSE: During her stay, the patient received Lasix, spent some time on BiPAP, mention of the patient does use home BiPAP and has oxygen concentrator, which were both currently in the room. Fluid restriction was utilized. She was on azithromycin, ceftriaxone, DuoNeb, Solu-Medrol IV, tiotropium, salmeterol, fluconazole, Mucinex DM, and Pulmonology continued to follow. Solu-Medrol was gradually weaned down and the patient will be discharged on prednisone 30 mg a day tapering dose. Left upper extremity venous Doppler ultrasound was negative and yesterday, the patient's right leg appeared swollen approximately twice the size of the left leg and venous Doppler ultrasound of the right lower extremity was also negative. Hospitalization also complicated by hyperkalemia with potassium 5.6 on June 30. She still has dyspnea on exertion, has poor reserve with her oxygen, has chest pain with minimal exertion, poor stamina. She will receive physical therapy at the [facility]. They have the capability of providing up to 15 liters per minute of oxygen as opposed to other group home facilities in the area that are only able to provide 5 liters per minute maximum. Therefore, if the patient has increasing shortness of breath, more oxygen can be provided. Chest x-ray done on July 01 showed bibasilar patchy opacities, more highly subsegmental atelectasis than superimposed aspiration or pneumonia. CT of the chest on the same day have findings consistent with pulmonary hypertension, arterial calcifications including coronary arteries, right and lower thyroid nodules measuring up to 2.5 cm on the left and 1.6 cm on the right. On a nonurgent basis, thyroid ultrasound has been recommended. We will try to go ahead and get that before the patient leaves. Today; sodium 146, potassium 4.6, chloride 103, CO2 of 33, BUN 52, creatinine 1.47, and calcium 9.5. WBC 9.29, hemoglobin 10.2, hematocrit 33.1, and platelets 209. Vital signs; temperature 96.5, heart rate 74, blood pressure 172/72, respirations 20, and oxygen saturation 91%. The patient will continue on ADA diet. Activity level as tolerated. Follow up with Cora, nurse practitioner and with Dr. Matias at the [facility]. Dictated by Herb Diez, NAYA Shaheen aMtias MD HWTavo/MARÍA Nowak: 07/03/2019 12:29:07 /[id number]
== END 2019-07-03 18:08 | DRG 291 ==
LOC: ER 19:47 → ERHOLD 23:17 → IMCU 23:27 → MED/SURG2 06-30 09:33
PROVIDERS: ADMIT Internal Medicine; ATTEND Internal Medicine
DX: I13.0 Hypertensive heart and chronic kidney disease with heart failure and stage 1 through stage 4 chronic kidney disease, or unspecified chronic kidney disease (principal); J96.21 Acute and chronic respiratory failure with hypoxia; I50.33 Acute on chronic diastolic (congestive) heart failure; J44.1 Chronic obstructive pulmonary disease with (acute) exacerbation; Z68.42 Body mass index [BMI] 45.0-49.9, adult; Z68.41 Body mass index [BMI] 40.0-44.9, adult; N18.3 Chronic kidney disease, stage 3 (moderate); I10 Essential (primary) hypertension; E11.22 Type 2 diabetes mellitus with diabetic chronic kidney disease; I48.0 Paroxysmal atrial fibrillation; Z79.01 Long term (current) use of anticoagulants; G47.33 Obstructive sleep apnea (adult) (pediatric); E66.01 Morbid (severe) obesity due to excess calories; I27.20 Pulmonary hypertension, unspecified; E87.5 Hyperkalemia; E04.1 Nontoxic single thyroid nodule; Z88.0 Allergy status to penicillin; Z88.2 Allergy status to sulfonamides
CPT/HCPCS: 36415; 71045; 71046; 71250; 76604; 80048; 80053; 80061; 81001; 82550; 82553; 82607; 82728; 82948; 83036; 83540; 83735; 83880; 84132; 84443; 84466; 84484; 85025; 87070; 87205; 87400; 93005; 93971; 94640; 94660; 94664; 96367; 96372; 97139; 99284; J0456; J0696; J1815; J1817; J1940; J2405; J2920; J7050

== ENCOUNTER 2019-10-08 02:15 | Inpatient (IN) | payer MEDICARE ==
[2019-10-08] VITALS (7 sets, daily range): BP systolic 120–128; BP diastolic 54–65
[~2019-10-08] VITALS: Ht 157.5 cm; Wt 132.4 kg
[2019-10-08 02:50] LABS: BASOPHILS % 0.4 % (0.0-1.0); EOSINOPHILS # (AUTO) 0.3 (0.0-0.4); EOSINOPHILS % 2.8 % (0.0-6.0); HEMATOCRIT 27.1 % (34.2-44.1); HEMOGLOBIN 8.4 g/dL (12.0-16.0); LYMPHOCYTES # (AUTO) 1.6 (1.0-3.2); LYMPHOCYTES % 16.6 % (18.0-39.1); MEAN CORPUSCULAR HEMOGLOBIN 29.7 pg (28-32); MEAN CORPUSCULAR VOLUME 95.8 fL (81-99); MONOCYTES # (AUTO) 0.7 (0.2-0.8); NEUTROPHILS # (AUTO) 6.9 (2.1-6.9); NEUTROPHILS % 72.8 % (38.7-80.0); PLATELET COUNT 226 x10e3/uL (140-360); RED BLOOD COUNT 2.83 x10e6/uL (3.6-5.1); RED CELL DISTRIBUTION WIDTH 14.3 % (11.7-14.4)
[2019-10-08 03:04] LABS: ALBUMIN/GLOBULIN RATIO 0.8 (0.8-2.0); ANION GAP 10.4 mmol/L (8-16); CALCIUM 9.1 mg/dL (8.4-10.2); CREATININE, SERUM 1.9 mg/dL (0.57-1.11); POTASSIUM 4.4 mmol/L (3.5-5.1)
[2019-10-08 03:15] LABS: CREATINE KINASE MB 1.6 ng/mL (0-5.0)
--- NOTE | 2019-10-08 05:13 | Diagnostic Imaging Report ---
EXAMINATION: CHEST SINGLE (PORTABLE) INDICATION: Chest pain COMPARISON: Chest CT 07/01/2019, chest x-ray 07/01/2019 FINDINGS: TUBES and LINES: None. LUNGS: Normal lung volumes. Prominent pulmonary vasculature, and pulmonary interstitium, with central and lower lung haziness. PLEURA: Small bilateral pleural effusions. No pneumothorax. HEART AND MEDIASTINUM: Cardiac size is mildly enlarged. BONES AND SOFT TISSUES: No acute osseous lesion. Soft tissues are unremarkable. UPPER ABDOMEN: No free air under the diaphragm. IMPRESSION: Mild cardiomegaly and pulmonary edema. Signed by: Tim Husain DO on 10/08/2019 5:09 AM
[2019-10-08] MEDS ORDERED: ALBUTEROL/IPRATROPIUM 3 ML NEB NEB ONE (05:45)
[2019-10-08] MEDS ORDERED: FUROSEMIDE INJ 10 MG/ML 4 ML VIAL IV ONE (05:45)
[2019-10-08] MEDS ORDERED: NORCO 10-325 T1 EACH PO (10:37)
[2019-10-08] MEDS ORDERED: METOPROLOL TART25 MG PO (10:37)
[2019-10-08] MEDS ORDERED: EPIPEN IM (10:37)
[2019-10-08] MEDS ORDERED: [UNRECOGNIZED DRUG - OTHER] TOP (10:37)
[2019-10-08] MEDS ORDERED: VALIUM5 MG PO (10:37)
[2019-10-08] MEDS ORDERED: THEOPHYLLINE A200 MG PO (10:42)
[2019-10-08] MEDS ORDERED: ELIQUIS5 MG PO (10:42)
[2019-10-08] MEDS ORDERED: PREMARIN0.625 MG PO (10:42)
[2019-10-08] MEDS ORDERED: ATORVASTATIN CA20 MG PO (10:42)
[2019-10-08] MEDS ORDERED: ZOLOFT50 MG PO (10:42)
[2019-10-08] MEDS ORDERED: DIAZEPAM 5 MG TAB PO PRN (11:15)
[2019-10-08] MEDS ORDERED: ALBUTEROL/IPRATROPIUM 3 ML NEB NEB PRN (11:15)
[2019-10-08] MEDS ORDERED: SUMATRIPTAN SUCCINATE 25 MG TAB PO PRN (11:15)
[2019-10-08] MEDS ORDERED: EPINEPHRINE IM PRN (11:15)
[2019-10-08] MEDS ORDERED: ACETAMIN/BUTALBITAL/CAFFEINE TAB PO PRN (11:30)
[2019-10-08] MEDS ORDERED: EPINEPHRINE 0.3 MG/0.3 ML PEN.INJCTR IM PRN (14:45)
[2019-10-08] MEDS ORDERED: PREDNISONE 20 MG TAB PO NR (15:00)
--- NOTE | 2019-10-08 15:09 | NUR ---
pt will transfer to [facility] 2 room 200; gave report to THANH Roldan
[2019-10-08 15:27] LABS: FERRITIN 59.46 ng/mL (4.63-204.00)
--- NOTE | 2019-10-08 16:11 | NUR ---
pt arrived to room 200 via wheelchair from VQ scan. pt awake, alert, no signs of distress.
[2019-10-08 16:45] LABS: ABG HCO3 34 mmol/L (23-28); ABG PCO2 61 mmHg (41-51); ABG PH 7.35 (7.31-7.41)
[2019-10-08] MEDS: INSULIN GLARGINE 100 UNITS/ML VIAL SC SCH (16:53)
[2019-10-08] MEDS: APIXABAN 5 MG TABLET PO SCH (16:56)
[2019-10-08] MEDS: CALCIUM CARBONATE 500 MG CHEWABLE TABS PO SCH (16:56)
[2019-10-08] MEDS: DOXYCYCLINE HYCLATE TABLET 100 MG TAB PO SCH ×2 (16:56→21:58)
[2019-10-08] MEDS: HYDROCODONE/APAP 10MG-325MG TAB PO PRN (16:57)
[2019-10-08] MEDS: NYSTATIN 100,000 UNITS/GM CRM 30GM TUBE TOP SCH (17:03)
--- NOTE | 2019-10-08 17:29 | Diagnostic Imaging Report ---
Perfusion lung scan only Note: The Society of Nuclear Medicine and Molecular Imaging recommends not performing lung ventilation studies with xenon because there is no way to assure that the ventilation system used for the study can be adequately disinfected. Alternative of using nebulized Tc-99m DTPA for ventilation studies is absolutely contraindicated due to the airborne droplets created. Clinical Information: Pulmonary edema; SOB Comparison: Chest radiograph 10/08/2019. Discussion: No ventilation images were obtained. See note above. Perfusion images of the lungs were obtained in multiple projections following intravenous administration of approximately 6 mCi of Tc-99m MAA. Distribution of tracer is irregular throughout the lungs. The contours of the lungs are well demarcated. There are no segmental perfusion defects of any size. The cardiomediastinal silhouette is enlarged. Impression: 1. Scan findings represent a VERY LOW probability for acute pulmonary embolic disease based on the PIOPED II criteria. A ventilation lung scan would not have changed this assigned probability. 2. Enlarged cardiac silhouette. Signed by: Dr. Trisha Mon M.D. on 10/08/2019 5:26 PM
--- NOTE | 2019-10-08 17:40 | Consultation ---
DATE OF CONSULTATION: Cardiology Consultation REASON FOR CONSULTATION: Shortness of breath. HISTORY OF PRESENT ILLNESS: This is a 59-year-old woman, who has a history of congestive heart failure, coronary artery disease, obstructive sleep apnea, chronic respiratory failure, chronic obstructive pulmonary disease, and diabetes mellitus. The patient is quite lethargic, cannot provide me the exact details of her presenting symptoms. However, does report some atypical chest discomfort and shortness of breath. REVIEW OF SYSTEMS: Unable to be obtained due to altered mental status. PAST MEDICAL HISTORY: As stated above. PAST SURGICAL HISTORY: None recent. PAST FAMILY HISTORY: Noncontributory to current illness. ALLERGIES: MULTIPLE. SEE CHART. MEDICATIONS: Please see medications reconciliation form. PHYSICAL EXAMINATION: VITAL SIGNS: Temperature is 97.1, heart rate is 94, respirations are 20, blood pressure is 120/62, and oxygen saturation is 95% on 4 L nasal cannula. GENERAL: Chronically ill-appearing, no apparent distress. Alert and intermittently oriented. HEAD: Normocephalic and atraumatic. EYES: The extraocular muscles are intact. Conjunctivae are clear. NECK: No JVD. No bruits. CARDIOVASCULAR: Regular rate and rhythm. LUNGS: Clear to auscultation with minimal rales at the bases. ABDOMEN: Soft, nontender, nondistended. EXTREMITIES: No clubbing, cyanosis, or edema. VASCULAR: 2+ pulses. SKIN: Warm, dry, and intact. NEUROLOGIC: No focal deficits noted. Cranial nerves grossly intact. PSYCHIATRIC: Normal mood and affect. LABORATORY DATA: All laboratory data were reviewed and showed hemoglobin 8.4. Troponin was normal x1. BNP was mildly elevated at 229. Chest x-ray shows mild cardiomegaly with pulmonary edema. IMPRESSION: 1. Ihjnt-io-ntwayei diastolic heart failure. 2. Chronic obstructive pulmonary disease. 3. Hypertension. 4. Hyperlipidemia. 5. Obstructive sleep apnea. 6. Morbid obesity. RECOMMENDATIONS: Continued diuresis with Bumex. We will check an echocardiogram. Continue all other current cardiovascular medications. Treatment of her COPD and shortness of breath, otherwise per primary care. Lowell Tan DO BM/MODL /[id number]
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
[2019-10-08] MEDS: BUMETANIDE 1 MG TAB PO SCH (21:58)
[2019-10-08] MEDS: ATORVASTATIN 40 MG TAB PO SCH (21:58)
[2019-10-08] MEDS: SERTRALINE HCL 100 MG TAB PO SCH (21:58)
[2019-10-09] VITALS (8 sets, daily range): BP systolic 130–173; BP diastolic 57–84
--- NOTE | 2019-10-09 00:30 | NUR ---
Patient received sitting up in bed. AAO x 4. Patient had no complaints of pain. No signs of respiratory distress. Fall precautions implemented. Patient instructed to call for assistance when needed. Call light within reach.
[2019-10-09] MEDS: ALBUTEROL/IPRATROPIUM 3 ML NEB NEB PRN ×2 (03:05→20:20)
[2019-10-09 05:31] LABS: BASOPHILS # (AUTO) 0.1 (0.0-0.1); BASOPHILS % 0.6 % (0.0-1.0); EOSINOPHILS # (AUTO) 0.2 (0.0-0.4); EOSINOPHILS % 2.8 % (0.0-6.0); HEMOGLOBIN 8.4 g/dL (12.0-16.0); LYMPHOCYTES # (AUTO) 1.4 (1.0-3.2); LYMPHOCYTES % 17.1 % (18.0-39.1); MEAN CORPUSCULAR HEMOGLOBIN 29.4 pg (28-32); MEAN CORPUSCULAR VOLUME 97.9 fL (81-99); MONOCYTES # (AUTO) 0.6 (0.2-0.8); MONOCYTES % 7.6 % (4.4-11.3); NEUTROPHILS # (AUTO) 5.9 (2.1-6.9); NEUTROPHILS % 71.2 % (38.7-80.0); PLATELET COUNT 222 x10e3/uL (140-360); RED BLOOD COUNT 2.86 x10e6/uL (3.6-5.1); RED CELL DISTRIBUTION WIDTH 14.1 % (11.7-14.4)
[2019-10-09 05:50] LABS: ANION GAP 9.6 mmol/L (8-16); CALCIUM 8.9 mg/dL (8.4-10.2); CREATININE, SERUM 1.95 mg/dL (0.57-1.11); MAGNESIUM 2.1 MG/DL (1.3-2.1); PHOSPHORUS 4.1 MG/DL (2.3-4.7); POTASSIUM 4.6 mmol/L (3.5-5.1)
--- NOTE | 2019-10-09 05:59 | NUR ---
Patient off floor for CXR.
--- NOTE | 2019-10-09 06:20 | NUR ---
Patient back from CT/ABD/PEL W. Patient in stable condition.
[2019-10-09 06:33] LABS: FERRITIN 63.28 ng/mL (4.63-204.00)
--- NOTE | 2019-10-09 06:50 | NUR ---
Patient resting comfortably. Walking rounds done. BSSR given to oncoming nurse.
--- NOTE | 2019-10-09 07:00 | NUR ---
RCD PT AT BED PT IS ALERT AND ORIENTED RESTING ON BED IV PATENT BY SALINE FLUSH BED LOW AND LOCKED CALL LIGHT IN REACH
--- NOTE | 2019-10-09 07:19 | Diagnostic Imaging Report ---
EXAMINATION: CHEST 2 VIEWS INDICATION: ^SOB ^[id number] ^[id number] COMPARISON: Chest x-ray 10/08/2019 FINDINGS: TUBES and LINES: None. LUNGS: Normal lung volumes. There is perihilar interstitial opacities, consistent with interstitial edema. Lower lung haziness. PLEURA: Small bilateral pleural effusions. No pneumothorax. HEART AND MEDIASTINUM: Cardiac size is moderately enlarged. BONES AND SOFT TISSUES: No acute osseous lesion. Soft tissues are unremarkable. UPPER ABDOMEN: No free air under the diaphragm. IMPRESSION: Mild cardiomegaly and pulmonary edema small bilateral pleural effusions. Superimposed pneumonia is possible. Signed by: Tim Husain DO on 10/09/2019 7:16 AM
[2019-10-09] MEDS: PANTOPRAZOLE SOD 40 MG TABEC PO SCH (07:30)
[2019-10-09] MEDS: APIXABAN 5 MG TABLET PO SCH ×2 (09:00→16:49)
[2019-10-09] MEDS: NYSTATIN 100,000 UNITS/GM CRM 30GM TUBE TOP SCH ×2 (09:00→17:00)
[2019-10-09] MEDS: ESTROGENS CONJUGATED 0.625 MG TAB PO SCH (09:00)
[2019-10-09] MEDS: INSULIN GLARGINE 100 UNITS/ML VIAL SC SCH ×2 (09:00→17:00)
[2019-10-09] MEDS: THEOPHYLLINE 300 MG TABSR PO SCH (09:00)
[2019-10-09] MEDS: METOPROLOL TARTRATE 25 MG TAB PO SCH (09:00)
[2019-10-09] MEDS: MULTIVITAMINS/MINERALS TAB PO SCH (09:00)
[2019-10-09] MEDS: DOXYCYCLINE HYCLATE TABLET 100 MG TAB PO SCH ×2 (09:00→20:50)
[2019-10-09] MEDS: CALCIUM CARBONATE 500 MG CHEWABLE TABS PO SCH ×2 (09:00→16:49)
[2019-10-09] MEDS: EZETIMIBE 10 MG TAB PO SCH (09:00)
[2019-10-09] MEDS: BUMETANIDE 1 MG TAB PO SCH ×2 (09:00→20:50)
[2019-10-09] MEDS ORDERED: PREDNISONE 20 MG TAB PO SCH (09:00)
[2019-10-09] MEDS: IRON SUCROSE 100 MG in SODIUM CHLORIDE 0.9% 100 ML 100 ML IV SCH (10:00)
[2019-10-09] MEDS: HYDROCODONE/APAP 10MG-325MG TAB PO PRN ×2 (10:16→18:39)
[2019-10-09] MEDS ORDERED: SODIUM CHLORIDE 0.9% 50ML 50 ML ONE (11:53)
[2019-10-09] MEDS ORDERED: DEXTROSE 50% SYRINGE 50 ML IV PRN (12:30)
[2019-10-09] MEDS: INSULIN REGULAR, HUMAN 100 UNIT/1 ML 3ML VIAL SQ SCH ×2 (16:30→21:00)
[2019-10-09] MEDS: SALMETEROL/FLUTICASONE 250/50 INH SCH (17:34)
[2019-10-09] MEDS: TIOTROPIUM 18 MCG INH POWDER INH SCH (17:34)
--- NOTE | 2019-10-09 17:56 | Progress Note ---
DATE: Cardiology Progress Note SUBJECTIVE: The patient is feeling better. Some shortness of breath. No chest pain. OBJECTIVE: VITAL SIGNS: Temperature is 98.3, heart rate 80, blood pressure 146/68, and oxygen saturation is 94% on 4 L nasal cannula. GENERAL: No apparent distress. Alert and oriented x3. CARDIOVASCULAR: She is regular rate and rhythm. LUNGS: Diminished breath sounds at bases. ABDOMEN: Soft, nontender, and nondistended. EXTREMITIES: Trace edema. IMPRESSION: 1. Syiwm-ga-keqlvsz diastolic heart failure. 2. Chronic obstructive pulmonary disease. 3. Hypertension. 4. Hyperlipidemia. 5. Obstructive sleep apnea. 6. Morbid obesity. PLAN: Continue current cardiovascular medication regimen including Bumex for diuresis. We will check a 2D echocardiogram. Treatment for COPD and shortness of breath per Pulmonary Critical Care. We will continue to follow along. DO SHU Marrero/MARÍA /[id number]
--- NOTE | 2019-10-09 18:46 | NUR ---
PT RESTING ON BED BED SIDE REPORT GIVEN TO ONCOMING NURSE
[2019-10-09] MEDS ORDERED: ACETAMINOPHEN 325 MG TAB PO PRN (19:00)
[2019-10-09] MEDS ORDERED: ONDANSETRON HCL INJ 2MG/ML 2ML 2 MG/ML VIAL IV PRN (19:00)
[2019-10-09] MEDS ORDERED: HYDRALAZINE HCL 20 MG/ML VIAL IV PRN (19:00)
--- NOTE | 2019-10-09 19:15 | NUR ---
Patient received sitting up in bed. No acute distress noted. Call light within reach.
[2019-10-09] MEDS: SERTRALINE HCL 100 MG TAB PO SCH (20:50)
[2019-10-09] MEDS: ATORVASTATIN 40 MG TAB PO SCH (20:50)
[2019-10-10] VITALS (8 sets, daily range): BP systolic 119–135; BP diastolic 57–78
[2019-10-10 05:11] LABS: BASOPHILS % 0.4 % (0.0-1.0); EOSINOPHILS # (AUTO) 0.1 (0.0-0.4); EOSINOPHILS % 0.9 % (0.0-6.0); HEMATOCRIT 26.6 % (34.2-44.1); LYMPHOCYTES # (AUTO) 1.8 (1.0-3.2); LYMPHOCYTES % 19.2 % (18.0-39.1); MEAN CORPUSCULAR HEMOGLOBIN 29.1 pg (28-32); MEAN CORPUSCULAR HGB CONC 30.1 g/dL (31-35); MEAN CORPUSCULAR VOLUME 96.7 fL (81-99); MONOCYTES # (AUTO) 0.7 (0.2-0.8); MONOCYTES % 7.1 % (4.4-11.3); NEUTROPHILS # (AUTO) 6.6 (2.1-6.9); NEUTROPHILS % 71.2 % (38.7-80.0); PLATELET COUNT 225 x10e3/uL (140-360); RED BLOOD COUNT 2.75 x10e6/uL (3.6-5.1); RED CELL DISTRIBUTION WIDTH 14.2 % (11.7-14.4)
--- NOTE | 2019-10-10 05:14 | NUR ---
Stool specimen sent to lab for analysis.
[2019-10-10 05:33] LABS: ANION GAP 9.5 mmol/L (8-16); CREATININE, SERUM 1.7 mg/dL (0.57-1.11); POTASSIUM 4.5 mmol/L (3.5-5.1)
--- NOTE | 2019-10-10 06:45 | NUR ---
Shift report given to oncoming nurse.
--- NOTE | 2019-10-10 07:00 | NUR ---
RCD PT AT BED PT IS ALERT AND ORIENTED RESTING ON BED IV PATENT BY SALINE FLUSH BED LOW AND LOCKED CALL LIGHT IN REACH
[2019-10-10] MEDS: INSULIN REGULAR, HUMAN 100 UNIT/1 ML 3ML VIAL SQ SCH ×4 (07:30→22:59)
[2019-10-10] MEDS: PANTOPRAZOLE SOD 40 MG TABEC PO SCH (07:30)
[2019-10-10] MEDS: SALMETEROL/FLUTICASONE 250/50 INH SCH (07:48)
[2019-10-10] MEDS: TIOTROPIUM 18 MCG INH POWDER INH SCH (07:48)
[2019-10-10] MEDS: ALBUTEROL/IPRATROPIUM 3 ML NEB NEB PRN ×3 (07:48→19:45)
[2019-10-10] MEDS: HYDROCODONE/APAP 10MG-325MG TAB PO PRN ×3 (08:40→21:38)
[2019-10-10] MEDS: APIXABAN 5 MG TABLET PO SCH ×2 (08:56→17:00)
[2019-10-10] MEDS: METOPROLOL TARTRATE 25 MG TAB PO SCH (08:56)
[2019-10-10] MEDS: BUMETANIDE 1 MG TAB PO SCH ×2 (08:56→21:47)
[2019-10-10] MEDS: DOXYCYCLINE HYCLATE TABLET 100 MG TAB PO SCH (08:57)
[2019-10-10] MEDS: MULTIVITAMINS/MINERALS TAB PO SCH (08:57)
[2019-10-10] MEDS: ESTROGENS CONJUGATED 0.625 MG TAB PO SCH (08:57)
[2019-10-10] MEDS: CALCIUM CARBONATE 500 MG CHEWABLE TABS PO SCH ×2 (08:57→17:00)
[2019-10-10] MEDS: THEOPHYLLINE 300 MG TABSR PO SCH (08:57)
[2019-10-10] MEDS: PREDNISONE 10 MG TAB PO SCH (08:57)
[2019-10-10] MEDS: EZETIMIBE 10 MG TAB PO SCH (08:58)
[2019-10-10] MEDS: INSULIN GLARGINE 100 UNITS/ML VIAL SC SCH ×2 (08:58→17:00)
[2019-10-10] MEDS: NYSTATIN 100,000 UNITS/GM CRM 30GM TUBE TOP SCH ×2 (08:58→17:00)
[2019-10-10] MEDS: IRON SUCROSE 100 MG in SODIUM CHLORIDE 0.9% 100 ML 100 ML IV SCH (10:00)
--- NOTE | 2019-10-10 13:24 | NUR ---
PT SIGNED CHOICE FOR [facility] FILED IN CHOICE IN CHART, OBTAINED SIGNATURES FOR COVID ASSESSMENT FAXED CLINICALS COMPLETED RTF AND PUT WITH PACKET AT NURSES STATION.
--- NOTE | 2019-10-10 14:11 | Diagnostic Imaging Report ---
Chest, 1 view, 10/10/2019. History: Pulmonary edema. Comparison: 10/09/2019, 10/08/2019. Findings: The cardiomediastinal silhouette and pulmonary vasculature are prominent with hazy bilateral perihilar and bibasilar opacities and minimal blunting of the costophrenic sulci. There are no acute osseous or soft tissue abnormalities. Impression: Mild CHF without significant change. Signed by: Charles Rondon on 10/10/2019 2:07 PM
--- NOTE | 2019-10-10 18:51 | NUR ---
PT RESTING ON BED BED SIDE REPORT GIVEN TO ONCOMING NURSE
--- NOTE | 2019-10-10 19:00 | NUR ---
BEDSIDE SHIFT REPORT RECEIVED FROM DAY NURSE.PT IS ALERT AND ORIENTED X3. PT SITTING IN SEMI-FOWLERS POSITION IN BED WATCHING TV. O2 AT 4L PER N/C. RESPIRATIONS ARE EVEN AND UNLABORED. TELE ON. DENIES PAIN. 20 G WSL IN RT AC. UP TO BEDSIDE COMMODE. PT VOIDED 800 ML AND HAD MODERATE FORMED BM. PERICARE GIVEN BY NURSE. CALL LIGHT WITHIN REACH. BED IN LOW POSITION.
[2019-10-10] MEDS: ATORVASTATIN 40 MG TAB PO SCH (21:47)
[2019-10-10] MEDS: SERTRALINE HCL 100 MG TAB PO SCH (21:47)
[2019-10-10] MEDS ORDERED: SODIUM CHLORIDE 0.9% 250ML 250 ML ONE (23:11)
[2019-10-10] MEDS: DOXYCYCLINE 100MG/NS 100ML 100 ML IV SCH (23:14)
[2019-10-11 00:15] VITALS: BP 129/61
[2019-10-11 05:11] LABS: BASOPHILS # (AUTO) 0.1 (0.0-0.1); BASOPHILS % 0.6 % (0.0-1.0); EOSINOPHILS # (AUTO) 0.1 (0.0-0.4); EOSINOPHILS % 1.2 % (0.0-6.0); HEMATOCRIT 27.9 % (34.2-44.1); HEMOGLOBIN 8.2 g/dL (12.0-16.0); LYMPHOCYTES # (AUTO) 2.1 (1.0-3.2); LYMPHOCYTES % 20.7 % (18.0-39.1); MEAN CORPUSCULAR HGB CONC 29.4 g/dL (31-35); MEAN CORPUSCULAR VOLUME 98.6 fL (81-99); MONOCYTES # (AUTO) 0.9 (0.2-0.8); MONOCYTES % 8.4 % (4.4-11.3); NEUTROPHILS # (AUTO) 6.9 (2.1-6.9); NEUTROPHILS % 67.6 % (38.7-80.0); PLATELET COUNT 231 x10e3/uL (140-360); RED BLOOD COUNT 2.83 x10e6/uL (3.6-5.1); RED CELL DISTRIBUTION WIDTH 14.3 % (11.7-14.4)
[2019-10-11 05:36] LABS: ANION GAP 8.9 mmol/L (8-16); CREATININE, SERUM 1.62 mg/dL (0.57-1.11); MAGNESIUM 1.9 MG/DL (1.3-2.1); POTASSIUM 4.9 mmol/L (3.5-5.1)
[2019-10-11 06:11] VITALS: BP 134/61
[2019-10-11] MEDS: SALMETEROL/FLUTICASONE 250/50 INH SCH (07:23)
[2019-10-11] MEDS: ALBUTEROL/IPRATROPIUM 3 ML NEB NEB PRN (07:23)
[2019-10-11] MEDS: TIOTROPIUM 18 MCG INH POWDER INH SCH (07:23)
[2019-10-11] MEDS: INSULIN REGULAR, HUMAN 100 UNIT/1 ML 3ML VIAL SQ SCH ×2 (07:30→11:30)
[2019-10-11 08:26] VITALS: BP 121/56
[2019-10-11] MEDS: BUMETANIDE 1 MG TAB PO SCH (08:28)
[2019-10-11] MEDS: PREDNISONE 10 MG TAB PO SCH (08:28)
[2019-10-11] MEDS: PANTOPRAZOLE SOD 40 MG TABEC PO SCH (08:28)
[2019-10-11] MEDS: APIXABAN 5 MG TABLET PO SCH (08:28)
[2019-10-11] MEDS: MULTIVITAMINS/MINERALS TAB PO SCH (08:29)
[2019-10-11] MEDS: EZETIMIBE 10 MG TAB PO SCH (08:29)
[2019-10-11] MEDS: CALCIUM CARBONATE 500 MG CHEWABLE TABS PO SCH (08:29)
[2019-10-11] MEDS: THEOPHYLLINE 300 MG TABSR PO SCH (08:29)
[2019-10-11] MEDS: ESTROGENS CONJUGATED 0.625 MG TAB PO SCH (08:30)
[2019-10-11] MEDS: METOPROLOL TARTRATE 25 MG TAB PO SCH (08:30)
[2019-10-11] MEDS: DOXYCYCLINE 100MG/NS 100ML 100 ML IV SCH (08:31)
[2019-10-11] MEDS: INSULIN GLARGINE 100 UNITS/ML VIAL SC SCH (08:34)
[2019-10-11] MEDS: NYSTATIN 100,000 UNITS/GM CRM 30GM TUBE TOP SCH ×2 (09:00→11:42)
[2019-10-11 09:03] VITALS: BP 121/56
[2019-10-11] MEDS: IRON SUCROSE 100 MG in SODIUM CHLORIDE 0.9% 100 ML 100 ML IV SCH (10:44)
[2019-10-11] MEDS: HYDROCODONE/APAP 10MG-325MG TAB PO PRN (11:39)
--- NOTE | 2019-10-11 11:42 | NUR ---
PATIENT REFUSES NYSTATIN CR, STATES SHE HAS NO NEED FOR IT AT THIS TIME. STATES SHE USUALLY USES IT BENEATH BREASTS WHEN SHE HAS A RASH
[2019-10-11 12:29] VITALS: BP 118/57
--- NOTE | 2019-10-11 12:53 | NUR ---
REPORT CALLED TO [facility]. AMBULANCE TO BE ARRANGED. PATIENT WILL BE DISCHARGED
--- NOTE | 2019-10-11 12:56 | NUR ---
[facility] FACILITY DISCHARGE INFORMATION PATIENT HAS BEEN ACCEPTED TO: NAME: [facility] AD[address]ESS:[id number], [id number] ACCEPTING MD:MERISSA ROOM:[id number] NURSE CALL REPORT TO: [phone] IMM SIGNED AND OBTAINED (if applicable): IMM THE FOLLOWING DOCUMENTS MUST ACCOMPANY PATIENT FOR TRANSFER: COPIED CHART: CHART
--- NOTE | 2019-10-14 05:38 | Discharge Summary ---
ADMISSION DIAGNOSES: 1. Acute on chronic diastolic congestive heart failure with pulmonary edema. 2. Acute exacerbation of chronic obstructive pulmonary disease with oxygen dependent. 3. Acute kidney injury and chronic kidney disease 3. 4. Type 2 diabetes with chronic kidney disease 3. 5. Hypertension with chronic kidney disease 3 and chronic diastolic congestive heart failure. 6. Migraine headaches. 7. Chronic PAF. 8. Obstructive sleep apnea. 9. Anemia. 10. Hyperlipidemia. 11. Gastroesophageal reflux disease. 12. Super morbid obesity with a BMI of 53.1. DISCHARGE DIAGNOSES: 1. Acute on chronic diastolic congestive heart failure with pulmonary edema. 2. Acute exacerbation of chronic obstructive pulmonary disease with oxygen dependent. 3. Acute kidney injury and chronic kidney disease 3. 4. Type 2 diabetes with chronic kidney disease 3. 5. Hypertension with chronic kidney disease 3 and chronic diastolic congestive heart failure. 6. Migraine headaches. 7. Chronic PAF. 8. Obstructive sleep apnea. 9. Anemia. 10. Hyperlipidemia. 11. Gastroesophageal reflux disease. 12. Super morbid obesity with a BMI of 53.1. 13. Rule out bilateral lower extremity DVT, rule out PE, rule out bacteremia, rule out flu, and rule out GI bleed. HISTORY: Hypertension, type 2 diabetes, COPD, asthma, GERD, depression, hyperlipidemia, CKD-3, PAF, MEGAN, chronic diastolic CHF, pulmonary hypertension, migraine, back pain, mild PVD, right lower extremity DVT, BiPAP and oxygen use at home. SURGICAL HISTORY: Hysterectomy, T and A, ovarian cyst removal, left arm, left chest surgery, three d and C, cholecystectomy, tubal ligation, cyst removed under left eye. FAMILY HISTORY: The patient's mom and grandmother, sister, and grandfather had cancer. The patient's grandmother had a stroke. The patient's mom had diabetes. SOCIAL HISTORY: The patient admits to occasional alcohol use and tobacco use, but she quit smoking. HOSPITAL COURSE: A 59-year-old female, who presents with complaints of shortness of breath and bilateral lower extremity swelling for one week. She is oxygen dependant at home with 4 L/minute. She was recently at the [facility] and was unable to get nebulizer treatments for 3 weeks per her report. On admission, the patient was started on Lasix, which was then changed to Bumex. Pulmonology was consulted. She was started on meds, steroids, theophylline and doxycycline. Bilateral lower extremity venous Doppler was negative. Echo showed EF of 55%. V/Q scan was negative for PE. Chest x-ray showed cardiomegaly and pulmonary edema on admission. Followup chest x-ray showed mild cardiomegaly and pulmonary edema with small bilateral pleural effusion. After few days of the Bumex, the swelling is improving, although not back to baseline. She normally uses 4 L was currently on 5 L oxygen. Blood cultures were negative. Sputum cultures were negative. Flu swab was negative. Stool for blood was negative. Physical therapy recommended fpc placement, so the patient will be discharged to [facility]. She will continue doxycycline for five more days and Bumex to try to pull the fluid off. The patient understands discharge instructions and agrees to plan. Vital signs stable. The patient is afebrile. Dictated by Ayde Tao NP MD VANNA Cordero/MODL /[id number]
== END 2019-10-11 14:42 | DRG 291 ==
LOC: ER 02:15 → ERHOLD 06:03 → INTOOBSV 06:03 → MED/SURG 07:51 → MED/SURG2 16:04 → OBSVTOIN 10-10 10:51
PROVIDERS: ADMIT Internal Medicine; ATTEND Internal Medicine
DX: I13.0 Hypertensive heart and chronic kidney disease with heart failure and stage 1 through stage 4 chronic kidney disease, or unspecified chronic kidney disease (principal); I50.33 Acute on chronic diastolic (congestive) heart failure; N17.9 Acute kidney failure, unspecified; J44.1 Chronic obstructive pulmonary disease with (acute) exacerbation; J96.10 Chronic respiratory failure, unspecified whether with hypoxia or hypercapnia; N18.3 Chronic kidney disease, stage 3 (moderate); E11.22 Type 2 diabetes mellitus with diabetic chronic kidney disease; Z79.4 Long term (current) use of insulin; G43.909 Migraine, unspecified, not intractable, without status migrainosus; G47.33 Obstructive sleep apnea (adult) (pediatric); E66.01 Morbid (severe) obesity due to excess calories; Z68.36 Body mass index [BMI] 36.0-36.9, adult; I48.0 Paroxysmal atrial fibrillation; Z79.01 Long term (current) use of anticoagulants; E78.5 Hyperlipidemia, unspecified; Z99.81 Dependence on supplemental oxygen; E11.51 Type 2 diabetes mellitus with diabetic peripheral angiopathy without gangrene; Z95.5 Presence of coronary angioplasty implant and graft; Z87.891 Personal history of nicotine dependence
CPT/HCPCS: 36415; 36600; 71045; 71046; 78580; 80048; 80053; 80198; 82270; 82550; 82553; 82607; 82728; 82746; 82805; 82948; 83036; 83540; 83735; 83880; 84100; 84466; 84484; 85025; 85045; 87040; 87070; 87205; 87400; 93005; 93306; 93970; 94640; 96374; 97139; 99284; A9540; G0378; J1756; J1815; J1817; J1940; J2405; J7050; J7512

== ENCOUNTER 2019-10-12 12:52 | Inpatient (IN) | payer MEDICARE ==
[~2019-10-12] VITALS: Ht 157.5 cm; Wt 133.8 kg
[~2019-10-12 12:52] MED LIST changes: +ATORVASTATIN CA20 MG PO; +ELIQUIS5 MG PO; +EPIPEN IM; +METOPROLOL TART25 MG PO; +PREMARIN0.625 MG PO; +THEOPHYLLINE A200 MG PO; +ZOLOFT50 MG PO; +[UNRECOGNIZED DRUG - OTHER] TOP
[2019-10-12] MEDS ORDERED: METHYLPREDNISOLONE SOD SUCC 125 MG/2ML VIAL ONE (13:05)
[2019-10-12] MEDS ORDERED: IPRATROPIUM BROMIDE 0.02% 2.5 ML NEB ONE (13:06)
[2019-10-12] MEDS ORDERED: ALBUTEROL SULF 0.083% NEB SOLN 3 ML NEB ONE (13:06)
[2019-10-12] MEDS: AZITHROMYCIN 500MG/NS 250 ML 250 ML IV SCH (13:25)
[2019-10-12] MEDS ORDERED: ALBUTEROL SULF 0.083% NEB SOLN 3 ML NEB NEB STA (13:41)
[2019-10-12] MEDS ORDERED: IPRATROPIUM BROMIDE 0.02% 2.5 ML NEB NEB ONE (13:45)
[2019-10-12] MEDS ORDERED: METHYLPREDNISOLONE SOD SUCC 125 MG/2ML VIAL IV ONE (13:45)
[2019-10-12 14:00] LABS: BASOPHILS # (AUTO) 0.1 (0.0-0.1); BASOPHILS % 0.6 % (0.0-1.0); EOSINOPHILS # (AUTO) 0.3 (0.0-0.4); EOSINOPHILS % 2.5 % (0.0-6.0); HEMATOCRIT 28.3 % (34.2-44.1); HEMOGLOBIN 8.5 g/dL (12.0-16.0); LYMPHOCYTES # (AUTO) 1.7 (1.0-3.2); LYMPHOCYTES % 17.5 % (18.0-39.1); MEAN CORPUSCULAR HEMOGLOBIN 29.5 pg (28-32); MEAN CORPUSCULAR VOLUME 98.3 fL (81-99); MONOCYTES # (AUTO) 0.8 (0.2-0.8); MONOCYTES % 8.4 % (4.4-11.3); NEUTROPHILS % 70.1 % (38.7-80.0); PLATELET COUNT 223 x10e3/uL (140-360); RED BLOOD COUNT 2.88 x10e6/uL (3.6-5.1); RED CELL DISTRIBUTION WIDTH 14.6 % (11.7-14.4)
--- NOTE | 2019-10-12 14:06 | Diagnostic Imaging Report ---
EXAMINATION: CHEST SINGLE (PORTABLE) INDICATION: ^sob ^[id number] ^[id number] COMPARISON: 10/10/2019 FINDINGS: AP view TUBES and LINES: None. LUNGS: Lungs are well inflated. Worsening bilateral pulmonary edema. Bibasal atelectasis. PLEURA: Small bilateral pleural effusion, increased. No pneumothorax. HEART AND MEDIASTINUM: Marked enlargement of the cardiac silhouette is unchanged. Enlarged pulmonary arteries consistent with pulmonary hypertension. BONES AND SOFT TISSUES: No acute osseous lesion. Soft tissues are unremarkable. UPPER ABDOMEN: No free air under the diaphragm. IMPRESSION: Worsening bilateral pulmonary edema. Signed by: Dr. Jeannette Rivas M.D. on 10/12/2019 2:03 PM
[2019-10-12 14:14] LABS: INR 1.07; PARTIAL THROMBOPLASTIN TIME 33.7 seconds (23.8-35.5); PROTHROMBIN TIME 14.6 seconds (11.9-14.5)
[2019-10-12 14:23] LABS: ALBUMIN/GLOBULIN RATIO 0.9 (0.8-2.0); ANION GAP 11.1 mmol/L (8-16); CALCIUM 9.1 mg/dL (8.4-10.2); CREATININE, SERUM 1.62 mg/dL (0.57-1.11); POTASSIUM 4.1 mmol/L (3.5-5.1)
[2019-10-12 14:30] LABS: CREATINE KINASE MB 1.4 ng/mL (0-5.0)
[2019-10-12] MEDS: ALBUTEROL/IPRATROPIUM 3 ML NEB NEB SCH ×3 (15:00→23:35)
[2019-10-12] MEDS ORDERED: FUROSEMIDE INJ 10 MG/ML 4 ML VIAL IV ONE (15:00)
[2019-10-12] MEDS ORDERED: DEXTROSE 50% SYRINGE 50 ML IV PRN (15:30)
--- NOTE | 2019-10-12 15:51 | NUR ---
RESPIRATORY AT BEDSIDE OBTAINING BLOOD GAS
[2019-10-12 16:19] LABS: ABG HCO3 34 mmol/L (23-28); ABG PCO2 70 mmHg (41-51); ABG PH 7.29 (7.31-7.41)
--- NOTE | 2019-10-12 16:20 | NUR ---
PATIENT PLACED ON BIPAP 12/, RATE 26, 60%FIO2
[2019-10-12] MEDS ORDERED: DIAZEPAM 5 MG TAB PO PRN ×2 (17:30→20:15)
--- NOTE | 2019-10-12 18:31 | NUR ---
PUREWICK PLACED ON PATIENT
[2019-10-12] MEDS: INSULIN LISPRO 100 UNIT/1 ML 3ML VIAL SQ SCH ×2 (19:07→21:02)
--- NOTE | 2019-10-12 19:08 | NUR ---
Assumed patient care at this time. Patient on BIpap with no distress noted. VS stable. Will continue to monitor patient. Addendum: 10/12/19 at 1923 by ANJEL Mild distress noted*. Patient states she is breathing better on BiPap than when she arrived. Will continue to monitor patient closely.
--- NOTE | 2019-10-12 19:36 | NUR ---
RT called for repeat ABG.
--- NOTE | 2019-10-12 19:44 | NUR ---
Dr. Norris here to see patient.
[2019-10-12 19:48] LABS: CREATINE KINASE MB 1.5 ng/mL (0-5.0)
[2019-10-12 20:00] LABS: ABG HCO3 34 mmol/L (23-28); ABG PCO2 64 mmHg (41-51); ABG PH 7.33 (7.31-7.41)
--- NOTE | 2019-10-12 20:08 | NUR ---
Dr. Norris states patient to remain on BiPap at this time.
--- NOTE | 2019-10-12 20:30 | NUR ---
Patient moved to hospital bed at this time.
[2019-10-12] MEDS: FUROSEMIDE INJ 10 MG/ML 4 ML VIAL IV SCH (20:45)
[2019-10-12] MEDS: METHYLPREDNISOLONE SOD SUCC 40 MG/ML VIAL 1ML IV SCH (20:45)
[2019-10-12] MEDS: SERTRALINE HCL 50 MG TAB PO SCH (20:45)
[2019-10-12] MEDS: ATORVASTATIN 40 MG TAB PO SCH (20:45)
[2019-10-12] MEDS ORDERED: BUMETANIDE 1 MG TAB PO SCH (21:00)
--- NOTE | 2019-10-12 21:22 | NUR ---
Patient breathing better at this time and remains on BiPap. No significant distress noted. Will continue to monitor patient. Call light at bedside and bed low and locked.
--- NOTE | 2019-10-12 21:27 | Consultation ---
DATE OF CONSULTATION: Pulmonary Critical Care Consultation HISTORY OF PRESENT ILLNESS: The patient is a 59-year-old woman. She has a history of COPD, obesity-hypoventilation syndrome, and obstructive sleep apnea. She also has a history of hypertension, diabetes, and diastolic heart failure. She uses a trilogy home ventilator. She also has oxygen at home as well as nebulizers. She was recently hospitalized at [facility] with worsening dyspnea and acute exacerbation of her diastolic heart failure. She was discharged yesterday, but had more trouble breathing and had to return today. She denies any chest pain. She is not having any fevers or cough. PAST SURGICAL HISTORY: Status post cardiac stent 15 years ago. PAST MEDICAL HISTORY: 1. Diastolic heart failure. 2. Obstructive sleep apnea. 3. Chronic obstructive pulmonary disease. 4. Hypertension. 5. Diabetes. SOCIAL HISTORY: The patient was a prior smoker, but is not currently smoking. She is not a drinker. FAMILY HISTORY: Noncontributory. ALLERGIES: THE PATIENT IS ALLERGIC TO PENICILLIN AND SULFA. REVIEW OF SYSTEMS: The patient denies fevers. She is not having any headache. She does not have chest pain. She does have some dyspnea on exertion. She has no nausea or vomiting. She has no leg edema. She does not complain of focal neurological problems. PHYSICAL EXAMINATION: VITAL SIGNS: The blood pressure is 129/86 and the pulse is 94. Saturation is 98%. HEENT: Shows no facial swelling or erythema. CARDIAC: Reveals regular rate and rhythm with a normal S1 and S2. LUNGS: Auscultation of lungs reveals decreased breath sounds at the bases. There is no wheezing. ABDOMEN: Soft and nontender. There is no rebound or guarding. EXTREMITIES: Shows 1 to 2+ leg edema. NEUROLOGICAL: Shows no focal abnormalities. LABORATORY DATA: White blood cell count is 9.9 and hemoglobin is 8.5. The platelet count is 223. The BUN to creatinine ratio is 46 to 1.62. The other electrolytes are within normal limits and the BNP is 447. The blood gas is 7.29 with pCO2 of 70 and a bicarbonate of 34. RADIOGRAPHIC DATA: Chest x-ray shows bilateral infiltrate, suggestive of pulmonary edema. IMPRESSION: 1. Dpxiy-xp-btcscqk respiratory failure. 2. Zwipe-hz-jfrhmmn diastolic heart failure. 3. Obesity-hypoventilation syndrome. 4. Chronic obstructive pulmonary disease. 5. Diabetes. 6. Hypertension. 7. Atrial fibrillation. PLAN: 1. The patient will receive diuretics. 2. Continue BiPAP and monitor respiratory status. 3. Continue Solu-Medrol as well as bronchodilators. 4. Cardiology evaluation. 5. The patient is seen by Dr. Trent and Dr. Williamson in the clinic on a regular basis. I will contact them and they will assume care tomorrow. MD MELL Mendoza/MODL /[id number]
[2019-10-12] MEDS ORDERED: METHYLPREDNISOLONE SOD SUCC 125 MG/2ML VIAL IV SCH (22:00)
--- NOTE | 2019-10-13 01:11 | NUR ---
Patient resting with no distress noted. Will continue to monitor patient.
--- NOTE | 2019-10-13 04:17 | NUR ---
Patient continues to rest with no distress noted. RR even and unlabored with no distress noted. Will continue to monitor patient. Call light remains at bedside.
[2019-10-13] MEDS: ALBUTEROL/IPRATROPIUM 3 ML NEB NEB SCH ×6 (04:20→22:40)
[2019-10-13 04:22] LABS: BASOPHILS % 0.4 % (0.0-1.0); HEMATOCRIT 30.5 % (34.2-44.1); HEMOGLOBIN 9.3 g/dL (12.0-16.0); LYMPHOCYTES # (AUTO) 0.4 (1.0-3.2); LYMPHOCYTES % 6.7 % (18.0-39.1); MEAN CORPUSCULAR HEMOGLOBIN 29.5 pg (28-32); MEAN CORPUSCULAR HGB CONC 30.5 g/dL (31-35); MEAN CORPUSCULAR VOLUME 96.8 fL (81-99); MONOCYTES % 0.7 % (4.4-11.3); NEUTROPHILS # (AUTO) 5.1 (2.1-6.9); NEUTROPHILS % 91.1 % (38.7-80.0); PLATELET COUNT 240 x10e3/uL (140-360); RED BLOOD COUNT 3.15 x10e6/uL (3.6-5.1); RED CELL DISTRIBUTION WIDTH 14.5 % (11.7-14.4)
[2019-10-13 04:47] LABS: ALBUMIN 3.1 g/dL (3.5-5.0); ALBUMIN/GLOBULIN RATIO 0.8 (0.8-2.0); ANION GAP 12.8 mmol/L (8-16); CALCIUM 9.4 mg/dL (8.4-10.2); CREATININE, SERUM 1.61 mg/dL (0.57-1.11); POTASSIUM 4.8 mmol/L (3.5-5.1)
[2019-10-13 04:54] LABS: CREATINE KINASE MB 1.5 ng/mL (0-5.0)
[2019-10-13] MEDS ORDERED: SALMETEROL/FLUTICASONE 250/50 INH SCH (06:00)
[2019-10-13] MEDS ORDERED: TIOTROPIUM 18 MCG INH POWDER INH SCH (06:00)
--- NOTE | 2019-10-13 06:26 | NUR ---
Patient resting with no distress noted. RR even and unlabored at this time. Call light at bedside. Instructed to call if she needed assistance. Patient verbalized understanding.
--- NOTE | 2019-10-13 06:37 | NUR ---
Report to THANH Chow.
--- NOTE | 2019-10-13 07:15 | NUR ---
PATIENT RECEIVING BREATHING TX
--- NOTE | 2019-10-13 07:30 | NUR ---
PATIENT PLACED ON NRB TO EAT. TOLERATING
[2019-10-13] MEDS: INSULIN LISPRO 100 UNIT/1 ML 3ML VIAL SQ SCH ×4 (07:36→20:41)
[2019-10-13] MEDS: PANTOPRAZOLE SOD 40 MG TABEC PO SCH ×2 (07:36→11:30)
--- NOTE | 2019-10-13 07:37 | NUR ---
PATIENT SWITCHED FROM BIPAP TO NRB WHILE SITTING UP EATING BREAKFAST
--- NOTE | 2019-10-13 08:11 | NUR ---
CALLED PHARMACY TO OBTAIN PATIENTS 9 AM MEDICATIONS. SPOKE WITH TRACY
[2019-10-13] MEDS: SALMETEROL/FLUTICASONE 250/50 INH SCH (08:30)
[2019-10-13] MEDS: TIOTROPIUM 18 MCG INH POWDER INH SCH (08:30)
--- NOTE | 2019-10-13 08:41 | NUR ---
PATIENT PLACED ON 50% NRB
--- NOTE | 2019-10-13 08:49 | Diagnostic Imaging Report ---
EXAMINATION: CHEST SINGLE (PORTABLE) INDICATION: Bilateral infiltrates COMPARISON: 10/11 FINDINGS: AP view TUBES and LINES: None. LUNGS: No significant change in bilateral pulmonary edema. Bibasilar patchy airspace disease, atelectasis versus consolidation. PLEURA: Small bilateral pleural effusion, increased. No pneumothorax. HEART AND MEDIASTINUM: Marked enlargement of the cardiac silhouette is unchanged. Enlarged pulmonary arteries consistent with pulmonary hypertension. BONES AND SOFT TISSUES: No acute osseous lesion. Soft tissues are unremarkable. UPPER ABDOMEN: No free air under the diaphragm. IMPRESSION: Stable bilateral pulmonary edema. Bibasilar patchy densities may represent atelectasis or superimposed infection proper clinical setting. Signed by: Dr. Rodrigo Holley M.D. on 10/13/2019 8:46 AM
[2019-10-13] MEDS: METHYLPREDNISOLONE SOD SUCC 40 MG/ML VIAL 1ML IV SCH ×2 (09:00→20:38)
[2019-10-13] MEDS: APIXABAN 5 MG TABLET PO SCH ×2 (09:00→17:03)
[2019-10-13] MEDS: FUROSEMIDE INJ 10 MG/ML 4 ML VIAL IV SCH ×2 (09:00→20:38)
[2019-10-13] MEDS: METOPROLOL TARTRATE 25 MG TAB PO SCH (09:00)
[2019-10-13] MEDS: EZETIMIBE 10 MG TAB PO SCH (09:00)
[2019-10-13] MEDS: ESTROGENS CONJUGATED 0.625 MG TAB PO SCH (09:00)
[2019-10-13] MEDS: INSULIN GLARGINE 100 UNITS/ML VIAL SC SCH ×2 (09:00→20:40)
--- NOTE | 2019-10-13 09:15 | NUR ---
PATIENT HAD SOFT BROWN STOOL W/URINE. CHANGED DRAW PAD, CLEANED PATIENT. REPLACED PUREWICK
[2019-10-13 10:01] LABS: ABG HCO3 34 mmol/L (23-28); ABG PCO2 58 mmHg (41-51); ABG PH 7.38 (7.31-7.41)
--- NOTE | 2019-10-13 11:00 | NUR ---
DR. ACOSTA AT BEDSIDE EVALUATING PATIENT
[2019-10-13] MEDS: ONDANSETRON HCL INJ 2MG/ML 2ML 2 MG/ML VIAL IV PRN (11:13)
--- NOTE | 2019-10-13 12:04 | NUR ---
PATIENT SITTING UP EATING LUNCH
[2019-10-13] MEDS: AZITHROMYCIN 500MG/NS 250 ML 250 ML IV SCH (14:00)
--- NOTE | 2019-10-13 15:37 | NUR ---
PT ARRIVED FROM ED DEPT ON HOSPITAL BED, PT WAS CONNECTED TO 10L VENTI MASK, BIPAP AT BEDSIDE, PT HAS PUREWICK CATHETER IN PLACE AND CONNECTED TO SUCTION, INITAL ASSESSMENT COMPLETED, CALL LIGHT IN REACH, ALL BELONGINGS PLACED WITHIN REACH OF PATIENT, PT DID SAY THAT SHE WAS STILL NAUSEATED, EMESIS BAG WAS GIVEN TO PATIENT.
[2019-10-13 15:55] VITALS: BP 132/61
[2019-10-13 16:14] VITALS: BP 132/61
[2019-10-13] MEDS: HYDROCODONE/APAP 10MG-325MG TAB PO PRN (17:57)
[2019-10-13 19:28] VITALS: BP 130/63
[2019-10-13] MEDS: SERTRALINE HCL 50 MG TAB PO SCH (20:38)
[2019-10-13] MEDS: ATORVASTATIN 40 MG TAB PO SCH (20:38)
[2019-10-14] VITALS (8 sets, daily range): BP systolic 130–150; BP diastolic 54–76
[2019-10-14] MEDS: ALBUTEROL/IPRATROPIUM 3 ML NEB NEB SCH ×6 (01:28→23:55)
[2019-10-14 05:41] LABS: BASOPHILS % 0.1 % (0.0-1.0); HEMATOCRIT 29.9 % (34.2-44.1); HEMOGLOBIN 9.3 g/dL (12.0-16.0); LYMPHOCYTES # (AUTO) 0.9 (1.0-3.2); LYMPHOCYTES % 8.9 % (18.0-39.1); MEAN CORPUSCULAR HEMOGLOBIN 30.2 pg (28-32); MEAN CORPUSCULAR HGB CONC 31.1 g/dL (31-35); MEAN CORPUSCULAR VOLUME 97.1 fL (81-99); MONOCYTES # (AUTO) 0.5 (0.2-0.8); MONOCYTES % 5.4 % (4.4-11.3); NEUTROPHILS # (AUTO) 8.4 (2.1-6.9); NEUTROPHILS % 84.9 % (38.7-80.0); PLATELET COUNT 232 x10e3/uL (140-360); RED BLOOD COUNT 3.08 x10e6/uL (3.6-5.1); RED CELL DISTRIBUTION WIDTH 14.7 % (11.7-14.4)
[2019-10-14 06:07] LABS: ANION GAP 14.6 mmol/L (8-16); CALCIUM 9.3 mg/dL (8.4-10.2); CREATININE, SERUM 1.86 mg/dL (0.57-1.11); MAGNESIUM 1.8 MG/DL (1.3-2.1); POTASSIUM 4.6 mmol/L (3.5-5.1)
[2019-10-14] MEDS: INSULIN LISPRO 100 UNIT/1 ML 3ML VIAL SQ SCH ×4 (07:45→21:00)
[2019-10-14] MEDS: INSULIN GLARGINE 100 UNITS/ML VIAL SC SCH ×2 (07:45→22:00)
[2019-10-14] MEDS: METHYLPREDNISOLONE SOD SUCC 40 MG/ML VIAL 1ML IV SCH (08:16)
[2019-10-14] MEDS: FUROSEMIDE INJ 10 MG/ML 4 ML VIAL IV SCH ×2 (08:16→22:00)
[2019-10-14] MEDS: ONDANSETRON HCL INJ 2MG/ML 2ML 2 MG/ML VIAL IV PRN (08:16)
[2019-10-14] MEDS: EZETIMIBE 10 MG TAB PO SCH (08:16)
[2019-10-14] MEDS: APIXABAN 5 MG TABLET PO SCH ×2 (08:16→17:30)
[2019-10-14] MEDS: METOPROLOL TARTRATE 25 MG TAB PO SCH (08:16)
[2019-10-14] MEDS: ESTROGENS CONJUGATED 0.625 MG TAB PO SCH (08:16)
[2019-10-14] MEDS: HYDROCODONE/APAP 10MG-325MG TAB PO PRN (08:16)
--- NOTE | 2019-10-14 08:22 | NUR ---
Nutrition Screen Note RD Recommendation for Physician: -Consider 2 gm Na, 1800 calorie carb controlled diet, FR per MD. Plan of Care: RD following, monitoring for tolerance and adequacy. Education provided. Nutrition reason for involvement: (diagnosis- CHF) Primary Diagnose(s): CHF, COPD PMH: 1. Diastolic heart failure. 2. Obstructive sleep apnea. 3. Chronic obstructive pulmonary disease. 4. Hypertension. 5. Diabetes. Ht: 62 in Wt: 292 lb BMI: 53.4 kg/m2 IBW: [address] Assessment: (10/13) 59 YOF admitted for CHF with PMH listed above. The pt was seen resting in bed, pt is on NC. She reported her appetite has been so so. She denied any weight loss and reported she has had weight gain d/t fluid. Pt reported she was dealing with some N/V, denied C/D/chewing or swallowing issues (except a dry throat). She denied food allergies as well. Pt accepted education regarding the low Na diet and DM diet. Pt verbalized understanding and had no further questions or concerns. Pt is on lasix and zofran. LBM: 10/12. POC GM: 183-216. Per EMR, pt has been consuming 100% of her meals so far. Chart reviewed. Labs and meds reviewed. Will continue to monitor. Current Diet: 1800 calorie carb controlled diet, 1200 ml FR Malnutrition Evaluation (10/13) The patient does not meet criteria for a specified degree of malnutrition at this time. Will re-evaluate at follow-up as appropriate. Diet Education Needs Assessment: Diet education indicated, pt accepted. Diet Adequacy: (Meeting calorie needs, Meeting protein needs Learner(s): pt Barriers: none Cultural/Language Modifications: none Readiness: acceptance Method: discussion, handout Topics: Low Na Diet, DM diet Understanding/Compliance: verbalized understanding, anticipate fair compliance Nutrition Care Level: low Signed: Sara Berry, RD, LD
[2019-10-14 09:36] LABS: CHOL/HDL RATIO 2.7 (3.0-3.6)
[2019-10-14 09:57] LABS: FREE THYROXINE INDEX 3.8289 (1.4-3.8); THYROID STIMULATING HORMONE 0.439 uIU/mL (0.350-4.940)
[2019-10-14] MEDS ORDERED: PROMETHAZINE 25MG/ NS 50ML (IV) IV PRN (10:30)
--- NOTE | 2019-10-14 10:54 | Consultation ---
DATE OF CONSULTATION: Cardiology Consult HISTORY OF PRESENT ILLNESS: Za Jose is a 59-year-old female with primary history of hypertension, diastolic heart failure, paroxysmal atrial fibrillation (on Eliquis), obesity, thyroid disease, hyperlipidemia, COPD (on [facility] home ventilator), who was just recently admitted for CHF exacerbation, now readmitted complaining of worsening shortness of breath. The patient also reports for occasional chest pressure, especially every time when she experiences shortness of breath. Chest pressure describes as squeezing. The patient also endorsed that her last normal heart catheterization was 20 years ago. The patient denies any fever or chills. MEDICAL HISTORY: Includes as mentioned above, hypertension, diastolic heart failure, paroxysmal atrial fibrillation, COPD, hyperlipidemia, thyroid disease. SOCIAL HISTORY: The patient quit smoking about 5 years ago. No alcohol use or abuse or illicit drug use. ALLERGIES: THE PATIENT IS ALLERGIC TO PENICILLIN AND SULFA. PHYSICAL EXAMINATION: VITAL SIGNS: Blood pressure 144/66, pulse is 89, respiratory rate is 22, 94% on 4 L nasal cannula. GENERAL APPEARANCE: The patient is well-developed, obese, in no acute distress. HEENT: Head normocephalic, atraumatic. Eyes, pupils equally round, reactive to light, and accommodation. Sclerae are nonicteric. Ears are normal. Oral cavity, mucosa is moist. Throat is clear. NECK AND THYROID: Supple. Full range of motion. No cervical lymphadenopathy. SKIN: Warm and dry. No suspicious lesion. HEART: Regular rate and rhythm. S1 and S2 are normal. No murmurs heard. LUNGS: Diminished to lower lobes and fine crackles noted bilaterally. ABDOMEN: Obese, soft, nontender, nondistended. Bowel sounds are present and normal. EXTREMITIES: No clubbing, no cyanosis, but it is +2 edema bilaterally. NEUROLOGIC: Nonfocal. Motor strength normal of the upper and lower extremities. Sensory exam is intact. IMPRESSION AND PLAN: The patient is a 59-year-old, admitted concerning for [id number] diastolic heart failure exacerbation. Admitting BNP is 447, normal sinus rhythm on the EKG with PVCs. 1. Telemetry monitoring. Monitor hemodynamics. 2. Diurese with IV Lasix and monitor intake and output and replace electrolytes as needed. 3. Repeat echocardiogram. 4. Cardiac diet, daily weights, fluid restriction, check lipid panel, and thyroid panel. 5. Continue medical management for chronic obstructive pulmonary disease exacerbation. Further recommendation will follow according to the patient's clinical course. Thank you for this consultation. Dictated by Maritza An NP MD JACKIE Allen/MARÍA /[id number]
[2019-10-14] MEDS: TIOTROPIUM 18 MCG INH POWDER INH SCH (11:00)
[2019-10-14] MEDS: SALMETEROL/FLUTICASONE 250/50 INH SCH (11:00)
[2019-10-14] MEDS: METOCLOPRAMIDE HCL 10 MG TAB PO SCH ×3 (11:43→22:00)
--- NOTE | 2019-10-14 12:27 | Diagnostic Imaging Report ---
EXAMINATION: CHEST SINGLE (PORTABLE) INDICATION: CHF COMPARISON: Chest radiograph 10/13/2019 FINDINGS: LINES/TUBES:EKG leads overlie the chest. LUNGS:The lung volumes are low. Unchanged bibasilar airspace opacities. There is perihilar fullness and indistinctness of the pulmonary vasculature. PLEURA:Unchanged small bilateral pleural effusions. No pneumothorax. MEDIASTINUM:The cardiomediastinal silhouette appears unchanged in size and shape. BONES/SOFT TISSUES:No acute osseous injury. ABDOMEN:No free air under the diaphragm. IMPRESSION: No significant interval change. Signed by: John James MD on 10/14/2019 12:24 PM
--- NOTE | 2019-10-14 14:54 | Diagnostic Imaging Report ---
EXAM: Right Upper Quadrant Abdominal Ultrasound INDICATION: ^nausea, vomiting, r/o stones ^[id number] ^[id number] COMPARISON: None. TECHNIQUE: Transverse and longitudinal images of the upper abdomen were obtained. The technologist reports a technically limited study due to patient body habitus. FINDINGS: Liver: Size: 16.8 cm in the right midclavicular line, mildly enlarged Appearance: Increased echogenicity, smooth contour Mass: No focal masses Gallbladder: Stones/Sludge: Multiple echogenic gallstones and sludge Wall: 0.3 cm, upper limit of normal Appearance: Contracted. No pericholecystic fluid or hydrops. Sonographic Gardner's Sign: Negative Bile Ducts: Intrahepatic Ducts: No dilatation Extrahepatic Ducts: Common bile duct measures 0.3 cm, no dilatation Pancreas: Not identified due to overlying bowel gas and patient body habitus Right Kidney: Size: 10.3 x 5.5 x 5.5 cm Echogenicity: Normal Parenchymal thickness: Normal Collecting System: No hydronephrosis Stone: None Cyst/Mass: None Vessels: Aorta and IVC are poorly visualized due to overlying bowel gas and patient body habitus Free Fluid: No ascites or pleural effusion IMPRESSION: 1. Mild hepatomegaly with fatty infiltration of the liver. 2. Cholelithiasis without other sonographic evidence of acute cholecystitis. Signed by: Alvarado Morejon MD on 10/14/2019 2:51 PM
[2019-10-14] MEDS: AZITHROMYCIN 500MG/NS 250 ML 250 ML IV SCH (16:10)
[2019-10-14] MEDS: SERTRALINE HCL 50 MG TAB PO SCH (22:00)
[2019-10-14] MEDS: ATORVASTATIN 40 MG TAB PO SCH (22:00)
[2019-10-15] VITALS (8 sets, daily range): BP systolic 115–143; BP diastolic 61–73
[2019-10-15] MEDS: ALBUTEROL/IPRATROPIUM 3 ML NEB NEB SCH ×5 (03:55→20:55)
[2019-10-15 06:01] LABS: BASOPHILS % 0.3 % (0.0-1.0); EOSINOPHILS # (AUTO) 0.2 (0.0-0.4); EOSINOPHILS % 1.3 % (0.0-6.0); HEMATOCRIT 33.4 % (34.2-44.1); HEMOGLOBIN 9.8 g/dL (12.0-16.0); LYMPHOCYTES # (AUTO) 3.3 (1.0-3.2); LYMPHOCYTES % 27.7 % (18.0-39.1); MEAN CORPUSCULAR HGB CONC 29.3 g/dL (31-35); MEAN CORPUSCULAR VOLUME 98.8 fL (81-99); MONOCYTES # (AUTO) 1.1 (0.2-0.8); MONOCYTES % 9.3 % (4.4-11.3); NEUTROPHILS # (AUTO) 7.2 (2.1-6.9); NEUTROPHILS % 60.8 % (38.7-80.0); PLATELET COUNT 238 x10e3/uL (140-360); RED BLOOD COUNT 3.38 x10e6/uL (3.6-5.1); RED CELL DISTRIBUTION WIDTH 14.7 % (11.7-14.4)
[2019-10-15] MEDS: SALMETEROL/FLUTICASONE 250/50 INH SCH (06:11)
[2019-10-15] MEDS: TIOTROPIUM 18 MCG INH POWDER INH SCH (06:11)
[2019-10-15 06:36] LABS: ALBUMIN 3.2 g/dL (3.5-5.0); ALBUMIN/GLOBULIN RATIO 0.9 (0.8-2.0); ANION GAP 11.8 mmol/L (8-16); CALCIUM 9.1 mg/dL (8.4-10.2); CREATININE, SERUM 1.77 mg/dL (0.57-1.11); MAGNESIUM 1.9 MG/DL (1.3-2.1); POTASSIUM 3.8 mmol/L (3.5-5.1)
[2019-10-15] MEDS: INSULIN LISPRO 100 UNIT/1 ML 3ML VIAL SQ SCH ×4 (07:30→21:00)
[2019-10-15] MEDS: FUROSEMIDE INJ 10 MG/ML 4 ML VIAL IV SCH ×2 (08:20→21:00)
[2019-10-15] MEDS: METOCLOPRAMIDE HCL 10 MG TAB PO SCH ×4 (08:20→21:00)
[2019-10-15] MEDS: METOPROLOL TARTRATE 25 MG TAB PO SCH (08:20)
[2019-10-15] MEDS: EZETIMIBE 10 MG TAB PO SCH (08:20)
[2019-10-15] MEDS: APIXABAN 5 MG TABLET PO SCH ×2 (08:20→16:35)
[2019-10-15] MEDS: PANTOPRAZOLE SOD 40 MG TABEC PO SCH (08:20)
[2019-10-15] MEDS: ESTROGENS CONJUGATED 0.625 MG TAB PO SCH (08:20)
[2019-10-15] MEDS: ONDANSETRON HCL INJ 2MG/ML 2ML 2 MG/ML VIAL IV PRN (08:50)
[2019-10-15] MEDS: INSULIN GLARGINE 100 UNITS/ML VIAL SC SCH ×2 (09:00→21:00)
--- NOTE | 2019-10-15 09:58 | Consultation ---
DATE OF CONSULTATION: 10/15/2019 CHIEF COMPLAINT: Nausea. HISTORY OF PRESENT ILLNESS: Thin 59-year-old female, admitted for shortness of breath secondary to exacerbation of COPD. The patient is complaining of nausea. During hospitalization was found to have gallstone. No vomiting. No fever or chills. PAST MEDICAL HISTORY: As mentioned positive for COPD with metabolic syndrome of hypertension, diabetes, hyperlipidemia. She also has heart failure with atrial fibrillation, morbid obesity, and sleep apnea. SOCIAL HABITS: The patient denied current smoking or alcohol use. REVIEW OF SYSTEMS: Mild shortness of breath. No chest pain. No fever. ALLERGIES: SHE ALLERGIC TO PENICILLIN AND SULFA. PHYSICAL EXAMINATION: VITAL SIGNS: Stable. She is afebrile. GENERAL: She is awake and alert, in no apparent distress. HEENT: Sclerae anicteric. NECK: Supple. LUNGS: Clear. No wheezes. HEART: Regular rate and rhythm. ABDOMEN: Soft. Minimal guarding in the epigastrium. No rebound tenderness. EXTREMITIES: No ankle edema. LABORATORY DATA: White cell count is 12, hemoglobin of 9.8, and platelet count 238. Creatinine of 1.7. Liver function tests unremarkable. Lipase 36. Ultrasound show gallstones with no wall thickening. ASSESSMENT: Gallstone with nausea. PLAN: HIDA scan to rule out cystic duct obstruction. We will follow the patient with you. MD LISSY Bishop/JAL /[id number]
--- NOTE | 2019-10-15 12:39 | Diagnostic Imaging Report ---
EXAM: CT Chest WITHOUT intravenous contrast 10/15/2019 10:45 AM INDICATION: Pneumonia COMPARISON: Chest radiograph 10/14/2019 TECHNIQUE: Chest was scanned utilizing a multidetector helical scanner from the lung apex through the level of the adrenal glands without administration of IV contrast. Coronal and sagittal reformations were obtained. Routine protocol was performed. IV CONTRAST: None RADIATION DOSE: Total DLP: 911 mGy*cm. Dose modulation, iterative reconstruction, and/or weight based adjustment of the mA/kV was utilized to reduce the radiation dose to as low as reasonably achievable. COMPLICATIONS: None FINDINGS: LINES/ TUBES: None. LUNGS AND AIRWAYS: The central airways are patent. Dependent right lower lobe segmental atelectasis. Left lower lobe dependent subsegmental atelectasis. No focal consolidation mild lower lobe predominant intralobular septal thickening consistent with mild pulmonary and her social edema. No suspicious pulmonary nodule. PLEURA: The pleural spaces are clear. HEART AND MEDIASTINUM: Bilateral hypodense thyroid nodules. The largest nodule measures up to 2.1 cm on the left. No supraclavicular, axillary, mediastinal, or hilar lymphadenopathy. Multichamber cardiomegaly. Small pericardial effusion. Athetotic calcifications involve the coronary arteries, thoracic aorta, and proximal great vessels. The main pulmonary artery is enlarged, measuring up to 3.9 cm maximum diameter. UPPER ABDOMEN: No acute findings. BONES: The visualized bony thorax is within normal limits. SOFT TISSUES: Unremarkable. IMPRESSION: Cardiomegaly and mild pulmonary interstitial edema. Bilateral dependent lower lobe subsegmental atelectasis. Enlargement of the main pulmonary artery can be seen with pulmonary arterial hypertension. Signed by: John James MD on 10/15/2019 12:35 PM
[2019-10-15] MEDS: AZITHROMYCIN 500MG/NS 250 ML 250 ML IV SCH (15:45)
--- NOTE | 2019-10-15 16:55 | Diagnostic Imaging Report ---
Hepatobiliary Scan with Gallbladder Ejection Fraction Clinical information: RUQ pain Report: Following intravenous administration of 6.6 millicuries of Tc-99m mebrofenin, dynamic images of the abdomen in the anterior projection were obtained through 46 minutes. Sincalide (CCK analog) 2.7 micrograms was administered intravenously over 30 minutes with additional imaging for determination of gallbladder ejection fraction. Perfusion to the liver is normal. Extraction of tracer from the blood pool by the liver parenchyma is normal. Tracer is seen promptly within the biliary tract. The gallbladder begins to fill by 20 minutes post-injection of tracer. Tracer is seen in the small bowel by 14 minutes. The gallbladder ejection fraction with administration of sincalide is 96% (normal greater than 40%). Impression: 1. Filling of the gallbladder excludes the diagnosis of acute cystic duct obstruction/acute cholecystitis. 2. Normal gallbladder ejection fraction of 96% does not support the clinical diagnosis of chronic cholecystitis/gallbladder dyskinesia. Signed by: Dr. Trisha Mon M.D. on 10/15/2019 4:52 PM
[2019-10-15] MEDS: HYDROCODONE/APAP 10MG-325MG TAB PO PRN (18:04)
[2019-10-15] MEDS: ATORVASTATIN 40 MG TAB PO SCH (21:00)
[2019-10-15] MEDS: SERTRALINE HCL 50 MG TAB PO SCH (21:00)
[2019-10-16] VITALS (8 sets, daily range): BP systolic 122–136; BP diastolic 49–77
[2019-10-16] MEDS: ALBUTEROL/IPRATROPIUM 3 ML NEB NEB SCH ×7 (00:15→22:05)
[2019-10-16] MEDS: SALMETEROL/FLUTICASONE 250/50 INH SCH (06:30)
[2019-10-16] MEDS: TIOTROPIUM 18 MCG INH POWDER INH SCH (06:30)
--- NOTE | 2019-10-16 06:30 | NUR ---
Assisted out of bed to a recliner, vitals stable, no complaints raised
[2019-10-16] MEDS: INSULIN LISPRO 100 UNIT/1 ML 3ML VIAL SQ SCH ×4 (07:30→20:29)
[2019-10-16] MEDS: ESTROGENS CONJUGATED 0.625 MG TAB PO SCH (08:38)
[2019-10-16] MEDS: INSULIN GLARGINE 100 UNITS/ML VIAL SC SCH ×2 (08:38→20:41)
[2019-10-16] MEDS: EZETIMIBE 10 MG TAB PO SCH (08:38)
[2019-10-16] MEDS: FUROSEMIDE INJ 10 MG/ML 4 ML VIAL IV SCH ×2 (08:38→21:15)
[2019-10-16] MEDS: PANTOPRAZOLE SOD 40 MG TABEC PO SCH (08:38)
[2019-10-16] MEDS: METOPROLOL TARTRATE 25 MG TAB PO SCH (08:38)
[2019-10-16] MEDS: METOCLOPRAMIDE HCL 10 MG TAB PO SCH ×4 (08:38→21:15)
[2019-10-16] MEDS: APIXABAN 5 MG TABLET PO SCH ×2 (08:38→16:58)
[2019-10-16] MEDS: AZITHROMYCIN 500MG/NS 250 ML 250 ML IV SCH (14:39)
[2019-10-16] MEDS: SERTRALINE HCL 50 MG TAB PO SCH (21:15)
[2019-10-16] MEDS: ATORVASTATIN 40 MG TAB PO SCH (21:15)
[2019-10-16] MEDS: HYDROCODONE/APAP 10MG-325MG TAB PO PRN (21:22)
[2019-10-17 00:08] VITALS: BP 124/51
[2019-10-17] MEDS: ALBUTEROL/IPRATROPIUM 3 ML NEB NEB SCH ×2 (03:55→08:57)
[2019-10-17 04:21] VITALS: BP 147/68
[2019-10-17 05:52] LABS: ANION GAP 10.9 mmol/L (8-16); CALCIUM 8.6 mg/dL (8.4-10.2); CREATININE, SERUM 1.74 mg/dL (0.57-1.11); MAGNESIUM 1.8 MG/DL (1.3-2.1); PHOSPHORUS 3.2 MG/DL (2.3-4.7); POTASSIUM 3.9 mmol/L (3.5-5.1)
[2019-10-17 06:33] LABS: BASOPHILS % 0.3 % (0.0-1.0); EOSINOPHILS # (AUTO) 0.4 (0.0-0.4); HEMATOCRIT 30.3 % (34.2-44.1); HEMOGLOBIN 9.2 g/dL (12.0-16.0); LYMPHOCYTES # (AUTO) 2.2 (1.0-3.2); LYMPHOCYTES % 23.7 % (18.0-39.1); MEAN CORPUSCULAR HEMOGLOBIN 29.6 pg (28-32); MEAN CORPUSCULAR HGB CONC 30.4 g/dL (31-35); MEAN CORPUSCULAR VOLUME 97.4 fL (81-99); MONOCYTES # (AUTO) 0.7 (0.2-0.8); NEUTROPHILS # (AUTO) 6.1 (2.1-6.9); NEUTROPHILS % 64.7 % (38.7-80.0); PLATELET COUNT 178 x10e3/uL (140-360); RED BLOOD COUNT 3.11 x10e6/uL (3.6-5.1); RED CELL DISTRIBUTION WIDTH 14.5 % (11.7-14.4)
[2019-10-17 07:18] VITALS: BP 147/68
[2019-10-17] MEDS ORDERED: Albuterol/Ipratropium Nebulize NEB (08:16)
[2019-10-17] MEDS ORDERED: METOCLOPRAMIDE10 MG PO (08:16)
[2019-10-17 08:54] VITALS: BP 147/68
[2019-10-17] MEDS: FUROSEMIDE INJ 10 MG/ML 4 ML VIAL IV SCH (08:54)
[2019-10-17] MEDS: APIXABAN 5 MG TABLET PO SCH (08:54)
[2019-10-17] MEDS: EZETIMIBE 10 MG TAB PO SCH (08:54)
[2019-10-17] MEDS: INSULIN GLARGINE 100 UNITS/ML VIAL SC SCH (08:54)
[2019-10-17] MEDS: INSULIN LISPRO 100 UNIT/1 ML 3ML VIAL SQ SCH (08:54)
[2019-10-17] MEDS: PANTOPRAZOLE SOD 40 MG TABEC PO SCH (08:54)
[2019-10-17] MEDS: METOPROLOL TARTRATE 25 MG TAB PO SCH (08:54)
[2019-10-17] MEDS: METOCLOPRAMIDE HCL 10 MG TAB PO SCH ×2 (08:54→11:30)
[2019-10-17] MEDS: ESTROGENS CONJUGATED 0.625 MG TAB PO SCH (08:54)
--- NOTE | 2019-10-17 09:11 | Discharge Summary ---
CHIEF COMPLAINT: Shortness of breath. PERTINENT HISTORY AND PHYSICAL FINDINGS: Ms. Jose is a 59-year-old female, who admitted with complaints of shortness of breath from [facility]. She had been discharged to the [facility] facility on the Monday prior to admission here and was unable to get her medications and breathing treatments, so she said she "freaked out" and began having trouble breathing. PAST MEDICAL HISTORY: Includes COPD, type 2 diabetes mellitus, chronic kidney disease stage 3, paroxysmal atrial fibrillation, obstructive sleep apnea, hypertension, chronic diastolic congestive heart failure, home oxygen use at 4 L/minute, oxygen dependent and noninvasive ventilator use, and CPAP use at night. PAST SURGICAL HISTORY: Includes ovarian cyst removal, tonsillectomy, D and C x3, hysterectomy. FAMILY HISTORY: Mother had diabetes mellitus as well as cancer. Grandfather and grandmother and sister also had cancer. Her grandmother had a cerebrovascular accident. SOCIAL HISTORY: Noncontributory. ALLERGIES: RIVAROXABAN, NAPROXEN, SULFA, PENICILLIN. ADMITTING DIAGNOSES: 1. Yjnyu-qh-mtkmmwd respiratory failure secondary to congestive heart failure. 2. Amsbb-sz-dsfcrqo diastolic congestive heart failure. 3. Chronic obstructive pulmonary disease. 4. Type 2 diabetes mellitus with chronic kidney disease stage 3. 5. Chronic kidney disease stage 3. 6. Hypertension with chronic kidney disease stage 3 and chronic diastolic congestive heart failure. 7. Paroxysmal atrial fibrillation. DISCHARGE DIAGNOSES: 1. Dqjon-mf-mvighrt respiratory failure due to congestive heart failure. 2. Dhloz-wu-wywyjqz diastolic congestive heart failure. 3. Chronic obstructive pulmonary disease without exacerbation. 4. Controlled type 2 diabetes mellitus with chronic kidney disease stage 3. 5. Controlled hypertension with chronic kidney disease stage 3 and diastolic congestive heart failure. 6. Chronic kidney disease stage 3. 7. Acute nausea and vomiting. 8. Paroxysmal atrial fibrillation. HOSPITAL COURSE: During her stay, the patient received azithromycin antibiotic and DuoNeb breathing treatments. She gradually improved. She was on fluid restriction, Lasix 40 mg every 12 hours. Her home dose of oxygen continued at 4 L/minute via nasal cannula. Chest x-ray results were monitored. She remained on Spiriva and Advair. Regarding the nausea and vomiting, she was placed on Reglan and will go home with a prescription for metoclopramide 10 mg before meals and at bedtime. I will send her home with DuoNeb prescription as well to ensure she does not run out. Continue Eliquis for paroxysmal atrial fibrillation. Consults included Dr. Antonio Trent with Pulmonology, Dr. Antonio Sanders with Surgery, Dr. Toby Norris with Pulmonology, and Dr. Antonio Norris with Cardiology. On admission; WBC was 9.91, hemoglobin 8.5, hematocrit 28.3, and platelets 223. ABG showed pH 7.29, pCO2 of 70, PO2 , HCO3 of 34, oxygen saturation 97%. Base excess of 7, and FiO2 of 32%. PT 14.6, INR 1.07, PTT 33.7. Sodium 143, potassium 4.1, chloride 102, CO2 of 34, BUN 46, creatinine 1.62, estimated GFR 33, glucose 168, calcium 9.1. LFTs were within normal limits. B-type natriuretic peptide was 447.2. Chest x-ray on October 11 showed worsening bilateral pulmonary edema. She had abdominal ultrasound on October 13, which showed mild hepatomegaly with fatty infiltration of the liver. Cholelithiasis without other sonographic evidence of acute cholecystitis. She subsequently underwent a HIDA scan on October 14, which showed filling of the gallbladder, excludes the diagnosis of acute cystic duct obstruction/acute cholecystitis. Normal gallbladder with ejection fraction of 96%, did not support the clinical diagnosis of chronic cholecystitis/gallbladder dyskinesia. She had a CT of the chest on October 14, which according to the interpreting radiologist showed cardiomegaly with mild pulmonary interstitial edema, bilateral dependent lower lobe subsegmental atelectasis, enlargement of the main pulmonary artery with pulmonary arterial hypertension. Cardiac enzymes were within normal limits. Her lipase was 13. On the day of discharge; sodium 142, potassium 3.9, chloride 98, CO2 of 37, BUN 41, creatinine 1.74, GFR 30, glucose 167, fingerstick blood glucose level 147, calcium 8.6, phosphorus 3.2, magnesium 1.8. WBC 9.45, hemoglobin 9.2, hematocrit 30.3, and platelets 178. Per telemetry, normal sinus rhythm with a heart rate of 77. Maximum temperature was 99.0, heart rate 76, blood pressure 147/68, respirations 17, oxygen saturation 100% on 4 L of oxygen via nasal cannula. Generally clear to auscultation with some diminished bases. Otherwise, physical exam unremarkable. Denies any current chills. She does have occasional dizziness. No nausea or vomiting today. The patient will discharge home. Continue ADA diet. Activity level as tolerated. Follow up with PCP, Dr. Matias, in 1-2 weeks. Follow up with consults as directed. Dictated by Herb Diez NP MD APRIL CorderoP/JAL /[id number]
[2019-10-17] MEDS: SALMETEROL/FLUTICASONE 250/50 INH SCH (09:30)
[2019-10-17] MEDS: TIOTROPIUM 18 MCG INH POWDER INH SCH (09:30)
[2019-10-17 11:29] VITALS: BP 136/74
== END 2019-10-17 12:40 | disposition home or self-care (01) | DRG 291 ==
LOC: ER 12:52 → ERHOLD 14:50 → IMCU 10-13 16:22
PROVIDERS: ADMIT Internal Medicine; ATTEND Internal Medicine
PROC: 5A09357 Assistance with Respiratory Ventilation, Less than 24 Consecutive Hours, Continuous Positive Airway Pressure (ICD-10-PCS; principal; 2019-10-13)
DX: I13.0 Hypertensive heart and chronic kidney disease with heart failure and stage 1 through stage 4 chronic kidney disease, or unspecified chronic kidney disease (principal); I50.33 Acute on chronic diastolic (congestive) heart failure; J96.22 Acute and chronic respiratory failure with hypercapnia; J96.21 Acute and chronic respiratory failure with hypoxia; Z68.43 Body mass index [BMI] 50.0-59.9, adult; E66.2 Morbid (severe) obesity with alveolar hypoventilation; E11.22 Type 2 diabetes mellitus with diabetic chronic kidney disease; N18.3 Chronic kidney disease, stage 3 (moderate); K21.9 Gastro-esophageal reflux disease without esophagitis; J44.9 Chronic obstructive pulmonary disease, unspecified; E78.5 Hyperlipidemia, unspecified; Z87.891 Personal history of nicotine dependence; Z90.710 Acquired absence of both cervix and uterus; Z98.890 Other specified postprocedural states; Z88.0 Allergy status to penicillin; Z88.2 Allergy status to sulfonamides; Z88.8 Allergy status to other drugs, medicaments and biological substances; Z82.49 Family history of ischemic heart disease and other diseases of the circulatory system; I48.0 Paroxysmal atrial fibrillation; Z99.81 Dependence on supplemental oxygen; Z79.01 Long term (current) use of anticoagulants; K80.80 Other cholelithiasis without obstruction; Z83.3 Family history of diabetes mellitus; Z80.9 Family history of malignant neoplasm, unspecified; Z82.3 Family history of stroke; Z79.4 Long term (current) use of insulin
CPT/HCPCS: 36415; 36600; 71045; 71250; 76705; 78227; 80048; 80053; 80061; 82550; 82553; 82805; 82948; 83690; 83735; 83880; 84100; 84436; 84443; 84479; 84484; 85025; 85610; 85730; 93005; 94640; 94660; 96372; 97139; 99285; A9537; J0456; J1815; J1940; J2405; J2550; J2920; J2930

== ENCOUNTER 2019-11-18 12:21 | Inpatient (IN) | payer MEDICARE, OTHER ==
[~2019-11-18] VITALS: Ht 157.5 cm; Wt 133.4 kg
[~2019-11-18 12:21] MED LIST changes: +METOCLOPRAMIDE10 MG PO
[2019-11-18] MEDS ORDERED: ALBUTEROL SULF 0.083% NEB SOLN 3 ML NEB NEB STA (12:37)
[2019-11-18] MEDS ORDERED: METHYLPREDNISOLONE SOD SUCC 125 MG/2ML VIAL IV STA (12:37)
[2019-11-18] MEDS ORDERED: LEVOFLOXACIN 750MG/D5W 150ML 150 ML IV STA (12:37)
[2019-11-18 13:23] LABS: BASOPHILS # (AUTO) 0.1 (0.0-0.1); BASOPHILS % 0.7 % (0.0-1.0); EOSINOPHILS # (AUTO) 0.3 (0.0-0.4); EOSINOPHILS % 2.1 % (0.0-6.0); HEMATOCRIT 32.7 % (34.2-44.1); HEMOGLOBIN 10.2 g/dL (12.0-16.0); LYMPHOCYTES # (AUTO) 2.6 (1.0-3.2); LYMPHOCYTES % 16.1 % (18.0-39.1); MEAN CORPUSCULAR HEMOGLOBIN 28.7 pg (28-32); MEAN CORPUSCULAR HGB CONC 31.2 g/dL (31-35); MEAN CORPUSCULAR VOLUME 92.1 fL (81-99); MONOCYTES % 6.5 % (4.4-11.3); NEUTROPHILS # (AUTO) 11.6 (2.1-6.9); NEUTROPHILS % 72.7 % (38.7-80.0); PLATELET COUNT 293 x10e3/uL (140-360); RED BLOOD COUNT 3.55 x10e6/uL (3.6-5.1); RED CELL DISTRIBUTION WIDTH 13.9 % (11.7-14.4)
[2019-11-18 13:44] LABS: ALBUMIN 3.3 g/dL (3.5-5.0); ALBUMIN/GLOBULIN RATIO 0.9 (0.8-2.0); ANION GAP 12.3 mmol/L (8-16); CALCIUM 9.8 mg/dL (8.4-10.2); CREATININE, SERUM 1.92 mg/dL (0.57-1.11); POTASSIUM 4.3 mmol/L (3.5-5.1)
[2019-11-18 13:50] LABS: BILIRUBIN,URINE NEGATIVE (NEGATIVE); CLARITY,URINE CLEAR (CLEAR); COLOR,URINE YELLOW (YELLOW); KETONES,URINE NEGATIVE (NEGATIVE); LEUKOCYTE ESTERASE ,URINE NEGATIVE (NEGATIVE); NITRITE,URINE NEGATIVE (NEGATIVE); PROTEIN,URINE DIPSTICK 1+ (NEGATIVE); URINE UROBILINOGEN 0.2 mg/dL (0.2 - 1)
[2019-11-18 13:53] LABS: CREATINE KINASE MB 7.3 ng/mL (0-5.0)
[2019-11-18 14:09] LABS: BACTERIA,URINE FEW /HPF; EPITHELIAL CELLS,URINE FEW /LPF; RBC,URINE 0-5 /HPF (0-5); WBC,URINE (MAN) 0-5 /HPF (0-5); YEAST,URINE FEW
--- NOTE | 2019-11-18 14:09 | Diagnostic Imaging Report ---
EXAMINATION: CHEST SINGLE (PORTABLE) INDICATION: Shortness of breath COMPARISON: Chest radiograph 10/14/2019, chest CT 10/15/2019 FINDINGS: LINES/TUBES:None LUNGS:The lungs are moderately inflated. There is perihilar fullness and indistinctness of the pulmonary vasculature. Right basilar patchy opacities. PLEURA:No pleural effusion or pneumothorax. MEDIASTINUM:Cardiomediastinal silhouette is stably enlarged. BONES/SOFT TISSUES:No acute osseous injury. ABDOMEN:No free air under the diaphragm. IMPRESSION: Cardiomegaly and pulmonary interstitial edema. Right basilar patchy opacities, most likely subsegmental atelectasis. Signed by: John James MD on 11/18/2019 2:06 PM
--- NOTE | 2019-11-18 17:00 | NUR ---
Pt received from ER at this time. Pt is aox3 and able to verbalize needs. Pt states she started to feel short of breath at home, despite having oxygen on. Pt is able to ambulate. Denies any pain at this time. Dr. Matias AL[place] FARMER here to see patient.
[2019-11-18] MEDS ORDERED: ALBUTEROL/IPRATROPIUM 3 ML NEB NEB PRN ×2 (17:15→22:00)
[2019-11-18] MEDS ORDERED: SUMATRIPTAN SUCCINATE 25 MG TAB PO PRN (17:15)
[2019-11-18] MEDS ORDERED: DIAZEPAM 5 MG TAB PO PRN (17:15)
[2019-11-18] MEDS ORDERED: ONDANSETRON HCL INJ 2MG/ML 2ML 2 MG/ML VIAL IV PRN (17:30)
[2019-11-18] MEDS ORDERED: ACETAMINOPHEN 325 MG TAB PO PRN (17:30)
[2019-11-18] MEDS ORDERED: HYDRALAZINE HCL 20 MG/ML VIAL IV PRN (17:30)
[2019-11-18] MEDS ORDERED: POLYETHYLENE GLYCOL 3350 17 GM PACK PO PRN (17:30)
[2019-11-18 17:57] VITALS: BP 117/70
[2019-11-18 18:09] VITALS: BP 117/70
[2019-11-18] MEDS ORDERED: DEXTROSE 50% SYRINGE 50 ML IV PRN (18:30)
[2019-11-18] MEDS: ACETYLCYSTEINE 200 MG/ML 4ML VIAL INH SCH (19:50)
[2019-11-18] MEDS: ALBUTEROL/IPRATROPIUM 3 ML NEB NEB SCH ×2 (19:50→23:50)
[2019-11-18 20:00] VITALS: BP 133/73
--- NOTE | 2019-11-18 20:00 | NUR ---
Recieved pt in bed sitting up at side of bed. No c/o at this time no s/sx distress noted. Pt a/o x3. Call light and personal items within reach. Will cont to mon
[2019-11-18] MEDS ORDERED: SODIUM CHLORIDE 0.9% 250ML 250 ML ONE (20:07)
[2019-11-18 21:00] VITALS: BP 133/73
[2019-11-18] MEDS: AZITHROMYCIN 500MG/NS 250 ML 250 ML IV SCH (21:00)
[2019-11-18] MEDS: METOCLOPRAMIDE HCL 10 MG TAB PO SCH (21:00)
[2019-11-18] MEDS: SERTRALINE HCL 100 MG TAB PO SCH (21:00)
[2019-11-18] MEDS: HYDROCODONE/APAP 10MG-325MG TAB PO PRN (21:00)
[2019-11-18] MEDS: ATORVASTATIN 40 MG TAB PO SCH (21:00)
[2019-11-18] MEDS: INSULIN REGULAR, HUMAN 100 UNIT/1 ML 3ML VIAL SQ SCH (21:40)
[2019-11-18] MEDS: INSULIN GLARGINE 100 UNITS/ML VIAL SQ SCH (21:40)
[2019-11-18] MEDS: APIXABAN 5 MG TABLET PO SCH (21:41)
[2019-11-18] MEDS ORDERED: EPINEPHRINE 0.3 MG/0.3 ML PEN.INJCTR IM PRN (22:15)
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
[2019-11-19] VITALS (8 sets, daily range): BP systolic 115–146; BP diastolic 54–78
[2019-11-19] MEDS: ACETYLCYSTEINE 200 MG/ML 4ML VIAL INH SCH ×4 (00:02→19:25)
[2019-11-19] MEDS: ALBUTEROL/IPRATROPIUM 3 ML NEB NEB SCH ×6 (03:30→23:30)
[2019-11-19 06:47] LABS: BASOPHILS # (AUTO) 0.1 (0.0-0.1); BASOPHILS % 0.4 % (0.0-1.0); HEMATOCRIT 33.2 % (34.2-44.1); HEMOGLOBIN 10.3 g/dL (12.0-16.0); LYMPHOCYTES # (AUTO) 0.6 (1.0-3.2); LYMPHOCYTES % 4.9 % (18.0-39.1); MEAN CORPUSCULAR HEMOGLOBIN 28.8 pg (28-32); MEAN CORPUSCULAR VOLUME 92.7 fL (81-99); MONOCYTES # (AUTO) 0.3 (0.2-0.8); MONOCYTES % 2.4 % (4.4-11.3); NEUTROPHILS # (AUTO) 10.8 (2.1-6.9); NEUTROPHILS % 90.3 % (38.7-80.0); PLATELET COUNT 292 x10e3/uL (140-360); RED BLOOD COUNT 3.58 x10e6/uL (3.6-5.1); RED CELL DISTRIBUTION WIDTH 13.9 % (11.7-14.4)
[2019-11-19] MEDS: SALMETEROL/FLUTICASONE 250/50 INH SCH (07:05)
[2019-11-19] MEDS: TIOTROPIUM 18 MCG INH POWDER INH SCH (07:05)
[2019-11-19 07:30] LABS: ALBUMIN 3.2 g/dL (3.5-5.0); ALBUMIN/GLOBULIN RATIO 0.9 (0.8-2.0); ANION GAP 16.7 mmol/L (8-16); CALCIUM 9.3 mg/dL (8.4-10.2); CREATININE, SERUM 1.89 mg/dL (0.57-1.11); POTASSIUM 4.7 mmol/L (3.5-5.1)
[2019-11-19 07:54] LABS: CREATINE KINASE MB 7.3 ng/mL (0-5.0)
[2019-11-19 08:04] LABS: MAGNESIUM 2.2 MG/DL (1.3-2.1); PHOSPHORUS 4.5 MG/DL (2.3-4.7)
[2019-11-19] MEDS: METOPROLOL TARTRATE 25 MG TAB PO SCH (08:36)
[2019-11-19] MEDS: PANTOPRAZOLE SOD 40 MG TABEC PO SCH (08:36)
[2019-11-19] MEDS: MULTIVITAMINS/MINERALS TAB PO SCH (08:37)
[2019-11-19] MEDS: GUAIFENESIN 600MG/DEXTROMETHORPHAN 30MG TABSR PO SCH ×2 (08:37→17:09)
[2019-11-19] MEDS: METOCLOPRAMIDE HCL 10 MG TAB PO SCH ×3 (08:37→20:38)
[2019-11-19] MEDS: EZETIMIBE 10 MG TAB PO SCH (08:38)
[2019-11-19] MEDS: CALCIUM CARBONATE 500 MG CHEWABLE TABS PO SCH ×2 (08:38→17:09)
[2019-11-19] MEDS: HYDROCODONE/APAP 10MG-325MG TAB PO PRN ×3 (08:38→20:38)
[2019-11-19] MEDS: APIXABAN 5 MG TABLET PO SCH (08:41)
[2019-11-19] MEDS ORDERED: BUMETANIDE 1 MG TAB PO SCH (09:00)
[2019-11-19] MEDS: INSULIN GLARGINE 100 UNITS/ML VIAL SQ SCH ×2 (09:09→20:39)
[2019-11-19] MEDS: INSULIN REGULAR, HUMAN 100 UNIT/1 ML 3ML VIAL SQ SCH ×4 (09:10→20:39)
--- NOTE | 2019-11-19 09:34 | Consultation ---
DATE OF CONSULTATION: Pulmonary Consultation Patient of Dr. Matias and Dr. Antonio Norris. HISTORY OF PRESENT ILLNESS: Charming, but unfortunate 59-year-old woman with a history of diastolic heart failure, coronary artery disease, obesity, hypoventilation syndrome, on home mechanical ventilator support via face mask. She is admitted with swelling, shortness of breath and weight gain. She is reported to have been hypoxic at home. She has a history of gastroesophageal reflux and depression, chronic kidney disease, hypertension, diabetes, asthma, coronary artery disease with stent placed 15 years ago. ALLERGIES: PENICILLIN, SULFA, XARELTO, AND NAPROSYN. MEDICATIONS: Include: 1. Reglan. 2. Eliquis. 3. Lipitor. 4. Bumex. 5. Valium. 6. Premarin. 7. Zetia. 8. Advair. 9. Vicodin. 10. Insulin. 11. Metoprolol. 12. Protonix. 13. Zoloft. 14. Imitrex. 15. Theophylline. PAST SURGICAL HISTORY: She is on trilogy ventilator at home. She has had tubal ligation, oophorectomy. SOCIAL HISTORY: Quit smoking in 2017, smoked for approximately 50 years, a pack a day, according to record. FAMILY HISTORY: Positive for cancer, strokes and diabetes. PHYSICAL EXAMINATION: GENERAL: She is awake and alert, in no acute distress. Feels better. She was tolerating the Mucomyst, but does not particularly like it. She has had no sputum production since she has quit smoking. VITAL SIGNS: Temperature 97.9, pulse 92 and regular, respirations 20, blood pressure 146/69. She is on 4 L nasal oxygen. HEAD: Normocephalic, atraumatic. EYES: Extraocular movements intact. LUNGS: Bilateral rales. HEART: Regular rhythm. ABDOMEN: Obese. EXTREMITIES: Trace edema in legs. IMPRESSION: 1. Congestive heart failure. 2. Acute exacerbation of chronic obstructive pulmonary disease. 3. Obesity hypoventilation syndrome. 4. Anemia. 5. Chronic kidney disease. PLAN: Moderate dose steroids, bronchodilators, Levaquin, diuresis, nocturnal ventilation. Continue home medications. Continue anticoagulation. There is no obvious pneumonia on chest x-ray, but findings more consistent with a vascular congestion a large part. Thank you for this kind referral. MD BRIDGET Tinsley/MARÍA /[id number]
[2019-11-19 09:47] LABS: % IRON SATURATION 11 % (15-50); IRON 44 ug/dL (50-170); TOTAL IRON BINDING CAPACITY 389 ug/dL (261-478); TRANSFERRIN 278 mg/dL (180-382)
[2019-11-19] MEDS: ESTROGENS CONJUGATED 0.625 MG TAB PO SCH (09:53)
[2019-11-19] MEDS: PREDNISONE 20 MG TAB PO SCH (09:54)
[2019-11-19] MEDS: NYSTATIN 100,000 UNITS/GM CRM 30GM TUBE TOP SCH ×2 (09:54→17:09)
[2019-11-19] MEDS: THEOPHYLLINE 300 MG TABSR PO SCH (09:54)
--- NOTE | 2019-11-19 12:40 | Consultation ---
DATE OF CONSULTATION: 11/19/2019 Cardiology Consultation CONSULTING PHYSICIAN: Ricco Sosa MD, Interventional Cardiology REASON FOR CONSULTATION: Shortness of breath. HISTORY OF PRESENT ILLNESS: A 59-year-old woman with history of morbid obesity, COPD, type 2 diabetes mellitus, CKD stage 3, paroxysmal atrial fibrillation on Eliquis, obstructive sleep apnea, chronic diastolic heart failure and iron deficiency anemia, reflux, presents with complaints of worsening shortness of breath. She is somnolent today. Denies any chest discomfort. Symptoms have been worsening over the last several days. She denies any syncope. She denies any recent palpitations. REVIEW OF SYSTEMS: A 12-system review negative except for as noted above. ALLERGIES: RIVAROXABAN, NAPROXEN, SULFA, PENICILLIN PER EMR. SOCIAL HISTORY: No alcohol or drugs. FAMILY HISTORY: Noncontributory. PHYSICAL EXAMINATION: VITAL SIGNS: Temperature 97.6, heart rate of 109, blood pressure 146/69, respiratory rate 20, O2 saturation 98%. BMI 53.7. GENERAL: Chronically ill-appearing, dishevelled, alert, awake, however, somnolent. NECK: JVD distended. CHEST: Decreased breath sounds in bilateral bases and scattered rhonchi. CARDIOVASCULAR: Regular rate and rhythm. Normal S1, S2. ABDOMEN: Soft, morbidly obese. EXTREMITIES: With 1+ edema. CARDIOVASCULAR MEDICATIONS: Reviewed. Started on Bumex 1 mg daily, metoprolol tartrate 25 mg daily, Eliquis 5 mg every 12 hours, ezetimibe 10 mg daily, atorvastatin 40 mg at bedtime. STUDIES: Reviewed. Sodium 140, potassium 4.7, chloride 99, bicarbonate 29, BUN 59, creatinine 1.89, glucose 222. White blood cells 11.9, hemoglobin 10.3, platelets 292. AST 14, ALT 17, and alkaline phosphatase 105, total bilirubin 0.2. Troponin I of 0.023 and then 0.064. BNP elevated at 456. Chest x-ray with cardiomegaly and interstitial pulmonary edema with bibasilar opacities. ASSESSMENT AND PLAN: A 59-year-old woman presents with acute on chronic diastolic heart failure, history of chronic obstructive pulmonary disease, diabetes type 2, chronic kidney disease stage 3, paroxysmal atrial fibrillation, obstructive sleep apnea, morbid obesity, iron deficiency anemic, gastroesophageal reflux disease. Recommend, 1. Continue diuretics. 2. Continue antihypertensives. 3. Continue anticoagulation. 4. Continue statin therapy. 5. Low-sodium diet. Thank you for the opportunity to participate in the care of this patient. MD PERLA Cantrell/MARÍA /[id number]
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
--- NOTE | 2019-11-19 14:58 | Diagnostic Imaging Report ---
EXAM: US RENAL RETROPERITONEAL COMP DATE: 11/19/2019 1:41 PM INDICATION: Acute kidney injury COMPARISON: Limited abdominal ultrasound from 10/14/2019 FINDINGS: The right kidney is normal in size measuring 10.6 x 5.5 x 4.6 cm with cortical thickness of 1.4 cm. Cortical echogenicity is within normal limits. There is no evidence for solid renal mass, hydronephrosis, or shadowing calculi. The left kidney is normal in size measuring 9.8 x 5.9 x 4.1 cm with cortical thickness of 1.5 cm. Cortical echogenicity is within normal limits. There is no evidence for solid renal mass, hydronephrosis, or shadowing calculi. The urinary bladder is only partially distended. Prevoid volume is 57 cc. IMPRESSION: Unremarkable sonographic appearance of the kidneys. Signed by: Dr. Jun Cardona MD on 11/19/2019 2:54 PM
[2019-11-19] MEDS ORDERED: LEVOFLOXACIN 250MG/D5W 50ML 50 ML IV SCH (15:00)
[2019-11-19] MEDS: BUMETANIDE INJ 0.25MG/ML 4ML VIAL IV SCH ×2 (17:06→20:38)
--- NOTE | 2019-11-19 19:00 | NUR ---
Received bedside report from day nurse. Patient awake and sitting up in bed, no s/s of distress at this time. Bed locked and in low position, side rails up, call light placed within reach. Patient instructed to call for assistance if needed, verbalized understanding. All safety measures in place. Will continue to monitor.
[2019-11-19] MEDS: SERTRALINE HCL 100 MG TAB PO SCH (20:38)
[2019-11-19] MEDS: ATORVASTATIN 40 MG TAB PO SCH (20:38)
[2019-11-20] VITALS: BP 133/60
[2019-11-20 00:22] LABS: CREATININE,URINE RANDOM 57.58 mg/dL (47-110); TOTAL PROTEIN, URINE 42.1 mg/dL (1-14)
[2019-11-20] MEDS: ACETYLCYSTEINE 200 MG/ML 4ML VIAL INH SCH (01:00)
[2019-11-20] MEDS: ALBUTEROL/IPRATROPIUM 3 ML NEB NEB SCH ×4 (03:25→14:40)
[2019-11-20 04:00] VITALS: BP 129/69
[2019-11-20] MEDS: HYDROCODONE/APAP 10MG-325MG TAB PO PRN ×2 (04:30→14:05)
[2019-11-20] MEDS: BUMETANIDE INJ 0.25MG/ML 4ML VIAL IV SCH (05:45)
[2019-11-20 05:56] LABS: BASOPHILS # (AUTO) 0.1 (0.0-0.1); BASOPHILS % 0.5 % (0.0-1.0); EOSINOPHILS # (AUTO) 0.1 (0.0-0.4); EOSINOPHILS % 0.5 % (0.0-6.0); HEMATOCRIT 32.8 % (34.2-44.1); HEMOGLOBIN 9.8 g/dL (12.0-16.0); LYMPHOCYTES # (AUTO) 2.5 (1.0-3.2); LYMPHOCYTES % 16.2 % (18.0-39.1); MEAN CORPUSCULAR HEMOGLOBIN 28.7 pg (28-32); MEAN CORPUSCULAR HGB CONC 29.9 g/dL (31-35); MEAN CORPUSCULAR VOLUME 96.2 fL (81-99); MONOCYTES # (AUTO) 0.9 (0.2-0.8); MONOCYTES % 5.6 % (4.4-11.3); NEUTROPHILS # (AUTO) 11.2 (2.1-6.9); NEUTROPHILS % 73.6 % (38.7-80.0); PLATELET COUNT 249 x10e3/uL (140-360); RED BLOOD COUNT 3.41 x10e6/uL (3.6-5.1); RED CELL DISTRIBUTION WIDTH 14.2 % (11.7-14.4)
[2019-11-20 06:33] LABS: ALBUMIN 3.1 g/dL (3.5-5.0); ALBUMIN/GLOBULIN RATIO 0.9 (0.8-2.0); ANION GAP 11.6 mmol/L (8-16); CALCIUM 9.2 mg/dL (8.4-10.2); CREATININE, SERUM 2.08 mg/dL (0.57-1.11); POTASSIUM 4.6 mmol/L (3.5-5.1)
[2019-11-20] MEDS: SALMETEROL/FLUTICASONE 250/50 INH SCH (06:55)
[2019-11-20] MEDS: TIOTROPIUM 18 MCG INH POWDER INH SCH (06:55)
--- NOTE | 2019-11-20 07:06 | NUR ---
Bedside report given to day nurse. Patient in stable condition, no s/s of distress at this time. All safety measures in place.
[2019-11-20 07:15] VITALS: BP 134/64
--- NOTE | 2019-11-20 07:15 | NUR ---
PATIENT IN BED RESTING WITH HEAD OF BED ELEVATED, NO DISTRESS NOTED. O2 IN PLACE VIA N/C. BED IN LOWER POSITION, CALL LIGHT AT REACH.
[2019-11-20] MEDS: INSULIN REGULAR, HUMAN 100 UNIT/1 ML 3ML VIAL SQ SCH ×2 (07:30→11:30)
[2019-11-20 07:43] VITALS: BP 134/64
[2019-11-20] MEDS: PANTOPRAZOLE SOD 40 MG TABEC PO SCH (08:00)
[2019-11-20] MEDS: THEOPHYLLINE 300 MG TABSR PO SCH (09:11)
[2019-11-20] MEDS: APIXABAN 5 MG TABLET PO SCH (09:11)
[2019-11-20] MEDS: NYSTATIN 100,000 UNITS/GM CRM 30GM TUBE TOP SCH (09:11)
[2019-11-20] MEDS: PREDNISONE 20 MG TAB PO SCH (09:11)
[2019-11-20] MEDS: METOCLOPRAMIDE HCL 10 MG TAB PO SCH (09:11)
[2019-11-20] MEDS: GUAIFENESIN 600MG/DEXTROMETHORPHAN 30MG TABSR PO SCH (09:11)
[2019-11-20] MEDS: METOPROLOL TARTRATE 25 MG TAB PO SCH (09:11)
[2019-11-20] MEDS: EZETIMIBE 10 MG TAB PO SCH (09:11)
[2019-11-20] MEDS: CALCIUM CARBONATE 500 MG CHEWABLE TABS PO SCH (09:11)
[2019-11-20] MEDS: MULTIVITAMINS/MINERALS TAB PO SCH (09:11)
[2019-11-20] MEDS: INSULIN GLARGINE 100 UNITS/ML VIAL SQ SCH (09:13)
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
[2019-11-20] MEDS ORDERED: LEVAQUIN500 MG PO (10:10)
[2019-11-20] MEDS ORDERED: MUCINEX DM ER1 EACH PO (10:10)
[2019-11-20] MEDS ORDERED: BUMETANIDE1 MG PO (10:12)
[2019-11-20] MEDS ORDERED: PREDNISONE20 MG PO (10:16)
[2019-11-20] MEDS: ESTROGENS CONJUGATED 0.625 MG TAB PO SCH (11:20)
--- NOTE | 2019-11-20 11:23 | NUR ---
PATIENT SITTING UP IN BED RECEIVING NEB TREATMENT, NO DISTRESS NOTED. CALL LIGHT AT REACH.
--- NOTE | 2019-11-20 11:39 | NUR ---
ORDERS FOR HOME HEALTH CARE, NURSING HOME EVAL AND TREAT, HOME PT/OT EVAL AND TREAT, CHF PROGRAM CHOICE LETTER SIGNED FOR [facility] (ON SERVICE PREVIOUSLY) COPY OF CHOICE LETTER TO PT CM CALLED AND SPOKE WITH KAYLA AT [facility] CONFIRMED ADDRESS AND PHONE NUMBER WITH PT PH: [phone] FAX: [phone] CLINICALS FAXED; CONFIRMATION REC'D DC HOME TODAY
[2019-11-20 11:45] VITALS: BP 138/71
[2019-11-20] MEDS ORDERED: ALBUMIN 25% 12.5GM 0.25 GM/ML BTL IV SCH (12:00)
[2019-11-20] MEDS ORDERED: FUROSEMIDE INJ 10 MG/ML 4 ML VIAL IV SCH (12:00)
[2019-11-20] MEDS ORDERED: BUMETANIDE INJ 0.25MG/ML 4ML VIAL IV ONE (13:55)
[2019-11-20] MEDS ORDERED: LEVOFLOXACIN 250 MG TAB PO ONE (14:30)
--- NOTE | 2019-11-20 16:13 | NUR ---
Nutrition Screen Note RD Recommendation for Physician: -Continue current diet as ordered Plan of Care: RD following, monitoring for tolerance and adequacy Nutrition reason for involvement: Diagnosis- CHF Primary Diagnose(s): COPD, CHF PMH: COPD, type 2 diabetes mellitus, chronic kidney disease stage 3, paroxysmal atrial fibrillation, obstructive sleep apnea, chronic respiratory failure, hypertension, chronic diastolic congestive heart failure, morbid obesity, depression, GERD, and iron deficiency anemia Ht: 62 in Wt:294 lb BMI: 53.8 kg/m2 IBW: [address] Assessment: (11/20/19) Chart reviewed. Labs and meds reviewed. Pt is a 59 year old female admitted with COPD and CHF. Pt reports eating <50% of her meals; however, it is recorded that pt has been consuming 75-100% of meals from 11/18-11/19. Pt also mentioned she had gained weight due to fluid. Pt reports some nausea. Pt stated she already has information regarding diabetic and heart healthy diets, but was interested in diet education for CKD which was provided. Will continue to monitor. Current Diet: renal/1800 kcal diabetic diet with 1.5 L fluid restriction Malnutrition Evaluation (11/20/19) The patient does not meet criteria for a specified degree of malnutrition at this time. Will re-evaluate at follow-up as appropriate. Diet Education Needs Assessment: Diet education indicated, Pt was interested in diet education for CKD Learner(s): pt Barriers: no barriers identified Cultural/Language Modifications: no cultural/language modifications Readiness: eager Method: explanation/discussion/handout Topics: CKD diet Understanding/Compliance: pt verbalized understanding Nutrition Care Level: low Signed: India Wilkes, RD, LD
--- NOTE | 2019-11-20 17:00 | NUR ---
PATIENT DISCHARGED HOME. DISCHARGE INSTRUCTIONS, PRESCRIPTIONS, AND FOLLOW UP GIVEN TO PATIENT, SHE VERBALIZED UNDERSTANDING. IV TO RIGHT FOREARM REMOVED WITH TIP INTACT. ALL PERSONAL ITEMS TAKEN WITH PATIENT. LEFT UNIT PER WHEEL CHAIR TO FRONT LOBBY IN STABLE CONDITION.
--- NOTE | 2019-11-20 20:21 | Progress Note ---
DATE: Cardiology Progress Note SUBJECTIVE: Continues to complain of shortness of breath, however, slightly improved compared to yesterday. OBJECTIVE: VITAL SIGNS: Temperature 96.8, heart rate 92, blood pressure 134/63, respiratory rate 18, O2 saturation 91% on nasal cannula, BMI 53.7. GENERAL: In no acute distress. Alert. NECK: JVD distended. CHEST: Decreased breath sounds in bilateral bases. CARDIOVASCULAR: Regular rate and rhythm. Normal S1 and S2. ABDOMEN: Soft. Bowel sounds positive. EXTREMITIES: With 1+ edema both lower extremities. CARDIOVASCULAR MEDICATIONS: Reviewed. Eliquis 5 mg b.i.d., atorvastatin 40 mg at bedtime, metoprolol tartrate 25 mg daily. STUDIES: Reviewed. Sodium 142, potassium 4.6, creatinine 2.08. White blood cells 15.2, hemoglobin 9.8, platelets 249. AST 14, ALT 17, alkaline phosphatase 90. ASSESSMENT AND PLAN: A 59-year-old woman with: 1. Acute on chronic diastolic heart failure. 2. Chronic obstructive pulmonary disease. 3. Morbid obesity. 4. Type 2 diabetes mellitus. 5. Paroxysmal atrial fibrillation. RECOMMEND: 1. Uptitrate Bumex to 2 mg daily if okay with Nephrology. 2. Monitor renal function. 3. Monitor H and H. 4. Continue rest of cardiovascular medications for now. MD JoshiV/MODL /[id number]
--- NOTE | 2019-11-21 12:03 | Discharge Summary ---
ADMISSION DIAGNOSES: 1. Acute exacerbation of chronic obstructive pulmonary disease. 2. Acute on chronic systolic congestive heart failure. 3. Hyperlipidemia. 4. Type 2 diabetes. 5. Hypertension. 6. Gastroesophageal reflux disease. 7. Depression. DISCHARGE DIAGNOSES: 1. Acute exacerbation of chronic obstructive pulmonary disease. 2. Acute on chronic systolic congestive heart failure. 3. Hyperlipidemia. 4. Type 2 diabetes. 5. Hypertension. 6. Gastroesophageal reflux disease. 7. Depression. HOSPITAL COURSE: A 59-year-old female with frequent admissions due to COPD and CHF. She complains of low oxygen levels at home over the last 2 days. According to ER records, her SpO2 was 100% on the home dose of 4 L nasal cannula. It says she was recently given prescriptions for doxycycline and prednisone as well as Cipro, which she completed. She also says she has had poor urinary output and requesting for a Junior catheter to be placed, because she feels like she is not emptying her bladder. On admission, Carver virus was tested, which was negative. Chest x-ray showed cardiomegaly and pulmonary interstitial edema, right basilar patchy opacity, most likely subsegmental atelectasis. The patient has CKD 3 and her renal function appears at baseline, but per Nephrology recommendation, a renal ultrasound was ordered, which was normal. Blood cultures were negative. Postvoid residual was taken and the patient had 0 mL in the bladder, so Junior was not placed per patient's request. The patient appeared at baseline from admission, but continued to complain of shortness of breath. She was started on IV Bumex per Nephrology recommendation for a couple of days. On her admission, the BNP was barely over 400, which appears to be at her baseline as well. She uses noninvasive vent and 4 L nasal cannula at home at baseline. The patient was on 4 L nasal cannula with clear lung sounds for 2 days prior to discharge. The patient was informed that she was going to be going home and wanted to "bribe me with candy to spend another night in the hospital." I told her that if she was going to stay in the hospital, I needed a medical reason to keep her there and she seemed at baseline already for 2 days. I did discuss the case with Dr. Matias. The patient will follow up in [address] Matias is the primary care physician. The patient was also requesting a very specific full size hospital bed and a walker with padding and wanted to speak to Case Management about both of them. I explained her that she had to qualify and she does not qualify and Case Management explained that to her as well. Physical Therapy went to assess the patient. As she frequently admits to the hospital, we are aware that she is ambulatory, but due to hospitalization, she had to be re-evaluated. She acted as if she was too weak to walk with physical therapy, but since Physical Therapy had not left the unit yet, they saw her walking independently in her room after their evaluation where she said she could not walk. Again being told that she was going discharge home, she again asked me what she could do to stay in the hospital. She asked me if she started throwing up would I let her stay in the hospital again. I told her no, because I had seen her eat without any nausea, vomiting, or pain already. Physical therapy and DME were setup per Case Management and the patient will discharge home. She is again at baseline and has all necessary oxygen and DME available to her. Her son will pick her up and take her home. She will follow up with primary care, Dr. Hyde, and Dr. Trent in 1-2 weeks. The patient understands discharge instructions and agrees to plan. Vital signs stable. The patient afebrile. Dictated by Ayde Tao NP MD VANNA Cordero/MARÍA /[id number]
== END 2019-11-20 16:51 | disposition home or self-care (01) | DRG 291 ==
LOC: ER 12:21 → ERHOLD 14:24 → MED/SURG3 17:06 → OBSVTOIN 11-19 12:18
PROVIDERS: ADMIT Internal Medicine; ATTEND Internal Medicine
DX: I13.0 Hypertensive heart and chronic kidney disease with heart failure and stage 1 through stage 4 chronic kidney disease, or unspecified chronic kidney disease (principal); J96.21 Acute and chronic respiratory failure with hypoxia; I50.33 Acute on chronic diastolic (congestive) heart failure; J98.11 Atelectasis; J44.1 Chronic obstructive pulmonary disease with (acute) exacerbation; E66.2 Morbid (severe) obesity with alveolar hypoventilation; N17.9 Acute kidney failure, unspecified; J44.0 Chronic obstructive pulmonary disease with (acute) lower respiratory infection; Z68.43 Body mass index [BMI] 50.0-59.9, adult; N18.3 Chronic kidney disease, stage 3 (moderate); E11.22 Type 2 diabetes mellitus with diabetic chronic kidney disease; I48.0 Paroxysmal atrial fibrillation; E78.5 Hyperlipidemia, unspecified; F32.9 Major depressive disorder, single episode, unspecified; R33.9 Retention of urine, unspecified; R26.89 Other abnormalities of gait and mobility; K21.9 Gastro-esophageal reflux disease without esophagitis; I25.10 Atherosclerotic heart disease of native coronary artery without angina pectoris; E66.9 Obesity, unspecified; Z79.4 Long term (current) use of insulin; Z95.5 Presence of coronary angioplasty implant and graft; Z87.891 Personal history of nicotine dependence; Z82.3 Family history of stroke; Z80.9 Family history of malignant neoplasm, unspecified; Z83.3 Family history of diabetes mellitus; D50.9 Iron deficiency anemia, unspecified; J20.9 Acute bronchitis, unspecified; Z88.0 Allergy status to penicillin; Z88.2 Allergy status to sulfonamides; Z88.8 Allergy status to other drugs, medicaments and biological substances; Z79.01 Long term (current) use of anticoagulants; Z11.59 Encounter for screening for other viral diseases
CPT/HCPCS: 36415; 71045; 76770; 80053; 80198; 81001; 82550; 82553; 82570; 82948; 83540; 83735; 83880; 84100; 84156; 84466; 84484; 85025; 87040; 87635; 93005; 93306; 94640; 96372; 97139; 99284; G0378; J0456; J1815; J1817; J1956; J2930; J7050; J7512

== ENCOUNTER 2019-12-05 09:58 | Emergency (ER) | payer OTHER, MEDICARE ==
[~2019-12-05] VITALS: Ht 157.5 cm; Wt 133.4 kg
[~2019-12-05 09:58] MED LIST changes: +LEVAQUIN500 MG PO
[2019-12-05] MEDS ORDERED: ASPIRIN 81 MG CHEW TAB PO ONE (10:15)
--- NOTE | 2019-12-05 10:20 | NUR ---
PT DEMANDED TO BE TAKEN OUT OF VEHICLE. PT STOOD AND GOT INTO W/C COMPLETELY ON HER OWN. PT ALSO DEMANDED TO BE PUT ON HOSPITAL OXYGEN "OR IM NOT GETTING OUT OF MY CAR." PT ALSO DEMANDED MULTIPLE LUGGAGE CONTAINERS BE TAKEN OUT OF BACK SEAT AND CARRIED IN BY STAFF. ALL DEMANDS WERE MET. PT BROUGHT IMMEDIATELY INSIDE FOR EVAL AND SEEN IN CAR BY MD AND STAFF ON HER ARRIVAL. PT IN NO ACUTE DISTRESS. AAOX4.
--- OUTSIDE RECORDS SUMMARY | 2019-12-05 10:39 | XMS REPORT ---
Author Author [facility] t Organization [facility] Address [address] [facility] [address] [place] [address] Phone Unavailable Care Team Providers Care Hand Winder Name Role Phone MD JON CRAVEN MD PCP JON CRAVEN Attphyangelique Unavailable JON CRAVEN Admphyangelique Unavailable Payers Payer Name Policy Type Policy Number Effective Date Expiration Date S ource [employer] Medicare Complete [id number] 2017 00:00:[address] [facility] [employer] Medicare Complete [id number] 2017 00:00:[address] [facility] [employer] Medicare Complete [id number] 2017 00:00:[address] [facility] [employer] Medicare Complete [id number] 2017 00:00:[address] [facility] [employer] Medicare Complete [id number] 2017 00:00:00 [facility] Advance Directives Directive Decision Effective Date Termination Date Comments Sour ce Yes N/A [facility] Problems Condition Name Condition Details Condition Category Status Onset Date Resolution Date Last Treatment Date Treating Clinician Comments Source Chronic obstructive pulmonary disease COPD (chronic ob structive pulmonary disease) Problem Active [facility] Hypoxia Hypoxia Problem Active [facility] Respiratory distress Respiratory distress Problem Active [facility] Congestive heart failure CHF (congestive heart failure) Problem Active [facility] Respiratory failure with hypoxia and hypercapnia Respi ratory failure with hypoxia and hypercapnia Problem Active [facility] Allergies, Adverse Reactions, Alerts Allergy Name Allergy Type Status Severity Reaction(s) Onset Date Inacti ve Date Treating Clinician Comments Source Rivaroxaban Propensity to adverse reactions Active Severe 2019-01-10 00:00:00 [facility] Sulfa (Sulfonamide Antibiotics) Allergy to substance Active Moder ate 2017-08-12 00:00:00 [facility] Naproxen Allergy to substance Active Moderate 2017-08-12 00:00:00 [facility] Penicillin Allergy to substance Active ITCHING, ANAPHY LAXIS 2017-08-12 00:00:00 [facility] Social History Social Habit Start Date Stop Date Quantity Comments Source Sex Assigned At 1960 00:00:00 1960 00:00:00 Female [facility] Medications Ordered Medication Name Filled Medication Name Start Date Stop Da te Current Medication? Ordering Clinician Indication Dosage Frequency Signature (SIG) Comments Components Source Prednisone Prednisone 2019-11-20 10:16:00 Yes 10 [facility] Bumetanide Bumetanide 2019-11-20 10:12:00 Yes 2 [facility] Guaifenesin/Dextromethorphan (Mucinex Dm Er 600-30 Mg Tablet) 1 Each TAB.ER.12H Guaifenesin/Dextromethorphan (Mucinex Dm Er 600-30 Mg Tablet) 1 Each TAB.ER.12H 2019-11-20 10:10:00 Yes 1 [facility] Levofloxacin (Levaquin) 500 Mg TABLET Levofloxacin (Levaquin ) 500 Mg TABLET 2019-11-20 10:10:00 Yes 500 [facility] Albuterol/Ipratropium Nebulize Albuterol/Ipratropium Nebuliz e 2019-10-17 08:16:00 Yes 3 [facility] Metoclopramide Hcl Metoclopramide Hcl 2019-10-17 08:16:00 Yes 10 [facility] Calcium Carbonate Calcium Carbonate 2019-01-14 06:07:00 Yes 500 [facility] Pantoprazole Sodium (Protonix) 40 Mg TABLET. Pantopr azole Sodium (Protonix) 40 Mg TABLET. 2019-01-14 06:07:00 Yes 40 [facility] 2019-01-14 06:07:00 2019-11-20 00:00:00 No 1 [facility] Amlodipine Besylate (Norvasc) 10 Mg TAB Amlodipine Besylate (Norvasc) 10 Mg TAB 2019-01-14 06:07:00 2019-10-08 00:00:00 No 10 [facility] Prednisone Prednisone 2019-01-14 06:07:00 2019-10-08 00:00:00 No 10 [facility] Guaifenesin/Dextromethorphan (Mucinex Dm Er 600-30 Mg Tablet) 1 Each TAB.ER.12H Guaifenesin/Dextromethorphan (Mucinex Dm Er 600-30 Mg Tablet) 1 Each TAB.ER.12H 2017-11-06 10:47:00 2019-01-07 00:00:00 No 1 [facility] Prednisone Prednisone 2017-11-06 10:47:00 2019-01-07 00:00:00 No 10 [facility] Nifedipine (Nifedipine Er) 30 Mg TAB.ER.24 Nifedipine (Nifedipine Er) 30 Mg TAB.ER.24 2017-10-03 11:03:00 2019-01-07 00:00:00 No 90 [facility] Multivit With Calcium,Iron,Min (Multiple Vitamins For Women) 1 Each TABLET Multivit With Calcium,Iron,Min (Multiple Vitamins For Women) 1 Each TABLET 2017-09-29 11:46:00 Yes 1 [facility] Zinc Sulfate (Zinc-220) 220 Mg CAPSULE Zinc Sulfate (Zinc-22 0) 220 Mg CAPSULE 2017-09-29 11:46:00 2019-10-08 00:00:00 No 1 [facility] Apixaban Apixaban 2017-09-29 11:45:00 2019-10-08 00:00:00 No 5 [facility] Magnesium Oxide Magnesium Oxide 2017-09-29 11:45:00 2019-07-03 00:00:00 No 400 [facility] Amiodarone Hcl Amiodarone Hcl 2017-09-29 11:45:00 2019-01-07 00:00:00 No 200 [facility] Ascorbic Acid Ascorbic Acid 2017-09-29 11:45:00 2019-01-07 00:00:00 No 500 [facility] Balsam [place] Oil (Venelex Ointment) 60 Gm OINT.. .G. Balsam [place] Oil (Venelex Ointment) 60 Gm OINT...G. 2017-09-29 11:45:00 2019-01-07 00:00:00 No 60 [facility] Calcium Carbonate/Vitamin D3 (Calcium 500 + D Tablet) 1 Each TABLET Calcium Carbonate/Vitamin D3 (Calcium 500 + D Tablet) 1 Each TABLET 2017-09-29 11:45:00 2019-01-07 00:00:00 No 1 [facility] Nystatin/Triamcinolone Nystatin/Triamcinolone 2017-09-29 11:45:0 0 2019-01-07 00:00:00 No 0 [facility] Apixaban (Eliquis) 5 Mg TABLET Apixaban (Eliquis) 5 Mg TABLET Yes 5 [facility] Atorvastatin Calcium Atorvastatin Calcium Yes 40 [facility] Diazepam (Valium) 5 Mg TABLET Diazepam (Valium) 5 Mg TABLET Ye s 5 [facility] Duoneb Duoneb Yes 3 [facility] Epipen Epipen Yes 1 [facility] Estrogens Conjugated (Premarin) 0.625 Mg TAB Estrogens Conjugated (Premarin) 0.625 Mg TAB Yes .625 [facility] Ezetimibe (Zetia) 10 Mg TABLET Ezetimibe (Zetia) 10 Mg TABLET Yes 10 [facility] Fluticasone/Salmeterol (Advair 250-50 Diskus) 1 Each D ISK.W.DEV Fluticasone/Salmeterol (Advair 250-50 Diskus) 1 Each DISK.W.DEV Yes 1 [facility] Hydrocodone Bit/Acetaminophen (Stevenson 10-325 Tablet) 1 Each TABLET Hydrocodone Bit/Acetaminophen (Stevenson 10-325 Tablet) 1 Each TABLET Yes 1 [facility] Insulin Detemir (Levemir) 100 Unit/1 Ml VIAL Insulin D etemir (Levemir) 100 Unit/1 Ml VIAL Yes 15 [facility] Metoprolol Tartrate Metoprolol Tartrate Yes 25 [facility] Nystatincream Nystatincream Yes 1 [facility] Sertraline Hcl (Zoloft) 50 Mg TABLET Sertraline Hcl (Zoloft) 50 Mg TABLET Yes 100 [facility] Sumatriptan Succinate (Imitrex) 25 Mg TABLET Sumatript an Succinate (Imitrex) 25 Mg TABLET Yes [address] [facility] Theophylline Anhydrous Theophylline Anhydrous Yes 300 [facility] Tiotropium [place] (Spiriva) 18 Mcg CAP.W.DEV Tiotropi um [place] (Spiriva) 18 Mcg CAP.W.DEV Yes 18 [facility] Furosemide (Lasix) 40 Mg TABLET Furosemide (Lasix) 40 Mg TABLET 2019-01-14 00:00:00 No 40 [facility] Omeprazole Omeprazole 2019-01-14 00:00:00 No 40 [facility] Diazepam (Valium) 5 Mg TABLET Diazepam (Valium) 5 Mg TABLET 2019-01-07 00:00:00 No 5 [facility] Hydrocodone Bit/Acetaminophen ([place]venson 10-325 Tablet) 1 Each TABLET Hydrocodone Bit/Acetaminophen ([place] 10-325 Tablet) 1 Each TABLET 2019-01-07 00:00:[address] [facility] Azithromycin (Z-Qasim) 250 Mg TABLET Azithromycin (Z-Qasim) 250 Mg T ABLET 2017-09-29 00:00:00 No 250 [facility] Sulfamethoxazole/Trimethoprim (Bactrim Ds Tablet) 1 Ea ch TABLET Sulfamethoxazole/Trimethoprim (Bactrim Ds Tablet) 1 Each TABLET 2017-09-29 00:00:00 No 1 [facility] Vital Signs Vital Name Observation Time Observation Value Comments Source Body Temperature 2019-11-20 11:45:00 96.7 [degF] [facility] Weight 2019-11-18 18:02:00 294 [lb_av] [facility] BMI (Body Mass Index) 2019-11-18 18:02:00 53.8 kg/m2 [facility] Procedures Procedure Date / Time Performed Performing Clinician Sourc e Ultrasound, renal 2019-11-19 00:00:[address] [facility] Computed tomography of chest without contrast 2019-10-15 00:00:0 0 [facility] US Abdomen limited 2019-10-14 00:00:00 [facility] ASSISTANCE WITH RESPIRATORY VENTILATION, <24 HRS, CPAP 2019-09-16 9 00:00:00 [facility] X-ray of chest, two views 2019-10-09 00:00:00 [facility] X-ray of chest, two views 2019-07-01 00:00:00 MOHIT ACOSTA [facility] Computed tomography of chest without contrast 2019-07-01 00:00:0 0 OMHIT ACOSTA [facility] X-ray of chest, two views 2019-06-30 00:00:00 MOHIT ACOSTA [facility] Ultrasound of chest including mediastinum 2019-06-28 00:00:00 MOHIT SERRANO [facility] Plan of Care Planned Activity Planned Date Details Comments Source Future Scheduled Test Gram stain microscopy [code = 66 4-3] [facility] Future Scheduled Test Bacteria identific ation in sputum by respiratory culture [code = 624-7] [facility] Goal Patient referral [code = 9155450 ] [facility] Goal Patient referral [code = 6681995 ] [facility] Goal Patient referral [code = 1955712 ] [facility] Goal Patient referral [code = 1761423 ] [facility] Goal Patient referral [code = 0736986 ] [facility] Goal Patient referral [code = 8798592 ] [facility] Goal Patient referral [code = 4777360 ] [facility] Goal Patient referral [code = 9877950 ] [facility] Goal Patient referral [code = 5577609 ] [facility] Instructions COPD [facility] Instructions Congestive Heart Failure [facility] Encounters Start Date/Time End Date/Time Encounter Type Admission Type [facility] Care Department Encounter ID Source 2019-11-19 12:18:00 2019-11-20 16:51:00 Discharged Inpatient 1 JON CRAVEN [facility] [id number] [facility] 2019-10-12 14:50:00 2019-10-17 12:40:00 [facility] [id number] [facility] 2019-10-10 10:51:00 2019-10-11 14:42:00 [facility] [id number] [facility] 2019-06-27 22:17:00 2019-07-03 17:08:00 [facility] [id number] [facility] 2019-01-07 15:13:00 2019-01-14 17:55:00 Discharged Inpatient 1 JON CRAVEN [facility] [id number] [facility] 2017-10-30 01:37:00 2017-11-06 15:40:00 Discharged Inpatient ER JON CRAVEN [facility] [id number] [facility] 2017-09-18 22:05:00 2017-10-05 21:50:00 Discharged Inpatient ER JON CRAVEN [facility] [id number] [facility] 2017-08-12 11:57:00 2017-08-20 16:52:00 Discharged Inpatient ER JON CRAVEN [facility] [id number] [facility] Results Test Description Test Time Test Comments Results Result Comments Source Capillary blood glucose measurement by glucometer (mas s/volume) 2019-11-20 11:29:00 Test Item Bedside Glucose (test code = 56175-9) 238 [facility] automated count (number/volume)2019-11-20 05:10:00* Test Item Value Reference Range Interpretation Comments White Blood Count (test code = 6690-2) 15.28 [facility] erythrocytes automated count (number/volume)2019-11-20 05:10:00* Test Item Value Reference Range Interpretation Comments Red Blood Count (test code = 789-8) 3.41 [facility] hemoglobin measurement (moles/volume)2019-11-20 05:10:00* Test Item Value Reference Range Interpretation Comments Hemoglobin (test code = 74676-0) 9.8 [facility] CenterAutomated blood hematocrit (volume fraction)2019-11-20 05:10:00* Test Item Value Reference Range Interpretation Comments Hematocrit (test code = 4544-3) 32.8 [facility] CenterAutom[facility] erythrocyte mean corpuscular xlxtvg2359-19-22 05:10:00* Test Item Value Reference Range Interpretation Comments Mean Corpuscular Volume (test code = 787-2) 96.2 [facility] CenterAutom[facility] erythrocyte mean corpuscular hemoglobin (mass per erythrocyte)2019-11-20 05:10:00* Test Item Value Reference Range Interpretation Comments Mean Corpuscular Hemoglobin (test code = 785-6) 28.7 [facility] CenterAutom[facility] erythrocyte mean corpuscular hemoglobin concentration measurement (mass/volume)2019-11-20 05:10:00* Test Item Value Reference Range Interpretation Comments Mean Corpuscular Hemoglobin Concent (test code = 786-4) 29.9 [facility] CvvEw-Ern0516-14-06 05:10:00* Test Item Value Reference Range Interpretation Comments Red Cell Distribution Width (test code = 32568-3) 14.2 [facility] Center[facility] blood platelet count (count/volume)2019-11-20 05:10:00* Test Item Value Reference Range Interpretation Comments Platelet Count (test code = 777-3) 249 [facility] count as percentage of total srhlbnxipm0573-49-05 05:10:00* Test Item Value Reference Range Interpretation Comments Neutrophils (%) (Auto) (test code = 34242-5) 73.6 [facility] CenterAutcarolin[facility] lymphocyte count as percentage ot total nkqcvxjduv0683-65-17 05:10:00* Test Item Value Reference Range Interpretation Comments Lymphocytes (%) (Auto) (test code = 736-9) 16.2 [facility] CenterAutomated blood monocyte count as percentage of total kgnfyqbpmo1846-33-93 05:10:00* Test Item Value Reference Range Interpretation Comments Monocytes (%) (Auto) (test code = 5905-5) 5.6 [facility] CenterAutomated blood eosinophil count as percentage of total ivqullbyuu5253-85-80 05:10:00* Test Item Value Reference Range Interpretation Comments Eosinophils (%) (Auto) (test code = 713-8) 0.5 [facility] CenterAutomat blood basophil count as percentage of total kmdguvbczx5498-04-60 05:10:00* Test Item Value Reference Range Interpretation Comments Basophils (%) (Auto) (test code = 706-2) 0.5 [facility] CenterFluoroscopic procedure less than one hour jcttihra6193-74-49 05:10:00* Test Item Value Reference Range Interpretation Comments IM GRANULOCYTES % (test code = IM GRANULOCYTES %) 3.6 [facility] CenterAutomated blood neutrophil count 2019-11-20 05:10:00* Test Item Value Reference Range Interpretation Comments Neutrophils # (Auto) (test code = 751-8) 11.2 [facility] CenterBlood lymphocytes count (number/volume) 2019-11-20 05:10:00* Test Item Value Reference Range Interpretation Comments Lymphocytes # (Auto) (test code = 57202-3) 2.5 [facility] monocytes automated count (number/volume)2019-11-20 05:10:00* Test Item Value Reference Range Interpretation Comments Monocytes # (Auto) (test code = 742-7) 0.9 [facility] CenterAutomated blood eosinophil count 2019-11-20 05:10:00* Test Item Value Reference Range Interpretation Comments Eosinophils # (Auto) (test code = 711-2) 0.1 [facility] bas[facility] count (count/volume)2019-11-20 05:10:00* Test Item Value Reference Range Interpretation Comments Basophils # (Auto) (test code = 704-7) 0.1 [facility] CenterFluoroscopic procedure less than one hour ckcwnzvv2909-73-19 05:10:00* Test Item Value Reference Range Interpretation Comments Absolute Immature Granulocyte (auto (mikael t code = Absolute Immature Granulocyte (auto) 0.55 [facility] sodium [facility] (moles/volume)2019-11-20 05:10:00* Test Item Value Reference Range Interpretation Comments Sodium Level (test code = 2951-2) 142 [facility] potassium measurement (moles/volume)2019-11-20 05:10:00* Test Item Value Reference Range Interpretation Comments Potassium Level (test code = 2823-3) 4.6 [facility] chloride measurement (moles/volume)2019-11-20 05:10:00* Test Item Value Reference Range Interpretation Comments Chloride Level (test code = 2075-0) 100 [facility] carbon dioxide, total measurement (moles/volume)2019-11-20 05:10:00* Test Item Value Reference Range Interpretation Comments Carbon Dioxide Level (test code = 2028-9) 35 [facility] anion uja5920-17-85 05:10:00* Test Item Value Reference Range Interpretation Comments Anion Gap (test code = 51307-2) 11.6 [facility] urea nitrogen measurement (mass/volume)2019-11-20 05:10:00* Test Item Value Reference Range Interpretation Comments Blood Urea Nitrogen (test code = 3094-0) 60 [facility] creatinine measurement (mass/volume)2019-11-20 05:10:00* Test Item Value Reference Range Interpretation Comments Creatinine (test code = 2160-0) 2.08 [facility] urea nitrogen/creatinine mass ozdha3561-55-54 05:10:00* Test Item Value Reference Range Interpretation Comments BUN/Creatinine Ratio (test code = 3097-3) 29 [facility] CenterEstimated glomerular filtration rate (GFR) eyxgjdoedanrr0730-97-24 05:10:00* Test Item Value Reference Range Interpretation Comments Estimat Glomerular Filtration Rate (test code = 593044332) 24 [facility] CenterGlucose auioibuwzak9088-59-01 05:10:00* Test Item Value Reference Range Interpretation Comments Glucose Level (test code = WZI8991) 77 [facility] calcium measurement (mass/volume)2019-11-20 05:10:00* Test Item Value Reference Range Interpretation Comments Calcium Level (test code = 98836-5) 9.2 [facility] magnesium measurement (mass/volume)2019-11-20 05:10:00* Test Item Value Reference Range Interpretation Comments Magnesium Level (test code = 27580-3) 2.1 [facility] total bilirubin measurement (mass/volume)2019-11-20 05:10:00* Test Item Value Reference Range Interpretation Comments Total Bilirubin (test code = 1975-2) 0.2 [facility] CenterFluoroscopic procedure less than one hour diuizgzz1514-29-61 05:10:00* Test Item Value Reference Range Interpretation Comments Aspartate Amino Transf (AST/SGOT) (test code = Aspartate Amino Transf (AST/SGOT)) 14 [facility] alanine aminotransferase measurement (enzymatic activity/volume)2019-11-20 05:10:00* Test Item Value Reference Range Interpretation Comments Alanine Aminotransferase (ALT/SGPT) (test code = 1742-6) 17 [facility] protein measurement (mass/volume)2019-11-20 05:10:00* Test Item Value Reference Range Interpretation Comments Total Protein (test code = 2885-2) 6.5 [facility] albumin measurement (mass/volume)2019-11-20 05:10:00* Test Item Value Reference Range Interpretation Comments Albumin (test code = 1751-7) 3.1 [facility] CenterPlasma globulin measurement (mass/volume) 2019-11-20 05:10:00* Test Item Value Reference Range Interpretation Comments Globulin (test code = 62695-3) 3.4 [facility] albumin/globulin mass vsazs6069-50-69 05:10:00* Test Item Value Reference Range Interpretation Comments Albumin/Globulin Ratio (test code = 1759-0) 0.9 [facility] alkaline phosphatase measurement (enzymatic activity/volume)2019-11-20 05:10:00* Test Item Value Reference Range Interpretation Comments Alkaline Phosphatase (test code = 6768-6) 90 [facility] CenterUrine protein measurement (mass/volume) 2019-11-19 23:50:00* Test Item Value Reference Range Interpretation Comments Urine Random Total Protein (test code = 2888-6) 42.1 [facility] CenterUrine creatinine measurement (mass/volume)2019-11-19 23:50:00* Test Item Value Reference Range Interpretation Comments Urine Creatinine (test code = 2161-8) 57.58 [facility] CenterRandom urine protein/creatinine ratio 2019-11-19 23:50:00* Test Item Value Reference Range Interpretation Comments Urine Protein/Creatinine Ratio (test code = 10774-7) 0.00 [facility] CenterUS RENAL RETROPERITONEAL [id number] 14:53:00 [facility] [address] [place] [address] Patient Name: CORRINE HIGGINS MR #: [id number] : 1960 Age/Sex: 59/F Req #: [id number] Adm Physician: JON CRAVEN MD Ordered by: YOAV RADER, JESICA RADER Report #: [id number] [facility] Procedure: [id number] US/US RENAL RE TROPERITONEAL COMP Exam Date: 11/19/19 Exam Time: 14 11 REPORT STATUS: Signed EXAM: US RENAL RETROPERITONEAL COMP DATE: 11/19/2019 1:41 PM INDICATION: Acu te kidney injury COMPARISON: Limited abdominal ultrasound from 10/14/2019 FINDINGS: The right kidney is normal in size measuring 10.6 x 5.5 x 4.6 cm with cortical thickness of 1.4 cm. Cortical echogenicity is within normal li mits. There is no evidence for solid renal mass, hydronephrosis, or shadowing calculi. The left kidney is normal in size measuring 9.8 x 5.9 x 4.1 cm wit h cortical thickness of 1.5 cm. Cortical echogenicity is within normal limits. There is no evidence for solid renal mass, hydronephrosis, or shadowing calcu li. The urinary bladder is only partially distended. Prevoid volume is 57 c c. IMPRESSION: Unremarkable sonographic appearance of the kidneys. Signed by: Dr. Jun Cardona MD on 11/19/2019 2:54 PM Dictated By: JUN CARDONA MD [id number] Transc ribed By: JAMSHID on 11/19/19 1458 COPY TO: JESICA CASON Phosphorus rvwdtkljjte0826-29-46 05:35:00* Test Item Value Reference Range Interpretation Comments Phosphorus Level (test code = FZX8977) 4.5 [facility] creatine kinase measurement (enzymatic activity/volume)2019-11-19 05:35:00* Test Item Value Reference Range Interpretation Comments Creatine Kinase (test code = 2157-6) 47 [facility] creatine kinase MB measurement (mass/volume)2019-11-19 05:35:00* Test Item Value Reference Range Interpretation Comments Creatine Kinase MB (test code = 00515-1) 7.30 [facility] CenterTroponin I measurement by highly sensitive enzyme jgtuzamxnfz4881-37-91 05:35:00* Test Item Value Reference Range Interpretation Comments Troponin I (test code = 07432-0) 0.023 [facility] iron measurement (mass/volume)2019-11-19 05:00:00* Test Item Value Reference Range Interpretation Comments Iron Level (test code = 2498-4) 44 [facility] iron binding capacity measurement (mass/volume)2019-11-19 05:00:00* Test Item Value Reference Range Interpretation Comments Total Iron Binding Capacity (test code = 2500-7) 389 [facility] iron saturation measurement (mass fraction)2019-11-19 05:00:00* Test Item Value Reference Range Interpretation Comments Percent Iron Saturation (test code = 2502-3) 11 [facility] plasma transferrin measurement (mass/volume)2019-11-19 05:00:00* Test Item Value Reference Range Interpretation Comments Transferrin (test code = 3034-6) 278 [facility] CenterFluoroscopic procedure less than one hour rogbywob7782-18-54 14:34:00* Test Item Value Reference Range Interpretation Comments Coronavirus (PCR) (test code = Coronavirus (PCR)) NOT DETECTED [facility] CenterCHEST SINGLE (PORTABLE)2019-11-18 14:05:00 [place] [address] Patient Name: CORRINE HIGGINS MR #: [id number] : 1960 Age/Sex: 59/F Req #: [id number] Adm Physician: Ordered by: CHARLES LINARES DO Report #: [id number] Location: ER Room/Bed: Procedure: [id number] DX/CHEST SINGLE (PORTABLE) Exam Date: 11/18/19 Exam Time: 1312 REPORT STATUS: Signed EXAMINATION: C HEST SINGLE (PORTABLE) INDICATION: Shortness of breath COMPARISON: Chest radiograph 10/14/2019, chest CT 10/15/2019 FINDINGS: LINES/T UBES:None LUNGS:The lungs are moderately inflated. There is perihilar fulln ess and indistinctness of the pulmonary vasculature. Right basilar patchy opac ities. PLEURA:No pleural effusion or pneumothorax. MEDIASTINUM:Cardiom ediastinal silhouette is stably enlarged. BONES/SOFT TISSUES:No acute osseo us injury. ABDOMEN:No free air under the diaphragm. IMPRESSION: Cardiomegaly and pulmonary interstitial edema. Right basilar patchy opaciti es, most likely subsegmental atelectasis. Signed by: Kiko Muse MD on 2019 2:06 PM Dictated By: KIKO MUSE MD 05 Transcribed By: JAMSHID on 11/18/191405 COPY TO : CHARLES LINARES DO Urine color wvkkzbmudcfeu5380-32-50 12:51:00* Test Item Value Reference Range Interpretation Comments Urine Color (test code = 5778-6) YELLOW [facility] eqegzbj2589-40-64 12:51:00* Test Item Value Reference Range Interpretation Comments Urine Clarity (test code = 30745-8) CLEAR [facility] by Test strip 2019-11-18 12:51:00* Test Item Value Reference Range Interpretation Comments Urine Specific [place] (test code = 5811-5) 1.015 [facility] pH [facility] by automated test xkgbq1847-04-68 12:51:00* Test Item Value Reference Range Interpretation Comments Urine pH (test code = 42938-7) 5.5 [facility] leukocyte esterase detection by exukpitl5334-98-05 12:51:00* Test Item Value Reference Range Interpretation Comments Urine Leukocyte Esterase (test code = 5799-2) NEGATIVE [facility] nitrite mtoqggcrm3480-81-41 12:51:00* Test Item Value Reference Range Interpretation Comments Urine Nitrite (test code = 89947-2) NEGATIVE [facility] protein measurement by test strip (mass/volume)2019-11-18 12:51:00* Test Item Value Reference Range Interpretation Comments Urine Protein (test code = 5804-0) 1+ [facility] glucose zncazcpsi3028-50-05 12:51:00* Test Item Value Reference Range Interpretation Comments Urine Glucose (UA) (test code = 2349-9) NEGATIVE [facility] ketones detection by automated test rcvjc8253-61-47 12:51:00* Test Item Value Reference Range Interpretation Comments Urine Ketones (test code = 47112-3) NEGATIVE [facility] urobilinogen measurement by test strip (mass/volume)2019-11-18 12:51:00* Test Item Value Reference Range Interpretation Comments Urine Urobilinogen (test code = 34061-3) 0.2 [facility] total bilirubin measurement (mass/volume)2019-11-18 12:51:00* Test Item Value Reference Range Interpretation Comments Urine Bilirubin (test code = 1978-6) NEGATIVE [facility] erythrocytes thmzfleot7545-80-16 12:51:00* Test Item Value Reference Range Interpretation Comments Urine Blood (test code = 44174-7) TRACE [facility] CenterAutomated urine sediment leukocyte count by microscopy (number/high power field)2019-11-18 12:51:00* Test Item Value Reference Range Interpretation Comments Urine WBC (test code = 5821-4) 0-5 [facility] CenterErythrocytes detection in urine sediment by light fmfnaxvfnb3547-14-65 12:51:00* Test Item Value Reference Range Interpretation Comments Urine RBC (test code = 48989-8) 0-5 [facility] CenterBacteria detection in urine sediment by light vztxizebhp9597-04-15 12:51:00* Test Item Value Reference Range Interpretation Comments Urine Bacteria (test code = 76378-3) FEW [facility] CenterEpithelial cells detection in urine sediment by light zxploegtgw6797-56-97 12:51:00* Test Item Value Reference Range Interpretation Comments Urine Epithelial Cells (test code = 55661-4) FEW [facility] CenterYeast detection in urine sediment by light qzkamqcstp8085-11-89 12:51:00* Test Item Value Reference Range Interpretation Comments Urine Yeast (test code = 33976-6) FEW [facility] CenterBNP Cxb-tOdu2445-66-04 12:51:00* Test Item Value Reference Range Interpretation Comments B-Type Natriuretic Peptide (test code = 48552-7) 456.6 [facility] or plasma theophylline measurement (mass/volume)2019-11-18 12:51:00* Test Item Value Reference Range Interpretation Comments Theophylline Level (test code = 4049-3) 5.9 [facility] CenterBlood sypyniw2795-09-95 12:51:00* Test Item Value Reference Range Interpretation Comments Blood Culture (test code = 55092872) NO GROWTH AFTER 48 HOURS [facility] CenterHEPTOBILIARY W WSSRJ6053-54-21 16:48:00 [facility] [address] [address] Patient Name: CORRINE HIGGINS MR #: [id number] : 1960 Age/Sex: 59/F Req #: [id number] Adm Physician: JON CRAVEN MD Ordered by: MOHIT REYNA MD Report #: [id number] Location: [facility] Room/Bed: [place] [address] Procedure: [id number] NM/HE PTOBILIARY W PHARM Exam Date: Exam Time: REPORT STATUS: Signed Hepatobiliary Scan with Gallbladder Ejection Fraction Clinical information: RUQ pain Repo rt: Following intravenous administration of 6.6 millicuries of Tc-99m mebrofen in, dynamic images of the abdomen in the anterior projection were obtained thr ough 46 minutes. Sincalide (CCK analog) 2.7 micrograms was administered intra venously over 30 minutes with additional imaging for determination of gallblad winston ejection fraction. Perfusion to the liver is normal. Extraction of tra cer from the blood pool by the liver parenchyma is normal. Tracer is seen pro mptly within the biliary tract. The gallbladder begins to fill by 20 minutes post-injection of tracer. Tracer is seen in the small bowel by 14 minutes. T he gallbladder ejection fraction with administration of sincalide is 96% (norm al greater than 40%). Impression: 1. Filling of the gallbladder excl udes the diagnosis of acute cystic duct obstruction/acute cholecystitis. 2. Normal gallbladder ejection fraction of 96% does not support the clinical santos gnosis of chronic cholecystitis/gallbladder dyskinesia. Signed by: Dr. Lynda Mon M.D. on 10/15/2019 4:52 PM Dictated By: TRISHA Collins sue Signed By: TRISHA MON MD on 10/15/191651 Transcribed By: JAMSHID on 1651 COPY TO: MOHIT REYNA MD CT CHEST CC2625-60-29 12:21:00 [place] [address] Patient Name: CORRINE HIGGINS MR #: [id number] : 1960 Age/Sex: 59/F Req #: [id number] Adm Physician: JON CRAVEN MD Ordered by: YG CONTI MD Report #: [id number] Location: [facility] Room/Bed: [place] [address] Procedure: [id number] C T/CT CHEST WO Exam Date: 10/15/19 Exam Time: 1153 REPORT STATUS: Signed EXAM: CT [address] [facility] WITHOUT intravenous contrast 10/15/2019 10:45 AM INDICATION: Pneumonia CO MPARISON: Chest radiograph 10/14/2019 TECHNIQUE: Chest was scanned utilizing a multidetector helical scanner from the lung apex through the level of the ad renal glands without administration of IV contrast. Coronal and sagittal refor mations were obtained. Routine protocol was performed. IV CONTRAST: None RADIATION DOSE: Total DLP: 911 mGy*cm. Dose modulation, iterative reconstruc tion, and/or weight based adjustment of the mA/kV was utilized to reduce the r adiation dose to as low as reasonably achievable. COMPLICATIONS: None FI NDINGS: LINES/ TUBES: None. LUNGS AND AIRWAYS: The central airways ar e patent. Dependent right lower lobe segmental atelectasis. Left lower lobe de pendent subsegmental atelectasis. No focal consolidation mild lower lobe predo minant intralobular septal thickening consistent with mild pulmonary and her s ocial edema. No suspicious pulmonary nodule. PLEURA: The pleural spaces are clear. HEART AND MEDIASTINUM: Bilateral hypodense thyroid nodules. The largest nodule measures up to 2.1 cm on the left. No supraclavicular, axilla ry, mediastinal, or hilar lymphadenopathy. Multichamber cardiomegaly. Small p ericardial effusion. Athetotic calcifications involve the coronary arteries, t horacic aorta, and proximal great vessels. The main pulmonary artery is enlarg ed, measuring up to 3.9 cm maximum diameter. UPPER ABDOMEN: No acute find ings. BONES: The visualized bony thorax is within normal limits. SOFT TISSUES: Unremarkable. IMPRESSION: Cardiomegaly and mild pulmonary inter stitial edema. Bilateral dependent lower lobe subsegmental atelectasis. Enlargement of the main pulmonary artery can be seen with pulmonary arterial hypertension. Signed by: Kiko Muse MD on 10/15/2019 12:35 PM Dictated By: KIKO MUSE MD 1235 Transcribed By: JAMSHID on 10/15/19 1235 COPY TO: YG CONTI MD Serum or plasma lipase measurement (enzymatic activity/volume) 2019-10-15 05:42:00* Test Item Value Reference Range Interpretation Comments Lipase (test code = 3040-3) 36 [facility] CenterUS ABDOMEN CNUQTMW9523-67-64 14:44:00 [place] [address] Patient Name: CORRINE HIGGINS MR #: [id number] : 1960 Age/Sex: 59/F Req #: [id number] [facility] Physician: JON CRAVEN MD Ordered by: Sher Calvo NP Report #: [id number] Location: [facility] Room/Bed: [place] [address] Procedure: [id number] US /US ABDOMEN LIMITED Exam Date: 10/14/19 Exam Time: 1 349 REPORT STATUS: Signed EXAM: Right Upper Quadrant Abdominal Ultrasound INDICATION: nausea, vomit ing, r/o stones [id number] COMPARISON: None. TECHNIQUE: Transverse and longitudinal images of the upper abdomen were obtained. The technologist reports a technically limited study due to patient body habitus. FINDINGS : Liver: Size: 16.8 cm in the right midclavicular line, mildly enl arged Appearance: Increased echogenicity, smooth contour Mass: No focal masses Gallbladder: Stones/Sludge: Multiple echogenic gallston es and sludge Wall: 0.3 cm, upper limit of normal Appearance: Cont racted. No pericholecystic fluid or hydrops. Sonographic Gardner's Sign: Negative Bile Ducts: Intrahepatic Ducts: No dilatation Extra hepatic Ducts: Common bile duct measures 0.3 cm, no dilatation Pancreas: Not identified due to overlying bowel gas and patient body habitus Rig ht Kidney: Size: 10.3 x 5.5 x 5.5 cm Echogenicity: Normal Parenchymal thickness: Normal Collecting System: No hydronephrosis Stone: None Cyst/Mass: None Vessels: Aorta and IVC are poorly visualized due to overlying bowel gas and patient body habitus Free Fluid: No ascites or pleural effusion IMPRESSION: 1. Mild hepatomegaly with fatty infiltration of the liver. 2. Cholelithiasis wi thout other sonographic evidence of acute cholecystitis. Signed by: Alvarado Wallace MD on 10/14/2019 2:51 PM Dictated By: ALVARADO WALLACE MD [facility] Signed By: ALVARADO WALLACE MD on 10/14/19 145 Transcribed By: JAMSHID on 10/14/191450 COPY TO: SHER CALVO NP CHEST SINGLE (PORTABLE) 2019-10-14 12:23:00 [place] [address] Patient Name: CORRINE HIGGINS MR #: [id number] : 1960 Age/Sex: 59/F Req #: [id number] Adm Physician: JON CRAVEN MD Ordered by: Sher Calvo NP Report #: [id number] Location: [facility] Room/Bed: [place] [address] Procedure: [id number] DX /CHEST SINGLE (PORTABLE) Exam Date: 10/14/19 Exam Ti me: 1208 REPORT STATUS: Signed E XAMINATION: CHEST SINGLE (PORTABLE) INDICATION: CHF COMPARISON: C hest radiograph 10/13/2019 FINDINGS: LINES/TUBES:EKG leads overlie the chest. LUNGS:The lung volumes are low. Unchanged bibasilar airspace op acities. There is perihilar fullness and indistinctness of the pulmonary vascu lature. PLEURA:Unchanged small bilateral pleural effusions. No pneumothorax . MEDIASTINUM:The cardiomediastinal silhouette appears unchanged in size an d shape. BONES/SOFT TISSUES:No acute osseous injury. ABDOMEN:No free air under the diaphragm. IMPRESSION: No significant interval change. Signed by: Kiko Muse MD on 10/14/2019 12:24 PM Dictated By: KIKO MUSE MD 1224 Transcribed By: JAMSHID on 10/14/19 1224 COPY TO: SHER CALVO NP Serum or plasma triglyceride measurement (mass/volume)2019-10-14 05:10:00* Test Item Value Reference Range Interpretation Comments Triglycerides Level (test code = 2571-8) 93 [facility] cholesterol measurement (mass/volume)2019-10-14 05:10:00* Test Item Value Reference Range Interpretation Comments Cholesterol Level (test code = 2093-3) 144 [facility] plasma cholesterol in LDL measurement (mass/volume)2019-10-14 05:10:00* Test Item Value Reference Range Interpretation Comments LDL Cholesterol (test code = 2089-1) 72 [facility] cholesterol in HDL measurement (mass/volume)2019-10-14 05:10:00* Test Item Value Reference Range Interpretation Comments HDL Cholesterol (test code = 2085-9) 53 [facility] or plasma total cholesterol/cholesterol in HDL mass uwzcf0526-18-11 05:10:00* Test Item Value Reference Range Interpretation Comments Cholesterol/HDL Ratio (test code = 9830-1) 2.7 [facility] CenterFree thyroxine vcxnk0621-46-90 05:10:00* Test Item Value Reference Range Interpretation Comments Free Thyroxine Index (test code = 08485-2) 3.8289 [facility] or plasma thyroxine (T4) measurement (mass/volume)2019-10-14 05:10:00* Test Item Value Reference Range Interpretation Comments Thyroxine (T4) (test code = 3026-2) 12.30 [facility] or plasma triiodothyronine resin uptake (T3RU)2019-10-14 05:10:00* Test Item Value Reference Range Interpretation Comments Triiodothyronine (T3) Uptake (test code = 3050-2) 31.13 [facility] or plasma thyrotropin measurement by detection limit <= 0.005 miu/l (units/volume)2019-10-14 05:10:00* Test Item Value Reference Range Interpretation Comments Thyroid Stimulating Hormone (TSH) (test code = 49378-8) 0.439 [facility] CenterArterial blood pH qkjaalzpssq4655-26-20 10:00:00* Test Item Value Reference Range Interpretation Comments Arterial Blood pH (test code = 2744-1) 7.38 [facility] CenterpCO2 GinJ5653-99-26 10:00:00* Test Item Value Reference Range Interpretation Comments Arterial Blood Partial Pressure CO2 (test code = 2019-8) 58 [facility] CenterArterial blood bicarbonate measurement (moles/volume)2019-10-13 10:00:00* Test Item Value Reference Range Interpretation Comments Arterial Blood HCO3 (test code = 1960-4) 34 [facility] CenterArterial blood base excess by calculation 2019-10-13 10:00:00* Test Item Value Reference Range Interpretation Comments Arterial Blood Base Excess (test code = 1925-7) 9.0 [facility] CenterArterial blood oxygen saturation uyesbrprufz7421-69-83 10:00:00* Test Item Value Reference Range Interpretation Comments Arterial Blood Oxygen Saturation (test code = 2708-6) 96.0 [facility] CenterFluoroscopic procedure less than one hour ngxdpbsl3904-23-47 10:00:00* Test Item Value Reference Range Interpretation Comments FiO2 (test code = FiO2) 50 [facility] CenterCHE[facility] ([facility])2019-10-13 08:44:00 [facility] [address] [place] [address] Patient Name: CORRINE HIGGINS MR #: [id number] : 1960 Age/Sex: 59/F Req #: [id number] Adm Physician: JON CRAVEN MD Ordered by: LEELEE MADERA MD Report #: [id number] Location: [facility] Room/Bed: [place] [address] Procedure: [id number] DX/CH EST SINGLE (PORTABLE) Exam Date: 10/13/19 Exam Time: 0610 REPORT STATUS: Signed EXAM INATION: CHEST SINGLE (PORTABLE) INDICATION: Bilateral infiltrates COMPARISON: 10/11 FINDINGS: AP view TUBES and LINES: None. LUNGS: No significant change in bilateral pulmonary edema. Bibasi lar patchy airspace disease, atelectasis versus consolidation. PLEURA: S mall bilateral pleural effusion, increased. No pneumothorax. HEART AND MEDI ASTINUM: Marked enlargement of the cardiac silhouette is unchanged. Enlarged pulmonary arteries consistent with pulmonary hypertension. BONES AND SOFT TISSUES: No acute osseous lesion. Soft tissues are unremarkable. UPPER ABDOMEN: No free air under the diaphragm. IMPRESSION: Stable bilater al pulmonary edema. Bibasilar patchy densities may represent atelectasis or bates perimposed infection proper clinical setting. Signed by: Dr. Rodrigo Holley M.D. on 10/13/2019 8:46 AM Dictated By: ALEXANDRIA HOLLEY MD, MD El ectronically Signed By: ALEXANDRIA HOLLEY MD, MD on 10/13/19845 Transcribed By: Frida GUPTA on 10/13/19845 COPY TO: LEELEE MADERA MD CHEST SINGLE (PORTABLE)2019-10-12 14:01:00 [place] [address] Patient Name: CORRINE HIGGINS MR #: [id number] : 1960 Age/Sex: 59/F Req #: [id number] Adm Physician: Ordered by: DIANNE URBANO MD Report #: [id number] Location: ER Room/Bed: Procedure: [id number] DX/C HEST SINGLE (PORTABLE) Exam Date: 10/12/19 Exam Time : 1350 REPORT STATUS: Signed EXA MINATION: CHEST SINGLE (PORTABLE) INDICATION: sob [id number] COMPARISON: 10/10/2019 FINDINGS: AP view T UBES and LINES: None. LUNGS: Lungs are well inflated. Worsening bilatera l pulmonary edema. Bibasal atelectasis. PLEURA: Small bilateral pleura l effusion, increased. No pneumothorax. HEART AND MEDIASTINUM: Marked enla rgement of the cardiac silhouette is unchanged. Enlarged pulmonary arteries c onsistent with pulmonary hypertension. BONES AND SOFT TISSUES: No acute os seous lesion. Soft tissues are unremarkable. UPPER ABDOMEN: No free air under the diaphragm. IMPRESSION: Worsening bilateral pulmonary edema . Signed by: Dr. Jeannette Major M.D. on 10/12/2019 2:03 PM Dictated By: JEANNETTE MAJOR MD 140 Transcribed By: JAMSHID on 10/12/193 COPY TO: DIANNE URBANO MD Prothrombin time (PT) in platelet poor plasma by coagulation kizur0383-00-37 12:25:00* Test Item Value Reference Range Interpretation Comments Prothrombin Time (test code = 5902-2) 14.6 [facility] CenterINR in Platelet poor plasma by Coagulation bgicj6749-41-39 12:25:00* Test Item Value Reference Range Interpretation Comments Prothromb Time International Ratio (test code = 6301-6) 1.07 [facility] CenterActivated partial thromboplastin time (aPTT) in platelet poor plasma by coagulation ljaui7273-12-60 12:25:00* Test Item Value Reference Range Interpretation Comments Activated Partial Thromboplast Time (test code = 59773-5) 33.7 [facility] Center[facility]LE ([facility])2019-10-10 14:06:00 [place] [address] Patient Name: CORRINE HIGGINS MR #: [id number] : 1960 Age/Sex: 59/F Req #: [id number] Adm Physician: JON CRAVEN MD Ordered by: Sher Calvo PERSONNEL RECORDS CLERK Report #: [id number] Location: MED/SURG2 Room/Bed: 200 Procedure: [id number] DX /CHEST SINGLE (PORTABLE) Exam Date: 10/10/19 Exam Ti me: 1233 REPORT STATUS: Signed C hest, 1 view, 10/10/2019. History: Pulmonary edema. Comparison: 10/09/2019, 10/08/2019. Findings: The cardiomediastinal silhouette and pulmo nary vasculature are prominent with hazy bilateral perihilar and bibasilar opa cities and minimal blunting of the costophrenic sulci. There are no acute osse ous or soft tissue abnormalities. Impression: Mild CHF without signif icant change. Signed by: Charles Ramos on 10/10/2019 2:07 PM Dictated By: CHARLES RAMOS MD 14 07 Transcribed By: JAMSHID on 10/10/19 1407 COPY TO: SHER CALVO PERSONNEL RECORDS CLERK Stool gastrointestinal hemoglobin btignupvj9330-70-93 02:10:00* Test Item Value Reference Range Interpretation Comments Stool Occult Blood (test code = 2335-8) NEGATIVE [facility] 2 NEUZH4819-76-15 07:15:00 [place] [address] Patient Name: CORRINE HIGGINS MR #: [id number] : 1960 Age/Sex: 59/F Req #: [id number] Adm Physician: JON CRAVEN MD Ordered by: MOHIT ACOSTA MD Report #: [id number] Location: MED/SURG2 Room/Bed: 200-1 Procedure: [id number] DX/CH EST 2 VIEWS Exam Date: 10/09/19 Exam Time: 599 REPORT STATUS: Signed EXAMINATION: CHEST 2 VIEWS INDICATION: SOB [id number] COMPARI SON: Chest x-ray 10/08/2019 FINDINGS: TUBES and LINES: None. LUNGS: Normal lung volumes. There is perihilar interstitial opacities, consistent with interstitial edema. Lower lung haziness. PLEURA: Small bilateral pleural effusions. No pneumothorax. HEART AND MEDIASTINUM: Card iac size is moderately enlarged. BONES AND SOFT TISSUES: No acute osse ous lesion. Soft tissues are unremarkable. UPPER ABDOMEN: No free air un winston the diaphragm. IMPRESSION: Mild cardiomegaly and pulmonary ed lillie small bilateral pleural effusions. Superimposed pneumonia is possible. Signed by: Tim Steiner DO on 10/09/2019 7:16 AM Dictated By: TIM STEINER DO 5 Tr anscribed By: JAMSHID on 10/09/19715 COPY TO: MOHIT ACOSTA MD Automated reticulocyte count as percentage of total wscstjxubfvx9279-02-43 04:40:00* Test Item Value Reference Range Interpretation Comments Percent Reticulocyte Count (test code = 40058-4) 5.3 [facility] CenterFluoroscopic procedure less than one hour epbbnkql7823-65-17 04:40:00* Test Item Value Reference Range Interpretation Comments Hemoglobin A1c Percent (test code = Hemoglobin A1c Percent) 6.2 [facility] or plasma ferritin measurement (mass/volume)2019-10-09 04:40:00* Test Item Value Reference Range Interpretation Comments Ferritin (test code = 2276-4) 63.28 [facility] CenterBlood cobalamin (vitamin B12) measurement (mass/volume)2019-10-09 04:40:00* Test Item Value Reference Range Interpretation Comments Vitamin B12 Level (test code = 79698-6) 678 [facility] or plasma folate measurement (mass/volume)2019-10-09 04:40:00* Test Item Value Reference Range Interpretation Comments Folate (test code = 2284-8) 6.1 [facility] CenterLUNG CFPXEDODR7480-88-39 17:12:00 [facility] [address] [address] Patient Name: CORRINE HIGGINS MR #: [id number] : 1960 Age/Sex: 59/F Req #: [id number] Adm Physician: JON CRAVEN MD Ordered by: NOLAN KNOX DO Report #: [id number] Location: [facility]/SURG[facility] Room/Bed: 200 Procedure: [id number] NM/LUNG PERFUSION Exam Date: 10/08/19 Exam Time: 151 5 REPORT STATUS: Signed Perfusio n lung scan only Note: The Society of Nuclear Medicine and Molecular Imagin g recommends not performing lung ventilation studies with xenon because there is no way to assure that the ventilation system used for the study can be adeq uately disinfected. Alternative of using nebulized Tc-99m DTPA for ventilatio n studies is absolutely contraindicated due to the airborne droplets created. Clinical Information: Pulmonary edema; SOB Comparison: Chest radiograph 10/08/2019. Discussion: No ventilation images were obtained. See note abo ve. Perfusion images of the lungs were obtained in multiple projections fol lowing intravenous administration of approximately 6 mCi of Tc-99m MAA. Distri bution of tracer is irregular throughout the lungs. The contours of the lungs are well demarcated. There are no segmental perfusion defects of any size. The cardiomediastinal silhouette is enlarged. Impression: 1. S can findings represent a VERY LOW probability for acute pulmonary embolic dise ase based on the PIOPED II criteria. A ventilation lung scan would not have c hanged this assigned probability. 2. Enlarged cardiac silhouette. Signed by: Dr. Trisha Mon M.D. on 10/08/2019 5:26 PM Dictated By: TRISHA MON MD 25 Transcribed By: Frida GUPTA on 10/08/191725 COPY TO: NOLAN KNOX DO CHEST SINGLE (PORTABLE)2019-10-08 05:08:00 [place] [address] Patient Name: CORRINE HIGGINS MR #: [id number] : 1960 Age/Sex: 59/F Req #: [id number] Adm Physician: Ordered by: NOLAN KNOX DO Report #: [id number] Location: ER Room/Bed: Procedure: [id number] D X/CHEST SINGLE (PORTABLE) Exam Date: 10/08/19 Exam T alice: 0330 REPORT STATUS: Signed EXAMINATION: CHEST SINGLE (PORTABLE) INDICATION: Chest pain COMPARISON: Chest CT 07/01/2019, chest x-ray 07/01/2019 FINDINGS: TUBES and LINES: None. LUNGS: Normal lung volumes. Prominent pulmonary vasculature, and pulmonary interstitium, with central and lower lung haziness. PLEURA: Small bilateral pleural effusions. No pneumothorax. HEART AND MEDIASTINUM: Cardiac size is mildly enlarged. BONES AND SOFT TISSUES: No acute osseous lesion. Soft tissues are unremarkable. UPPER ABDOMEN: No free air under the diaphragm. IMPRESSION: Mild cardiomeg angel and pulmonary edema. Signed by: Tim Steiner DO on 10/08/2019 5:09 AM Dictated By: TIM STEINER DO 8 Transcribed By: JAMSHID on 10/08/19508 COPY TO : NOLAN KNOX DO Influenza virus A and B antigen identification by hdxgjdnvcbevreeyny7696-31-74 04:30:00* Test Item Value Reference Range Interpretation Comments Influenza Virus Types A,B Antigen (test code = 52314-6) [id number] 16:09:00 [place] [address] Patient Name: CORRINE HIGGINS MR #: [id number] : 1960 Age/Sex: 59/F Req #: [id number] Adm Physician: JON CRAVEN MD Ordered by: MOHIT ACOSTA MD Report #: [id number] Location: MED/SURG2 Room/Bed: [facility] Procedure: [id number] CT/CT CHEST WO Exam Date: 07/01/19 Exam Time: 1140 REPORT STATUS: Signed EXAM: CT Chest W ITHOUT intravenous contrast 07/01/2019 10:50 AM INDICATION: Shortness of breat h COMPARISON: Chest radiograph of earlier the same day TECHNIQUE: Chest wa s scanned utilizing a multidetector helical scanner from the lung apex through the level of the adrenal glands without administration of IV contrast. Coronal and sagittal reformations were obtained. Routine protocol was performed. IV CONTRAST: None RADIATION DOSE: Total DLP: 539.0 mGy*cm. Dose modulation, iterative reconstruction, and/or weight based adjustment of the mA/kV was util ized to reduce the radiation dose to as low as reasonably achievable. COMPL ICATIONS: None FINDINGS: LINES/ TUBES: None. LUNGS AND AIRWAYS: The central airways are patent. No focal consolidation. There is interstitial and mild airspace edema with smooth interlobular septal thickening and fluid w ithin the fissures. Scattered areas of a lateral subsegmental atelectasis, mos t notably at the dependent lower lobes. PLEURA: Small right pleural effus ion. No pneumothorax. HEART AND MEDIASTINUM: 2.5 cm left lower thyroid hypo dense nodule and 1.6 cm right lower thyroid hypodense nodule. No supraclavicu lar, mediastinal, or hilar lymphadenopathy. Marked multichamber cardiomegaly. No pericardial effusion. The main pulmonary artery is markedly dilated, measur ing up to 4.1 cm. Diffuse atherosclerotic calcifications involve the coronary arteries, thoracic aorta, and proximal great vessels. UPPER ABDOMEN: Limi harrison noncontrast images of the upper abdomen are degraded by streak artifact an d motion and demonstrate no definite abnormalities of the partially visualized liver and spleen. BONES: No acute osseous injury. No suspicious lytic or b lastic lesions. Degenerative changes of the visualized spine. SOFT TISSUE S: Unremarkable. IMPRESSION: Pulmonary edema and marked cardiomegaly. Di lated main pulmonary artery compatible with pulmonary artery hypertension. Diffuse atherosclerotic arterial calcifications including of the coronary ar teries. Right and left lower thyroid nodules measuring up to 2.5 cm on the left and 1.6 cm on the right. Recommend follow-up thyroid ultrasound on a nonu rgent basis for further evaluation. Signed by: Kiko Muse MD on 07/01/20 4:17 PM Dictated By: KIKO MUSE MD 16 Transcribed By: JAMSHID on 07/01/191616 COPY TO: MOHIT ACOSTA MD CHEST 2 [id number] 09:02:00 [place] [address] Patient Name: CORRINE HIGGINS MR #: [id number] : 1960 Age/Sex: 59/F Req #: [id number] Adm Physician: JON CRAVEN MD Ordered by: MOHIT ACOSTA MD Report #: [id number] Location: MED/SURG2 Room/Bed: [facility] Procedure: [id number] DX/CH EST 2 VIEWS Exam Date: 07/01/19 Exam Time: 0635 REPORT STATUS: Signed EXAMINATION: CHEST 2 VIEWS INDICATION: Pneumonia COMPARISON: Chest are graft FINDINGS: LINES/TUBES:None LUNGS:The lungs are mode rately inflated. There is perihilar fullness and indistinctness of the pulmona ry vasculature. Unchanged bibasilar patchy opacities. PLEURA:Small bilate ral pleural effusions. No pneumothorax. MEDIASTINUM:Cardiomediastinal silho uette is stably enlarged. BONES/SOFT TISSUES:No acute osseous injury. ABDOMEN:No free air under the diaphragm. IMPRESSION: Unchanged pulmon sharif edema and cardiomegaly. Stable small bilateral pleural effusions. Bibasilar patchy opacities, more likely subsegmental atelectasis than superimp osed aspiration or pneumonia. Signed by: Kiko Muse MD on 07/01/2019 9:04 AM Dictated By: KIKO MUSE MD 3 Transcribed By: JAMSHID on 07/01/19903 COPY TO: MOHIT ACOSTA MD CHEST SINGLE (PORTABLE)2019-06-30 21:00:00 [place] [address] Patient Name: CORRINE HIGGINS MR #: [id number] : 1960 Age/Sex: 59/F Req #: [id number] Adm Physician: JON CRAVEN MD Ordered by: Sher Calvo PERSONNEL RECORDS CLERK Report #: [id number] Location: MED/SURG2 Room/Bed: [facility] Procedure: [id number] DX /CHEST SINGLE (PORTABLE) Exam Date: 06/30/19 Exam Ti me: 1934 REPORT STATUS: Signed E XAMINATION: CHEST SINGLE (PORTABLE) INDICATION: Congestive heart failu re COMPARISON: Chest x-ray 06/30/2019 FINDINGS: Exa m limited by portable technique and suboptimal x-ray exposure/penetration. TUBES and LINES: None. LUNGS/PLEURA: Low lung volumes. Dense hazy opacit ies in the central and lower lungs. Bilateral hemidiaphragms obscured. HE ART AND MEDIASTINUM: Cardiac size is mildly enlarged. There are atherosclerot ic calcifications within the aorta. BONES AND SOFT TISSUES: Unchanged. UPPER ABDOMEN: Unchanged. IMPRESSION: Persistent findings of mild c ardiomegaly, pulmonary edema, and small bilateral pleural effusions. Sign ed by: Tim Steiner DO on 06/30/2019 9:03 PM Dictated By: TIM LOUIE DO 02 Transcr ibed By: JAMSHID on 06/30/192102 COPY TO: SHER CALVO PERSONNEL RECORDS CLERK CHEST 2 [id number] 06:58:00 [place] [address] Patient Name: CORRINE HIGGINS MR #: [id number] : 1960 Age/Sex: 59/F Req #: [id number] Adm Physician: JON CRAVEN MD Ordered by: MOHIT ACOSTA MD Report #: [id number] Location: IM Room/Bed: [address] Procedure: [id number] DX/CH EST 2 VIEWS Exam Date: Exam Time: REPORT STATUS: Signed EXAMINATION: CHEST 2 VIEWS INDICATION: Pulmonary edema, pleural effusion COMPARISON: Chest x-ray 06/27/2019 FINDINGS: TUBES and LINES: None. LUNG S/PLEURA: Lungs are well inflated. Central and lower lung hazy airspace opac ities. Prominent pulmonary vasculature. Persistent basilar opacities obsc ured right hemidiaphragm. Blunted costophrenic sulci. HEART AND MEDIASTINUM : Cardiac size is mildly enlarged. BONES AND SOFT TISSUES: No acute o sseous lesion. Soft tissues are unremarkable. UPPER ABDOMEN: No free air under the diaphragm. IMPRESSION: Mild cardiomegaly with persiste nt pulmonary edema and small bilateral pleural effusions, right greater than l eft. Signed by: Tim Steiner DO on 06/30/2019 7:00 AM Dictated By : TIM STEINER DO 07 Transcribed By: JAMSHID on 06/30/19 07 COPY TO: MOHIT ACOSTA MD CHEST (INCL MEDIASTINUM)2019-06-28 13:38:00 [place] [address] Patient Name: CORRINE HIGGINS MR #: [id number] : 1960 Age/Sex: 59/F Req #: [id number] Adm Physician: JON CRAVEN MD Ordered by: MOHIT ACOSTA MD Report #: [id number] Location: [facility] Room/Bed: IMCU 187-1 Procedure: [id number] US/US CHEST (INCL MEDIASTINUM) Exam Date: 06/28/19 Exam T alice: 1235 REPORT STATUS: Signed EXAM: Limited mediastinal ultrasound INDICATION: Evaluate for pleural effus ion. COMPARISON: Chest radiograph 06/27/2019. TECHNIQUE: Limited ultra sound was performed of the bilateral hemithoraces to evaluate for pleural effu faheem. FINDINGS/IMPRESSION: There are trace bilateral pleural effusio ns. Signed by: Dr. Cass Gonzalez MD on 06/28/2019 1:39 PM Dictated By: CASS GONZALEZ MD 1339 Transc ribed By: JAMSHID on 06/28/19 1339 COPY TO: MOHIT ACOSTA MD CHEST SINGLE (PORTABLE)2019-06-27 22:30:00 [place] [address] Patient Name: CORRINE HIGGINS MR #: [id number] : 1960 Age/Sex: 59/F Req #: [id number] Adm Physician: Ordered by: VITALY JOSEPH MD Report #: [id number] Location: ER Room/Bed: Procedure: 90 DX/CHEST SINGLE (PORTABLE) Exam Date: 06/27/19 Ex am Time: 2039 REPORT STATUS: Signed EXAMINATION: CHEST SINGLE (PORTABLE) INDICATION: Short of breath COMPARISON: Chest x-ray 01/13/2019 FINDINGS: Portable t echnique and underexposure/underpenetration limits evaluation. TUBES and LI LUIS ALBERTO: None. LUNGS/PLEURA: Increased pulmonary interstitial lung markings a nd haziness of the in the mid to lower lungs, worse centrally. Prominent pulm onary vasculature. Hemidiaphragms not well seen. No pneumothorax. HEART A ND MEDIASTINUM: Cardiac size is mildly enlarged. There are atherosclerotic ca lcifications within the aorta. BONES AND SOFT TISSUES: No acute osseous le faheem. Soft tissues are unremarkable. UPPER ABDOMEN: No free air under th e diaphragm. IMPRESSION: Mild cardiomegaly and mid to lower lung haziness likely due to pulmonary edema and/or pleural effusions, pneumonia may be superimposed. Signed by: Tim Steiner DO on 06/27/2019 10:34 PM Dictated By: TIM STEINER DO 33 Transcribed By: JAMSHID on 06/27/192233 COPY TO: VITALY JOSEPH MD CHEST 2 [id number] 07:21:00 [place] [address] Patient Name: CORRINE HIGGINS MR #: [id number] : 1960 Age/Sex: 58/F Req #: [id number] Adm Physician: JON CRAVEN MD Ordered by: MOHIT ACOSTA MD Report #: [id number] Location: ICU Room/Bed: ICU [facility] Procedure: [id number] DX/CH EST 2 VIEWS Exam Date: Exam Time: REPORT STATUS: Signed EXAMINATION: CHEST 2 VIEWS INDICATION: CHF COMPARISON: Chest radiograph 01/09/2019. FINDINGS: TUBES and LINES: Interval extubation. Interval removal of enteric tube. LUNGS: Low lung volumes. Interval decrease in bilateral interstitial and airspace opacities. Mild patchy bibasilar opacities. Central vascular congestion. No new consolidation. PLEURA: Interval decrease in small bila teral pleural effusions. No evidence of pneumothorax. HEART AND MEDIASTIN UM: The cardiomediastinal silhouette is mildly enlarged. BONES AND SOFT TI SSUES: No acute osseous abnormality. UPPER ABDOMEN: No free air under the diaphragm. IMPRESSION: Cardiomegaly with interval decrease in pulmon sharif interstitial edema and small bilateral pleural effusions. Interval ex tubation and interval removal of enteric tube. Signed by: Dr. Cass Gonzalez MD on 01/13/2019 7:24 AM Dictated By: CASS GONZALEZ MD 3 Transcribed By: JAMSHID on 01/13/19723 COPY TO: MOHIT ACOSTA MD ABDOMEN-1VIEW (KUB)2019-01-11 06:49:00 [place] [address] Patient Name: CORRINE HIGGINS MR #: [id number] : 1960 Age/Sex: 58/F Req #: [id number] Adm Physician: JON CRAVEN MD Ordered by: Sher Calvo PERSONNEL RECORDS CLERK Report #: [id number] Location: ICU Room/Bed: [place] [address] Procedure: [id number] DX /ABDOMEN-1VIEW (KUB) Exam Date: 01/11/19 Exam Time: 0615 REPORT STATUS: Signed Ex am: Abdominal film Clinical History: Evaluate for obstruction Compari son: None. DISCUSSION: Nonobstructive bowel gas pattern. Air filled stomach . Soft tissue attenuation limits evaluation. IMPRESSION: Air-filled stomach. No obstructive pattern. Signed by: Dr. Jada burciaga M.D. on 01/11/2019 6:50 AM Dictated By: JADA CORDON MD Electr onically Signed By: JADA CORDON MD on 01/11/19649 Transcribed By: BOB Mcmahon on 01/11/19649 COPY TO: SHER CALVO NP US CHEST (INCL MEDIASTINUM)2019-01-09 10:07:00 [place] [address] Patient Name: CORRINE HIGGINS MR #: [id number] : 1960 Age/Sex: 58/F Req #: [id number] Adm Physician: JON CRAVEN MD Ordered by: YG CONTI MD Report #: [id number] Location: ICU Room/Bed: [place] [address] Procedure: [id number] S/US CHEST (INCL MEDIASTINUM) Exam Date: 01/09/19 Ex am Time: 917 REPORT STATUS: Signed Examination: Thoracic ultrasound. Clinical indication: Pleural effusion. Comparison examination: Chest radiograph same day. Technique: Transv erse and longitudinal sonographic images of the right and left thoracic caviti es was performed. Findings: Trace right pleural effusion. No significa nt left pleural effusion. Impression: Trace right pleural effusion. Signed by: Dr. Mohit Gibbons M.D. on 01/09/2019 10:08 AM Dictated By: MOHIT GIBBONS MD 1008 T ranscribed By: JAMSHID on 01/09/19 1008 COPY TO: YG CONTI MD CHEST SINGLE (PORTABLE)2019-01-09 10:05:00 [place] [address] Patient Name: CORRINE HIGGINS MR #: [id number] : 1960 Age/Sex: 58/F Req #: [id number] Adm Physician: JON CRAVEN MD Ordered by: YG CONTI MD Report #: [id number] Location: ICU Room/Bed: ICU [facility] Procedure: 4070-9536 D X/CHEST SINGLE (PORTABLE) Exam Date: 01/09/19 Exam T alice: 0930 REPORT STATUS: Signed Examination: Single AP view of the chest. COMPARISON: 01/08/2019 INDICA TION: Intubated DISCUSSION: See impression IMPRESSION: 1. Endotracheal tube and enteric tube are unchanged in position. 2. Unchanged cardiomegaly, interstitial pulmonary edema, and suspected bilat eral pleural effusions left larger than right. No new consolidation. Signed by: Dr. Mohit Gibbons M.D. on 01/09/2019 10:07 AM Dictated By: MOHIT VOGT MD 1007 Transcribe d By: JAMSHID on 01/09/19 1007 COPY TO: YG CONTI MD CHEST SINGLE (PORTABLE)2019-01-08 06:02:00 [place] [address] Patient Name: CORRINE HIGGINS MR #: [id number] : 1960 Age/Sex: 58/F Req #: [id number] Adm Physician: JON CRAVEN MD Ordered by: LEELEE MADERA MD Report #: [id number] Location: ICU Room/Bed: ICU 195 Procedure: [id number] DX/CH EST SINGLE (PORTABLE) Exam Date: 01/08/19 Exam Time: 05 REPORT STATUS: Signed Exam ination: Single AP view of the chest. COMPARISON: January 07 2019 INDIC ATION: Congestive heart failure DISCUSSION: Lines/tubes: Endotra cheal tube 3 cm above the john. Enteric tube with distal tip not visualized. Lungs: Decreased, but persistent interstitial and alveolar edema. Pl eura: Bilateral effusions with lower lung atelectasis. Heart and mediastin um: Cardiomegaly Bones and soft tissues: No acute bony abnormalities. IMPRESSION: Cardiomegaly with mildly decreased pulmonary edema and effusions. Signed by: Dr. Jada Cordon M.D. on 01/08/2019 6:04 AM Dictated By: JADA CORDON MD 3 Transcribed By: JAMSHID on 01/08/19603 COPY TO: LEELEE MIN MD CHEST SINGLE (PORTABLE)2019-01-07 15:30:00 [place] [address] Patient Name: CORRINE HIGGINS MR #: [id number] : 1960 Age/Sex: 58/F Req #: [id number] Adm Physician: Ordered by: KENDALL ARNOLD MD Report #: [id number] Location: ER Room/Bed: Procedure: [id number] DX/CHEST SINGLE (PORTABLE) Exam Date: 01/07/19 Exam Time: 1520 REPORT STATUS: Signed Examination: Single AP view of the chest. COMPARISON: 01/07/2019 at 1334 INDICATION: Post intubation DISCUSSION: Interval intubation. The endotracheal tube tip projects approximately 3 cm above the john. An enteric tube has also been placed, the tip of which projects off the current radiogra ph, inferior to the left hemidiaphragm. No appreciable interval change in t he appearance of the heart or lungs compared to the examination from 1334 hour s. Marked cardiomegaly with interstitial and alveolar edema and probable trace bilateral pleural effusions. IMPRESSION: Interval intubation and dea cement of an enteric tube, appropriately positioned as above. Stable gamaliel ed enlargement of the cardiac silhouette with pulmonary edema and suspected sm all bilateral pleural effusions. Signed by: Dr. Mohit Gibbons M.D. on 01/07 3:34 PM Dictated By: MOHIT GIBBONS MD 153 Transcribed By: JAMSHID on 01/07/19 153 COPY TO: KENDALL ARNOLD MD CHEST SINGLE (PORTABLE)2019-01-07 14:00:00 [place] [address] Patient Name: CORRINE HIGGINS MR #: [id number] : 1960 Age/Sex: 58/F Req #: [id number] Adm Physician: Ordered by: QUINCY MOSER NP Report #: [id number] Location: ER Room/Bed: Procedure: [id number] DX/CHEST SINGLE (PORTABLE) Exam Date: 01/07/19 Exam Time: 1330 REPORT STATUS: Signed EXAMINATION: CHEST SINGLE (PORTABLE) INDICATION: Shortness of br eath ERMD ORDER [id number] 1330 Y COMPARISON: 10/30/2017 FINDINGS: LINES/TUBES: None LUNGS: Vascular congestion/edema and bib asilar atelectasis. This is worse when compared with the prior exam PLEUR A: Likely right and left pleural effusions. HEART AND MEDIASTINUM: Marked e nlargement of the cardiomediastinal silhouette. BONES AND SOFT TISSUES: No acute findings. IMPRESSION: Findings most likely due to congestive heart failure worse when compared with the prior exam. Follow-up imaging is indicat ed to document clearing. Signed by: Dr. Claudia Osborne M.D. on 01/07/2019 2:02 PM Dictated By: CLAUDIA OSBORNE MD, MD 01 Transcribed By: JAMSHID on 01/07/19 140 COPY TO: QUINCY MOSER PERSONNEL RECORDS CLERK CHEST 2 VIEWS [place] [address] Patient Name: CORRINE HIGGINS MR #: [id number] : 1960 Age/Sex: 57/F Req #: [id number] Adm Physician: JON CRAVEN MD Ordered by: MOHIT ACOSTA MD Report #: [id number] Location: MED/SURG Room/Bed: [facility] Procedure: [id number] DX/DIAMOND ST 2 VIEWS Exam Date: 11/03/17 Exam Time: 0851 REPORT STATUS: Signed PROCEDURE: X-RAY CHEST, TWO VIEWS COMPARISON: 018. INDICATIONS: SHORT OF BREATH FINDINGS: Lungs are reasonably well inflated. Unchanged small bilateral effusions with bilateral lower lobe airspace disease, likely atelectasis. Interstitial pulmonary edema unchanged when accounting for differences in technique. Stable cardiomediastinal conto ur. No acute osseous abnormality. CONCLUSION: Cardiomegaly with in terstitial pulmonary edema and small bilateral pleural effusions, similar in appearance to 10/30/2017 accounting for differences in technique. Dicta harrison by: Mohit Gibbons M.D. on 11/03/2017 at 9:51 Electronically approved by : Mohit Gibbons M.D. on 11/03/2017 at 9:51 Dictated By: MOHIT VELÁSQUEZ MD 0 Transcribed By: OMAR on 11/03/17950 COPY TO: MOHIT ACOSTA MD CHEST SINGLE (PORTABLE) [place] [address] Patient Name: CORRINE HIGGINS MR #: [id number] : 1960 Age/Sex: 57/F Req #: [id number] Adm Physician: JON CRAVEN MD Ordered by: VITALY JOSEPH MD Report #: [id number] Location: [facility] Room/Bed: [place] [address] Procedure: [id number] DX/CHEST SINGLE (PORTABLE) Exam Date: 10/30/17 E xam Time: 0535 REPORT STATUS: Signed EXAM: CHEST SINGLE (PORTABLE), AP 1 view INDICATION: COPD COMPARISON: AP view of the chest October 30, 2017 at 0 009 hours FINDINGS: LINES/TUBES: None LUNGS: Vascular congestion/patricio ma and bibasilar atelectasis. PLEURA: Indeterminate for pleural effusions. HEART AND MEDIASTINUM: Stable enlargement of the cardiomediastinal silhoue tte. BONES AND SOFT TISSUES: No acute findings. IMPRESSION: No inte rval change. Signed by: Dr. Tami Subramanian M.D. on 10/30/2017 6:08 AM Dictated By: TAMI SUBRAMANIAN MD 7 Transcribed By: JAMSHID on 10/30/17607 COPY TO: VITALY JOSEPH MD CHEST SINGLE (PORTABLE) [place] [address] Patient Name: CORRINE HIGGINS MR #: [id number] : 1960 Age/Sex: 57/F Req #: [id number] Adm Physician: Ordered by: VITALY JOSEPH MD Report #: [id number] Location: ER Room/Bed: Procedure: [id number] DX/CHEST SINGLE (PORTABL E) Exam Date: 10/30/17 Exam Time: 0856 REPORT STATUS: Signed EXAM: CHEST SINGLE (PORTABLE), AP 1 view INDICATION: Low O2 sats, shortness of breath COMPARISON: AP view of the chest October 03, 2017 FINDINGS: LINES/TUBES: None LUNGS: Limited view of the lungs due to tech nique and body habitus. Increased vascular congestion and bibasilar atelectasi s. PLEURA: Indeterminate for pleural effusions. HEART AND MEDIASTINUM : Stable enlargement of the cardiomediastinal silhouette. BONES AND SOFT TI SSUES: No acute findings. IMPRESSION: Cardiomegaly, increased vascular c ongestion and bibasilar atelectasis. Signed by: Dr. Tami Subramanian M.D. on 10/30/2017 12:36 AM Dictated By: TAMI SUBRAMANIAN MD Electronicall y Signed By: TAMI SUBRAMANIAN MD on 10/30/1735 Transcribed By: JAMSHID on 10/30 COPY TO: VITALY JOSEPH MD CHEST SINGLE (PORTABLE) [place] [address] Patient Name: CORRINE HIGGINS MR #: [id number] : 05/1960 Age/Sex: 57/F Req #: [id number] Adm Physician: JON NG MD Ordered by: Sher Calvo PERSONNEL RECORDS CLERK Report #: [id number] Location : MED/SURG2 Room/Bed: [facility] Procedure: [id number] DX/C HEST SINGLE (PORTABLE) Exam Date: 10/03/17 Exam Time : 1240 REPORT STATUS: Signed PROCEDURE: A single AP view of the chest . COMPARISON: [facility], DX, CHEST SINGLE (PORTABLE), 09/14, 5:32. INDICATIONS: COPD, ACUTE RESPIRATORY DISTRESS, AFIB,ATRIAL FLUTTER FINDINGS: See impression. IMPRESSION: 1. right- sided PICC line is unchanged. 2. Slight interval decrease in bilateral pulmon sharif edema. Persistent enlarged cardiac silhouette, central pulmonary venous c ongestion and perihilar interstitial edema. No consolidation. 3. Likely sma ll right pleural effusion. Rajiv Burleson M.D. Dictated by: Greg Burleson M.D. on 10/03/2017 at 13:09 Electronically approved by: Brittaney Burleson M.D. on 10/03/2017 at 13:09 Dictated By: ALECIA BURLESON MD [address] [place] scribed By: OMAR on 10/03/17 1309 COPY TO: SHER CALVO NP CHEST SINGLE (PORTABLE) [place] [address] Patient Name: CORRINE HIGGINS MR #: [id number] : 1960 Age/Sex: 57/F Req #: [id number] Adm Physician: JON CRAVEN MD Ordered by: JON CRAVEN MD Report #: [id number] Location: ICU Room/Bed: [place] [address] Procedure: [id number] DX/CHES T SINGLE (PORTABLE) Exam Date: 09/27/17 Exam Time: 0 515 REPORT STATUS: Signed CHEST SINGLE (PORTABLE), 09/27/2017 5:00 AM Technique: CHEST SINGLE (PORTABLE) Comparison: 09/24/2017 Clinical history: Congestive heart failure Findings: Limited by overlying soft tissue att enuation and portable technique. Impression: 1. Lines/Tubes: Stable right PICC over the SVC. 2. Stable enlarged cardiac silhouette. 3. Persistent patricio ma with bibasilar atelectasis and small effusions. Signed by: Dr Sunny hammonds MD on 09/27/2017 6:22 AM Dictated By: SUNNY MUÑOZ MD Electronica lly Signed By: SUNNY MUÑOZ MD on 09/27/17 0622 Transcribed By: JAMSHID on 0 09/27/17 0622 COPY TO: JON CRAVEN MD ANA LUISA COMPLETE [place] [address] Patient Name : CORRINE HIGGINS MR #: [id number] : 1960 Age/Sex: 57/F Adm Physician : JON CRAVEN MD Admit Date : 09/18/17 Location : MED/SURG2 Room/Bed : 200-1 REPORT: Cardiology Report DATE OF STUDY: September 25, 2017 TRANSESOPHAGEAL ECHOCARDIOGRAM I NDICATIONS: Rule out thrombus prior to cardioversion. DESCRIPTION OF PROCE DURE: After informed consent, the patient was anesthetized by the anesthesio logist. Transesophageal probe was passed without any difficulty, and images were being obtained. However, the patient desaturated. The probe was remove d and the patient was bagged by the anesthesiologist. Saturations went up to the 90s, and the patient was reintubated. A limited transesophageal echocar diogram was performed to rule out thrombus. REPORT: This is a limited s tudy. 1. Left ventricle: Appears to be of normal size with preserved systo lic function. Overall estimated ejection fraction appears to be about 50%. 2. Left atrium: Appears to be dilated. No spontaneous echo contrast or th rombus is seen in the left atrium or left atrial appendage. 3. Right atrium : Appears to be mildly dilated. 4. Right ventricle: Appears to be normal. 5. Mitral valve is thickened without valve excursion. No vegetations are n oted on the mitral valve leaflets. Mild mitral regurgitation is noted. 6. Tr icuspid valve: Is poorly visualized. Trace tricuspid regurgitation is noted . No obvious vegetations are noted. 7. Aortic valve: The view seen appears to be thickened. CONCLUSIONS 1. Technically limited study. 2. Left ve ntricle is of normal size with preserved systolic function. 3. The overall es timated ejection fraction is about 50%. 4. Left atrium is dilated. 5. No s pontaneous echo contrast or thrombus is seen in the left atrium or left atria l appendage. 6. Mild mitral regurgitation. 7. Mild tricuspid regurgitati on is noted. 8. No intracardiac thrombi or vegetation noted. DD : 09/25/2017 15:33 Job#: [id number] RI Sign ature Date Dictated By: MADHAVI FLORES MD Transcribed By: SMEDS on 09/25/17 <Electronically signed by MADHAVI FLORES MD><<Signature on File>> 10/02/17 0816 COPY TO: CHEST SINGLE (PORTABLE) [place] [address] Patient Name: CORRINE HIGGINS MR #: [id number] : 1960 Age/Sex: 57/F Req #: [id number] Adm Physician: JON CRAVEN MD Ordered by: JON CRAVEN MD Report #: [id number] Location: ICU Room/Bed: ICU [facility] Procedure: [id number] DX/CHES T SINGLE (PORTABLE) Exam Date: 09/24/17 Exam Time: 0 535 REPORT STATUS: Signed EXAMINATION: CHEST SINGLE (PORTABLE) INDICATION: CHF. COMPARISON: None FINDINGS: TUBES and LINES: Right upper extremity PICC line with tip at the level of the mid SVC. LUNGS: Lungs are not well inflated. There are bibasilar atelectasis. There is mild prominence of the central pulmonary vasculature, consistent w ith pulmonary venous congestion. Mild interlobular septi thickening present. PLEURA: No pleural effusion or pneumothorax. HEART AND MEDIASTINUM: C ardiac size is severely enlarged. There are atherosclerotic calcifications wit hin the aorta. BONES AND SOFT TISSUES: No acute osseous lesion. Soft tiss ues are unremarkable. UPPER ABDOMEN: No free air under the diaphragm. IMPRESSION: Cardiogenic mild pulmonary edema. Signed by: Dr. Jazzy Bernard M.D. on 09/24/2017 7:32 AM Dictated By: LEX SCOTT MD 1 Transcribed By: JAMSHID on 09/24/17731 COPY TO: JON CRAVEN MD CHEST SINGLE (PORTABLE) [place] [address] Patient Name: CORRINE HIGGINS MR #: [id number] : 1960 Age/Sex: 57/F Req #: [id number] Adm Physician: JON CRAVEN MD Ordered by: YG CONTI MD Report #: [id number] Location: ICU Room/Bed: ICU [facility] Procedure: [id number] DX/ EST SINGLE (PORTABLE) Exam Date: 09/20/17 Exam Time: 0520 REPORT STATUS: Signed EXAMINATION: CHEST SINGLE (PORTABLE) INDICATION: Ventilated COMPARISON: 09/19/2017 FINDI NGS: TUBES and LINES: Endotracheal tube 3.8 cm above the john. NG tube is n ow in place in good position and right upper extremity PICC line is stable LUNGS: Lungs are not well inflated. There are bibasilar atelectasis. There is perihilar interstital opacities, consistent with interstitial edema. PLEURA: Small bilateral pleural effusion. HEART AND MEDIASTINUM: Cardiac size is severely enlarged. There are atherosclerotic calcifications within the aorta. BONES AND SOFT TISSUES: No acute osseous lesion. Soft tissues are unremarkable. UPPER ABDOMEN: No free air under the diaphragm. I MPRESSION: 1. Stable cardiomegaly with interstitial edema and small pleural effusions 2. Tubes and lines are in good position Signed by: Dr. Lex Bernard M.D. on 09/20/2017 6:50 AM Dictated By: LEX SCOTT MD E lectronically Signed By: LEX SCOTT MD on 09/20/1750 Transcribed B y: JAMSHID on 09/20/1750 COPY TO: YG CONTI MD CHEST SINGLE (PORTABLE) [place] [address] Patient Name: CORRINE HIGGINS MR #: [id number] : 1960 Age/Sex: 57/F Req #: [id number] Adm Physician: JON CRAVEN MD Ordered by: LEE LU MD Report #: [id number] Location: [facility] Room/Bed: [place] [address] Procedure: [id number] DX/ CHEST SINGLE (PORTABLE) Exam Date: 09/19/17 Exam Ciro e: 0550 REPORT STATUS: Signed PROCEDURE: A single AP view of the ches t. COMPARISON: The 09/19/2017 0217 hours INDICATIONS: INTUBATED FINDINGS: Lines/tubes: Stable position of an ET tube and a right-sided P ICC. Lungs: Unchanged pulmonary edema. Pleura: Small bilateral effus ions. Heart and mediastinum: The heart is enlarged. Bones: No acut e bony abnormality. IMPRESSION: Unchanged cardiomegaly with diffuse pulmonary edema. Chapin Noguera D.O. Dictated by: Edilson Landon on 09/19/2017 at 7:51 Electronically approved by: Chapin Noguera D.O. on 09/19/2017 at 7:51 Dictated By: CHAPIN Ragland Signed By: CHAPIN NOGUERA DO on 09/19/17750 Transcribed By: OMAR on 01/01 COPY TO: LEE LU MD CHEST XRAY LINE PLACEMENT [place] [address] Patient Name: CORRINE HIGGINS MR #: [id number] : 05/1960 Age/Sex: 57/F Req #: [id number] Adm Physician: JON NG MD Ordered by: JON CRAVEN MD Report #: [id number] Location: [facility] Room/Bed: [place] [address] Procedure: [id number] DX/CH EST XRAY LINE PLACEMENT Exam Date: 09/19/17 Exam Ciro e: 0225 REPORT STATUS: Signed EXAMINATION: CHEST XRAY LINE PLACEMENT INDICATION: PICC line placement COMPARISON: 09/18/2017 FINDINGS: TUBES and LINES: Interval placement of right upper extremity PICC line with tip at the level of the mid SVC. Endotracheal tube is stable in good position LUNGS: Lungs are not well inflated. There are bibasilar atelectasis. There is perihilar interstital opacities, consistent with inter stitial edema. PLEURA: No pleural effusion or pneumothorax. HEART AND MEDIASTINUM: Cardiac size is severely enlarged. There are atherosclerotic ca lcifications within the aorta. BONES AND SOFT TISSUES: No acute osseous le faheem. Soft tissues are unremarkable. UPPER ABDOMEN: No free air under th e diaphragm. IMPRESSION: 1. Cardiogenic pulmonary edema, stable. 2. Right PICC line in good position. Signed by: Dr. Lex Bernard M.D. o n 09/19/2017 2:46 AM Dictated By: LEX SCOTT MD Electronically S igned By: LEX SCOTT MD on 09/19/17245 Transcribed By: JAMSHID on 0 09/19/17245 COPY TO: JON CRAVEN MD CHEST SINGLE (PORTABLE) [place] [address] Patient Name: CORRINE HIGGINS MR #: [id number] : 05/1960 Age/Sex: 57/F Req #: [id number] Adm Physician: JON NG MD Ordered by: DIANNE URBANO MD Report #: [id number] Location: [facility] Room/Bed: [place] [address] Procedure: [id number] DX/CH EST SINGLE (PORTABLE) Exam Date: 09/18/17 Exam Time: 2245 REPORT STATUS: Signed EXAMINATION: CHEST SINGLE (PORTABLE) INDICATION: Post intubation COMPARISON: 09/18/2017 at 17 hours FINDINGS: TUBES and LINES: Endotracheal tube is visualized 1.9 cm above the john. LUNGS: Lungs are not well inflated. There are bibasilar atelectasis. There is perihilar interstitial opacities, consistent with in terstitial edema. PLEURA: Small right pleural effusion. HEART AND MED IASTINUM: Cardiac size is severely enlarged. BONES AND SOFT TISSUES: No acute osseous lesion. Soft tissues are unremarkable. UPPER ABDOMEN: N o free air under the diaphragm. IMPRESSION: Severe cardiogenic pulmo nary edema, slightly improved Signed by: Dr. Lex Bernard M.D. on 09/20/19 12:21 AM Dictated By: LEX SCOTT MD Transcribed By: JAMSHID on 09/19/1720 COPY TO: DIANNE URBANO MD CHEST SINGLE (PORTABLE) [place] [address] Patient Name: CORRINE HIGGINS MR #: [id number] : 05/1960 Age/Sex: 57/F Req #: [id number] Adm Physician: Ordered by: CHARLES JAMISON PERSONNEL RECORDS CLERK Report #: [id number] Location: ER Room/Bed: Procedure: [id number] DX/CHEST SINGLE (PORTABLE) Exa m Date: 09/18/17 Exam Time: 1700 REPORT STATUS: Signed PROCEDURE: A single AP view of the chest. COMPARISON: 08/20/17 INDICATIONS: SHORTNESS OF BREATH FINDINGS: Lines/tubes: None. Lungs: Limited by low lung volumes and body habitus. Pulmonary vascular congestion and moderate interstitial edema. Pleura: There is no visible p neumothorax. Small bilateral pleural effusions. Heart and mediastinum: Enlarged cardiomediastinal silhouette. Bones: No acute bony abnormality. IMPRESSION: Limited as above. Enlarged cardiomediastinal silhouet te, pulmonary vascular congestion, moderate interstitial edema, and small valent[place] ateral pleural effusions. Dictated by: Klaudia Lakhani M.D. on 09/19/19 at 17:32 Electronically approved by: Klaudia Lakhani M.D. on 09/18/2017 at 17:32 Dictated By: KLAUDIA LAKHANI MD 32 Transcribed By: OMAR on 09/18/171732 COPY TO: CHARLES JAMISON NP CHEST SINGLE (PORTABLE) [place] [address] Patient Name: CORRINE HIGGINS MR #: [id number] : 1960 Age/Sex: 57/F Req #: [id number] Adm Physician: JON NG MD Ordered by: Sher Calvo NP Report #: [id number] Location : MED/SURG2 Room/Bed: [facility] Procedure: [id number] DX/C HEST SINGLE (PORTABLE) Exam Date: 08/20/17 Exam Time : 0745 REPORT STATUS: Signed EXAMINATION: Chest, CHEST SINGLE (PORTABL E) INDICATION: Chest pain COMPARISON: Portable chest 08/13/2017 FINDINGS: LINES: Right internal jugular temporary central veno us catheter with tip projecting over the expected region of the superior vena cava. Heart: Normal cardiac silhouette. Vascular: The pulmonary vascu lature is within normal limits. Atherosclerotic calcifications of the aortic arch. Mediastinum: No mediastinal, hilar, or axillary mass or lymphadenopat hy. Lungs: No parenchymal mass. Airspace opacity in the left lung base. Pleura: Small left pleural effusion. No pneumothorax. Bones: No acute osseous abnormality. Degenerative changes of the thoracic spine. Soft ti ssues: Normal. Impression: Airspace opacity in the left lung base may r epresent a developing pneumonia. Small left pleural effusion. Signed by: Dr. Joel Raymond M.D. on 08/20/2017 8:55 AM Dictated By: JOEL RAYMOND MD E lectronically Signed By: JOEL RAYMOND MD on 08/20/17854 Transcribed By: BOB Mcmahon on 08/20/17854 COPY TO: SHER CALVO PERSONNEL RECORDS CLERK CHEST SINGLE (PORTABLE) [place] [address] Patient Name: CORRINE HIGGINS MR #: [id number] : 1960 Age/Sex: 57/F Req #: [id number] Adm Physician: JON CRAVEN MD Ordered by: Sher Calvo PERSONNEL RECORDS CLERK Report #: [id number] Location: MED/SURG2 Room/Bed: 202 Procedure: [id number] DX/C HEST SINGLE (PORTABLE) Exam Date: 08/17/17 Exam Time : 1340 REPORT STATUS: Signed PROCEDURE: A single AP view of the chest . COMPARISON: Chest radiograph 08/15/2017 INDICATIONS: RESPIRATORY FAIL URE FINDINGS: Lines/tubes: Previous right IJ central venous tip ove rlies the expected brachiocephalic confluence. Previous endotracheal tube currently not visualized. Lungs: Persistent retrocardiac opacity may refl ect atelectasis or pneumonia. Pleura: Likely small bilateral pleural ef fusions. No pneumothorax. Heart and mediastinum: Stable enlargement of the cardiac silhouette. Bones: No acute bony abnormality. IMPRESSION: Persistent retrocardiac opacity may reflect atelectasis or pneumonia. Dictated by: Robbie Blanco M.D. on 08/17/2017 at 14:25 Electronic ally approved by: Robbie Blanco M.D. on 08/17/2017 at 14:26 D ictated By: ROBBIE BLANCO MD 1426 COPY TO: SHER CALVO NP US CHEST (INCL MEDIASTINUM) [place] [address] Patient Name: CORRINE HIGGINS MR #: [id number] : 1960 Age/Sex: 57/F Req #: [id number] Adm Physician: JON CRAVEN MD Ordered by: MOHIT ACOSTA MD Report #: [id number] Location: ICU Room/Bed: ICU [facility] Procedure: [id number] US/US [facility] (INCL MEDIASTINUM) Exam Date: Exam Time: REPORT STATUS: Signed PROCEDURE: US CHEST (INCL MEDIASTINUM) COMPARISON: [facility], , CHEST SINGLE (PORTABLE), 08/15/2017, 7:49. IN DICATIONS: left effusion TECHNIQUE: Grayscale ultrasound chest bilaterally FINDINGS: No evidence of pleural effusion bilaterally. CON CLUSION: No conspicuous pleural effusion. Dictated by: Sujatha Kirk M.D. on 08/16/2017 at 11:55 Electronically approved by: Sujatha Kirk M.D. on 08/16/2017 at 11:55 Dictated By: SUJATHA BARAHONA MD 1155 Transcr ibed By: OMAR on 08/16/17 1155 COPY TO: MOHIT ACOSTA MD CHEST SINGLE (PORTABLE) [place] [address] Patient Name: CORRINE HIGGINS MR #: [id number] : 1960 Age/Sex: 57/F Req #: [id number] Adm Physician: JON CRAVEN MD Ordered by: MOHIT ACOSTA MD Report #: [id number] Location: ICU Room/Bed: ICU 1961 Procedure: [id number] DX/CHEST SINGLE (PORTABLE) Exam Date: 08/15/17 Exam Time: 074 0 REPORT STATUS: Signed PROCEDURE: A single AP view of the chest. COMPARISON: Portable chest 08/14/2017. INDICATIONS: Respiratory failur e, Intubated FINDINGS: Lines/tubes: Right internal jugular temporary central venous catheter with tip projecting over the expected region of the superior vena cava. Endotracheal catheter is present with the tip pro jecting over the expected region of the trachea, positioned 4 cm from the car markie. Enteric feeding catheter with tip extending below the inferior jeff n of the examination, likely within the gastric body. Lungs: Airspace o pacity in the left lung base. No parenchymal mass. Pleura: There is no pl eural effusion or pneumothorax. Heart and mediastinum: The heart and the mediastinum are unremarkable. Bones: Degenerative changes of the thoracic spine. IMPRESSION: Airspace opacity in the left lung base may repre sent atelectasis or developing pneumonia. Dictated by: Marcy Olmos on 08/15/2017 at 8:36 Electronically approved by: Joel Raymond M.D. on 08/15/2017 at 8:36 Dictated By: JOEL RAYMOND MD Electronically Si gned By: JOEL RAYMOND MD on 08/15/17835 Transcribed By: OMAR on 08/15/17835 COPY TO: MOHIT ACOSTA MD CHEST SINGLE (PORTABLE) [place] [address] Patient Name: CORRINE HIGGINS MR #: [id number] : 1960 Age/Sex: 57/F Req #: [id number] Adm Physician: JON NG MD Ordered by: MOHIT ACOSTA MD Report #: [id number] Location: [facility] Room/Bed: ICU 196-1 Procedure: [id number] DX/CHEST SINGLE (PORTABLE) Exam Date: 08/14/17 Exam Time: 091 0 REPORT STATUS: Signed PROCEDURE: A single AP view of the chest. COMPARISON: 08/13/17 INDICATIONS: INTUBATION FINDINGS: Lines/t ubes: Stable endotracheal and nasogastric tubes. Stable right internal jugula r central line. Lungs: Limited by low lung volumes and body habitus. Centr al vascular congestion and mild interstitial edema. Pleura: There is n o visible pneumothorax. Trace bilateral pleural effusions suspected. He art and mediastinum: Enlarged cardiomediastinal silhouette. Aorta is calcifie d and mildly tortuous. Bones: No acute bony abnormality. IMPRESSION : No significant interval change from prior exam. Central vascular dina estion and mild interstitial edema. Enlarged cardiac silhouette and suspected trace bilateral pleural effusions. Dictated by: Madhuri Valenzuela on 08/14/2017 at 11:29 Electronically approved by: Klaudia Lakhani M.D. on 08/14/2017 at 11:29 Dictated By: KLAUDIA Collins sue Signed By: KLAUDIA LAKHANI MD on 08/14/17 112 Transcribed By: OMAR on 112 COPY TO: MOHIT ACOSTA MD [facility]OMEN-[facility]) [place] [address] Patient Name: CORRINE HIGGINS MR #: [id number] : 05/1960 Age/Sex: 57/F Req #: [id number] Adm Physician: JON NG MD Ordered by: JON CRAVEN MD Report #: [id number] Location: ICU Room/Bed: ICU 196-1 Procedure: [id number] DX/DAVID LEIVA (ZEHRA) Exam Date: 08/13/17 Exam Time: 1630 REPORT STATUS: Signed Exam:Abdominal radiograph one view History:E nteric tube placement Comparison: None available Findings:See impressi on Impression: Nonobstructive bowel gas pattern. Enteric tube with the distal tip left hemiabdomen presumably in the lateral stomach body. Signed by: Dr. Jada Cordon M.D. on 08/13/2017 5:18 PM Dictated By: JADA CORDON MD 17 Transcribed By: JAMSHID on 08/13/171717 COPY TO: JON CRAVEN MD [facility] (PORTABLE) [place] [address] Patient Name: CORRINE HIGGINS MR #: [id number] : 1960 Age/Sex: 57/F Req #: [id number] Adm Physician: JON CRAVEN MD Ordered by: JON CRAVEN MD Report #: [id number] Location: ICU Room/Bed: ICU 196-1 Procedure: [id number] DX/CHES T SINGLE (PORTABLE) Exam Date: 08/13/17 Exam Time: 0 640 REPORT STATUS: Signed Examination: Single AP view of the chest. COMPARISON: August 12, 2017 INDICATION: Respiratory failure DI SCUSSION: Lines/tubes: Stable endotracheal tube, enteric tube, and right I J catheter. Lungs: Stable interstitial and alveolar consolidation bilatera lly. Pleura: Layering effusions. Heart and mediastinum: Heart size e nlarged. Bones and soft tissues: No acute bony abnormalities. IM PRESSION: 1. Cardiomegaly with stable pulmonary edema. Correlate for und erlying pneumonia. Signed by: Dr. Jada Cordon M.D. on 08/13/2017 7:32 AM Dictated By: JADA CORDON MD 1 Transcribed By: JAMSHID on 08/13/17731 COPY TO: JON CRAVEN MD CHEST SINGLE (PORTABLE) [place] [address] Patient Name: CORRINE HIGGINS MR #: [id number] : 1960 Age/Sex: 57/F Req #: [id number] Adm Physician: Ordered by: ALVARADO SOLOMON MD Report #: [id number] Location: ER Room/Bed: Procedure: [id number] DX/CHEST SINGLE (PORTABLE) E xam Date: 08/12/17 Exam Time: 1100 REPORT STATU S: Signed EXAMINATION: CHEST SINGLE (PORTABLE) INDICATION: COMPARISON: Chest radiograph from 08/12/2017 FINDINGS: AP view TUBES and LINES: Interval intubation with endotracheal tube tip located 2.1 cm above the john. Right IJ central venous catheter with tip now overlying the upper SVC, this appears higher when compared to most recent [facility] st radiograph. LUNGS: No lumbar levels. Worsening bilateral pulmonary patricio ma. Superimposed infection cannot be excluded. PLEURA: No pleural effu faheem or pneumothorax. HEART AND MEDIASTINUM: Marked enlargement of the car diac silhouette may be due to cardiomegaly and/or pericardial effusion. BONES AND SOFT TISSUES: No acute osseous lesion. Soft tissues are unremarka ble. UPPER ABDOMEN: No free air under the diaphragm. IMPRESSION: Interval intubation. Right IJ central venous catheter tip is higher in the SVC now. Worsening bilateral pulmonary edema. Superimposed infection cannot be excluded. Signed by: Dr. Jeannette Major M.D. on 08/12/2017 1 1:15 AM Dictated By: JEANNETTE MAJOR MD 1115 Transcribed By: JAMSHID on 1115 COPY TO: ALVARADO SOLOMON MD CHEST SINGLE (PORTABLE) [place] [address] Patient Name: CORRINE HIGGINS MR #: [id number] : 05/1960 Age/Sex: 57/F Req #: [id number] Adm Physician: Ordered by: ALVARADO SOLOMON MD Report #: [id number] Location: ER Room/Be d: Procedure: [id number] DX/CHEST SINGLE (PORTABLE) E xam Date: 08/12/17 Exam Time: 1001 REPORT STATU S: Signed EXAMINATION: CHEST SINGLE (PORTABLE) INDICATION: Shortne ss of breath, line placement COMPARISON: None FIND INGS: AP view TUBES and LINES: Right IJ central venous catheter with t ip overlying the cavoatrial junction. LUNGS: Low lung volumes. Bilatera l pulmonary edema. Bibasilar atelectasis. Both costophrenic angles not inclu ded on this exam. PLEURA: Unable to evaluate the small pleural effusions b ut no large pleural effusions seen. No pneumothorax [...] silhouette due to cardiomegaly and/or pericardial effusion. Bilat eral pulmonary edema. Signed by: Dr. Jeannette Major M.D. on 10:21 AM Dictated By: JEANNETTE MAJOR MD 1021 Transcribed By: JAMSHID on 08/12/17 1021 COPY TO: ALVARADO SOLOMON MD
[2019-12-05 11:09] LABS: BASOPHILS % 0.4 % (0.0-1.0); EOSINOPHILS # (AUTO) 0.3 (0.0-0.4); EOSINOPHILS % 2.8 % (0.0-6.0); HEMATOCRIT 31.6 % (34.2-44.1); HEMOGLOBIN 9.3 g/dL (12.0-16.0); MEAN CORPUSCULAR HEMOGLOBIN 27.8 pg (28-32); MEAN CORPUSCULAR HGB CONC 29.4 g/dL (31-35); MEAN CORPUSCULAR VOLUME 94.6 fL (81-99); MONOCYTES # (AUTO) 0.7 (0.2-0.8); MONOCYTES % 6.3 % (4.4-11.3); NEUTROPHILS # (AUTO) 8.4 (2.1-6.9); NEUTROPHILS % 80.1 % (38.7-80.0); PLATELET COUNT 175 x10e3/uL (140-360); RED BLOOD COUNT 3.34 x10e6/uL (3.6-5.1); RED CELL DISTRIBUTION WIDTH 14.6 % (11.7-14.4)
[2019-12-05 11:33] LABS: ALBUMIN 2.8 g/dL (3.5-5.0); ALBUMIN/GLOBULIN RATIO 0.8 (0.8-2.0); ANION GAP 12.6 mmol/L (8-16); CALCIUM 8.7 mg/dL (8.4-10.2); CREATININE, SERUM 1.84 mg/dL (0.57-1.11); POTASSIUM 4.6 mmol/L (3.5-5.1)
--- NOTE | 2019-12-05 11:42 | NUR ---
PT;S 02 SATS DROPPED DOWN TO MID 70'S. R.T. CALLED
--- NOTE | 2019-12-05 11:47 | NUR ---
PLACED ON BI-PAP FOR RESP DISTRES
[2019-12-05 11:56] LABS: CREATINE KINASE MB 2.5 ng/mL (0-5.0)
[2019-12-05] MEDS ORDERED: METHYLPREDNISOLONE SOD SUCC 125 MG/2ML VIAL IV ONE (12:00)
[2019-12-05] MEDS ORDERED: ALBUTEROL/IPRATROPIUM 3 ML NEB NEB ONE (12:00)
--- NOTE | 2019-12-05 12:01 | Diagnostic Imaging Report ---
X-ray chest AP portable History: Shortness of breath Comparison: 11/18/2019 Findings: Central airways unremarkable. Atherosclerotic aorta. Cardiomegaly. Possible mild interstitial edema. No pneumothorax. Small pleural effusions cannot be ruled out. Visualized skeletal structures unremarkable. Upper abdomen not well-visualized. Impression: Underpenetrated exam because of the patient's body habitus. Possibility of mild interstitial pulmonary edema is raised. Signed by: Eitan Shaw MD on 12/05/2019 11:57 AM
[2019-12-05] MEDS ORDERED: FUROSEMIDE INJ 10 MG/ML 4 ML VIAL IV ONE (12:30)
[2019-12-05 12:42] LABS: ABG HCO3 35 mmol/L (22-26); ABG PCO2 73 mmHg (35-45); ABG PH 7.29 (7.35-7.45)
--- NOTE | 2019-12-05 13:02 | Emergency Department Note ---
History of Present Illnes History of Present Illness Chief Complaint: Respiratory History of Present Illness This is a 59 year old female arrived to the ED with complaints of SOB over several days, worsening. Chief Complaint Comment SOB MORE THAN USUAL OVER LAST TWO DAYS. 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 PT AAOX4. ON OXYGEN. EX SMOKER AND COPD AND CHF. PT WITH BILATERAL LOWER EXTREMITY PITTING EDEMA AND STATES LEGS WILL "OOZE" PERIODICALLY. SEEN BY MD ON ARRIVAL AND TRIAGE. Historian: Patient Arrival Mode: Car Parking Ramp Attendant Required: No Onset (how long ago): day(s) Severity: moderate Onset quality: gradual Timing of current episode: intermittent Progression: worsening Context: recent illness Past Medical/Family History Physician Review I have reviewed the patient's past medical and family history. Any updates have been documented here. Past Medical History Recent Fever: No Clinical Suspicion of Infectio: No New/Unexplained Change in Ment: No Past Medical History: Hypertension, Diabetes, COPD, CHF, Asthma, Anxiety, Depression, GERD, Hyperlipedemia, Chronic Kidney Disease Other Medical History: hx of pneumonia MORBID OBESITY OXYGEN DEPENDANT Past Surgical History: Hysterectomy Other Surgery: tonsellectomy Cardiac ablation. Other Last Tetanus: UNK Review of Systems Review of Systems Constitutional: no symptoms EENTM: no symptoms Cardiovascular: no symptoms Respiratory: dyspnea, dyspnea on exertion Gastrointestinal: no symptoms Genitourinary: no symptoms Musculoskeletal: no symptoms Neurological: no symptoms Psychological: no symptoms Endocrine: no symptoms Hematological/Lymphatic: no symptoms Review of other systems All other systems reviewed and negative. Physical Exam Related Data Allergies: Coded Allergies: Penicillins (Verified Allergy, Severe, ITCHING, ANAPHYLAXIS, 08/12/17) Sulfa (Sulfonamide Antibiotics) (Verified Allergy, Intermediate, 08/12/17) naproxen (Verified Allergy, Intermediate, 08/12/17) rivaroxaban (Verified Adverse Reaction, Severe, 01/10/19) "Too thin blood", "was told it made me bleed", was advised to not ever take again. Triage Vital Signs Vital Signs Date Time Temp Pulse Resp B/P (MAP) Pulse Ox O2 Delivery O2 Flow Rate FiO2 12/05/19 10:10 98.7 109 24 159/87 97 Vital signs reviewed: Yes Physical Exam CONSTITUTIONAL Constitutional: obese, morbidly obese HENT HENT: normocephalic, atraumatic, oropharynx clear/moist, nose normal HENT L/R: left ext ear normal, right ext ear normal EYES Eyes: PERRL, conjunctivae normal NECK Neck: ROM normal PULMONARY Pulmonary: effort normal, respiratory distress, other (breath sounds reduced diffusely ) CARDIOVASCULAR Cardiovascular: regular rhythm, heart sounds normal, capillary refill normal, normal rate GASTROINTESTINAL Abdominal: soft, nontender, bowel sounds normal GENITOURINARY Genitourinary: exam deferred SKIN Skin: warm, dry MUSCULOSKELETAL Musculoskeletal: ROM normal NEUROLOGICAL Neurological: alert, oriented x 3, no gross motor or sensory deficits PSYCHOLOGICAL Psychological: mood/affect normal, judgement normal Results Laboratory Result Diagram: 12/05/19 1043 12/05/19 1043 Laboratory Laboratory Tests Test 12/05/19 11:59 12/05/19 10:43 Arterial Blood pH 7.29 (7.35-7.45) Arterial Blood Partial Pressure CO2 73 mmHg (35-45) Arterial Blood Partial Pressure O2 mmHg (80-105) Arterial Blood HCO3 35 mmol/L (22-26) Arterial Blood Oxygen Saturation % (95-98) Arterial Blood Base Excess 8.0 mmol/L (-2 - 3) FiO2 50 % White Blood Count 10.42 x10e3/uL (4.8-10.8) Red Blood Count 3.34 x10e6/uL (3.6-5.1) Hemoglobin 9.3 g/dL (12.0-16.0) Hematocrit 31.6 % (34.2-44.1) Mean Corpuscular Volume 94.6 fL (81-99) Mean Corpuscular Hemoglobin 27.8 pg (28-32) Mean Corpuscular Hemoglobin Concent 29.4 g/dL (31-35) Red Cell Distribution Width 14.6 % (11.7-14.4) Platelet Count 175 x10e3/uL (140-360) Neutrophils (%) (Auto) 80.1 % (38.7-80.0) Lymphocytes (%) (Auto) 10.0 % (18.0-39.1) Monocytes (%) (Auto) 6.3 % (4.4-11.3) Eosinophils (%) (Auto) 2.8 % (0.0-6.0) Basophils (%) (Auto) 0.4 % (0.0-1.0) Neutrophils # (Auto) 8.4 (2.1-6.9) Lymphocytes # (Auto) 1.0 (1.0-3.2) Monocytes # (Auto) 0.7 (0.2-0.8) Eosinophils # (Auto) 0.3 (0.0-0.4) Basophils # (Auto) 0.0 (0.0-0.1) Absolute Immature Granulocyte (auto 0.04 x10e3/uL (0-0.1) Sodium Level 138 mmol/L (136-145) Potassium Level 4.6 mmol/L (3.5-5.1) Chloride Level 99 mmol/L (98-107) Carbon Dioxide Level 31 mmol/L (22-29) Anion Gap 12.6 mmol/L (8-16) Blood Urea Nitrogen 43 mg/dL (7-26) Creatinine 1.84 mg/dL (0.57-1.11) Estimat Glomerular Filtration Rate 28 ML/MIN (60-) BUN/Creatinine Ratio 23 (6-25) Glucose Level 196 mg/dL (74-118) Calcium Level 8.7 mg/dL (8.4-10.2) Total Bilirubin 0.4 mg/dL (0.2-1.2) Aspartate Amino Transf (AST/SGOT) 11 IU/L (5-34) Alanine Aminotransferase (ALT/SGPT) 12 IU/L (0-55) Alkaline Phosphatase 100 IU/L (40-150) Creatine Kinase 64 IU/L (29-168) Creatine Kinase MB 2.50 ng/mL (0-5.0) Troponin I 0.026 ng/mL (0-0.300) B-Type Natriuretic Peptide 303.7 pg/mL (0-100) Total Protein 6.3 g/dL (6.5-8.1) Albumin 2.8 g/dL (3.5-5.0) Globulin 3.5 g/dL (2.3-3.5) Albumin/Globulin Ratio 0.8 (0.8-2.0) Laboratory Tests Test 12/05/19 11:59 12/05/19 10:43 Arterial Blood pH 7.29 (7.35-7.45) Arterial Blood Partial Pressure CO2 73 mmHg (35-45) Arterial Blood Partial Pressure O2 mmHg (80-105) Arterial Blood HCO3 35 mmol/L (22-26) Arterial Blood Oxygen Saturation % (95-98) Arterial Blood Base Excess 8.0 mmol/L (-2 - 3) FiO2 50 % White Blood Count 10.42 x10e3/uL (4.8-10.8) Red Blood Count 3.34 x10e6/uL (3.6-5.1) Hemoglobin 9.3 g/dL (12.0-16.0) Hematocrit 31.6 % (34.2-44.1) Mean Corpuscular Volume 94.6 fL (81-99) Mean Corpuscular Hemoglobin 27.8 pg (28-32) Mean Corpuscular Hemoglobin Concent 29.4 g/dL (31-35) Red Cell Distribution Width 14.6 % (11.7-14.4) Platelet Count 175 x10e3/uL (140-360) Neutrophils (%) (Auto) 80.1 % (38.7-80.0) Lymphocytes (%) (Auto) 10.0 % (18.0-39.1) Monocytes (%) (Auto) 6.3 % (4.4-11.3) Eosinophils (%) (Auto) 2.8 % (0.0-6.0) Basophils (%) (Auto) 0.4 % (0.0-1.0) Neutrophils # (Auto) 8.4 (2.1-6.9) Lymphocytes # (Auto) 1.0 (1.0-3.2) Monocytes # (Auto) 0.7 (0.2-0.8) Eosinophils # (Auto) 0.3 (0.0-0.4) Basophils # (Auto) 0.0 (0.0-0.1) Absolute Immature Granulocyte (auto 0.04 x10e3/uL (0-0.1) Sodium Level 138 mmol/L (136-145) Potassium Level 4.6 mmol/L (3.5-5.1) Chloride Level 99 mmol/L (98-107) Carbon Dioxide Level 31 mmol/L (22-29) Anion Gap 12.6 mmol/L (8-16) Blood Urea Nitrogen 43 mg/dL (7-26) Creatinine 1.84 mg/dL (0.57-1.11) Estimat Glomerular Filtration Rate 28 ML/MIN (60-) BUN/Creatinine Ratio 23 (6-25) Glucose Level 196 mg/dL (74-118) Calcium Level 8.7 mg/dL (8.4-10.2) Total Bilirubin 0.4 mg/dL (0.2-1.2) Aspartate Amino Transf (AST/SGOT) 11 IU/L (5-34) Alanine Aminotransferase (ALT/SGPT) 12 IU/L (0-55) Alkaline Phosphatase 100 IU/L (40-150) Creatine Kinase 64 IU/L (29-168) Creatine Kinase MB 2.50 ng/mL (0-5.0) Troponin I 0.026 ng/mL (0-0.300) B-Type Natriuretic Peptide 303.7 pg/mL (0-100) Total Protein 6.3 g/dL (6.5-8.1) Albumin 2.8 g/dL (3.5-5.0) Globulin 3.5 g/dL (2.3-3.5) Albumin/Globulin Ratio 0.8 (0.8-2.0) Lab results reviewed: Yes Imaging Imaging results reviewed: Yes Impressions Findings: Central airways unremarkable. Atherosclerotic aorta. Cardiomegaly. Possible mild interstitial edema. No pneumothorax. Small pleural effusions cannot be ruled out. Visualized skeletal structures unremarkable. Upper abdomen not well-visualized. Impression: Underpenetrated exam because of the patient's body habitus. Possibility of mild interstitial pulmonary edema is raised. Procedures 12 Lead ECG Interpretation Parking Ramp Attendant: Interpreted by ED physician Date: December 05, 2019 Time: 14:09 Prior OPTICAL LATHE OPERATOR tracings: reviewed Rhythm: sinus tachycardia Rate: normal QRS axis: normal ST segments normal: Yes T waves normal: Yes Clinical Impression: normal ECG ABG Interpretation Interpretation: respiratory acidosis Critical Care Time Total Critical Care Time (min): 45 Critical care time exclusive o: separately billable procedures Critcal care necessary due to: respiratory failure Subsequent provider I assumed direction of critical care for this patient from another provider of my specialty. Assessment & Plan Reassessment Reassessment time: 11:00 Reassessment 59y f presented to ed c/o SOB MORE THAN USUAL OVER LAST TWO DAYS. 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 PT AAOX4. ON OXYGEN. EX SMOKER AND COPD AND CHF. PT WITH BILATERAL LOWER EXTREMITY PITTING EDEMA AND STATES LEGS WILL "OOZE" PERIODICALLY. SEEN BY MD ON ARRIVAL AND TRIAGE. Assessment & Plan Final Impression: (1) COPD (chronic obstructive pulmonary disease) (2) Respiratory distress (3) Hypoxia (4) Respiratory failure with hypoxia and hypercapnia (5) CHF (congestive heart failure) Assessment & Plan Pt PLACED ON BIPAP on arrival for acute respiratory distress, no signs of infection at time of admission cbc, cmp, cardiac markers CXR Last Vital Signs Date Time Temp Pulse Resp B/P (MAP) Pulse Ox O2 Delivery O2 Flow Rate FiO2 12/05/19 11:34 104 20 122/76 96 12/05/19 10:10 98.7 Home Meds Active Scripts Prednisone (PREDNISONE) 20 Mg Tab, 10 MG PO DAILY for 10 Days, TAB TAKE 20MG PO DAILY X3 DAYS THEN TAKE 10MG PO DAILY X3 DAYS THEN TAKE 5MG PO DAILY X4 DAYS THEN STOP Prov:SHER CALVO UMBRELLA REPAIRER 11/20/19 Bumetanide (BUMETANIDE) 1 Mg Tablet, 2 MG PO DAILY, #30 TAB Prov:SHER CALVO NP 11/20/19 Guaifenesin/Dextromethorphan (MUCINEX DM ER 600-30 MG TABLET) 1 Each Tab.er.12h, 1 EACH PO BID, #20 Prov:SHER CALVO NP 11/20/19 Levofloxacin (LEVAQUIN) 500 Mg Tablet, 500 MG PO DAILY for 4 Days Prov:SHER CALVO NP 11/20/19 Metoclopramide Hcl (METOCLOPRAMIDE HCL) 10 Mg Tablet, 10 MG PO ACHS for 14 Days, #60 TAB 0 Refills Prov:CONSUELO MCKEON NP 10/17/19 [Albuterol/Ipratropium Nebulize] 3 ML INHA No Conflict Check, 3 ML NEB RQ4H for 14 Days, #90 UNITS 0 Refills Prov:CONSUELO MCKEON NP 10/17/19 [Calcium Carbonate] 500 MG TAB No Conflict Check, 500 MG PO BID for 30 Days Prov:SHER CALVO NP 01/14/19 Pantoprazole Sodium* (PROTONIX) 40 Mg Tablet.dr, 40 MG PO ACB for 30 Days, TAB Prov:SHER CALVO NP 01/14/19 Multivit With Calcium,Iron,Min (MULTIPLE VITAMINS FOR WOMEN) 1 Each Tablet, 1 TAB PO DAILY for 30 Days Prov:SHER CALVO UMBRELLA REPAIRER 09/29/17 Reported Medications Estrogens Conjugated (PREMARIN) 0.625 Mg Tab, 0.625 MG PO DAILY, #30 TAB 10/08/19 Atorvastatin Calcium (ATORVASTATIN CALCIUM) 20 Mg Tablet, 40 MG PO HS, #30 TAB 10/08/19 Sertraline Hcl (ZOLOFT) 50 Mg Tablet, 100 MG PO HS, #30 TAB 10/08/19 Theophylline Anhydrous (THEOPHYLLINE ANHYDROUS) 200 Mg Tab.er.12h, 300 MG PO DAILY, #30 TAB 10/08/19 Apixaban (Eliquis) 5 Mg Tablet, 5 MG PO BID 10/08/19 [NystatinCream] No Conflict Check, 1 APPLIC TOP BID 10/08/19 Metoprolol Tartrate (METOPROLOL TARTRATE) 25 Mg Tablet, 25 MG PO DAILY, TAB 10/08/19 Hydrocodone Bit/Acetaminophen (NORCO 10-325 TABLET) 1 Each Tablet, 1 TAB PO TID PRN for MODERATE PAIN (4-6) 10/08/19 [EpiPen] No Conflict Check, 1 UNIT IM PRN PRN for ALLERGY 10/08/19 Diazepam (VALIUM) 5 Mg Tablet, 5 MG PO BID PRN for ANXIETY 10/08/19 Insulin Detemir (LEVEMIR) 100 Unit/1 Ml Vial, 15 UNITS SC BID 09/19/17 Ezetimibe (ZETIA) 10 Mg Tablet, 10 MG PO DAILY, #30 TAB 09/19/17 Fluticasone/Salmeterol (ADVAIR 250-50 DISKUS) 1 Each Disk.w.dev, 1 DOSE INH DAILY 09/19/17 Sumatriptan Succinate (IMITREX) 25 Mg Tablet, 25 MG PO DAILY PRN for HEADACHE 09/19/17 Tiotropium [place] (SPIRIVA) 18 Mcg Cap.w.dev, 18 MCG INH DAILY, BOTTLE 09/19/17 [Duoneb] No Conflict Check, 3 ML NEB QID PRN for SHORTNESS OF BREATH 09/19/17 Medications in the ED Aspirin 81 mg PRN ONCE PO ; Start 12/05/19 at 10:15; Stop 12/05/19 at 10:41; Status DC Methylprednisolone Sodium Succinate 125 mg ONCE ONCE IV ; Start 12/05/19 at 12:00; Stop 12/05/19 at 12:02; Status DC Albuterol/ Ipratropium 9 ml ONCE ONCE NEB ; Start 12/05/19 at 12:00; Stop at 12:01; Status DC Furosemide 40 mg ONCE ONCE IV ; Start 12/05/19 at 12:30; Stop 12/05/19 at 12:33; Status DC NOLAN KNOX DO December 05, 2019 13:02
[2019-12-05 14:16] LABS: HYPOCHROMASIA SLIGHT; PLATELET ESTIMATE ADEQUATE; PLATELET MORPHOLOGY COMMENT NORMAL; RBC MORPHOLOGY COMMENT NORMAL
--- NOTE | 2019-12-05 14:16 | NUR ---
[facility] called for acls transport.
--- NOTE | 2019-12-05 14:18 | NUR ---
TX INITATED FOR DOWNTOWN
[2019-12-05 15:24] LABS: BILIRUBIN,URINE NEGATIVE (NEGATIVE); CLARITY,URINE SL CLOUDY (CLEAR); COLOR,URINE YELLOW (YELLOW); KETONES,URINE NEGATIVE (NEGATIVE); LEUKOCYTE ESTERASE ,URINE NEGATIVE (NEGATIVE); NITRITE,URINE NEGATIVE (NEGATIVE); PROTEIN,URINE DIPSTICK 2+ (NEGATIVE); URINE UROBILINOGEN 0.2 mg/dL (0.2 - 1)
[2019-12-05 15:33] LABS: AMORPHOUS SEDIMENT,URINE MANY (FEW); BACTERIA,URINE MODERATE /HPF; EPITHELIAL CELLS,URINE RARE /LPF
--- NOTE | 2019-12-05 16:25 | NUR ---
report called to lula bardales for the ICU [place]
== END 2019-12-05 16:40 | disposition short-term general hospital (02) ==
LOC: ER 09:58
DX: J96.92 Respiratory failure, unspecified with hypercapnia (principal); J44.9 Chronic obstructive pulmonary disease, unspecified; R60.9 Edema, unspecified; E11.65 Type 2 diabetes mellitus with hyperglycemia; I50.9 Heart failure, unspecified; I10 Essential (primary) hypertension; E78.5 Hyperlipidemia, unspecified; E66.01 Morbid (severe) obesity due to excess calories; Z99.81 Dependence on supplemental oxygen
CPT/HCPCS: 36415; 36600; 71045; 80053; 81001; 82550; 82553; 82805; 83880; 84484; 85025; 87635; 93005; 94640; 94660; 99285; J1940; J2930